=== PATIENT | male | born 1960 | race Asian ===

== ENCOUNTER 2016-06-29 00:34 | Emergency (ER) | payer OTHER, MEDICAID ==
[2016-06-29 00:43] VITALS: TEMP 97.5
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
[2016-06-29 01:47] LABS: ADD DIFF? NO; ADD MORPH? NO; ADD SCAN? NO; ATYPICAL LYMPHOCYTE FLAG 10 (0-99); FRAGMENT RBC FLAG 0 (0-99); HEMOGLOBIN 15.4 g/dL (13.7-17.5); LEFT SHIFT FLG 0 (0-99); LIPEMIA HEMOLYSIS FLAG 90 (0-99); MEAN CELL HEMOGLOBIN 32.2 pg (27.9-34.1); MEAN CELL VOLUME 92.1 fL (81.5-99.8); MEAN PLATELET VOLUME 10.2 fL (8.7-11.7); PLATELET CLUMPS FLAG 0 (0-99); PLATELET COUNT 170 10^3/uL (150-400); RED BLOOD CELL COUNT 4.78 10^6/uL (4.40-6.38); RED CELL DISTRIBUTION WIDTH 13.2 % (11.5-15.2)
[2016-06-29 01:58] LABS: ALANINE AMINOTRANSFERASE 39 IU/L (21-72); ALBUMIN 4.2 g/dL (3.5-5.0); ALKALINE PHOSPHATASE 218 IU/L (38-126); ANION GAP 12 mEq/L (8-16); ASPARTATE AMINOTRANSFERASE 24 IU/L (17-59); BILIRUBIN,TOTAL 0.5 mg/dL (0.1-1.4); CALCIUM 9.4 mg/dL (8.5-10.4); CARBON DIOXIDE 26 mEq/l (22-31); CHLORIDE 97 mEq/L (97-110); CREATININE 0.7 mg/dL (0.7-1.3); GLOMERULAR FILTRATION RATE > 60; GLUCOSE 95 mg/dL (70-100); POTASSIUM 4.5 mEq/L (3.5-5.2); SODIUM 135 mEq/L (134-144); TOTAL PROTEIN 8.9 g/dL (6.3-8.2)
[2016-06-29 02:35] LABS: COLOR YELLOW; LEUKOCYTE ESTERASE,URINE 3+ (NEGATIVE); NITRITE,URINE NEGATIVE (NEGATIVE)
[2016-06-29 02:48] LABS: BACTERIA 3+ /hpf (NONE SEEN); MUCUS TRACE /lpf (NONE-1+); RBC,URINE 15-25 /hpf (0-3); WBC,URINE 50-182 /hpf (0-3)
[2016-06-29 03:37] VITALS: BP 114/82; PULSE 75; RESP 20; O2SAT 96
--- NOTE | 2016-06-29 08:12 | DX ---
Portable Chest, Single View June 29, 2016 0131 Hours Indication: Low temperature. Comparison: March 16, 2016 Findings: The tracheostomy tube, left anterior chest wall port with tip in right atrium, mild cardiom egaly, and diffuse mild peribronchial thickening are all unchanged. The lungs are otherwise clear. No new consolidation, edema, or effusion. Impression: No acute process.
== END 2016-06-29 04:56 | disposition home or self-care (01) ==
LOC: EDBD → EDUNIT#
DX: T68.XXXA Hypothermia, initial encounter (principal); R94.6 Abnormal results of thyroid function studies; E11.9 Type 2 diabetes mellitus without complications; I10 Essential (primary) hypertension; Z91.040 Latex allergy status; Z79.4 Long term (current) use of insulin; X31.XXXA Exposure to excessive natural cold, initial encounter

== ENCOUNTER 2016-07-10 16:09 | Emergency (ER) | payer OTHER, MEDICAID ==
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
--- NOTE | 2016-07-10 17:03 | DX ---
Portable Chest, Single View 16:32 p.m. Hours Indication: Possible sepsis. Chronic indwelling tracheostomy. Comparison: Portable chest dated June 29, 2016 Findings: The tracheostomy tube, left anterior chest wall port, gastrostomy tube, and radiopaque wire or catheter overlying the medial right clavicle are all unchanged. The lungs are hypoventilated with chronic diffuse peribronchial thickening and minimal bibasilar atel ectasis. No new airspace consolidation or effusion. Heart size upper normal for degree of inspiration . Impression: 1. No evidence of aspiration, pneumonia, or effusion. 2. Chronic bronchitis and configuration of tracheostomy tube are unchanged.
[2016-07-10 17:18] LABS: % IMMATURE GRANULYOCYTES 0.1 % (0.0-1.1); ABSOLUTE IMMATURE GRANULOCYTES 0.01 10^3/uL (0.00-0.10); ADD DIFF? NO; ADD MORPH? NO; ADD SCAN? NO; ATYPICAL LYMPHOCYTE FLAG 0 (0-99); FRAGMENT RBC FLAG 0 (0-99); HEMOGLOBIN 14.2 g/dL (13.7-17.5); LEFT SHIFT FLG 0 (0-99); LIPEMIA HEMOLYSIS FLAG 90 (0-99); MEAN CELL HEMOGLOBIN 31.4 pg (27.9-34.1); MEAN CELL HEMOGLOBIN CONCENTR. 34.6 g/dL (32.4-36.7); MEAN CELL VOLUME 90.7 fL (81.5-99.8); MEAN PLATELET VOLUME 9.6 fL (8.7-11.7); PLATELET CLUMPS FLAG 20 (0-99); PLATELET COUNT 210 10^3/uL (150-400); RED BLOOD CELL COUNT 4.52 10^6/uL (4.40-6.38); RED CELL DISTRIBUTION WIDTH 13.2 % (11.5-15.2)
[2016-07-10 17:32] LABS: INR 1.07 (0.83-1.16); PROTIME(PATIENT) 13.8 SEC (12.0-15.0)
[2016-07-10 17:33] LABS: ALANINE AMINOTRANSFERASE 39 IU/L (21-72); ALBUMIN 3.8 g/dL (3.5-5.0); ALKALINE PHOSPHATASE 231 IU/L (38-126); ANION GAP 12 mEq/L (8-16); APTT 33.3 SEC (23.0-38.0); ASPARTATE AMINOTRANSFERASE 27 IU/L (17-59); BILIRUBIN,TOTAL 0.6 mg/dL (0.1-1.4); BILIRUBIN-CONJUGATED 0.4 mg/dL (0.0-0.5); BILIRUBIN-UNCONJUGATED 0.2 mg/dL (0.0-1.1); CALCIUM 9.1 mg/dL (8.5-10.4); CARBON DIOXIDE 27 mEq/l (22-31); CHLORIDE 97 mEq/L (97-110); GLOMERULAR FILTRATION RATE > 60; GLUCOSE 107 mg/dL (70-100); POTASSIUM 3.9 mEq/L (3.5-5.2); SODIUM 136 mEq/L (134-144); TOTAL PROTEIN 8.2 g/dL (6.3-8.2)
[2016-07-10] MEDS ORDERED: NS 1,000 ML IV ONE (17:35)
[2016-07-10 17:38] LABS: COLOR YELLOW; LEUKOCYTE ESTERASE,URINE 3+ (NEGATIVE); NITRITE,URINE NEGATIVE (NEGATIVE)
[2016-07-10 17:45] LABS: AMORPHOUS PRESENT /hpf (NONE-1+); BACTERIA 3+ /hpf (NONE SEEN); MUCUS 2+ /lpf (NONE-1+); RBC,URINE 50-182 /hpf (0-3); WBC,URINE 50-182 /hpf (0-3)
[2016-07-10] MEDS ORDERED: ACETAMINOPHEN 160 MG/5 ML UDCUP ONE ×2 (18:59→19:01)
[2016-07-10] MEDS ORDERED: ACETAMINOPHEN 160 MG/5 ML UDCUP TUBE ONE (19:00)
[2016-07-10 19:14] VITALS: TEMP 101.1
[2016-07-10 19:36] VITALS: BP 112/80; PULSE 112; RESP 22; O2SAT 96
== END 2016-07-10 20:12 | disposition still patient (30) ==
LOC: EDUNIT#
DX: J10.1 Influenza due to other identified influenza virus with other respiratory manifestations (principal); E11.9 Type 2 diabetes mellitus without complications; I10 Essential (primary) hypertension; Z91.040 Latex allergy status; Z79.4 Long term (current) use of insulin
CPT/HCPCS: 71010; 96361; 96365; 99284; J1956

== ENCOUNTER 2016-07-13 10:14 | Emergency (ER) | payer OTHER, MEDICAID ==
[2016-07-13] MEDS ORDERED: NS 1,000 ML BAG *FOR SEPSIS ORDER SET ONLY IV ONE (10:21)
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
[2016-07-13] MEDS ORDERED: MEROPENEM 1 GM in NS 100 ML IV ONE (10:32)
--- NOTE | 2016-07-13 10:57 | CPEKG ---
Heart Rate: 137 RR Interval: 438 P-R Interval: 152 QRSD Interval: 70 QT Interval: 284 QTC Interval: 429 P Sheridan: 38 QRS Sheridan: 176 T Wave Sheridan: 7 EKG Severity - ABNORMAL ECG - EKG Impression: SINUS TACHYCARDIA EKG Impression: LEFT POSTERIOR FASCICULAR BLOCK EKG Impression: LOW VOLTAGE IN FRONTAL LEADS EKG Impression: sinus tachycardia, similar to previous Electronically Signed By: Frank Garcia 13-Jul-2016 10:58:55
[2016-07-13] MEDS ORDERED: ACETAMINOPHEN 325 MG SUPP PR ONE ×2 (10:58→11:01)
[2016-07-13 11:05] LABS: COLOR YELLOW; LEUKOCYTE ESTERASE,URINE 2+ (NEGATIVE); NITRITE,URINE NEGATIVE (NEGATIVE)
[2016-07-13 11:10] LABS: APTT 32.8 SEC (23.0-38.0); INR 1.24 (0.83-1.16); PROTIME(PATIENT) 15.6 SEC (12.0-15.0)
[2016-07-13 11:16] LABS: BACTERIA 4+ /hpf (NONE SEEN); RBC,URINE 50-182 /hpf (0-3); WBC,URINE 50-182 /hpf (0-3)
[2016-07-13 11:22] LABS: ANION GAP 13 mEq/L (8-16); BILIRUBIN,TOTAL 1.2 mg/dL (0.1-1.4); CALCIUM 8.1 mg/dL (8.5-10.4); CARBON DIOXIDE 22 mEq/l (22-31); CHLORIDE 107 mEq/L (97-110); CREATININE 1.3 mg/dL (0.7-1.3); GLOMERULAR FILTRATION RATE 57; GLUCOSE 149 mg/dL (70-100); POTASSIUM 3.6 mEq/L (3.5-5.2); SODIUM 142 mEq/L (134-144)
[2016-07-13 11:26] LABS: % IMMATURE GRANULYOCYTES 0.2 % (0.0-1.1); ABSOLUTE IMMATURE GRANULOCYTES 0.01 10^3/uL (0.00-0.10); ADD DIFF? NO; ADD MORPH? NO; ADD SCAN? NO; ATYPICAL LYMPHOCYTE FLAG 60 (0-99); FRAGMENT RBC FLAG 0 (0-99); HEMATOCRIT 39.4 % (40.0-51.0); HEMOGLOBIN 13.3 g/dL (13.7-17.5); LEFT SHIFT FLG 0 (0-99); LIPEMIA HEMOLYSIS FLAG 90 (0-99); MEAN CELL HEMOGLOBIN 31.9 pg (27.9-34.1); MEAN CELL HEMOGLOBIN CONCENTR. 33.8 g/dL (32.4-36.7); MEAN CELL VOLUME 94.5 fL (81.5-99.8); MEAN PLATELET VOLUME 9.9 fL (8.7-11.7); PLATELET CLUMPS FLAG 0 (0-99); PLATELET COUNT 196 10^3/uL (150-400); RED BLOOD CELL COUNT 4.17 10^6/uL (4.40-6.38); RED CELL DISTRIBUTION WIDTH 13.3 % (11.5-15.2)
--- NOTE | 2016-07-13 11:31 | DX ---
Portable Chest, Single View 11:17 AM Indication: Chest pain Comparison: Portable chest dated July 10, 2016 Findings: The tracheostomy tube, left anterior chest wall port, and radiodense wire versus catheter o verlying the right clavicle are unchanged. Minimal increase patchy consolidation has developed at the left base. Hypoventilation, diffuse modera te peribronchial thickening and linear atelectasis in the right base are otherwise unchanged. No effu aparna. No pneumoperitoneum. Heart size upper normal for degree of inspiration and technique. Impression: 1. New left basilar opacities may represent atelectasis, aspiration or early pneumonia. 2. Otherwise no change since 3 days prior.
[2016-07-13] MEDS ORDERED: NS 1,000 ML IV ONE (11:51)
[2016-07-13 12:31] VITALS: BP 97/65; PULSE 105; RESP 30; TEMP 100.6; O2SAT 98
[2016-07-13 13:05] LABS: ANION GAP 8 mEq/L (8-16); CALCIUM 6.8 mg/dL (8.5-10.4); CARBON DIOXIDE 21 mEq/l (22-31); CHLORIDE 113 mEq/L (97-110); CREATININE 1.1 mg/dL (0.7-1.3); GLOMERULAR FILTRATION RATE > 60; GLUCOSE 154 mg/dL (70-100); POTASSIUM 3.4 mEq/L (3.5-5.2); SODIUM 142 mEq/L (134-144)
== END 2016-07-13 13:36 | disposition short-term general hospital (02) ==
LOC: EDUNIT#
DX: A41.9 Sepsis, unspecified organism (principal); R65.20 Severe sepsis without septic shock; J18.1 Lobar pneumonia, unspecified organism; J10.1 Influenza due to other identified influenza virus with other respiratory manifestations; R50.81 Fever presenting with conditions classified elsewhere; I10 Essential (primary) hypertension; E11.9 Type 2 diabetes mellitus without complications; Z91.040 Latex allergy status; Z79.4 Long term (current) use of insulin
CPT/HCPCS: 71010; 93005; 96361; 96365; 99291; J2185; 82947-QW

== ENCOUNTER 2016-07-21 06:20 | Emergency (ER) | payer OTHER, MEDICAID ==
[2016-07-21 08:02] VITALS: RESP 16
[2016-07-21 08:41] LABS: % IMMATURE GRANULYOCYTES 0.5 % (0.0-1.1); ABSOLUTE IMMATURE GRANULOCYTES 0.03 10^3/uL (0.00-0.10); ADD DIFF? NO; ADD MORPH? NO; ADD SCAN? NO; ATYPICAL LYMPHOCYTE FLAG 20 (0-99); FRAGMENT RBC FLAG 0 (0-99); HEMATOCRIT 38.8 % (40.0-51.0); HEMOGLOBIN 13.1 g/dL (13.7-17.5); LEFT SHIFT FLG 0 (0-99); LIPEMIA HEMOLYSIS FLAG 90 (0-99); MEAN CELL HEMOGLOBIN 31.6 pg (27.9-34.1); MEAN CELL HEMOGLOBIN CONCENTR. 33.8 g/dL (32.4-36.7); MEAN CELL VOLUME 93.7 fL (81.5-99.8); MEAN PLATELET VOLUME 9.8 fL (8.7-11.7); PLATELET CLUMPS FLAG 0 (0-99); PLATELET COUNT 273 10^3/uL (150-400); RED BLOOD CELL COUNT 4.14 10^6/uL (4.40-6.38); RED CELL DISTRIBUTION WIDTH 13.7 % (11.5-15.2)
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
[2016-07-21 08:48] LABS: INR 1.02 (0.83-1.16); PROTIME(PATIENT) 13.3 SEC (12.0-15.0)
[2016-07-21 08:49] LABS: APTT 31.8 SEC (23.0-38.0)
[2016-07-21 09:00] LABS: ANION GAP 10 mEq/L (8-16); BILIRUBIN,TOTAL 0.5 mg/dL (0.1-1.4); CALCIUM 9.1 mg/dL (8.5-10.4); CARBON DIOXIDE 25 mEq/l (22-31); CHLORIDE 104 mEq/L (97-110); CREATININE 0.8 mg/dL (0.7-1.3); GLOMERULAR FILTRATION RATE > 60; GLUCOSE 109 mg/dL (70-100); POTASSIUM 4.5 mEq/L (3.5-5.2); SODIUM 139 mEq/L (134-144)
[2016-07-21] MEDS ORDERED: IPRATROPIUM/ALBUTEROL 3 ML DEYVIAL IH ONE (10:23)
[2016-07-21 11:20] VITALS: BP 120/76; PULSE 81; TEMP 98.2; O2SAT 92
== END 2016-07-21 12:08 | disposition home or self-care (01) ==
LOC: EDUNIT#
DX: R09.02 Hypoxemia (principal); I10 Essential (primary) hypertension; E11.9 Type 2 diabetes mellitus without complications; Z91.040 Latex allergy status; Z79.4 Long term (current) use of insulin

== ENCOUNTER 2016-08-10 00:13 | Inpatient (IN) | payer OTHER, MEDICAID ==
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
[2016-08-10] MEDS ORDERED: NS 1,000 ML IV ONE (01:11)
[2016-08-10 01:16] LABS: % IMMATURE GRANULYOCYTES 0.2 % (0.0-1.1); ABSOLUTE IMMATURE GRANULOCYTES 0.02 10^3/uL (0.00-0.10); ADD DIFF? NO; ADD MORPH? NO; ADD SCAN? NO; ATYPICAL LYMPHOCYTE FLAG 10 (0-99); FRAGMENT RBC FLAG 0 (0-99); HEMATOCRIT 39.6 % (40.0-51.0); HEMOGLOBIN 13.5 g/dL (13.7-17.5); LEFT SHIFT FLG 0 (0-99); LIPEMIA HEMOLYSIS FLAG 90 (0-99); MEAN CELL HEMOGLOBIN 31.8 pg (27.9-34.1); MEAN CELL HEMOGLOBIN CONCENTR. 34.1 g/dL (32.4-36.7); MEAN CELL VOLUME 93.2 fL (81.5-99.8); MEAN PLATELET VOLUME 9.5 fL (8.7-11.7); PLATELET CLUMPS FLAG 0 (0-99); PLATELET COUNT 234 10^3/uL (150-400); RED BLOOD CELL COUNT 4.25 10^6/uL (4.40-6.38); RED CELL DISTRIBUTION WIDTH 13.1 % (11.5-15.2)
[2016-08-10 01:24] LABS: ANION GAP 14 mEq/L (8-16); CALCIUM 9.2 mg/dL (8.5-10.4); CARBON DIOXIDE 27 mEq/l (22-31); CHLORIDE 97 mEq/L (97-110); CREATININE 0.9 mg/dL (0.7-1.3); GLOMERULAR FILTRATION RATE > 60; GLUCOSE 152 mg/dL (70-100); POTASSIUM 3.8 mEq/L (3.5-5.2); SODIUM 138 mEq/L (134-144)
[2016-08-10 01:25] LABS: INR 1.08 (0.83-1.16); PROTIME(PATIENT) 13.9 SEC (12.0-15.0)
[2016-08-10 01:26] LABS: APTT 31.3 SEC (23.0-38.0)
[2016-08-10 01:51] LABS: COLOR YELLOW; LEUKOCYTE ESTERASE,URINE 3+ (NEGATIVE); NITRITE,URINE NEGATIVE (NEGATIVE)
[2016-08-10] MEDS ORDERED: NS 500 ML IV ONE (01:51)
[2016-08-10 01:56] LABS: BACTERIA 3+ /hpf (NONE SEEN); RBC,URINE 15-25 /hpf (0-3); WBC,URINE 50-182 /hpf (0-3)
[2016-08-10 03:27] VITALS: RESP 18
[2016-08-10] MEDS ORDERED: IOPAMIDOL (ISOVUE-300) 100 ML BTL IV ONE (04:30)
[2016-08-10] MEDS ORDERED: AZITHROMYCIN IV 500 MG in D5W 250 ML IV ONE (05:02)
[2016-08-10] MEDS ORDERED: LORazepam 2 MG/ML INJ IVP PRN (07:16)
[2016-08-10] MEDS ORDERED: ACETAMINOPHEN 325 MG TAB PO PRN (07:16)
[2016-08-10] MEDS ORDERED: ONDANSETRON 4 MG/2 ML VIAL IVP PRN (07:16)
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
[2016-08-10] MEDS ORDERED: CEFEPIME HCL 1 GM in D5W 50 ML IV SCH (09:00)
[2016-08-10] MEDS ORDERED: ENOXAPARIN 40 MG/0.4 ML SYR SC SCH (09:00)
[2016-08-10] MEDS ORDERED: ACETAMINOPHEN 650 MG/20.3 ML UDCUP TUBE PRN (10:49)
[2016-08-10] MEDS ORDERED: BENZOCAINE (ORAJEL) GEL 11.9GM TUBE MM PRN (10:49)
[2016-08-10] MEDS ORDERED: BISACODYL 10 MG SUPP PR PRN (10:49)
[2016-08-10 10:55] VITALS: TEMP 97.7
--- NOTE | 2016-08-10 11:41 | PDIAF ---
- Diagnosis Diagnosis: fever Code Status: Full Code - Medication Management Discharge Medications: Medications to Continue on Transfer Acetaminophen [Tylenol 650/20.3ML Oral Liq (*)] 20 ml TUBE Q4 PRN 11/06/15 [ Last Taken 07/12/16] Bisacodyl [Dulcolax] 10 mg [place] DAILY PRN 11/06/15 [Last Taken 07/12/16] Cetirizine [ZyrTEC 10 mg (*)] 10 mg TUBE DAILY@11/06/15 [Last Taken 08/09/16] Doxazosin Mesylate [Cardura 4 MG (*)] 4 mg TUBE HS@11/06/15 [Last Taken 08/09] GLYCOPYRROLATE 1 mg TUBE TID@,,11/06/15 [Last Taken 08/09/16 20:00] Insulin Detemir [Levemir Flextouch] 20 unit SQ HS@11/06/15 [Last Taken ] guaiFENesin [Robitussin Oral Liquid (*)] 600 mg TUBE BID@,11/06/15 [Last Taken 08/09/16 18:00] levETIRAcetam [Keppra Oral Liquid 500 mg/5 ml (*)] 500 mg TUBE BID@, [Last Taken 08/09/16 18:00] Phenytoin [Dilantin] 125 mg TUBE BID@,03/16/16 [Last Taken 08/09/16 20:00] Amox Tr/Potassium Clavulanate [Augmentin 400MG/5ML (*)] 875 mg PO BID #0 bottle 08/10/16 [Last Taken Unknown] Benzocaine [Orajel (*)] 1 beba MM Q8 PRN 08/10/16 [Last Taken Unknown] Discharge Medications: Refer to the Discharge Home Medication list for PRN reason. PICC Care - Routine: N/A - Orders Services needed: Registered Nurse, Physical Therapy, Occupational Therapy - Follow Up Care Current Providers and Referrals: JUAN PAUL [Primary Care Provider] - As per Instructions
[2016-08-10] MEDS ORDERED: GLYCOPYRROLATE 1 MG TAB TUBE SCH (13:00)
--- NOTE | 2016-08-10 14:26 | GDS ---
[f rep st] DISCHARGE SUMMARY DISCHARGE DIAGNOSIS: Persistent vegetative state. PHYSICAL EXAM: GENERAL: The patient is unresponsive. VITAL SIGNS: Afebrile at 36.5, pulse is 82, respiratory rate is 18, blood pressure is 99/73, saturating 100% on 10 L. I have seen and evaluated the patient on the day of discharge. HOSPITAL COURSE: The patient is a 56-year-old male, who has a history of traumatic brain injury and persistent vegetative state. He was sent from his long-term nursing facility to the emergency room , with complaints of fever. During this hospital course, the patient did not have any fever identif ied. He was treated with IV antibiotics secondary to a left lower lobe pneumonia. The patient is c hronically at risk for aspiration. Will continue outpatient Augmentin, although the diagnosis of as piration pneumonia is not definitive at the time of disposition. The patient will return to [facility] where he normally resides, with his continued care. He can return to the emergency room if he continues to have fevers or develops any other underlying signs of illness or complication. DISCHARGE MEDICATIONS: Please refer to EMR form. I have not adjusted the patient's previously pres cribed home medications, with the exception of the addition of Augmentin. There are no pending studies other than blood cultures and urine cultures, which can be evaluated fr om his retirement facility by his physician. Follow up will be with Dr. Ronak Sorensen, his primary care provider. /[id number]/MODL
[2016-08-10 14:36] VITALS: BP 96/63; PULSE 80; O2SAT 99
[2016-08-10] MEDS ORDERED: guaiFENesin 200 MG/10 ML UDCUP TUBE SCH (18:00)
[2016-08-10] MEDS ORDERED: levETIRAcetam 500 MG/5 ML UDCUP TUBE SCH (18:00)
[2016-08-10] MEDS ORDERED: PHENYTOIN 125 MG TUBE SCH (20:00)
[2016-08-10] MEDS ORDERED: DOXAZOSIN MESYLATE 4 MG TAB TUBE SCH (20:00)
[2016-08-10] MEDS ORDERED: NON-FORMULARY NEW DRUG (Insulin Detemir [Levemir Flextouch] 20 UNIT) SQ SCH (20:00)
[2016-08-11] MEDS ORDERED: CETIRIZINE 10 MG TAB TUBE SCH (08:00)
== END 2016-08-10 14:38 | DRG 178 ==
PROVIDERS: ADMIT Internal Medicine; ATTEND Internal Medicine
DX: J69.0 Pneumonitis due to inhalation of food and vomit (principal); R40.3 Persistent vegetative state; S06.9X6S Unspecified intracranial injury with loss of consciousness greater than 24 hours without return to pre-existing conscious level with patient surviving, sequela; R56.1 Post traumatic seizures; Z93.1 Gastrostomy status; Z93.0 Tracheostomy status; Z93.59 Other cystostomy status; E11.9 Type 2 diabetes mellitus without complications; I10 Essential (primary) hypertension
CPT/HCPCS: 96365; J0456; J0692; J0696; J1650; Q9967

== ENCOUNTER 2016-09-07 00:57 | Emergency (ER) | payer OTHER, MEDICAID ==
[2016-09-07] MEDS ORDERED: NS 1,000 ML IV ONE (01:16)
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
[2016-09-07 01:55] LABS: COLOR YELLOW; LEUKOCYTE ESTERASE,URINE 2+ (NEGATIVE); NITRITE,URINE NEGATIVE (NEGATIVE)
[2016-09-07 02:05] LABS: BACTERIA 4+ /hpf (NONE SEEN); RBC,URINE 50-182 /hpf (0-3); WBC,URINE 50-182 /hpf (0-3)
[2016-09-07 02:06] LABS: % IMMATURE GRANULYOCYTES 0.3 % (0.0-1.1); ABSOLUTE IMMATURE GRANULOCYTES 0.02 10^3/uL (0.00-0.10); ABSOLUTE NRBC COUNT 0.04 10^3/uL (0-0.01); ADD DIFF? NO; ADD MORPH? NO; ADD SCAN? NO; ATYPICAL LYMPHOCYTE FLAG 40 (0-99); FRAGMENT RBC FLAG 0 (0-99); HEMATOCRIT 40.1 % (40.0-51.0); HEMOGLOBIN 13.9 g/dL (13.7-17.5); LEFT SHIFT FLG 0 (0-99); LIPEMIA HEMOLYSIS FLAG 90 (0-99); MEAN CELL HEMOGLOBIN CONCENTR. 34.7 g/dL (32.4-36.7); MEAN CELL VOLUME 89.5 fL (81.5-99.8); NRBC-AUTO% 0.6 % (0.0-0.2); PLATELET CLUMPS FLAG 10 (0-99); PLATELET COUNT 239 10^3/uL (150-400); RED BLOOD CELL COUNT 4.48 10^6/uL (4.40-6.38); RED CELL DISTRIBUTION WIDTH 12.7 % (11.5-15.2)
[2016-09-07 02:33] LABS: INR 1.05 (0.83-1.16); PROTIME(PATIENT) 13.6 SEC (12.0-15.0)
[2016-09-07 02:34] LABS: APTT 32.5 SEC (23.0-38.0)
[2016-09-07 02:40] LABS: ALANINE AMINOTRANSFERASE 36 IU/L (21-72); ALBUMIN 3.7 g/dL (3.5-5.0); ALKALINE PHOSPHATASE 197 IU/L (38-126); ANION GAP 13 mEq/L (8-16); ASPARTATE AMINOTRANSFERASE 23 IU/L (17-59); BILIRUBIN,TOTAL 0.7 mg/dL (0.1-1.4); BILIRUBIN-CONJUGATED 0.4 mg/dL (0.0-0.5); BILIRUBIN-UNCONJUGATED 0.3 mg/dL (0.0-1.1); CARBON DIOXIDE 24 mEq/l (22-31); CHLORIDE 97 mEq/L (97-110); CREATININE 0.7 mg/dL (0.7-1.3); GLOMERULAR FILTRATION RATE > 60; GLUCOSE 128 mg/dL (70-100); POTASSIUM 3.8 mEq/L (3.5-5.2); SODIUM 134 mEq/L (134-144); TOTAL PROTEIN 8.2 g/dL (6.3-8.2)
[2016-09-07 04:03] VITALS: O2SAT 100
[2016-09-07 04:49] VITALS: BP 114/56; PULSE 84; RESP 12; TEMP 98.8
== END 2016-09-07 04:49 | disposition home or self-care (01) ==
LOC: EDUNIT#
DX: N30.01 Acute cystitis with hematuria (principal); E11.9 Type 2 diabetes mellitus without complications; I10 Essential (primary) hypertension; B96.20 Unspecified Escherichia coli [E. coli] as the cause of diseases classified elsewhere; Z79.4 Long term (current) use of insulin

== ENCOUNTER 2016-10-06 06:15 | Emergency (ER) | payer OTHER, MEDICAID ==
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
[2016-10-06 06:43] VITALS: BP 127/89; PULSE 62; RESP 18; TEMP 97.7; O2SAT 94
== END 2016-10-06 07:05 | disposition home or self-care (01) ==
LOC: EDUNIT#
PROC: 0DH63UZ Insertion of Feeding Device into Stomach, Percutaneous Approach (ICD-10-PCS; principal; 2016-10-06)
PROC: 0DP63UZ Removal of Feeding Device from Stomach, Percutaneous Approach (ICD-10-PCS; principal; 2016-10-06)
DX: K94.23 Gastrostomy malfunction (principal); I10 Essential (primary) hypertension; E11.9 Type 2 diabetes mellitus without complications; Z79.4 Long term (current) use of insulin; Z91.040 Latex allergy status

== ENCOUNTER 2016-10-06 16:43 | Inpatient (IN) | payer OTHER, MEDICAID ==
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
[2016-10-06 17:20] LABS: % IMMATURE GRANULYOCYTES 0.2 % (0.0-1.1); ABSOLUTE IMMATURE GRANULOCYTES 0.02 10^3/uL (0.00-0.10); ADD DIFF? NO; ADD MORPH? NO; ADD SCAN? NO; ATYPICAL LYMPHOCYTE FLAG 10 (0-99); FRAGMENT RBC FLAG 0 (0-99); HEMATOCRIT 43.8 % (40.0-51.0); LEFT SHIFT FLG 0 (0-99); LIPEMIA HEMOLYSIS FLAG 90 (0-99); MEAN CELL HEMOGLOBIN 30.9 pg (27.9-34.1); MEAN CELL HEMOGLOBIN CONCENTR. 34.2 g/dL (32.4-36.7); MEAN CELL VOLUME 90.3 fL (81.5-99.8); MEAN PLATELET VOLUME 10.1 fL (8.7-11.7); PLATELET CLUMPS FLAG 0 (0-99); PLATELET COUNT 178 10^3/uL (150-400); RED BLOOD CELL COUNT 4.85 10^6/uL (4.40-6.38); RED CELL DISTRIBUTION WIDTH 13.4 % (11.5-15.2)
[2016-10-06 17:26] LABS: COLOR YELLOW; LEUKOCYTE ESTERASE,URINE 3+ (NEGATIVE); NITRITE,URINE NEGATIVE (NEGATIVE)
[2016-10-06 17:29] LABS: INR 1.01 (0.83-1.16); PROTIME(PATIENT) 13.2 SEC (12.0-15.0)
[2016-10-06] MEDS ORDERED: NS 2,000 ML IV ONE ×2 (17:32→19:12)
[2016-10-06 17:34] LABS: ANION GAP 12 mEq/L (8-16); BILIRUBIN,TOTAL 0.8 mg/dL (0.1-1.4); CALCIUM 9.7 mg/dL (8.5-10.4); CARBON DIOXIDE 27 mEq/l (22-31); CHLORIDE 95 mEq/L (97-110); CREATININE 0.7 mg/dL (0.7-1.3); GLOMERULAR FILTRATION RATE > 60; GLUCOSE 139 mg/dL (70-100); POTASSIUM 4.4 mEq/L (3.5-5.2); SODIUM 134 mEq/L (134-144)
[2016-10-06 17:37] LABS: BACTERIA 4+ /hpf (NONE SEEN); MUCUS 1+ /lpf (NONE-1+); WBC,URINE 25-50 /hpf (0-3); YEAST PRESENT /hpf (NONE SEEN)
[2016-10-06 18:16] LABS: LACGHOST ORDER
[2016-10-06] MEDS ORDERED: BENZOCAINE (ORAJEL) GEL 11.9GM TUBE MM PRN (19:05)
[2016-10-06] MEDS ORDERED: BISACODYL 10 MG SUPP PR PRN (19:05)
[2016-10-06] MEDS ORDERED: ACETAMINOPHEN 650 MG/20.3 ML UDCUP TUBE PRN (19:05)
[2016-10-06] MEDS ORDERED: D50W 25 GM/50 ML SYR IVP PRN (19:08)
[2016-10-06] MEDS ORDERED: ONDANSETRON 4 MG/2 ML VIAL IVP PRN (19:11)
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
[2016-10-06] MEDS: GLYCOPYRROLATE 1 MG TAB TUBE SCH (22:20)
[2016-10-06] MEDS: DOXAZOSIN MESYLATE 4 MG TAB TUBE SCH (22:20)
[2016-10-06] MEDS: INSULIN GLARGINE 100 UNITS/ML SYRINGE SC SCH (22:21)
[2016-10-06] MEDS: guaiFENesin 200 MG/10 ML UDCUP TUBE SCH (22:21)
[2016-10-06] MEDS: INSULIN REGULAR HUMAN 100 UNIT/ML SC SCH (22:22)
[2016-10-06] MEDS: PHENYTOIN 100 MG/4 ML UDL TUBE SCH (22:22)
[2016-10-06] MEDS: MEROPENEM 1 GM in NS 100 ML IV SCH (22:23)
[2016-10-06] MEDS: levETIRAcetam 500 MG/5 ML UDCUP TUBE SCH (22:28)
[2016-10-07] MEDS: NS 1,000 ML IV SCH ×3 (00:53→23:46)
[2016-10-07] MEDS: levETIRAcetam 500 MG/5 ML UDCUP TUBE SCH ×2 (05:38→17:49)
[2016-10-07] MEDS: MEROPENEM 1 GM in NS 100 ML IV SCH ×3 (05:39→21:08)
[2016-10-07] MEDS: GLYCOPYRROLATE 1 MG TAB TUBE SCH ×3 (05:39→20:49)
[2016-10-07] MEDS: guaiFENesin 200 MG/10 ML UDCUP TUBE SCH ×2 (05:39→17:49)
[2016-10-07 06:33] LABS: % IMMATURE GRANULYOCYTES 0.2 % (0.0-1.1); ABSOLUTE IMMATURE GRANULOCYTES 0.01 10^3/uL (0.00-0.10); ADD DIFF? NO; ADD MORPH? NO; ADD SCAN? NO; ALANINE AMINOTRANSFERASE 25 IU/L (21-72); ALBUMIN 3.3 g/dL (3.5-5.0); ALKALINE PHOSPHATASE 132 IU/L (38-126); ANION GAP 9 mEq/L (8-16); ASPARTATE AMINOTRANSFERASE 18 IU/L (17-59); ATYPICAL LYMPHOCYTE FLAG 50 (0-99); BILIRUBIN,TOTAL 0.8 mg/dL (0.1-1.4); BILIRUBIN-CONJUGATED 0.3 mg/dL (0.0-0.5); BILIRUBIN-UNCONJUGATED 0.5 mg/dL (0.0-1.1); CALCIUM 8.4 mg/dL (8.5-10.4); CARBON DIOXIDE 24 mEq/l (22-31); CHLORIDE 105 mEq/L (97-110); CREATININE 0.6 mg/dL (0.7-1.3); FRAGMENT RBC FLAG 0 (0-99); GLOMERULAR FILTRATION RATE > 60; GLUCOSE 93 mg/dL (70-100); HEMATOCRIT 35.7 % (40.0-51.0); HEMOGLOBIN 11.9 g/dL (13.7-17.5); LEFT SHIFT FLG 0 (0-99); LIPEMIA HEMOLYSIS FLAG 80 (0-99); MEAN CELL HEMOGLOBIN 30.8 pg (27.9-34.1); MEAN CELL HEMOGLOBIN CONCENTR. 33.3 g/dL (32.4-36.7); MEAN CELL VOLUME 92.5 fL (81.5-99.8); MEAN PLATELET VOLUME 9.9 fL (8.7-11.7); PLATELET CLUMPS FLAG 10 (0-99); PLATELET COUNT 129 10^3/uL (150-400); POTASSIUM 4.1 mEq/L (3.5-5.2); RED BLOOD CELL COUNT 3.86 10^6/uL (4.40-6.38); RED CELL DISTRIBUTION WIDTH 13.5 % (11.5-15.2); SODIUM 138 mEq/L (134-144); TOTAL PROTEIN 6.8 g/dL (6.3-8.2)
[2016-10-07] MEDS: ENOXAPARIN 40 MG/0.4 ML SYR SC SCH (08:07)
[2016-10-07] MEDS: PHENYTOIN 100 MG/4 ML UDL TUBE SCH ×2 (08:09→20:48)
[2016-10-07] MEDS: CETIRIZINE 10 MG TAB TUBE SCH (08:09)
[2016-10-07] MEDS: INSULIN REGULAR HUMAN 100 UNIT/ML SC SCH ×4 (08:17→21:13)
--- NOTE | 2016-10-07 10:41 | HOSPPROG ---
Hospitalist Progress Note Assessment/Plan: 56 yo M w persistent vegetative state and R staghorn calculus w recurrent admissions for sepsis of urinary source admitted w sepsis of urinary source sepsis: source is urine lactate improved abx/ivf ? pneumonia: b/l airspace disease w high risk for aspiration (treat as HCAP, suspected aspiration) meropenem probably OK to hold atypical coverage complicated urinary tract infection: w R staghorn calculus- there at least since november i have reviewed 2 years of micro- urine typically contains pseudomonas, klebsiella and ecoli at least one pseudomonas has been meropenem resistent, pcn allergy noted ID to see, I discussed this w R staghorn calculus: as evidenced by recurrent admissions for sepsis or urinary source, this will serve as ongoing source of infection i mentioned this to his brother (i called him) and it doesnt sound likehe's heard this before proph: lmwh seizure disorder: keppra plan of care: full code in discission w Dr. Nath, there was an ethics consult on Mr. Arias a few years ago during a hospitalization for life threatening cdiff at that time, family was adamant that "everything be done" i called brother ( is KAMALA, I believe) and relayed that options are surgical management of stone (?nephrectomy) vs repeated admissions vs consideration of not treating infections and comfort care. I discussed that many people in this situation would choose comfort care dispo: inpatient Subjective: opens eyes to voice. case d/w dr nath. cxr interp by me Objective: Vital Signs Temp Pulse Resp BP Pulse Ox 37.2 C 53 L 20 154/94 H 100 10/07/16 08:00 10/07/16 08:00 10/07/16 08:00 10/07/16 08:00 10/07/16 08:00 Laboratory Results 10/07/16 05:45 10/07/16 05:45 10/06/16 10/07/16 10/08/16 05:59 05:59 05:59 Intake Total 4000 Output Total 1550 Balance 2450 PT 13.2 SEC (12.0-15.0) 10/06/16 17:06 INR 1.01 (0.83-1.16) 10/06/16 17:06 - Physical Exam Constitutional: no apparent distress, appears nourished Eyes: PERRL, anicteric sclera Ears, Nose, Mouth, Throat: moist mucous membranes, hearing normal Cardiovascular: regular rate and rhythym, no murmur, rub, or gallop, No tachycardia Respiratory: no respiratory distress, other (diffuse rhonchi), No no rales or rhonchi Gastrointestinal: normoactive bowel sounds, soft, non-tender abdomen Genitourinary: no bladder fullness, english in urethra Skin: warm, normal color Musculoskeletal: no muscle tenderness, No full muscle strength Neurologic: No AAOx3 Psychiatric: not anxious, No interacting appropriately ICD10 Worksheet Patient Problems: Problems Problem Status Onset Complicated UTI (urinary tract infection) Acute Sepsis Acute Infection due to resistant organism Active Injury of head Active 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
--- NOTE | 2016-10-07 14:24 | WOCRNPDOC ---
WOCRN Advanced Assessment Note - Skin Integrity Problem, Advanced Assess Left First Toe Laceration Dressing Type: Open to Air (provided bandaid and Silvasorb for staff placement) Exudate Amount: None Isis Wound Tissue: Dry Isis Wound Swelling: None Wound Edges: Attached Site Odor: None Site Measurement - Head-to-Toe Length X Width X Depth (cm): approx 1 cm linear x 0.01 Skin Integrity Problem Comment: Small, thin laceration at distal L great toe, conjunct and paralleling toenail. Provided and discussed with DAVID Lynn the application of silvasorb gel and bandaid to site. Staff to manage.
--- NOTE | 2016-10-07 17:48 | PCMIDPN ---
Assessment/Plan: Assessment/Plan: * Possible sepsis syndrome: Unclear if current presentation due to sepsis with inability to obtain history from patient although reported to have fever and tachycardia prior to presentation. Brief elevation in lactate which has now resolved. Not associated with leukocytosis or left shift although may have less predictive value with chronic illness. Urine likely to be chronically colonized and chest x-ray appears to be improving more compatible with pulmonary edema rather than pneumonia. Will continue empiric pneumonia pending blood culture findings and clinical course. If blood cultures remain negative, would favor stopping antibiotics. Reviewed with Dr. Grullon and agree that staghorn calculus poses significant risk for ongoing problems with recurrent UTI or urosepsis. * History of VRE: Contact precautions. * History of carbapenem resistant Pseudomonas in August: Isolates in September were however carbapenems susceptible. Reasonable to continue meropenem pending culture data. 10/07/16 17:45 10/07/16 17:50 10/07/16 17:55 Subjective: Patient well known to Infectious Disease service from prior hospital care. Patient with chronic vegetative state, recurrent history of infections including recurrent UTI, bacteremia and C difficile colitis. [facility] for fever and tachycardia and urine noted to be cloudy. Noted to have copious sputum during emergency department visit. Prior microbiologic data and clinical history reviewed. Objective: Vital Signs Temp Pulse Resp BP Pulse Ox 36.4 C 51 L 18 110/70 94 10/07/16 16:00 10/07/16 16:29 10/07/16 16:29 10/07/16 16:00 10/07/16 16:29 Laboratory Results 10/07/16 05:45 10/07/16 05:45 10/06/16 10/07/16 10/08/16 05:59 05:59 05:59 Intake Total 4000 0 Output Total 1550 850 Balance 2450 -850 - Physical Exam General Appearance: non-toxic, other (Unresponsive) EENT: No scleral icterus Respiratory: lungs clear, No respiratory distress Neck: other (Tracheostomy in place) Cardiac/Chest: regular rate, rhythm Abdomen: non-tender, No distended Skin: other (Fissure near great toenail on left) ICD10 Worksheet Patient Problems: Problems Problem Status Onset Complicated UTI (urinary tract infection) Acute Sepsis Acute Infection due to resistant organism Active Injury of head Active 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
[2016-10-07] MEDS: DOXAZOSIN MESYLATE 4 MG TAB TUBE SCH (20:49)
[2016-10-07] MEDS: INSULIN GLARGINE 100 UNITS/ML SYRINGE SC SCH (21:13)
--- NOTE | 2016-10-08 02:12 | HOSPPROG ---
Hospitalist Progress Note Assessment/Plan: Contacted by lab that he has coag neg staph in BCx. Reviewed VS, appears stable ; currently on Ko for GNR bacteremia. Will not add abx at this time as CORRECTIVE THERAPY AIDE is likely contaminant; will reconsider if clinical status changes. 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
[2016-10-08] MEDS: levETIRAcetam 500 MG/5 ML UDCUP TUBE SCH ×2 (04:01→18:08)
[2016-10-08] MEDS: guaiFENesin 200 MG/10 ML UDCUP TUBE SCH ×2 (04:01→18:09)
[2016-10-08] MEDS: GLYCOPYRROLATE 1 MG TAB TUBE SCH ×3 (04:01→19:35)
[2016-10-08] MEDS: MEROPENEM 1 GM in NS 100 ML IV SCH ×3 (05:01→21:38)
[2016-10-08] MEDS: CETIRIZINE 10 MG TAB TUBE SCH (08:28)
[2016-10-08] MEDS: PHENYTOIN 100 MG/4 ML UDL TUBE SCH ×2 (08:29→21:31)
[2016-10-08] MEDS: INSULIN REGULAR HUMAN 100 UNIT/ML SC SCH ×4 (08:29→23:23)
[2016-10-08] MEDS: ENOXAPARIN 40 MG/0.4 ML SYR SC SCH (08:31)
[2016-10-08] MEDS: NS 1,000 ML IV SCH (10:40)
--- NOTE | 2016-10-08 12:47 | GCON ---
[f rep st] CONSULTATION DATE OF CONSULTATION: 10/08/2016 REFERRING PHYSICIAN: Dayanna Weller MD REASON FOR CONSULTATION: Staghorn calculus, with recurrent sepsis. HISTORY OF PRESENT ILLNESS: The patient is a 56-year-old male, who is in a persistent vegetative st ate, residing in [facility]. He has been hospitalized on numerous occasions for urinary tract in fection/urosepsis. He has a known right staghorn renal calculus. The patient was readmitted, for p ossible fevers and tachycardia, 2 days earlier. He does have gram-negative rods in his urine, and i s otherwise clinically stable. A repeat CT scan does show a full staghorn calculus in the right kid erin, with mild atrophy and perinephric stranding. He has no bladder or ureteral stones. PAST MEDICAL HISTORY: Positive for traumatic brain injury, chronic respiratory failure, chronic Fol ey catheter. ALLERGIES: Latex and amoxicillin. His other history is well documented on previous chart. Labs and CAT scan are as noted above. He h as creatinine of 0.6. IMPRESSION: Right staghorn calculus, with recurrent urosepsis. RECOMMENDATION: The patient likely needs to undergo percutaneous nephrostolithotomy for complete st one removal, in an effort to try to sterilize the urine. Interestingly, his infections have been ps eudomonas rather than proteus. He may well require multiple procedures to render him stone-free, du e to the size and location of the stones. I will make OR scheduling for his initial procedure withi n the next week or so. In the interim, since he does remain stable and has normal white count, he c an be discharged on appropriate antibiotics. Based on his cultures, preoperative antibiotic selecti on will be needed. /[id number]/MODL
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
--- NOTE | 2016-10-08 17:53 | PCMIDPN ---
Assessment/Plan: Assessment: possible sepsis due to UTI although fever and leukocytosis not consistently demonstrated this visit. Stable examination. Covered empirically with meropenem. Unclear diagnosis and would favor stopping antibiotics tomorrow if there is no clear pathogen or fever. Single blood culture with coag negative staph most c/w contamination. Plan: 1) Continue empiric meropenem one more day while observing cultures. 2) Discontinue abx if no fevers or culture positivity. 3) Renal consult on staghorn calculus. This may cause recurrent infection events and lead to more admission and increased patient risk from a sepsis standpoint. Subjective: Patient in chronic long-term vegetative state. No change in presentation and appearance over time. Objective: meropenem # 2 Vital Signs Temp Pulse Resp BP Pulse Ox 36.6 C 64 14 139/78 H 98 10/08/16 16:00 10/08/16 16:00 10/08/16 16:00 10/08/16 16:00 10/08/16 16:00 Microbiology 10/06/16 18:19 Blood Panel (PCR) - Final Blood Staph Coagulase Negative Laboratory Results 10/07/16 05:45 10/07/16 05:45 10/07/16 10/08/16 10/09/16 05:59 05:59 05:59 Intake Total 4000 1150 1604 Output Total 0205 990 5389 Balance 2450 300 54 - Physical Exam General Appearance: WD/WN, non-toxic, other (chronic vegetative state) Respiratory: lungs clear, normal breath sounds, No respiratory distress Cardiac/Chest: regular rate, rhythm, No tachycardia Skin: normal color, warm/dry, No rash ICD10 Worksheet Patient Problems: Problems Problem Status Onset Complicated UTI (urinary tract infection) Acute Sepsis Acute Infection due to resistant organism Active Injury of head Active 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
[2016-10-08] MEDS: DOXAZOSIN MESYLATE 4 MG TAB TUBE SCH (19:34)
[2016-10-08] MEDS: INSULIN GLARGINE 100 UNITS/ML SYRINGE SC SCH (23:23)
[2016-10-09] MEDS: guaiFENesin 200 MG/10 ML UDCUP TUBE SCH ×2 (04:20→19:09)
[2016-10-09] MEDS: levETIRAcetam 500 MG/5 ML UDCUP TUBE SCH ×2 (04:20→19:09)
[2016-10-09] MEDS: GLYCOPYRROLATE 1 MG TAB TUBE SCH ×3 (04:20→20:50)
[2016-10-09] MEDS: MEROPENEM 1 GM in NS 100 ML IV SCH ×3 (04:58→22:18)
[2016-10-09 05:02] LABS: % IMMATURE GRANULYOCYTES 0.2 % (0.0-1.1); ABSOLUTE IMMATURE GRANULOCYTES 0.01 10^3/uL (0.00-0.10); ADD DIFF? NO; ADD MORPH? NO; ADD SCAN? NO; ATYPICAL LYMPHOCYTE FLAG 40 (0-99); FRAGMENT RBC FLAG 0 (0-99); HEMATOCRIT 37.3 % (40.0-51.0); HEMOGLOBIN 12.6 g/dL (13.7-17.5); LEFT SHIFT FLG 0 (0-99); LIPEMIA HEMOLYSIS FLAG 90 (0-99); MEAN CELL HEMOGLOBIN 31.3 pg (27.9-34.1); MEAN CELL HEMOGLOBIN CONCENTR. 33.8 g/dL (32.4-36.7); MEAN CELL VOLUME 92.8 fL (81.5-99.8); MEAN PLATELET VOLUME 10.2 fL (8.7-11.7); PLATELET CLUMPS FLAG 20 (0-99); PLATELET COUNT 147 10^3/uL (150-400); RED BLOOD CELL COUNT 4.02 10^6/uL (4.40-6.38); RED CELL DISTRIBUTION WIDTH 13.4 % (11.5-15.2)
[2016-10-09 05:13] LABS: ANION GAP 8 mEq/L (8-16); CALCIUM 8.9 mg/dL (8.5-10.4); CARBON DIOXIDE 23 mEq/l (22-31); CHLORIDE 107 mEq/L (97-110); CREATININE 0.6 mg/dL (0.7-1.3); GLOMERULAR FILTRATION RATE > 60; GLUCOSE 91 mg/dL (70-100); POTASSIUM 3.8 mEq/L (3.5-5.2); SODIUM 138 mEq/L (134-144)
[2016-10-09] MEDS: INSULIN REGULAR HUMAN 100 UNIT/ML SC SCH ×4 (08:52→21:08)
[2016-10-09] MEDS ORDERED: levETIRAcetam 500 MG in NS 100 ML IV ONE ×2 (09:01→19:02)
[2016-10-09] MEDS ORDERED: PHENYTOIN SODIUM 100 MG/2 ML VIAL IVP ONE (09:03)
[2016-10-09] MEDS: CETIRIZINE 10 MG TAB TUBE SCH (09:32)
[2016-10-09] MEDS: PHENYTOIN 100 MG/4 ML UDL TUBE SCH ×2 (09:33→21:23)
[2016-10-09] MEDS: NS 1,000 ML IV SCH ×2 (09:45→22:18)
[2016-10-09] MEDS: ENOXAPARIN 40 MG/0.4 ML SYR SC SCH (09:45)
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
--- NOTE | 2016-10-09 14:24 | PCMIDPN ---
Assessment/Plan: Assessment/Plan: 1. Fever: - no fever since being here. -blood cx with one set from port with CoNS. peripheral vein draw ngtd. Would expect ongoing fevers, if truely represented infection -urine cx still with GNR x 2 , ID pending. has staghorn calculus. Dr. Ramirez to schedule procedure. -CXr pulm edema, improved compared to September's study. -Venous lactic acid elevated on admit, now improved. -Unclear as to the etiology of his presentation. -Will repeat blood cx today. -currently on Merem. Meds merem. Subjective: afebrile. pt nonverbal, in vegetative state. Objective: Vital Signs Temp Pulse Resp BP Pulse Ox 36.7 C 70 12 133/84 H 95 10/09/16 11:03 10/09/16 11:03 10/09/16 09:12 10/09/16 11:03 10/09/16 11:03 Microbiology 10/06/16 18:19 Blood Panel (PCR) - Final Blood Staph Coagulase Negative Laboratory Results 10/09/16 04:30 10/09/16 04:30 10/08/16 10/09/16 10/10/16 05:59 05:59 05:59 Intake Total 1150 1604 Output Total 850 1700 Balance 300 -96 - Physical Exam General Appearance: other (eyes closed. doesn't open to verbal stimuli. 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
[2016-10-09] MEDS ORDERED: IOPAMIDOL (ISOVUE-300) 100 ML BTL IV ONE (17:22)
[2016-10-09] MEDS ORDERED: PHENYTOIN SODIUM IV ONE (19:03)
[2016-10-09] MEDS ORDERED: NS IV ONE (19:03)
[2016-10-09] MEDS: DOXAZOSIN MESYLATE 4 MG TAB TUBE SCH (20:50)
[2016-10-09] MEDS: INSULIN GLARGINE 100 UNITS/ML SYRINGE SC SCH (21:08)
[2016-10-10] MEDS ORDERED: levETIRAcetam 500 MG in NS 100 ML IV ONE (05:30)
[2016-10-10] MEDS: GLYCOPYRROLATE 1 MG TAB TUBE SCH ×2 (05:55→12:29)
[2016-10-10] MEDS: guaiFENesin 200 MG/10 ML UDCUP TUBE SCH (05:55)
[2016-10-10] MEDS: MEROPENEM 1 GM in NS 100 ML IV SCH (06:14)
[2016-10-10] MEDS: levETIRAcetam 500 MG/5 ML UDCUP TUBE SCH (07:13)
[2016-10-10] MEDS: INSULIN REGULAR HUMAN 100 UNIT/ML SC SCH ×2 (08:47→12:29)
[2016-10-10 09:04] VITALS: PULSE 51; O2SAT 99
[2016-10-10] MEDS: ENOXAPARIN 40 MG/0.4 ML SYR SC SCH (09:23)
[2016-10-10] MEDS: CETIRIZINE 10 MG TAB TUBE SCH (09:23)
[2016-10-10] MEDS: PHENYTOIN 100 MG/4 ML UDL TUBE SCH (09:23)
[2016-10-10 09:46] VITALS: BP 117/74; RESP 20; TEMP 97.9
[2016-10-10] MEDS: NS 1,000 ML IV SCH (10:20)
--- NOTE | 2016-10-10 10:54 | PDIAF ---
- Diagnosis Diagnosis: infected kidney stone Code Status: Full Code - Medication Management Discharge Medications: Medications to Continue on Transfer Acetaminophen [Tylenol 650/20.3ML Oral Liq (*)] 20 ml TUBE Q4 PRN 11/06/15 [ Last Taken 07/12/16] Bisacodyl [Dulcolax] 10 mg VA DAILY PRN 11/06/15 [Last Taken 07/12/16] Cetirizine [ZyrTEC 10 mg (*)] 10 mg TUBE DAILY@08 11/06/15 [Last Taken 10/06/16] Doxazosin Mesylate [Cardura 4 MG (*)] 4 mg TUBE HS@11/06/15 [Last Taken 10/05] GLYCOPYRROLATE 2 mg TUBE TID@,,11/06/15 [Last Taken 10/06/16 05:00] Insulin Detemir [Levemir Flextouch] 20 unit SQ HS@11/06/15 [Last Taken ] guaiFENesin [Robitussin Oral Liquid (*)] 600 mg TUBE BID@,11/06/15 [Last Taken 10/06/16 05:00] levETIRAcetam [Keppra Oral Liquid 500 mg/5 ml (*)] 500 mg TUBE BID@, [Last Taken 10/06/16 05:00] Phenytoin [Dilantin] 125 mg TUBE BID@,03/16/16 [Last Taken 10/06/16 08:00] Benzocaine [Orajel (*)] 1 beba MM Q8 PRN 08/10/16 [Last Taken Unknown] Discharge Medications: Refer to the Discharge Home Medication list for PRN reason. - Orders Diet Recommendation: other (tube feeds - continue per previous) Tube feeding: per dietary Mclaughlin: Yes Wound Care Instructions: Care of left great toe laceration: 1. Clean laceration using water and small amount of soap. 2. Apply dab of SilvaSorb gel to wound. 3. Cover with bandaid. If site worsens or new concerns arise, please contact the [facility] at [phone]. Gerri Hernandez RN/ WOCRN Team ([id number]) Additional: Surgery schedule with Dr. Ramirez to remove kidney stone on October 19, 2016. Patient is to return to [facility] for direct admission October 18, 2016 for pre-operative evaluation and antibiotics. Bed board is aware of planned admission. Please call hospitalist pager if any questions - Follow Up Care Current Providers and Referrals: JUAN PAUL [Primary Care Provider] - As per Instructions Ritesh Ramirez MD [Medical Doctor] - 10/18/16
--- NOTE | 2016-10-10 16:10 | PCMIDPN ---
Assessment/Plan: Assessment/Plan: * Possible sepsis syndrome: No definitively defined etiology for patient's presentation. Blood culture show 1/2 sets with Staph epidermidis which likely represents skin contaminant. No fever or inflammatory clinical findings or leukocytosis during hospital stay. Respiratory status has remained stable in chest x-ray without focal consolidation. Urine likely to be chronically colonized with organisms in the setting of staghorn calculus. Favor discontinuation of antibiotics based on clinical course. Okay from ID perspective to return to senior care facility. * Staghorn calculus: Plans for initial therapy next week for which readmission will be necessary. We will be happy to assist with perioperative antibiotic therapy which could be in the form of cefepime or meropenem based on culture findings. Findings and plan reviewed with Dr. Weller. Care will be coordinated in terms of antibiotic prophylaxis when readmitted next week. 10/10/16 16:07 10/10/16 16:13 Subjective: No interval changes. Plans for initial treatment of staghorn calculus on 2016 with plans for patient to be readmitted on 10/18/2016. Objective: Vital Signs Temp Pulse Resp BP Pulse Ox 36.6 C 51 L 20 117/74 99 10/10/16 08:00 10/10/16 08:48 10/10/16 08:00 10/10/16 08:00 10/10/16 08:48 Microbiology 10/06/16 18:19 Blood Panel (PCR) - Final Blood Staph Coagulase Negative Laboratory Results 10/09/16 04:30 10/09/16 04:30 10/09/16 10/10/16 10/11/16 05:59 05:59 05:59 Intake Total 1604 900 Output Total 1700 2450 850 Balance -96 -1550 -850 Meropenem # 4 Blood cultures 1/2 sets Staph epidermidis Sputum with growth of Morganella and Proteus Urine with growth of Pseudomonas, Morganella, and Proteus Chest x-ray 10/09/2016 with compressive atelectasis/poor inspiration - Physical Exam General Appearance: non-toxic EENT: No scleral icterus Respiratory: coarse breath sounds Cardiac/Chest: regular rate, rhythm Abdomen: non-tender, No distended ICD10 Worksheet Patient Problems: Problems Problem Status Onset Infection due to resistant organism Active Injury of head Active 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
[2016-10-10] MEDS ORDERED: levETIRAcetam 500 MG/5 ML UDCUP TUBE SCH (18:00)
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
== END 2016-10-10 13:47 | DRG 698 ==
LOC: EDUNIT# → F3E 20:19
PROVIDERS: ADMIT Internal Medicine; ATTEND Internal Medicine
PROC: 0D163J4 Bypass Stomach to Cutaneous with Synthetic Substitute, Percutaneous Approach (ICD-10-PCS; principal; 2016-10-09)
DX: T83.518A Infection and inflammatory reaction due to other urinary catheter, initial encounter (principal); A41.81 Sepsis due to Enterococcus; R65.20 Severe sepsis without septic shock; G82.50 Quadriplegia, unspecified; J96.10 Chronic respiratory failure, unspecified whether with hypoxia or hypercapnia; R40.3 Persistent vegetative state; N20.0 Calculus of kidney; R13.10 Dysphagia, unspecified; E11.9 Type 2 diabetes mellitus without complications; G40.909 Epilepsy, unspecified, not intractable, without status epilepticus; Z79.4 Long term (current) use of insulin; E78.5 Hyperlipidemia, unspecified; Z93.1 Gastrostomy status; Z93.0 Tracheostomy status
CPT/HCPCS: C1758; C1769; J1642; J1650; J1815; J1953; J2185; Q9967

== ENCOUNTER 2016-10-18 17:44 | Inpatient (IN) | payer OTHER, MEDICAID ==
[2016-10-18] MEDS ORDERED: ACETAMINOPHEN 650 MG SUPP PR PRN (21:13)
[2016-10-18] MEDS ORDERED: ONDANSETRON 4 MG/2 ML VIAL IVP PRN (21:13)
[2016-10-18] MEDS ORDERED: ONDANSETRON DISINTEGRATING 4 MG TAB PO PRN (21:13)
[2016-10-18] MEDS ORDERED: BISACODYL 10 MG SUPP PR PRN (21:16)
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
[2016-10-18] MEDS: INSULIN GLARGINE 100 UNITS/ML SYRINGE SC SCH (22:28)
[2016-10-18] MEDS: levETIRAcetam 500 MG/5 ML UDCUP TUBE SCH (22:28)
[2016-10-18] MEDS: NS 1,000 ML IV SCH (22:42)
[2016-10-19] MEDS: levETIRAcetam 500 MG/5 ML UDCUP TUBE SCH ×2 (05:39→19:47)
[2016-10-19] MEDS: guaiFENesin 200 MG/10 ML UDCUP TUBE SCH ×2 (05:39→19:46)
[2016-10-19] MEDS: GLYCOPYRROLATE 1 MG TAB TUBE SCH ×3 (05:39→19:47)
[2016-10-19] MEDS: NS 1,000 ML IV SCH ×2 (05:55→18:08)
[2016-10-19 06:04] LABS: % IMMATURE GRANULYOCYTES 0.3 % (0.0-1.1); ABSOLUTE IMMATURE GRANULOCYTES 0.01 10^3/uL (0.00-0.10); ADD DIFF? NO; ADD MORPH? NO; ADD SCAN? NO; ATYPICAL LYMPHOCYTE FLAG 20 (0-99); FRAGMENT RBC FLAG 0 (0-99); HEMATOCRIT 37.5 % (40.0-51.0); HEMOGLOBIN 12.6 g/dL (13.7-17.5); LEFT SHIFT FLG 0 (0-99); LIPEMIA HEMOLYSIS FLAG 80 (0-99); MEAN CELL HEMOGLOBIN 30.6 pg (27.9-34.1); MEAN CELL HEMOGLOBIN CONCENTR. 33.6 g/dL (32.4-36.7); PLATELET CLUMPS FLAG 0 (0-99); PLATELET COUNT 176 10^3/uL (150-400); RED BLOOD CELL COUNT 4.12 10^6/uL (4.40-6.38); RED CELL DISTRIBUTION WIDTH 13.2 % (11.5-15.2)
[2016-10-19 07:29] LABS: ANION GAP 9 mEq/L (8-16); CALCIUM 9.1 mg/dL (8.5-10.4); CARBON DIOXIDE 26 mEq/l (22-31); CHLORIDE 100 mEq/L (97-110); CREATININE 0.6 mg/dL (0.7-1.3); GLOMERULAR FILTRATION RATE > 60; GLUCOSE 102 mg/dL (70-100); POTASSIUM 4.3 mEq/L (3.5-5.2); SODIUM 135 mEq/L (134-144)
[2016-10-19] MEDS: CETIRIZINE 10 MG TAB TUBE SCH (09:03)
[2016-10-19] MEDS: PHENYTOIN 100 MG/4 ML UDL TUBE SCH ×2 (09:03→17:06)
[2016-10-19] MEDS: MEROPENEM 1 GM in NS 100 ML IV SCH ×2 (11:50→22:33)
[2016-10-19] MEDS ORDERED: D5W IV ONE (12:32)
[2016-10-19] MEDS ORDERED: GENTAMICIN SULFATE IV ONE (12:32)
[2016-10-19] MEDS ORDERED: BUPIVACAINE/EPI 0.25% 30 ML SDV ONE (12:39)
[2016-10-19] MEDS ORDERED: IOPAMIDOL (ISOVUE-300) 150 ML BTL ONE (12:39)
[2016-10-19] MEDS ORDERED: PROPOFOL/EMULSION 500 MG/50 ML BOTTLE IV ONE (13:23)
[2016-10-19] MEDS ORDERED: PROPOFOL 200 MG/20 ML VIAL ONE (13:23)
[2016-10-19] MEDS ORDERED: fentaNYL 100 MCG/2 ML INJ ONE ×2 (13:27→13:28)
[2016-10-19] MEDS ORDERED: ONDANSETRON 4 MG/2 ML VIAL ONE (14:23)
[2016-10-19] MEDS ORDERED: FUROSEMIDE 20 MG/2 ML VIAL ONE (14:35)
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
[2016-10-19] MEDS ORDERED: HYDROmorphONE/DILAUDID 1 MG/ML SYR IVP PRN (17:55)
[2016-10-19] MEDS: ACETAMINOPHEN 650 MG/20.3 ML UDCUP TUBE PRN (19:46)
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
[2016-10-19] MEDS ORDERED: DOXAZOSIN MESYLATE 4 MG TAB TUBE SCH (21:00)
[2016-10-19] MEDS: INSULIN GLARGINE 100 UNITS/ML SYRINGE SC SCH (22:33)
[2016-10-20] MEDS: GLYCOPYRROLATE 1 MG TAB TUBE SCH ×2 (04:25→14:22)
[2016-10-20] MEDS: ACETAMINOPHEN 650 MG/20.3 ML UDCUP TUBE PRN (04:25)
[2016-10-20] MEDS: levETIRAcetam 500 MG/5 ML UDCUP TUBE SCH (04:25)
[2016-10-20] MEDS: guaiFENesin 200 MG/10 ML UDCUP TUBE SCH (04:26)
[2016-10-20] MEDS: NS 1,000 ML IV SCH (04:49)
[2016-10-20 04:56] VITALS: TEMP 98.6
[2016-10-20] MEDS: MEROPENEM 1 GM in NS 100 ML IV SCH ×2 (05:01→14:21)
[2016-10-20 05:23] LABS: % IMMATURE GRANULYOCYTES 0.3 % (0.0-1.1); ABSOLUTE IMMATURE GRANULOCYTES 0.02 10^3/uL (0.00-0.10); ADD DIFF? NO; ADD MORPH? NO; ADD SCAN? NO; ATYPICAL LYMPHOCYTE FLAG 30 (0-99); FRAGMENT RBC FLAG 0 (0-99); HEMATOCRIT 35.8 % (40.0-51.0); LEFT SHIFT FLG 0 (0-99); LIPEMIA HEMOLYSIS FLAG 80 (0-99); MEAN CELL HEMOGLOBIN 31.3 pg (27.9-34.1); MEAN CELL HEMOGLOBIN CONCENTR. 33.5 g/dL (32.4-36.7); MEAN CELL VOLUME 93.5 fL (81.5-99.8); MEAN PLATELET VOLUME 10.2 fL (8.7-11.7); PLATELET CLUMPS FLAG 0 (0-99); PLATELET COUNT 163 10^3/uL (150-400); RED BLOOD CELL COUNT 3.83 10^6/uL (4.40-6.38); RED CELL DISTRIBUTION WIDTH 13.6 % (11.5-15.2)
[2016-10-20 05:54] LABS: ANION GAP 8 mEq/L (8-16); CALCIUM 8.5 mg/dL (8.5-10.4); CARBON DIOXIDE 26 mEq/l (22-31); CHLORIDE 103 mEq/L (97-110); CREATININE 0.7 mg/dL (0.7-1.3); GLOMERULAR FILTRATION RATE > 60; GLUCOSE 118 mg/dL (70-100); POTASSIUM 4.3 mEq/L (3.5-5.2); SODIUM 137 mEq/L (134-144)
[2016-10-20] MEDS: CETIRIZINE 10 MG TAB TUBE SCH (08:02)
[2016-10-20 08:57] VITALS: BP 110/65; PULSE 78; RESP 16; O2SAT 97
[2016-10-20] MEDS: PHENYTOIN 100 MG/4 ML UDL TUBE SCH ×2 (09:03→16:49)
--- NOTE | 2016-10-20 09:19 | SOAPPROG ---
SOAP Progress Note Assessment/Plan: Assessment: Right staghorn calculus s/p right percutaneous nephrostolithotomy Plan: 10/20/16 09:16 Nephrostomy tube removed and dressing applied. Patient should be able to be transferred back to [facility] later today if stable. Subjective: Pt is in no distress. Objective: Vital Signs Temp Pulse Resp BP Pulse Ox 37.0 C 78 16 110/65 97 10/20/16 08:53 10/20/16 08:53 10/20/16 08:53 10/20/16 08:53 10/20/16 08:53 Microbiology 10/19/16 14:20 Gram Stain - Final Other - Eswab Laboratory Results 10/20/16 04:30 10/20/16 04:30 10/19/16 10/20/16 10/21/16 05:59 05:59 05:59 Intake Total 1380 2365 Output Total 1155 1710 Balance 225 655 - Pending Discharge Pending Discharge Within 24 Hours: Yes Pending Discharge Date: 10/21/16 Pending Discharge Time: 11:00 Physical Exam - Physical Exam General Appearance: unresponsive Respiratory: chest non-tender Abdomen: non-tender, soft Back: Other (nephrostomy site clean and dry) ICD10 Worksheet Patient Problems: Problems Problem Status Onset Infection due to resistant organism Active Injury of head Active 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
--- NOTE | 2016-10-20 10:11 | HOSPPROG ---
Hospitalist Progress Note Assessment/Plan: 56 yo M w recurrent admissions for sepsis of urinary source and longstanding R staghorn calculus now s/p operative removal afebrile will not continue abx h/o life threatening cdiff noted home today > 30 minutes on dc Subjective: case d/w dr carter. afebrile without leukocytosis. mental status unchanged Objective: Vital Signs Temp Pulse Resp BP Pulse Ox 37.0 C 78 16 110/65 97 10/20/16 08:53 10/20/16 08:53 10/20/16 08:53 10/20/16 08:53 10/20/16 08:53 Microbiology 10/19/16 14:20 Gram Stain - Final Other - Eswab Laboratory Results 10/20/16 04:30 10/20/16 04:30 10/19/16 10/20/16 10/21/16 05:59 05:59 05:59 Intake Total 1380 2365 Output Total 1155 1710 Balance 225 655 - Physical Exam Constitutional: no apparent distress Eyes: PERRL, anicteric sclera Ears, Nose, Mouth, Throat: moist mucous membranes, ears appear normal Cardiovascular: regular rate and rhythym, no murmur, rub, or gallop Respiratory: no respiratory distress, no rales or rhonchi Gastrointestinal: normoactive bowel sounds, soft, non-tender abdomen Genitourinary: english in urethra Skin: warm, normal color Musculoskeletal: full muscle strength Neurologic: No AAOx3 ICD10 Worksheet Patient Problems: Problems Problem Status Onset Infection due to resistant organism Active Injury of head Active 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
--- NOTE | 2016-10-20 10:14 | PDIAF ---
- Diagnosis Diagnosis: stgahorn calculuc, s/p removal Code Status: Full Code - Medication Management Discharge Medications: Medications to Continue on Transfer Acetaminophen [Tylenol] 650 mg TUBE Q4H PRN 10/18/16 [Last Taken Unknown] Bisacodyl [Dulcolax] 10 mg RC Q4H PRN 10/18/16 [Last Taken Unknown] Cetirizine HCl 10 mg TUBE DAILY@09 10/18/16 [Last Taken 10/18/16] Doxazosin Mesylate [Cardura 4 MG (*)] 4 mg TUBE HS 10/18/16 [Last Taken 10/17/16 ] Glycopyrrolate 2 mg TUBE TID@,,10/18/16 [Last Taken 10/18/16 05:00 2MG] Insulin Detemir [Levemir] 20 unit SQ HS 10/18/16 [Last Taken 10/17/16] Phenytoin [Dilantin] 5 ml TUBE BID@,10/18/16 [Last Taken 10/18/16 08:00 5MLS] guaiFENesin [Guaifenesin] 600 mg TUBE BID@10/18/16 [Last Taken 10/18/16 05 :00 600MG] levETIRAcetam [Keppra Oral Liquid] 500 mg TUBE BID@10/18/16 [Last Taken 05:00 500MG] Discharge Medications: Refer to the Discharge Home Medication list for PRN reason. - Orders Services needed: Registered Nurse, Certified Research Animal Facility Supervisor, Master Scouring Train Operator , Physical Therapy, Occupational Therapy, Speech Language Pathologist - Follow Up Care Current Providers and Referrals: NONE *PRIMARY CARE P,. [Primary Care Provider] -
--- NOTE | 2016-10-20 11:15 | GDS ---
[f rep st] DISCHARGE SUMMARY DISCHARGE DIAGNOSES: 1. Large right staghorn calculus, status post operative removal via percutaneous approach. 2. History of traumatic brain injury. 3. Dysphagia, status post PEG. 4. Chronic respiratory failure with tracheostomy. 5. Chronic indwelling Mclaughlin. 6. Remote history of life-threatening Clostridium difficile. 7. Seizure disorder. 8. Pseudomonal colonization of the staghorn. PROCEDURES: Operative removal of the right staghorn calculus. Please see operative note by Dr. Chacho aRmirez dated 10/19/2016. HOSPITAL COURSE: Please see admission history and physical. Patient presented for scheduled admiss ion and he had operative removal. The patient has received antibiotics while here, including gentam icin prior to the OR and meropenem while here. He has been afebrile without leukocytosis. Given hi s previous history of life-threatening C difficile and stable clinical status, he is discharged not on antibiotics. The patient is discharged to [facility], where he resides. /[id number]/MODL
[2016-10-24 18:49] LABS: SOURCE OF STONE RT KIDNEY STONE
[2016-10-24 18:51] LABS: NIDUS NOT OBSERVED
== END 2016-10-20 17:30 | DRG 660 ==
LOC: F1N 17:44 → OBSVTOIN 21:13
PROVIDERS: ADMIT Urology; ATTEND Urology
DX: N20.0 Calculus of kidney (principal); J96.10 Chronic respiratory failure, unspecified whether with hypoxia or hypercapnia; Z93.0 Tracheostomy status; R40.3 Persistent vegetative state; R13.10 Dysphagia, unspecified; E11.9 Type 2 diabetes mellitus without complications; R56.9 Unspecified convulsions; Z87.440 Personal history of urinary (tract) infections; Z96.0 Presence of urogenital implants
CPT/HCPCS: 82365-90; C1726; C1729; C1769; C1894; J1170; J1642; J1815; J1940; J2185; J2405; J2704; J3010; Q9967

== ENCOUNTER 2016-10-31 08:10 | Emergency (ER) | payer OTHER, MEDICAID ==
--- NOTE | 2016-10-31 09:13 | EDPHY ---
H & P Time Seen by Provider: 10/31/16 09:01 HPI/ROS: CHIEF COMPLAINT: Seizure HISTORY OF PRESENT ILLNESS: The patient is a 56-year-old male with multiple medical problems including traumatic brain injury and persistent vegetative state and seizure disorder. The staff at [facility] found the patient in a "post ictal" state. Day noticed some mild blood on his lip and his trach. He had no witnessed seizure. No recent fever or chills. No other reported concerns via EMS from the nursing facility. He was sent to the emergency department to evaluate his possible lip laceration. REVIEW OF SYSTEMS: Patient is unable to give her review of systems due to his vegetative state. Past Medical/Surgical History: Includes recent staghorn calculus, traumatic brain injury with persistent vegetative state, dysphagia, chronic respiratory failure C diff, seizure disorder, pseudomonal colonization, diabetes Past surgical history: Includes PEG to, tracheostomy Social history: The patient lives at [facility] Family history unremarkable Smoking Status: Unknown if ever smoked Physical Exam: Vitals noted. Afebrile GENERAL: No acute distress, alert. Opens eyes intermittently. No distress HEENT: Eyes normal to inspection, normal pharynx, no signs of dehydration. The patient has a superficial laceration on his lower lip. This is not actively bleeding. This does not need suture repair. NECK: No thyromegaly, no lymphadenopathy, supple. Tracheostomy in place. Surrounding tissue appears normal RESPIRATORY: Clear to auscultation bilaterally, no rales, rhonchi or wheezing. CVS: Regular rate and rhythm, no rubs, murmurs, or gallops. ABDOMEN: Soft, nontender, nondistended, no organomegaly. : Mclaughlin in place. White discharge to the Mclaughlin BACK: Normal to inspection, no CVA tenderness. SKIN: Normal color, no rash, warm, dry. No pallor. EXTREMITIES: No pedal edema, no calf tenderness, no Homans sign or cords, no joint swelling. NEURO/PSYCH: Opens eyes intermittently. Unresponsive to voice. Does not move extremities spontaneously Constitutional: Initial Vital Signs Temperature (C) 36.4 C 10/31/16 08:10 Heart Rate 57 L 10/31/16 08:10 Respiratory Rate 16 10/31/16 08:10 Blood Pressure 91/57 L 10/31/16 08:10 O2 Sat (%) 90 L 10/31/16 08:10 O2 Delivery Mode Blowby,Transtracheal O2 (L/minute) 2 Allergies/Adverse Reactions: latex Allergy (Unknown, Verified 08/10/16 00:21) amoxicillin trihydrate [From Augmentin] Allergy (Verified 08/10/16 00:21) potassium clavulanate [From Augmentin] Allergy (Verified 08/10/16 00:21) Home Medications: Medication Instructions Recorded Acetaminophen [Tylenol] 650 mg TUBE Q4H PRN 10/18/16 Bisacodyl [Dulcolax] 10 mg RC Q4H PRN 10/18/16 Cetirizine HCl 10 mg TUBE DAILY@09 10/18/16 Doxazosin Mesylate [Cardura 4 MG 4 mg TUBE HS 10/18/16 (*)] Glycopyrrolate 2 mg TUBE TID@,,10/18/16 Insulin Detemir [Levemir] 20 unit SQ HS 10/18/16 Phenytoin [Dilantin] 5 ml TUBE BID@10/18/16 guaiFENesin [Guaifenesin] 600 mg TUBE BID@,10/18/16 levETIRAcetam [Keppra Oral Liquid] 500 mg TUBE BID@,10/18/16 Cephalexin [Keflex Oral Liquid] 500 mg PO TID 7 Days 10/31/16 Medical Decision Making ED Course/Re-evaluation: In the emergency department I discussed the plan with the nursing staff. An IV was placed. Laboratory studies and blood cultures were obtained. Reviewed the patient's laboratory studies. The patient's white count was normal. He was mildly anemic. His chemistry panel was notable for mildly low sodium. His lactate was 1.1. Urine showed 5-10 white cells and 5-10 red cells. He also had positive leuk esterase. He was given Rocephin 1 g IV and a prescription for Keflex. I rechecked the patient while here. He had no signs of distress. No further seizure activity. The nursing facility was contacted. Patient was discharged. Differential Diagnosis: My differential includes but is not limited to seizure disorder, postictal state , lip laceration, urinary tract infection, pyelonephritis, Mclaughlin malfunction, bacteremia, sepsis - Data Points Laboratory Results: Laboratory Results 10/31/16 09:00 10/31/16 09:08 10/31/16 10/31/16 10/31/16 09:08 09:00 09:00 WBC 5.89 10^3/uL 10^3/uL (3.80-9.50) RBC 4.14 10^6/uL L 10^6/uL (4.40-6.38) Hgb 12.9 g/dL L g/dL (13.7-17.5) Hct 37.4 % L % (40.0-51.0) MCV 90.3 fL fL (81.5-99.8) MCH 31.2 pg pg (27.9-34.1) MCHC 34.5 g/dL g/dL (32.4-36.7) RDW 12.7 % % (11.5-15.2) Plt Count 260 10^3/uL 10^3/uL (150-400) MPV 9.4 fL fL (8.7-11.7) Neut % (Auto) 48.6 % % (39.3-74.2) Lymph % (Auto) 39.4 % % (15.0-45.0) [place] % (Auto) 9.0 % % (4.5-13.0) Eos % (Auto) 1.9 % % (0.6-7.6) Baso % (Auto) 0.8 % % (0.3-1.7) Nucleat RBC Rel Count 0.0 % % (0.0-0.2) Absolute Neuts (auto) 2.86 10^3/uL 10^3/uL (1.70-6.50) Absolute Lymphs (auto) 2.32 10^3/uL 10^3/uL (1.00-3.00) Absolute Monos (auto) 0.53 10^3/uL 10^3/uL (0.30-0.80) Absolute Eos (auto) 0.11 10^3/uL 10^3/uL (0.03-0.40) Absolute Basos (auto) 0.05 10^3/uL 10^3/uL (0.02-0.10) Absolute Nucleated RBC 0.00 10^3/uL 10^3/uL (0-0.01) Immature Gran % 0.3 % % (0.0-1.1) Immature Gran # 0.02 10^3/uL 10^3/uL (0.00-0.10) VBG Lactic Acid Sodium 133 mEq/L L mEq/L (134-144) Potassium 3.8 mEq/L mEq/L (3.5-5.2) Chloride 96 mEq/L L mEq/L (97-110) Carbon Dioxide 27 mEq/l mEq/l (22-31) Anion Gap 10 mEq/L mEq/L (8-16) BUN 13 mg/dL mg/dL (7-23) Creatinine 0.7 mg/dL mg/dL (0.7-1.3) Estimated GFR > 60 Glucose 76 mg/dL mg/dL (70-100) Calcium 9.0 mg/dL mg/dL (8.5-10.4) Urine Color YELLOW Urine Appearance MODERATELY TURBID Urine pH 9.0 H (5.0-7.5) Ur Specific Casey 1.009 (1.002-1.030) Urine Protein NEGATIVE (NEGATIVE) Urine Ketones NEGATIVE (NEGATIVE) Urine Blood 1+ H (NEGATIVE) Urine Nitrate NEGATIVE (NEGATIVE) Urine Bilirubin NEGATIVE (NEGATIVE) Urine Urobilinogen NEGATIVE EU EU (0.2-1.0) Ur Leukocyte Esterase 3+ H (NEGATIVE) Urine RBC 5-10 /hpf H /hpf (0-3) Urine WBC 5-10 /hpf H /hpf (0-3) Ur Epithelial Cells TRACE /lpf /lpf (NONE-1+) Calcium Oxalate Crystal PRESENT /hpf /hpf (NONE-1+) Urine Bacteria 2+ /hpf H /hpf (NONE SEEN) Urine Glucose NEGATIVE (NEGATIVE) 10/31/16 09:00 WBC RBC Hgb Hct MCV MCH MCHC RDW Plt Count MPV Neut % (Auto) Lymph % (Auto) [place] % (Auto) Eos % (Auto) Baso % (Auto) Nucleat RBC Rel Count Absolute Neuts (auto) Absolute Lymphs (auto) Absolute Monos (auto) Absolute Eos (auto) Absolute Basos (auto) Absolute Nucleated RBC Immature Gran % Immature Gran # VBG Lactic Acid 1.1 mmol/L mmol/L (0.7-2.1) Sodium Potassium Chloride Carbon Dioxide Anion Gap BUN Creatinine Estimated GFR Glucose Calcium Urine Color Urine Appearance Urine pH Ur Specific Casey Urine Protein Urine Ketones Urine Blood Urine Nitrate Urine Bilirubin Urine Urobilinogen Ur Leukocyte Esterase Urine RBC Urine WBC Ur Epithelial Cells Calcium Oxalate Crystal Urine Bacteria Urine Glucose Departure - Departure Disposition: Home, Routine, Self-Care Clinical Impression: Urinary tract infection in male Traumatic brain injury Qualifiers: Encounter type: subsequent encounter Loss of consciousness presence/duration: with LOC of unspecified duration Qualified Code(s): S06.9X9D - Unspecified intracranial injury with loss of consciousness of unspecified duration, subsequent encounter Condition: Good Instructions: Urinary Tract Infection in Men (ED) Additional Instructions: Take your entire course of antibiotics. Return with worsening symptoms. You were given your 1st dose of antibiotics today in the ER. This will cover you for 24 hours. Prescriptions: Cephalexin [Keflex Oral Liquid] 500 mg PO TID 7 Days
[2016-10-31 09:18] VITALS: RESP 16
[2016-10-31 09:27] LABS: % IMMATURE GRANULYOCYTES 0.3 % (0.0-1.1); ABSOLUTE IMMATURE GRANULOCYTES 0.02 10^3/uL (0.00-0.10); ADD DIFF? NO; ADD MORPH? NO; ADD SCAN? NO; ATYPICAL LYMPHOCYTE FLAG 20 (0-99); FRAGMENT RBC FLAG 0 (0-99); HEMATOCRIT 37.4 % (40.0-51.0); HEMOGLOBIN 12.9 g/dL (13.7-17.5); LEFT SHIFT FLG 0 (0-99); LIPEMIA HEMOLYSIS FLAG 90 (0-99); MEAN CELL HEMOGLOBIN 31.2 pg (27.9-34.1); MEAN CELL HEMOGLOBIN CONCENTR. 34.5 g/dL (32.4-36.7); MEAN CELL VOLUME 90.3 fL (81.5-99.8); MEAN PLATELET VOLUME 9.4 fL (8.7-11.7); PLATELET CLUMPS FLAG 10 (0-99); PLATELET COUNT 260 10^3/uL (150-400); RED BLOOD CELL COUNT 4.14 10^6/uL (4.40-6.38); RED CELL DISTRIBUTION WIDTH 12.7 % (11.5-15.2)
[2016-10-31 09:37] LABS: COLOR YELLOW; LEUKOCYTE ESTERASE,URINE 3+ (NEGATIVE); NITRITE,URINE NEGATIVE (NEGATIVE)
[2016-10-31 09:41] LABS: ANION GAP 10 mEq/L (8-16); CARBON DIOXIDE 27 mEq/l (22-31); CHLORIDE 96 mEq/L (97-110); CREATININE 0.7 mg/dL (0.7-1.3); GLOMERULAR FILTRATION RATE > 60; GLUCOSE 76 mg/dL (70-100); POTASSIUM 3.8 mEq/L (3.5-5.2); SODIUM 133 mEq/L (134-144)
[2016-10-31 10:00] LABS: BACTERIA 2+ /hpf (NONE SEEN)
[2016-10-31 10:37] VITALS: BP 144/81; PULSE 56; TEMP 97.7; O2SAT 95
== END 2016-10-31 11:11 | disposition home or self-care (01) ==
LOC: EDUNIT#
DX: N39.0 Urinary tract infection, site not specified (principal); E11.9 Type 2 diabetes mellitus without complications; Z79.4 Long term (current) use of insulin; Z87.820 Personal history of traumatic brain injury; Z91.040 Latex allergy status
CPT/HCPCS: 96365; 99284; J0696

== ENCOUNTER 2016-11-28 18:02 | Inpatient (IN) | payer OTHER, MEDICAID ==
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
[2016-11-28] MEDS ORDERED: ACETAMINOPHEN 500 MG TAB PO ONE (18:16)
[2016-11-28] MEDS ORDERED: MEROPENEM 1 GM in NS 100 ML IV ONE (18:32)
[2016-11-28 18:52] LABS: % IMMATURE GRANULYOCYTES 0.8 % (0.0-1.1); ABSOLUTE IMMATURE GRANULOCYTES 0.15 10^3/uL (0.00-0.10); ADD DIFF? NO; ADD MORPH? NO; ADD SCAN? NO; ATYPICAL LYMPHOCYTE FLAG 0 (0-99); FRAGMENT RBC FLAG 0 (0-99); HEMATOCRIT 42.5 % (40.0-51.0); HEMOGLOBIN 14.5 g/dL (13.7-17.5); LEFT SHIFT FLG 0 (0-99); LIPEMIA HEMOLYSIS FLAG 90 (0-99); MEAN CELL HEMOGLOBIN 30.9 pg (27.9-34.1); MEAN CELL HEMOGLOBIN CONCENTR. 34.1 g/dL (32.4-36.7); MEAN CELL VOLUME 90.4 fL (81.5-99.8); MEAN PLATELET VOLUME 9.6 fL (8.7-11.7); PLATELET CLUMPS FLAG 0 (0-99); PLATELET COUNT 213 10^3/uL (150-400); RED CELL DISTRIBUTION WIDTH 13.3 % (11.5-15.2)
[2016-11-28 18:57] LABS: COLOR YELLOW; LEUKOCYTE ESTERASE,URINE 3+ (NEGATIVE); NITRITE,URINE NEGATIVE (NEGATIVE)
[2016-11-28 19:01] LABS: INR 1.04 (0.83-1.16); PROTIME(PATIENT) 13.5 SEC (12.0-15.0)
[2016-11-28 19:05] LABS: BACTERIA 3+ /hpf (NONE SEEN); RBC,URINE 50-182 /hpf (0-3); WBC,URINE 50-182 /hpf (0-3)
[2016-11-28] MEDS ORDERED: NS 1,000 ML IV ONE ×2 (19:11)
[2016-11-28] MEDS ORDERED: NS 2,300 ML IV ONE (19:21)
[2016-11-28 19:48] LABS: LACGHOST ORDER
[2016-11-28 19:55] LABS: ANION GAP 11 mEq/L (8-16); CALCIUM 8.7 mg/dL (8.5-10.4); CARBON DIOXIDE 23 mEq/l (22-31); CHLORIDE 95 mEq/L (97-110); CREATININE 0.7 mg/dL (0.7-1.3); GLOMERULAR FILTRATION RATE > 60; GLUCOSE 132 mg/dL (70-100); POTASSIUM 4.1 mEq/L (3.5-5.2); SODIUM 129 mEq/L (134-144)
[2016-11-28] MEDS ORDERED: ONDANSETRON DISINTEGRATING 4 MG TAB PO PRN (20:30)
[2016-11-28] MEDS ORDERED: ONDANSETRON 4 MG/2 ML VIAL IVP PRN (20:30)
[2016-11-28] MEDS ORDERED: ACETAMINOPHEN 325 MG TAB PO PRN (20:30)
[2016-11-28] MEDS ORDERED: HYDROmorphONE/DILAUDID 1 MG/ML SYR IVP PRN (20:30)
[2016-11-28] MEDS ORDERED: D50W 25 GM/50 ML SYR IVP PRN (20:33)
[2016-11-28] MEDS ORDERED: BISACODYL 10 MG SUPP PR PRN (20:34)
[2016-11-28] MEDS ORDERED: INSULIN GLARGINE 100 UNIT/ML VIAL SC SCH (21:00)
[2016-11-28] MEDS ORDERED: levETIRAcetam 500 MG/5 ML UDCUP TUBE SCH ×2 (21:00)
[2016-11-28] MEDS ORDERED: LEVETIRACETAM TUBE SCH (21:00)
[2016-11-28] MEDS: NS 1,000 ML IV SCH (21:18)
[2016-11-28] MEDS: VANCOMYCIN HCL/NORMAL SALINE 250 ML IV SCH (21:27)
[2016-11-28] MEDS: levETIRAcetam 500 MG/5 ML UDCUP TUBE SCH (21:27)
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
[2016-11-29] MEDS ORDERED: GLYCOPYRROLATE 2 MG TUBE SCH (05:00)
[2016-11-29] MEDS: guaiFENesin 200 MG/10 ML UDL TUBE SCH ×2 (05:59→18:06)
[2016-11-29] MEDS: GLYCOPYRROLATE 1 MG TAB TUBE SCH ×3 (05:59→19:59)
[2016-11-29] MEDS: MEROPENEM 1 GM in NS 100 ML IV SCH ×2 (05:59→18:05)
[2016-11-29] MEDS: NS 1,000 ML IV SCH ×2 (06:00→16:22)
[2016-11-29] MEDS ORDERED: PHENYTOIN TUBE SCH (08:00)
[2016-11-29] MEDS: ENOXAPARIN 40 MG/0.4 ML SYR SC SCH (08:29)
[2016-11-29] MEDS: PHENYTOIN 100 MG/4 ML UDL TUBE SCH ×2 (08:30→20:12)
[2016-11-29] MEDS: levETIRAcetam 500 MG/5 ML UDCUP TUBE SCH ×2 (08:30→20:01)
[2016-11-29] MEDS: CETIRIZINE 10 MG TAB TUBE SCH (08:32)
[2016-11-29] MEDS: VANCOMYCIN HCL/NORMAL SALINE 250 ML IV SCH (08:38)
[2016-11-29] MEDS: INSULIN LISPRO 100 UNIT/ML SC SCH ×3 (08:44→18:07)
--- NOTE | 2016-11-29 10:46 | WOCRNPDOC ---
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 In the process of evolving. Will recheck on Sunday 12/03. Offloading boots in place. Keep area offloaded at all times. Left Medial Fifth Toe Pressure Injury Dressing Type: Open to Air Site Measurement - Head-to-Toe Length X Width X Depth (cm): 4x6x0 Pressure Injury Stage: Deep Tissue Injury (DTI), Sales Service Representative Related Pressure Injury Skin Integrity Problem Comment: Severe present on admission deep tissue injury. Almost circumferential around 5th digit. In the process of evolving. Will recheck on Sunday 12/03. Reported to DAVID Lynn and Dr. Weller. Keep area offloaded at all times. 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 In the process of evolving. Will recheck on Sunday 12/03.
--- NOTE | 2016-11-29 16:24 | HOSPPROG ---
Hospitalist Progress Note Assessment/Plan: * Severe sepsis - suspect urinary source -IV meropenem pending culture * Staghorn calculus s/p removal by Dr. Ramirez 10/19 -given recurrent infection - check CT a/p for residual stone * TBI with chronic vegetative state * Chronic respiratory failure with trach * Chronic dysphagia with PEG * Seizure disorder - katja godinez * DM II - Lantus * Foot deep tissue pressure injury - not infected at this time (POA) -needs aggressive offloading, wound care -suspect this will break down with time Subjective: non verbal, RN stuggling to get am labs Objective: Vital Signs Temp Pulse Resp BP Pulse Ox 36.1 C 52 L 22 H 104/76 93 11/29/16 14:58 11/29/16 14:58 11/29/16 14:58 11/29/16 14:58 11/29/16 14:58 Laboratory Results 11/28/16 19:30 11/28/16 11/29/16 11/30/16 05:59 05:59 05:59 Intake Total 2001 Output Total 2310 800 Balance -308 -800 PT 13.5 SEC (12.0-15.0) 11/28/16 18:33 INR 1.04 (0.83-1.16) 11/28/16 18:33 case d/w ID - continue current abx and monitor cultures - consult if needed later IV Vanco at start of day - I discontinued when urine culture showing GNR CXR - no PNA - Physical Exam Constitutional: no apparent distress, appears nourished, not in pain Cardiovascular: regular rate and rhythym, no murmur, rub, or gallop Respiratory: no respiratory distress, no rales or rhonchi, clear to auscultation Gastrointestinal: normoactive bowel sounds, soft, non-tender abdomen, no palpable masses Skin: warm, no rashes or abrasions, pressure ulcer (lateral 5th toe, deep hemorrhagic), No mottled Neurologic: No AAOx3 Psychiatric: encephalopathic, flat affect, No interacting appropriately, No agitated ICD10 Worksheet Patient Problems: Problems Problem Status Onset Chronic vegetative state Acute Sepsis Acute Infection due to resistant organism Active Injury of head Active 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
[2016-11-29 17:38] LABS: INR 1.14 (0.83-1.16); PROTIME(PATIENT) 14.5 SEC (12.0-15.0)
[2016-11-29] MEDS ORDERED: NON-FORMULARY NEW DRUG (Insulin Detemir [Levemir] 10 UNIT) SQ SCH (20:00)
[2016-11-29] MEDS: INSULIN GLARGINE 100 UNITS/ML SYRINGE SC SCH (23:19)
[2016-11-30] MEDS: NS 1,000 ML IV SCH ×2 (00:37→08:07)
[2016-11-30] MEDS: DOXAZOSIN MESYLATE 4 MG TAB TUBE SCH ×2 (01:45→20:37)
[2016-11-30] MEDS: MEROPENEM 1 GM in NS 100 ML IV SCH ×2 (05:56→17:51)
[2016-11-30] MEDS: guaiFENesin 200 MG/10 ML UDL TUBE SCH ×2 (05:58→17:52)
[2016-11-30] MEDS: GLYCOPYRROLATE 1 MG TAB TUBE SCH ×3 (06:00→20:37)
[2016-11-30 06:12] LABS: % IMMATURE GRANULYOCYTES 0.4 % (0.0-1.1); ABSOLUTE IMMATURE GRANULOCYTES 0.02 10^3/uL (0.00-0.10); ADD DIFF? NO; ADD MORPH? NO; ADD SCAN? NO; ATYPICAL LYMPHOCYTE FLAG 0 (0-99); FRAGMENT RBC FLAG 0 (0-99); HEMATOCRIT 32.6 % (40.0-51.0); HEMOGLOBIN 10.7 g/dL (13.7-17.5); LEFT SHIFT FLG 0 (0-99); LIPEMIA HEMOLYSIS FLAG 80 (0-99); MEAN CELL HEMOGLOBIN 30.6 pg (27.9-34.1); MEAN CELL HEMOGLOBIN CONCENTR. 32.8 g/dL (32.4-36.7); MEAN CELL VOLUME 93.1 fL (81.5-99.8); MEAN PLATELET VOLUME 10.1 fL (8.7-11.7); PLATELET CLUMPS FLAG 10 (0-99); PLATELET COUNT 153 10^3/uL (150-400); RED CELL DISTRIBUTION WIDTH 13.5 % (11.5-15.2)
[2016-11-30 06:52] LABS: POTASSIUM 3.7 mEq/L (3.5-5.2)
[2016-11-30 06:53] LABS: ANION GAP 8 mEq/L (8-16); CARBON DIOXIDE 20 mEq/l (22-31); CHLORIDE 109 mEq/L (97-110); CREATININE 0.6 mg/dL (0.7-1.3); GLOMERULAR FILTRATION RATE > 60; GLUCOSE 85 mg/dL (70-100); SODIUM 137 mEq/L (134-144)
[2016-11-30] MEDS: ENOXAPARIN 40 MG/0.4 ML SYR SC SCH (08:07)
[2016-11-30] MEDS: PHENYTOIN 100 MG/4 ML UDL TUBE SCH ×2 (08:08→20:37)
[2016-11-30] MEDS: levETIRAcetam 500 MG/5 ML UDCUP TUBE SCH ×2 (08:09→20:36)
[2016-11-30] MEDS: INSULIN LISPRO 100 UNIT/ML SC SCH ×3 (08:09→17:55)
[2016-11-30] MEDS: CETIRIZINE 10 MG TAB TUBE SCH (08:09)
--- NOTE | 2016-11-30 09:58 | WOCRNPDOC ---
[facility] Advanced Assessment Note - Skin Integrity Problem, Advanced Assess Left Lateral Fourth Toe Pressure Injury Dressing Type: Dusty Exudate Amount: Scant Exudate Color: Reddish/Yellow Exudate Characteristic(s): Serosanguinous Integumentary Issue Intervention: Dressing Applied, Dressing Changed Isis Wound Tissue: Ecchymotic, Non-blanching, Swollen Isis Wound Swelling: Moderate Wound Bed Color: Red Wound Bed Constitution: Granulation Tissue, Intact Sanguineous Blister, De- roofed Sanguineous blister Site Odor: None Site Measurement - Head-to-Toe Length X Width X Depth (cm): New open wound ( previously intact sanguinous blister now partially de-roofed) on dorsal aspect of L 4th toe: 1.5cmx0.7cmx0.1cm. Pressure Injury Stage: Stage 3 (new open area is borderline partial/full- thickness), Deep Tissue Injury (DTI) Skin Integrity Problem Comment: This wound is an evolving deep tissue injury that was previously an intact sanguinous blister. hat blocker Trice contacted wound care this morning to report that the wound was beginning to open and drain. Upon assessment, there is a wound on the dorsal aspect of the 4th toe, the result of a de-roofed blister. While the depth does not appear appreciable, there are some dermal appendages noted in the wound bed, indicating a full- thickness wound consistent w/ a stage 3 pressure injury. Wound bed is 100% granulation w/ no apparent necrosis. Remaining tissue on the 4th toe continues to be an intact, sanguinous blister. Reported to hat blocker Trice that any open areas that develop should be cleansed, and covered w/ wound gel and Hydrofera Blue Ready (in patient's supplies). Orders have been updated with these instructions, and wound care will round on patient again to re-assess on Sunday 12/03. Left Lateral Foot Pressure Injury Dressing Type: Dusty Exudate Amount: None Exudate Characteristic(s): None Integumentary Issue Intervention: Dressing Changed Isis Wound Tissue: Ecchymotic, Swollen Isis Wound Swelling: Moderate Wound Bed Color: Purple Wound Bed Constitution: Intact Sanguineous Blister Site Odor: None Pressure Injury Stage: Deep Tissue Injury (DTI) Skin Integrity Problem Comment: Sanguinous blister r/t deep tissue injury remains intact at this time. Spoke w/ hat blocker Trice about need for ongoing assessment of site, and supplied additional orders for how to manage wound if blister de-roofs or begins draining.
--- NOTE | 2016-11-30 15:16 | HOSPPROG ---
Hospitalist Progress Note Assessment/Plan: # severe sepsis, likely UTI # UTI, two GNR's growing - cont empiric merrem - follow culture - chronic indwelling english - methenamine (checking if ok per tube) # TBI, persistent vegetative state - trach, PEG # foot deep tissue pressure injury, POA - offloading boots, may eventually break down # hyponatremia - resolved # sz d/o - keppra, dilantin # anemia - mostly chronic, recheck tomorrow # DM2 - lantus # lovenox Subjective: no acute events; no repsonse from patient Objective: Vital Signs Temp Pulse Resp BP Pulse Ox 36.4 C 45 L 12 103/56 L 98 11/30/16 11:43 11/30/16 14:16 11/30/16 14:16 11/30/16 11:43 11/30/16 14:16 Laboratory Results 11/30/16 05:45 11/30/16 05:45 11/29/16 11/30/16 12/01/16 05:59 05:59 05:59 Intake Total 2001 1570 41.2 Output Total 2310 1750 Balance -308 -180 41.2 PT 14.5 SEC (12.0-15.0) 11/29/16 17:21 INR 1.14 (0.83-1.16) 11/29/16 17:21 - Physical Exam Constitutional: no apparent distress, No uncomfortable Cardiovascular: regular rate and rhythym, no murmur, rub, or gallop, other (L chest port) Respiratory: no respiratory distress, no rales or rhonchi, other (trach collar) Gastrointestinal: normoactive bowel sounds, soft, non-tender abdomen, other (PEG ) Genitourinary: english in urethra ICD10 Worksheet Patient Problems: Problems Problem Status Onset Sepsis Acute Chronic vegetative state Acute MRSA (methicillin resistant Staphylococcus aureus) Acute ~10/19/16 VRE (vancomycin-resistant Enterococci) Acute ~09/07/16 UTI (urinary tract infection) Acute Pneumonia Acute Sepsis Acute Pneumonia due to Gram negative bacteria Active Injury of head Active 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
[2016-11-30] MEDS: METHENAMINE HIPP 1 GM TAB PO SCH (20:37)
[2016-11-30] MEDS: INSULIN GLARGINE 100 UNITS/ML SYRINGE SC SCH (20:38)
[2016-12-01] MEDS: guaiFENesin 200 MG/10 ML UDL TUBE SCH (05:17)
[2016-12-01] MEDS: MEROPENEM 1 GM in NS 100 ML IV SCH (05:17)
[2016-12-01] MEDS: GLYCOPYRROLATE 1 MG TAB TUBE SCH (05:18)
[2016-12-01 05:32] LABS: % IMMATURE GRANULYOCYTES 0.3 % (0.0-1.1); ABSOLUTE IMMATURE GRANULOCYTES 0.01 10^3/uL (0.00-0.10); ADD DIFF? NO; ADD MORPH? NO; ADD SCAN? NO; ATYPICAL LYMPHOCYTE FLAG 40 (0-99); FRAGMENT RBC FLAG 0 (0-99); HEMATOCRIT 35.3 % (40.0-51.0); HEMOGLOBIN 12.1 g/dL (13.7-17.5); LEFT SHIFT FLG 0 (0-99); LIPEMIA HEMOLYSIS FLAG 90 (0-99); MEAN CELL HEMOGLOBIN 31.1 pg (27.9-34.1); MEAN CELL HEMOGLOBIN CONCENTR. 34.3 g/dL (32.4-36.7); MEAN CELL VOLUME 90.7 fL (81.5-99.8); MEAN PLATELET VOLUME 9.6 fL (8.7-11.7); PLATELET CLUMPS FLAG 0 (0-99); PLATELET COUNT 165 10^3/uL (150-400); RED BLOOD CELL COUNT 3.89 10^6/uL (4.40-6.38); RED CELL DISTRIBUTION WIDTH 13.3 % (11.5-15.2)
[2016-12-01 05:46] LABS: ANION GAP 8 mEq/L (8-16); CALCIUM 8.7 mg/dL (8.5-10.4); CARBON DIOXIDE 23 mEq/l (22-31); CHLORIDE 109 mEq/L (97-110); CREATININE 0.6 mg/dL (0.7-1.3); GLOMERULAR FILTRATION RATE > 60; GLUCOSE 108 mg/dL (70-100); POTASSIUM 3.6 mEq/L (3.5-5.2); SODIUM 140 mEq/L (134-144)
[2016-12-01 07:29] VITALS: O2SAT 97
[2016-12-01] MEDS: PHENYTOIN 100 MG/4 ML UDL TUBE SCH (08:09)
[2016-12-01] MEDS: CETIRIZINE 10 MG TAB TUBE SCH (08:09)
[2016-12-01] MEDS: INSULIN LISPRO 100 UNIT/ML SC SCH (08:09)
[2016-12-01] MEDS: METHENAMINE HIPP 1 GM TAB PO SCH (08:11)
[2016-12-01] MEDS: levETIRAcetam 500 MG/5 ML UDCUP TUBE SCH (08:11)
[2016-12-01] MEDS: ENOXAPARIN 40 MG/0.4 ML SYR SC SCH (08:11)
--- NOTE | 2016-12-01 10:28 | PDIAF ---
- Diagnosis Diagnosis: Sepsis Code Status: Full Code - Medication Management Discharge Medications: Medications to Continue on Transfer Acetaminophen [Tylenol 325mg (*)] 650 mg TUBE Q4 PRN 11/28/16 [Last Taken Unknown] Bisacodyl [Dulcolax] 10 mg RC Q24H PRN 11/28/16 [Last Taken Unknown] Cetirizine [ZyrTEC 10 mg (*)] 10 mg TUBE DAILY@11/28/16 [Last Taken 11/28/16] Doxazosin Mesylate [Cardura 4 MG (*)] 4 mg TUBE DAILY@11/28/16 [Last Taken ] Glycopyrrolate 2 mg TUBE TID@,,11/28/16 [Last Taken 11/28/16 13:00 2 doses] Insulin Detemir [Levemir] 10 unit SQ DAILY@11/28/16 [Last Taken 11/27/16] Phenytoin [Dilantin] 5 ml TUBE BID@11/28/16 [Last Taken 11/28/16 08:00 5ml ] guaiFENesin [Cough Syrup] 30 mg TUBE BID@,11/28/16 [Last Taken 11/28/16 08: 00] levETIRAcetam [Keppra Oral Liquid] 5 ml TUBE BID 11/28/16 [Last Taken 11/28/16 08:00 5ml] Meropenem [Merrem Inj 1 gm (*)] 1 gm IV Q12H vial 12/01/16 [Last Taken Unknown] Densitometer Reader Antibiotics: meropenem 1g Q12 Densitometer Reader Antibiotic Stop Date: 12/05/16 Discharge Medications: Refer to the Discharge Home Medication list for PRN reason. - Orders Tube feeding: yes - Labs/Radiology CBC Date: 12/04/16 CMP Date: 12/04/16 - Follow Up Care Current Providers and Referrals: Patient,NotPresent [Primary Care Provider] - As per Instructions
[2016-12-01 10:48] VITALS: BP 119/76; PULSE 56; RESP 12; TEMP 96.8
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
== END 2016-12-01 13:09 | DRG 871 ==
LOC: EDUNIT# → F3E 20:02
PROVIDERS: ADMIT Internal Medicine; ATTEND Internal Medicine
DX: A41.52 Sepsis due to Pseudomonas (principal); R65.20 Severe sepsis without septic shock; N39.0 Urinary tract infection, site not specified; E11.621 Type 2 diabetes mellitus with foot ulcer; L89.893 Pressure ulcer of other site, stage 3; R40.3 Persistent vegetative state; R13.10 Dysphagia, unspecified; D64.9 Anemia, unspecified; E87.1 Hypo-osmolality and hyponatremia; J96.10 Chronic respiratory failure, unspecified whether with hypoxia or hypercapnia; Z79.4 Long term (current) use of insulin; Z93.0 Tracheostomy status; Z96.0 Presence of urogenital implants; Z87.442 Personal history of urinary calculi; Z87.01 Personal history of pneumonia (recurrent); Z87.440 Personal history of urinary (tract) infections; Z86.14 Personal history of Methicillin resistant Staphylococcus aureus infection; Z87.820 Personal history of traumatic brain injury
CPT/HCPCS: J1170; J1642; J1650; J1815; J2185; J3370

== ENCOUNTER 2016-12-20 19:17 | Emergency (ER) | payer OTHER, MEDICAID ==
[2016-12-20 19:27] VITALS: TEMP 97.3; O2SAT 96
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
[2016-12-20 21:25] VITALS: BP 96/73; PULSE 64; RESP 18
== END 2016-12-20 21:15 | disposition home or self-care (01) ==
LOC: EDUNIT#
DX: K94.23 Gastrostomy malfunction (principal); R40.3 Persistent vegetative state; I10 Essential (primary) hypertension; Z79.4 Long term (current) use of insulin; Z91.040 Latex allergy status

== ENCOUNTER 2016-12-20 22:59 | Inpatient (IN) | payer OTHER, MEDICAID ==
--- NOTE | 2016-12-20 23:03 | EDPHY ---
DG Addendum - Addendum .: The patient was sent to the emergency department as a direct admission for evaluation for possible J-tube placement. This was done at the direction of Dr. Ross from General surgery. The patient reportedly has been dislodging his G tube multiple times over the past several weeks with his feedings. He reportedly has had high residuals. The patient has not had a history of vomiting or aspiration according to the nurse of [facility]. There was not a subsequent ED evaluation done. Please refer to my prior history and physical. I consulted with Dr. Adrian Shanks from the hospitalist service who will admit the patient. Clinical impression: Persistent vegetative state Disposition: Admission to the hospital for general surgical consultation and consideration for possible J-tube placement
[2016-12-21 00:05] LABS: % IMMATURE GRANULYOCYTES 0.2 % (0.0-1.1); ABSOLUTE IMMATURE GRANULOCYTES 0.01 10^3/uL (0.00-0.10); ADD DIFF? NO; ADD MORPH? NO; ADD SCAN? NO; ATYPICAL LYMPHOCYTE FLAG 30 (0-99); FRAGMENT RBC FLAG 0 (0-99); HEMATOCRIT 40.9 % (40.0-51.0); HEMOGLOBIN 14.1 g/dL (13.7-17.5); LEFT SHIFT FLG 0 (0-99); LIPEMIA HEMOLYSIS FLAG 90 (0-99); MEAN CELL HEMOGLOBIN CONCENTR. 34.5 g/dL (32.4-36.7); MEAN CELL VOLUME 89.9 fL (81.5-99.8); MEAN PLATELET VOLUME 9.7 fL (8.7-11.7); PLATELET CLUMPS FLAG 0 (0-99); PLATELET COUNT 208 10^3/uL (150-400); RED BLOOD CELL COUNT 4.55 10^6/uL (4.40-6.38); RED CELL DISTRIBUTION WIDTH 13.2 % (11.5-15.2)
[2016-12-21 00:39] LABS: ANION GAP 15 mEq/L (8-16); CALCIUM 9.9 mg/dL (8.5-10.4); CARBON DIOXIDE 22 mEq/l (22-31); CHLORIDE 100 mEq/L (97-110); CREATININE 0.7 mg/dL (0.7-1.3); GLOMERULAR FILTRATION RATE > 60; GLUCOSE 105 mg/dL (70-100); POTASSIUM 3.9 mEq/L (3.5-5.2); SODIUM 137 mEq/L (134-144)
[2016-12-21] MEDS ORDERED: ACETAMINOPHEN 325 MG TAB PO PRN (01:21)
[2016-12-21] MEDS ORDERED: ONDANSETRON 4 MG/2 ML VIAL IVP PRN (01:21)
[2016-12-21] MEDS ORDERED: ONDANSETRON DISINTEGRATING 4 MG TAB PO PRN (01:21)
[2016-12-21] MEDS ORDERED: LORazepam 2 MG/ML INJ IVP PRN (01:21)
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
--- NOTE | 2016-12-21 08:43 | WOCRNPDOC ---
WOCRN Advanced Assessment Note - Skin Integrity Problem, Advanced Assess Left Lateral Fourth Toe Pressure Injury Wound Bed Color: Black, Purple Site Measurement - Head-to-Toe Length X Width X Depth (cm): 0.6x1x0 Pressure Injury Stage: Unstageable Pressure Injury Present on Admit: Yes Skin Integrity Problem Comment: Originally presented as a present on admission deep tissue injury in November 2016. Currently an unstagable pressure injury with no sign of infection on distal lateral 4th toe. This wound presented at the same time as the pressure injury on the 5th toe. [place] with betadine BID. Left Fifth Toe Pressure Injury Dressing Type: Open to Air Exudate Amount: None Isis Wound Tissue: Xerotic Wound Bed Color: Black, Purple Wound Edges: Attached Site Measurement - Head-to-Toe Length X Width X Depth (cm): 5.2x5.2x0 Pressure Injury Stage: Unstageable Pressure Injury Present on Admit: Yes Extremity Temperature: Warm Skin Integrity Problem Comment: Patient admitted with this wound presenting as a deep tissue injury in November 2016. Currently wound is 100% eschar, however some of toe is still healthy with viable tissue. No sign of infection. [place] with betadine BID. Delphine HERNANDEZ in room for care.
[2016-12-21] MEDS ORDERED: BISACODYL 10 MG SUPP PR PRN (08:53)
[2016-12-21] MEDS ORDERED: ACETAMINOPHEN 325 MG TAB TUBE PRN ×2 (08:53→09:20)
[2016-12-21] MEDS ORDERED: PHENYTOIN 100 MG/4 ML UDL PO SCH (09:15)
[2016-12-21] MEDS ORDERED: ONDANSETRON DISINTEGRATING 4 MG TAB TUBE PRN (09:20)
[2016-12-21] MEDS: levETIRAcetam 500 MG/5 ML UDCUP TUBE SCH ×2 (09:44→21:40)
[2016-12-21] MEDS: PHENYTOIN 100 MG/4 ML UDL TUBE SCH ×2 (10:17→13:07)
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
--- NOTE | 2016-12-21 15:30 | SOAPPROG ---
SOAP Progress Note Assessment/Plan: Assessment: PATIENT IN A VEGETATIVE STATE AND NEEDING A POSSIBLE J-TUBE BECAUSE OF DIFFICULTIES WITH HIS PRESENT G-TUBE PATIENT IS DIABETIC AND UNRESPONSIVE UNCLEAR WHY HE IS HAVING PROBLEMS WITH HIS GTUBE WHICH SHE HAS HAD FOR SOME TIME Plan: DISCUSS WITH OPTIONS WITH THE FAMILY/J TUBE SCHEDULE FOR SATURDAY MORNING/ CONTINUE PRESENT TUBE FEEDINGS TO EVALUATE FOR ACTUAL NEED FOR THE J-TUBE 12/21/16 15:27 Objective: Vital Signs Temp Pulse Resp BP Pulse Ox 36.9 C 55 L 16 129/79 H 96 12/21/16 12:10 12/21/16 12:10 12/21/16 12:10 12/21/16 12:10 12/21/16 12:10 Laboratory Results 12/20/16 23:50 12/20/16 23:50 12/20/16 12/21/16 12/22/16 05:59 05:59 05:59 Output Total 400 Balance -400 ICD10 Worksheet Patient Problems: Problems Problem Status Onset Infection due to resistant organism Active Injury of head Active 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
[2016-12-21] MEDS: guaiFENesin 200 MG/10 ML UDL TUBE SCH (18:39)
[2016-12-21] MEDS ORDERED: NON-FORMULARY NEW DRUG (Insulin Detemir [Levemir] 10 UNIT) SQ SCH (20:00)
[2016-12-21] MEDS: DOXAZOSIN MESYLATE 4 MG TAB TUBE SCH (21:41)
[2016-12-21] MEDS: INSULIN GLARGINE 100 UNITS/ML SYRINGE SC SCH (21:41)
[2016-12-22] MEDS: guaiFENesin 200 MG/10 ML UDL TUBE SCH ×3 (05:09→22:17)
[2016-12-22] MEDS: CETIRIZINE 10 MG TAB TUBE SCH (10:52)
[2016-12-22] MEDS: PHENYTOIN 100 MG/4 ML UDL TUBE SCH ×2 (10:53→13:52)
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
[2016-12-22] MEDS: levETIRAcetam 500 MG/5 ML UDCUP TUBE SCH ×2 (10:54→22:17)
[2016-12-22] MEDS: DOXAZOSIN MESYLATE 4 MG TAB TUBE SCH (22:17)
[2016-12-22] MEDS: INSULIN GLARGINE 100 UNITS/ML SYRINGE SC SCH (22:17)
[2016-12-23] MEDS: PHENYTOIN 100 MG/4 ML UDL TUBE SCH ×2 (08:16→12:35)
[2016-12-23] MEDS: levETIRAcetam 500 MG/5 ML UDCUP TUBE SCH ×2 (08:16→20:43)
[2016-12-23] MEDS: CETIRIZINE 10 MG TAB TUBE SCH (08:16)
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
[2016-12-23] MEDS: guaiFENesin 200 MG/10 ML UDL TUBE SCH (18:10)
[2016-12-23] MEDS: DOXAZOSIN MESYLATE 4 MG TAB TUBE SCH (20:43)
[2016-12-23] MEDS: INSULIN GLARGINE 100 UNITS/ML SYRINGE SC SCH (20:43)
[2016-12-24] MEDS: guaiFENesin 200 MG/10 ML UDL TUBE SCH ×2 (02:48→18:48)
[2016-12-24] MEDS ORDERED: NS 1,000 ML IV SCH (03:00)
[2016-12-24] MEDS: levETIRAcetam 500 MG/5 ML UDCUP TUBE SCH ×2 (10:03→20:38)
[2016-12-24] MEDS: PHENYTOIN 100 MG/4 ML UDL TUBE SCH ×2 (10:03→14:52)
[2016-12-24] MEDS ORDERED: BUPIVACAINE 0.5% 30 ML SDV ONE (10:14)
[2016-12-24] MEDS: CETIRIZINE 10 MG TAB TUBE SCH (10:36)
--- NOTE | 2016-12-24 11:23 | WOCRNPDOC ---
WOCR[facility] Advanced Assessment Note - Skin Integrity Problem, Advanced Assess Occiput Dressing Type: Allevyn Life Isis Wound Tissue: Blanching, Erythema Skin Integrity Problem Comment: Keep occiput offloaded by repositioning patient' s head. Also may use egg crate foam provided by wound care on 12/24. May cut a 3x3 cm hole in egg crate to cradle erythematic area and place either on pillow or air cushion. Wound care will sign off. Please reconsult if area is non blanching or there are other concerns. Keven BELLE discussed plan with Delaney HERNANDEZ.
--- NOTE | 2016-12-24 12:26 | SOAPPROG ---
SOAP Progress Note Assessment/Plan: Assessment/Plan: 56 Y M TBI, chronic vegetative state, +trach, PEG dependant. Possible PEG dysfunction, also L 5th great toe necrosis, and necrotic ulcer of adjacent 4th toe. Per RNs from yesterday and this am, 5-10 cc residuals after tube feeding. As of now, PEG seems to be functioning. Will hold off on surgery today and put on our schedule for tomorrow for J tube and then likely 5th toe amputation. Will need to return to assess pedal arterial flow. Seen with Dr Ross. 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
--- NOTE | 2016-12-24 13:42 | HOSPPROG ---
Hospitalist Progress Note Assessment/Plan: Mr Arias is 56 Y M w TBI, chronic vegetative state, +trach, PEG dependant. Concern was a possible peg dysfunction. He also has 5th great toe necrosis and will be getting a 5ht toe amputation w Dr Ross/ has a necrotic ulcer of adjacent 4th toe. Was called this morning for a stat team due to respiratory distress/ he did well with repositioning his trachea by RT. . # TF difficulties: without issues of vomiting/leaking or fever but apparently frequent dislodging and high residuals-- Dr. Ross to place a J tube Saturday only 5-10cc residuals at this time # left 5th toe pressure injury wnecrosis/gangrene. to get a 5th toe amputation tomorrow # seizure d/o: anti epileptics resumed # chronic indwelling english: english changed on this admit # chronic respiratory failure s/p trach: stable this afternoon # dvt prophylaxis: not on any at this time/ surgery tomorrow/ he is always immobile and in a vegetative state/ athrombic pumps Subjective: [place] is non repsonsive. Objective: Vital Signs Temp Pulse Resp BP Pulse Ox 36.8 C 59 L 14 101/67 99 12/24/16 12:01 12/24/16 12:01 12/24/16 12:01 12/24/16 12:01 12/24/16 12:01 12/23/16 12/24/16 12/25/16 05:59 05:59 05:59 Intake Total 515 0 Output Total 900 1550 300 Balance -385 -1550 -300 - Physical Exam Constitutional: chronically ill appearing Ears, Nose, Mouth, Throat: moist mucous membranes, other (trachea in place) Cardiovascular: regular rate and rhythym Respiratory: no respiratory distress, bronchial breath sounds Gastrointestinal: normoactive bowel sounds Skin: warm, other (left little toe blackened) Psychiatric: other (non repsonsive overall/ stares) ICD10 Worksheet Patient Problems: Problems Problem Status Onset Infection due to resistant organism Active Injury of head Active 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
[2016-12-24] MEDS: DOXAZOSIN MESYLATE 4 MG TAB TUBE SCH (20:37)
[2016-12-24] MEDS: INSULIN GLARGINE 100 UNITS/ML SYRINGE SC SCH (20:37)
[2016-12-25] MEDS: NS 1,000 ML IV SCH
[2016-12-25] MEDS: guaiFENesin 200 MG/10 ML UDL TUBE SCH ×2 (05:00→18:07)
[2016-12-25] MEDS: PHENYTOIN 100 MG/4 ML UDL TUBE SCH ×2 (08:50→14:42)
[2016-12-25] MEDS: CETIRIZINE 10 MG TAB TUBE SCH (08:51)
[2016-12-25] MEDS: levETIRAcetam 500 MG/5 ML UDCUP TUBE SCH ×2 (08:51→19:48)
--- NOTE | 2016-12-25 09:48 | HOSPPROG ---
Hospitalist Progress Note Assessment/Plan: Mr Arias is 56 Y M w TBI, chronic vegetative state, +trach, PEG dependant. Concern was a possible peg dysfunction. He also has 5th great toe necrosis and will be getting a 5ht toe amputation w Dr Ross/ has a necrotic ulcer of adjacent 4th toe. . # TF difficulties: without issues of vomiting/leaking or fever but apparently frequent dislodging and high residuals-- Dr. Ross to place a J tube today only 5-10cc residuals at this time # left 5th toe pressure injury w necrosis/gangrene. to get a 5th toe amputation today # seizure d/o: anti epileptics resumed # chronic indwelling english: english changed on this admit # chronic respiratory failure s/p trach: stable # dvt prophylaxis: not on any at this time/ surgery today/ he is always immobile and in a vegetative state/ athrombic pumps Subjective: Patient stares, non verbal. Objective: Vital Signs Temp Pulse Resp BP Pulse Ox 36.7 C 65 12 92/68 L 98 12/25/16 07:20 12/25/16 07:20 12/25/16 07:20 12/25/16 07:20 12/25/16 07:20 12/24/16 12/25/16 12/26/16 05:59 05:59 05:59 Intake Total 0 1721 Output Total 1550 900 Balance -1550 821 - Physical Exam Constitutional: chronically ill appearing Cardiovascular: regular rate and rhythym Respiratory: bronchial breath sounds Gastrointestinal: normoactive bowel sounds Skin: warm, other (left little toe blackend) Neurologic: other (patient doesn't interact/ stares) ICD10 Worksheet Patient Problems: Problems Problem Status Onset Infection due to resistant organism Active Injury of head Active 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
[2016-12-25] MEDS ORDERED: BUPIVACAINE 0.5% 30 ML SDV ONE (11:52)
[2016-12-25] MEDS: DOXAZOSIN MESYLATE 4 MG TAB TUBE SCH (19:47)
[2016-12-25] MEDS: INSULIN GLARGINE 100 UNITS/ML SYRINGE SC SCH (21:27)
[2016-12-26] MEDS: guaiFENesin 200 MG/10 ML UDL TUBE SCH ×2 (06:08→16:10)
[2016-12-26] MEDS: PHENYTOIN 100 MG/4 ML UDL TUBE SCH (07:47)
[2016-12-26] MEDS: levETIRAcetam 500 MG/5 ML UDCUP TUBE SCH (07:47)
[2016-12-26] MEDS: CETIRIZINE 10 MG TAB TUBE SCH (07:48)
[2016-12-26] MEDS ORDERED: BUPIVACAINE 0.5% 30 ML SDV ONE (08:12)
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
[2016-12-26] MEDS ORDERED: NS 1,000 ML IV ONE (10:31)
[2016-12-26] MEDS ORDERED: MIDAZOLAM 2 MG/2 ML VIAL ONE (10:43)
[2016-12-26] MEDS ORDERED: fentaNYL 100 MCG/2 ML INJ ONE (10:44)
[2016-12-26] MEDS ORDERED: PROPOFOL/EMULSION 500 MG/50 ML BOTTLE IV ONE (10:58)
[2016-12-26] MEDS ORDERED: SUGAMMADEX SODIUM 200 MG/2 ML VIAL IVP ONE (12:10)
[2016-12-26] MEDS ORDERED: ROCURONIUM 50 MG/5 ML VIAL ONE (12:10)
[2016-12-26] MEDS ORDERED: fentaNYL 100 MCG/2 ML INJ IVP PRN (12:55)
[2016-12-26] MEDS ORDERED: MEPERIDINE 25 MG/ML SYR IVP PRN (12:55)
[2016-12-26] MEDS ORDERED: PROMETHAZINE HCL 25 MG/ML INJ IVP PRN (12:55)
[2016-12-26] MEDS ORDERED: LR 500 ML IV PRN (12:55)
[2016-12-26] MEDS ORDERED: NALOXONE HCL 0.4 MG/ML INJ IVP PRN (12:55)
--- NOTE | 2016-12-26 12:57 | POSTANESTH ---
Post Anesthetic Evaluation Cardiovascular Status: Normal, Stable Respiratory Status: Similar to Pre-op Cond. Level of Consciousness/Mental Status: Other, See Comment (persistant vegetative state) Pain Control: Adequate, Prn Tx Ordered Nausea/Vomiting Control: Adequate, Prn Tx Ordered Complications Possibly Related to Anesthesia: None Noted
--- NOTE | 2016-12-26 15:10 | POSTOPPROG ---
Post Op Note Date of Operation: 12/26/16 Surgeon: Dio Ross Hemodialysis Rn: SILVIA Anesthesiologist: RAN Anesthesia: GET(General Endotracheal) Pre-op Diagnosis: GERD Post-op Diagnosis: SAME Indication: NEED FOR NUTRITION Procedure: LAP WITH FEEDING JEJUNOSTOMY Findings: NORMAL SMALL BOWELL Inf/Abcess present in the surg proc area at time of surgery?: No Depth: Organ Space EBL: Minimal Complications: 0
--- NOTE | 2016-12-26 15:15 | POSTOPPROG ---
Post Op Note Date of Operation: 12/26/16 Surgeon: Dio Ross Anesthesiologist: RAN Anesthesia: GET(General Endotracheal) Pre-op Diagnosis: PREESURE ULCER LEFT 5TH TOE Post-op Diagnosis: SAME Indication: BLACK ESCHAR LEFT 5TH TOE Procedure: LEFT 5TH TOE AMPUTATION Findings: SUPERFICIAL ULCERATION, GOOD BLOOD SUPPLY Inf/Abcess present in the surg proc area at time of surgery?: Yes Depth: Deep Incisional (Fascial) EBL: Minimal Complications: NONE Specimen(s): LEFT 5TH TOE
[2016-12-26] MEDS ORDERED: PROTOCOL POTASSIUM 1 DOSE MISC PRN (15:25)
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
[2016-12-26] MEDS: NS 1,000 ML IV SCH (16:50)
[2016-12-26 20:12] LABS: POTASSIUM 4.8 mEq/L (3.5-5.2)
[2016-12-26] MEDS ORDERED: PHENYTOIN SODIUM 100 MG/2 ML VIAL IVP SCH (21:00)
[2016-12-26] MEDS ORDERED: levETIRAcetam 500 MG in NS 100 ML IV SCH (21:00)
[2016-12-26] MEDS: DOXAZOSIN MESYLATE 4 MG TAB TUBE SCH (21:37)
[2016-12-26] MEDS: INSULIN GLARGINE 100 UNITS/ML SYRINGE SC SCH (21:37)
[2016-12-27] MEDS: guaiFENesin 200 MG/10 ML UDL TUBE SCH ×2 (04:25→18:41)
[2016-12-27 05:45] LABS: % IMMATURE GRANULYOCYTES 0.3 % (0.0-1.1); ABSOLUTE IMMATURE GRANULOCYTES 0.02 10^3/uL (0.00-0.10); ADD DIFF? NO; ADD MORPH? NO; ADD SCAN? NO; ATYPICAL LYMPHOCYTE FLAG 40 (0-99); FRAGMENT RBC FLAG 0 (0-99); HEMATOCRIT 39.3 % (40.0-51.0); HEMOGLOBIN 13.1 g/dL (13.7-17.5); LEFT SHIFT FLG 0 (0-99); LIPEMIA HEMOLYSIS FLAG 80 (0-99); MEAN CELL HEMOGLOBIN 30.8 pg (27.9-34.1); MEAN CELL HEMOGLOBIN CONCENTR. 33.3 g/dL (32.4-36.7); MEAN CELL VOLUME 92.3 fL (81.5-99.8); MEAN PLATELET VOLUME 10.2 fL (8.7-11.7); PLATELET CLUMPS FLAG 0 (0-99); PLATELET COUNT 149 10^3/uL (150-400); RED BLOOD CELL COUNT 4.26 10^6/uL (4.40-6.38); RED CELL DISTRIBUTION WIDTH 13.2 % (11.5-15.2)
[2016-12-27 05:58] LABS: ANION GAP 10 mEq/L (8-16); CALCIUM 8.5 mg/dL (8.5-10.4); CARBON DIOXIDE 22 mEq/l (22-31); CHLORIDE 106 mEq/L (97-110); CREATININE 0.7 mg/dL (0.7-1.3); GLOMERULAR FILTRATION RATE > 60; GLUCOSE 98 mg/dL (70-100); POTASSIUM 4.5 mEq/L (3.5-5.2); SODIUM 138 mEq/L (134-144)
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
--- NOTE | 2016-12-27 10:28 | WOCRNPDOC ---
WOCRN Advanced Assessment Note - Skin Integrity Problem, Advanced Assess Occiput Isis Wound Tissue: Blanching, Erythema Site Measurement - Head-to-Toe Length X Width X Depth (cm): 5x5x0 Left Lower Cheek Dressing Type: Open to Air Skin Integrity Problem Comment: Partial thickness denuded area of unknown etiology. May be from drool. Could be from taping/tube in OR. Ok to leave open to air. Area is under mcneil that is 1/8 inch long and cannot be dressed as it also originates in the corner of patient's mouth. Wound care will sign off. Please reconsult prn.
[2016-12-27] MEDS ORDERED: levETIRAcetam 500 MG in NS 100 ML IV ONE (11:36)
[2016-12-27] MEDS: levETIRAcetam 500 MG/5 ML UDCUP TUBE SCH ×2 (11:55→22:27)
[2016-12-27] MEDS: CETIRIZINE 10 MG TAB TUBE SCH (11:55)
[2016-12-27] MEDS: PHENYTOIN 100 MG/4 ML UDL TUBE SCH ×2 (11:56→12:12)
[2016-12-27] MEDS: NS 1,000 ML IV SCH (14:10)
[2016-12-27] MEDS: DOXAZOSIN MESYLATE 4 MG TAB TUBE SCH (22:27)
[2016-12-27] MEDS: INSULIN GLARGINE 100 UNITS/ML SYRINGE SC SCH (23:20)
[2016-12-28] MEDS: NS 1,000 ML IV SCH (00:24)
[2016-12-28] MEDS: guaiFENesin 200 MG/10 ML UDL TUBE SCH ×2 (05:29→17:35)
[2016-12-28 05:33] LABS: ANION GAP 12 mEq/L (8-16); CALCIUM 7.9 mg/dL (8.5-10.4); CARBON DIOXIDE 20 mEq/l (22-31); CHLORIDE 108 mEq/L (97-110); CREATININE 0.6 mg/dL (0.7-1.3); GLOMERULAR FILTRATION RATE > 60; GLUCOSE 98 mg/dL (70-100); POTASSIUM 3.6 mEq/L (3.5-5.2); SODIUM 140 mEq/L (134-144)
[2016-12-28] MEDS: PHENYTOIN 100 MG/4 ML UDL TUBE SCH ×2 (08:41→12:15)
[2016-12-28] MEDS: levETIRAcetam 500 MG/5 ML UDCUP TUBE SCH ×2 (08:43→20:42)
[2016-12-28] MEDS: CETIRIZINE 10 MG TAB TUBE SCH (08:44)
--- NOTE | 2016-12-28 16:05 | SOAPPROG ---
SOAP Progress Note Assessment/Plan: Assessment: Mr. Arias is a 56 yo M with TBI, chronic vegetative state, +trach dependent. POD #2 s/p left 5th toe amputation for necrosis and lap feeding jejunostomy. S: Patient appears overall comfortable. O: J tube site C/D/I, functioning for tube feeds. Left 5th toe amp site intact with minimal bloody drainage. No evidence of infection. Plan: J tube and 5th toe amp dressings changed today. [facility]. 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
--- NOTE | 2016-12-28 17:43 | HOSPPROG ---
Hospitalist Progress Note Assessment/Plan: 56-year-old male in a chronic vegetative state, positive trach positive PEG tube and new change in ostomy. He underwent of left 5th toe amputation by Dr. Ross. He also has a necrotic ulcer it is adjacent 4th toe. Patient is new to me today. - TF difficulties: without issues of vomiting/leaking or fever but apparently frequent dislodging and high residuals-- s/p J tube placement; Functioning well at full nutritional rate. The PEG tube is not being used at this time. -left 5th toe pressure injury w necrosis/gangrene. POD # 2 for left little toe amputation; Doing well -seizure d/o: anti epileptics resumed -chronic indwelling english: english changed on this admit -chronic respiratory failure s/p trach: stable / needs frequent suctioning; no signs of respiratory distress will continue his usual pulmonary care -dvt prophylaxis: not on any at this time/he is always immobile and in a vegetative state/ athrombic pumps -plan. Will wait for surgery's input. possible discharge on 12/29 of after consultation with surgery. Subjective: No response he is in a chronic vegetative state. No signs of distress Objective: Vital Signs Temp Pulse Resp BP Pulse Ox 36.4 C 78 18 93/60 L 100 12/28/16 16:00 12/28/16 16:53 12/28/16 16:53 12/28/16 16:00 12/28/16 16:53 Laboratory Results 12/27/16 05:22 12/28/16 05:00 12/27/16 12/28/16 12/29/16 05:59 05:59 05:59 Intake Total 114 2236 Output Total 1750 2250 800 Balance -1636 -14 -800 - Time Spent With Patient Time Spent with Patient: greater than 35 minutes Time Spent with Patient: Greater than 35 minutes spent on this patients care, greater than 50% of time spent counseling, educating, and coordinating care regarding the above mentioned plan. - Pending Discharge Pending Discharge Within 24 Hours: Yes Pending Discharge Date: 12/29/16 Pending Discharge Time: 11:00 - Physical Exam Constitutional: no apparent distress Eyes: PERRL Ears, Nose, Mouth, Throat: moist mucous membranes Cardiovascular: regular rate and rhythym, no murmur, rub, or gallop Respiratory: no respiratory distress, no rales or rhonchi, clear to auscultation Gastrointestinal: normoactive bowel sounds, soft, non-tender abdomen Genitourinary: no bladder fullness Skin: warm Musculoskeletal: other ( left foot has a surgical bandage. The left 5th toe has been surgically amputated. 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
[2016-12-28] MEDS: DOXAZOSIN MESYLATE 4 MG TAB TUBE SCH (20:42)
[2016-12-28] MEDS: INSULIN GLARGINE 100 UNITS/ML SYRINGE SC SCH (22:29)
[2016-12-29] MEDS: guaiFENesin 200 MG/10 ML UDL TUBE SCH (04:01)
[2016-12-29] MEDS: PHENYTOIN 100 MG/4 ML UDL TUBE SCH ×2 (08:00→12:52)
[2016-12-29] MEDS: CETIRIZINE 10 MG TAB TUBE SCH (08:01)
[2016-12-29] MEDS: levETIRAcetam 500 MG/5 ML UDCUP TUBE SCH (08:01)
--- NOTE | 2016-12-29 09:49 | SOAPPROG ---
SOAP Progress Note Assessment/Plan: Assessment: Mr. Arias is a 56 yo M with TBI, chronic vegetative state, +trach dependent. POD #3 s/p left 5th toe amputation for necrosis and lap feeding jejunostomy. S: Patient appears overall comfortable. O: J tube site C/D/I, functioning for tube feeds. Left 5th toe amp site intact No evidence of infection. Plan: Keep G tube for now. Can be removed as outpatient if not functional F/U with Dr. Ross in 2 weeks Discharge to [facility] when appropriate. 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
--- NOTE | 2016-12-29 12:54 | PDIAF ---
- Diagnosis Code Status: Full Code - Medication Management Discharge Medications: Medications to Continue on Transfer Acetaminophen [Tylenol 325mg (*)] 650 mg TUBE Q4 PRN 11/28/16 [Last Taken Unknown] Bisacodyl [Dulcolax] 10 mg RC Q24H PRN 11/28/16 [Last Taken Unknown] Cetirizine [ZyrTEC 10 mg (*)] 10 mg TUBE DAILY@11/28/16 [Last Taken 11/28/16] Doxazosin Mesylate [Cardura 4 MG (*)] 4 mg TUBE DAILY@11/28/16 [Last Taken ] Insulin Detemir [Levemir] 10 unit SQ DAILY@11/28/16 [Last Taken 11/27/16] Phenytoin [Dilantin] 5 ml TUBE BID@11/28/16 [Last Taken 11/28/16 08:00 5ml ] guaiFENesin [Cough Syrup] 30 mg TUBE BID@11/28/16 [Last Taken 11/28/16 08: 00] levETIRAcetam [Keppra Oral Liquid] 5 ml TUBE BID 11/28/16 [Last Taken 11/28/16 08:00 5ml] Discharge Medications: Refer to the Discharge Home Medication list for PRN reason. - Orders Services needed: Registered Nurse, Certified Microstrategy Architect Developer, Physical Therapy, Occupational Therapy Diet Recommendation: other (Jejunal tube feedings at 75 cc/hr for 20 hours) Wound Care Instructions: Daily wound dressing changes to left foot; cleanse the wound, apply antibiotic ointment; apply dry dressing - Labs/Radiology CBC Date: 01/07/17 CMP Date: 01/07/17 ESR Date: 01/07/17 - Follow Up Care Current Providers and Referrals: Dio Ross MD [Medical Doctor] - follow up in 2 weeks JUAN PAUL [Primary Care Provider] -
[2016-12-29 17:03] VITALS: BP 115/88; PULSE 73; RESP 20; TEMP 97.4; O2SAT 100
--- NOTE | 2016-12-29 23:05 | GDS ---
[f rep st] DISCHARGE SUMMARY NEW AND ACUTE DIAGNOSES: 1. Intolerance of percutaneous endoscopic gastrostomy tube feedings, status post jejunostomy tube p lacement. 2. Necrotic left 5th toe, status post amputation. CHRONIC DIAGNOSES: 1. Vegetative state. 2. Seizure disorder. 3. Chronic indwelling [place]. 4. Chronic respiratory failure, status post trach remotely. CONSULTATION: General Surgery. PROCEDURES: 12/26: Laparoscopic placement of a jejunostomy tube by Dr. Dio Ross, and on 12/26 , a 2nd procedure was an amputation of the left 5th toe. HOSPITAL COURSE: A 56-year-old male, known to have a persistent vegetative state, chronic respirato ry failure, and status post tracheostomy many years ago, presented because of an occluded PEG tube, and due to his multiple medical problems and difficulty, he was admitted for PEG tube change. It wa s noted he had a necrotic left toe during the hospitalization and an amputation of this was also per formed. The J-tube was placed by Dr. Ross successfully. The PEG tube was left in place. He ugo ated the procedures well. His other chronic problems remain stable. DISCHARGE MEDICATIONS: These are the same as his admission medications without changes. You can re view the EMR for his medication list. DISCHARGE INSTRUCTIONS: Wound care instructions were given on his discharge for wound care to his l eft toe for daily dressing changes. He will see Dr. Ross in approximately 2 weeks. His tube feedings are to be at 75 mL/hour for 20 hours a day. He was at full dose nutrition at the time of discharge. PLAN: The patient was discharged to [facility]. TIME: This discharge required 40 minutes, greater than 50% to school counsellor and organize his care and ret urn back to [facility]. /[id number]/MODL
== END 2016-12-29 17:30 | DRG 982 ==
LOC: EDUNIT# → F3N 12-21 00:27 → OBSVTOIN 12-21 17:15 → F3N 12-26 10:22 → F3E 12-26 13:51
PROVIDERS: ADMIT Internal Medicine; ATTEND Internal Medicine
DX: Z43.1 Encounter for attention to gastrostomy (principal); C49.A3 Gastrointestinal stromal tumor of small intestine; L89.890 Pressure ulcer of other site, unstageable; J96.10 Chronic respiratory failure, unspecified whether with hypoxia or hypercapnia; Z93.0 Tracheostomy status; R40.3 Persistent vegetative state; Z87.820 Personal history of traumatic brain injury; G40.909 Epilepsy, unspecified, not intractable, without status epilepticus; E11.9 Type 2 diabetes mellitus without complications
CPT/HCPCS: J1642; J1815; J1953; J1956; J2250; J2704; J3010

== ENCOUNTER 2017-01-11 16:29 | Inpatient (IN) | payer OTHER, MEDICAID ==
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
[2017-01-11] MEDS ORDERED: LR 1,000 ML IV ONE (17:25)
[2017-01-11 17:34] LABS: % IMMATURE GRANULYOCYTES 0.5 % (0.0-1.1); ABSOLUTE IMMATURE GRANULOCYTES 0.04 10^3/uL (0.00-0.10); ADD DIFF? NO; ADD MORPH? NO; ADD SCAN? YES; ATYPICAL LYMPHOCYTE FLAG 0 (0-99); FRAGMENT RBC FLAG 0 (0-99); HEMATOCRIT 37.1 % (40.0-51.0); HEMOGLOBIN 12.6 g/dL (13.7-17.5); LIPEMIA HEMOLYSIS FLAG 90 (0-99); MEAN CELL HEMOGLOBIN 30.7 pg (27.9-34.1); MEAN CELL VOLUME 90.3 fL (81.5-99.8); MEAN PLATELET VOLUME 9.6 fL (8.7-11.7); PLATELET CLUMPS FLAG 0 (0-99); PLATELET COUNT 245 10^3/uL (150-400); RED BLOOD CELL COUNT 4.11 10^6/uL (4.40-6.38); RED CELL DISTRIBUTION WIDTH 13.2 % (11.5-15.2)
[2017-01-11 17:35] LABS: LEFT SHIFT FLG 190 (0-99)
[2017-01-11 17:47] LABS: INR 1.16 (0.83-1.16); PROTIME(PATIENT) 14.8 SEC (12.0-15.0)
[2017-01-11 17:49] LABS: APTT 44.6 SEC (23.0-38.0)
[2017-01-11 17:54] LABS: ALANINE AMINOTRANSFERASE 41 IU/L (21-72); ALBUMIN 3.4 g/dL (3.5-5.0); ALKALINE PHOSPHATASE 162 IU/L (38-126); ANION GAP 14 mEq/L (8-16); ASPARTATE AMINOTRANSFERASE 25 IU/L (17-59); BILIRUBIN,TOTAL 1.3 mg/dL (0.1-1.4); CALCIUM 8.5 mg/dL (8.5-10.4); CARBON DIOXIDE 25 mEq/l (22-31); CHLORIDE 93 mEq/L (97-110); CREATININE 0.9 mg/dL (0.7-1.3); GLOMERULAR FILTRATION RATE > 60; GLUCOSE 160 mg/dL (70-100); POTASSIUM 3.6 mEq/L (3.5-5.2); SODIUM 132 mEq/L (134-144); TOTAL PROTEIN 7.4 g/dL (6.3-8.2)
[2017-01-11 18:11] LABS: COLOR YELLOW; LEUKOCYTE ESTERASE,URINE 2+ (NEGATIVE); NITRITE,URINE POSITIVE (NEGATIVE)
[2017-01-11 18:17] LABS: AMORPHOUS PRESENT /hpf (NONE-1+); BACTERIA 4+ /hpf (NONE SEEN); RBC,URINE 50-182 /hpf (0-3)
[2017-01-11 18:17] LABS: SCAN NEGATIVE
[2017-01-11] MEDS ORDERED: ONDANSETRON DISINTEGRATING 4 MG TAB TUBE PRN (21:55)
[2017-01-11] MEDS ORDERED: ACETAMINOPHEN 325 MG TAB PO PRN (21:55)
[2017-01-11] MEDS ORDERED: ALBUTEROL 3 ML DEYVIAL IH PRN (21:55)
[2017-01-11] MEDS ORDERED: PROMETHAZINE HCL 25 MG/ML INJ IVP PRN (21:55)
[2017-01-11] MEDS ORDERED: ONDANSETRON 4 MG/2 ML VIAL IVP PRN (21:55)
[2017-01-11] MEDS ORDERED: oxyCODONE IR 5 MG TAB TUBE PRN (21:58)
[2017-01-11] MEDS ORDERED: BISACODYL 10 MG SUPP PR PRN (21:58)
[2017-01-11] MEDS ORDERED: ACETAMINOPHEN 650 MG/20.3 ML UDCUP TUBE PRN (22:15)
[2017-01-11] MEDS ORDERED: PHENYTOIN 100 MG/4 ML UDL PO SCH (22:30)
--- NOTE | 2017-01-11 22:42 | GHP ---
[f rep st] HISTORY AND PHYSICAL DATE OF ADMISSION: 01/11/2017 CHIEF COMPLAINT: Fever. HISTORY OF PRESENT ILLNESS: This is a 56-year-old man who has a past medical history of traumatic b rain injury leading to persistent vegetative state, currently completely dependent in his needs with chronic dysphagia, chronic respiratory failure status post trach and J-tube dependence for nutritio n. He has recently also undergone treatment for gangrenous left 5th toe which is status post amputa tion. He presents today with concerns raised at his prison that he has been febrile for the l ast 3-4 days. It sounds as if these have been, for the most part, low-grade fevers with a T-max of around 101. He does not have any other localizing symptoms. PAST MEDICAL HISTORY: Includes: 1. 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 2. Recurrent UTI and staghorn calculi. 3. Type 2 diabetes. 4. Hypertension. 5. Seizure disorder. 6. Chronic respiratory failure status post trach. 7. Chronic indwelling Mclaughlin. 8. Chronic dysphagia with J tube recently placed. 9. Osteomyelitis and gangrene. PAST SURGICAL HISTORY: Includes: 1. Tracheostomy. 2. PEG tube and J tube placement. 3. Port placement. 4. 5th toe amputation. FAMILY HISTORY: None pertinent. SOCIAL HISTORY: Patient is a nonsmoker, nondrinker, nondrug user. He currently resides at [facility]. He does have family involved in his care who accompany him here tonight. REVIEW OF SYSTEMS: This is unobtainable secondary to patient being in a persistent vegetative state . MEDICATIONS: Include: 1. Guaifenesin. 2. Oxycodone. 3. Glycopyrrolate. 4. Tylenol. 5. Insulin Detemir. 6. Doxazosin. 7. Cetirizine. 8. Bisacodyl. 9. Keppra. 10. Phenytoin. ALLERGIES: Penicillin. PHYSICAL EXAM: VITAL SIGNS: BP 93/65, heart rate 111, respiratory rate 16, O2 sats 98% on 10 L trac h collar, temperature 38.1. GENERAL APPEARANCE: This is a chronically ill-appearing male. He is n on responsive. EYES: Anicteric. HENT: Oropharynx is clear. Trach is clean, dry, and intact with out any discharge. CARDIOVASCULAR: Regular rate and rhythm, no M/R/G. PULMONARY: Coarse breath sounds throughout, normal work of breathing. ABDOMEN: Soft, nontender, no ndistended. EXTREMITIES: No clubbing, cyanosis, or edema. SKIN: Warm, dry, well perfused. Toe a mputation noted without any evidence of associated infection. DIAGNOSTIC DATA: Labs reviewed. White count of 7.7, hematocrit of 37.1, platelets of 245. Board Setter ry notable for sodium 132 and glucose of 160. Urinalysis shows 2+ leukocyte esterase, 50-80 red blo od cells, 10-15 white blood cells, 4+ bacteria. Chest x-ray, personally reviewed and interpreted, shows a left lower lobe opacity consistent with pn eumonia. ASSESSMENT/PLAN: This is a 56-year-old man with past medical history of traumatic brain injury lead ing to persistent vegetative state presenting with fever and suspected left lower lobe pneumonia. 1. Left lower lobe pneumonia in the setting of patient with history of recurrent aspiration. He clayton s had recent issues with his G tube, now a J tube. I will start the patient on cefepime for the janay e being. He has blood and sputum cultures pending. Other considerations for infection would be rel ated to his recent toe amputation versus related to his chronic indwelling Mclaughlin. He does have a ur inalysis that is abnormal but appears stable from prior. We will obtain urine cultures. Sputum cul tures again pending. Will ask Wound Care to evaluate but I do not suspect that the toe is actively infected. 2. Chronic dysphagia. Does have a J-tube placed currently. We will resume his tube feeds but will ask both dietary and speech to be involved to be certain that he is tolerating these and that they are not the likely culprit for his recurrent suspected pneumonia. 3. 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 This is at baseline. He does reside i a prison. 4. Seizure disorder. Will continue his home antiepileptics. 5. Chronic respiratory failure. He has been doing well on trach collar. We will continue to monit or now that he has likely suspected pneumonia. DISPOSITION: Observation status. Suspect he will need less than 48 hour stay for evaluation and ma nagement of above. This does largely depend on his clinical course, however, given his multiple act lamonte comorbidities. Patient is new to my care. Old records reviewed, summarized as per HPI and past medical history, ca re plan reviewed with ER physician, including plans for treatment of pneumonia. /[id number]/MODL
[2017-01-11] MEDS: CEFEPIME HCL 2 GM in D5W 100 ML IV SCH (22:51)
[2017-01-11] MEDS: INSULIN GLARGINE 100 UNITS/ML SYRINGE SC SCH (23:01)
[2017-01-11] MEDS: GLYCOPYRROLATE 1 MG TAB TUBE SCH (23:01)
[2017-01-11] MEDS: PHENYTOIN 100 MG/4 ML UDL TUBE SCH (23:02)
[2017-01-11] MEDS: levETIRAcetam 500 MG/5 ML UDCUP TUBE SCH (23:14)
[2017-01-12] MEDS: guaiFENesin 200 MG/10 ML UDL TUBE SCH ×2 (05:17→18:31)
[2017-01-12 05:28] LABS: % IMMATURE GRANULYOCYTES 0.3 % (0.0-1.1); ABSOLUTE IMMATURE GRANULOCYTES 0.02 10^3/uL (0.00-0.10); ADD DIFF? NO; ADD MORPH? NO; ADD SCAN? NO; ATYPICAL LYMPHOCYTE FLAG 60 (0-99); FRAGMENT RBC FLAG 0 (0-99); HEMATOCRIT 33.7 % (40.0-51.0); HEMOGLOBIN 11.3 g/dL (13.7-17.5); LEFT SHIFT FLG 70 (0-99); LIPEMIA HEMOLYSIS FLAG 80 (0-99); MEAN CELL HEMOGLOBIN 30.5 pg (27.9-34.1); MEAN CELL HEMOGLOBIN CONCENTR. 33.5 g/dL (32.4-36.7); MEAN CELL VOLUME 91.1 fL (81.5-99.8); MEAN PLATELET VOLUME 9.3 fL (8.7-11.7); PLATELET CLUMPS FLAG 20 (0-99); PLATELET COUNT 214 10^3/uL (150-400); RED CELL DISTRIBUTION WIDTH 13.2 % (11.5-15.2)
[2017-01-12 05:39] LABS: ANION GAP 9 mEq/L (8-16); CARBON DIOXIDE 25 mEq/l (22-31); CHLORIDE 99 mEq/L (97-110); CREATININE 0.9 mg/dL (0.7-1.3); GLOMERULAR FILTRATION RATE > 60; GLUCOSE 102 mg/dL (70-100); POTASSIUM 3.2 mEq/L (3.5-5.2); SODIUM 133 mEq/L (134-144)
[2017-01-12] MEDS: CETIRIZINE 10 MG TAB TUBE SCH (08:08)
[2017-01-12] MEDS: PHENYTOIN 100 MG/4 ML UDL TUBE SCH ×2 (08:08→20:54)
[2017-01-12] MEDS: CEFEPIME HCL 2 GM in D5W 100 ML IV SCH (08:12)
[2017-01-12] MEDS: levETIRAcetam 500 MG/5 ML UDCUP TUBE SCH ×2 (08:15→20:54)
[2017-01-12] MEDS: GLYCOPYRROLATE 1 MG TAB TUBE SCH ×3 (08:15→23:25)
[2017-01-12] MEDS: ENOXAPARIN 40 MG/0.4 ML SYR SC SCH (08:16)
[2017-01-12] MEDS ORDERED: PROTOCOL K PHOSPHATE 1 DOSE IV PRN (08:57)
[2017-01-12] MEDS ORDERED: PROTOCOL POTASSIUM 1 DOSE MISC PRN (08:57)
[2017-01-12] MEDS ORDERED: PROTOCOL CALCIUM 1 DOSE IV PRN (08:57)
[2017-01-12 09:56] LABS: IONIZED CALCIUM 1.07 MMOL/L (1.12-1.30)
[2017-01-12 10:05] LABS: POTASSIUM 3.4 mEq/L (3.5-5.2)
[2017-01-12] MEDS ORDERED: CALCIUM GLUCONATE 50 ML IV ONE (10:55)
[2017-01-12] MEDS ORDERED: POTASSIUM Cl (KCl) 10 MEQ/100 ML BAG IV ONE (10:57)
[2017-01-12] MEDS: POTASSIUM Cl (KCl) 50 ML IV SCH ×3 (11:08→13:20)
[2017-01-12 16:10] LABS: CLOSTRIDIUM DIFFICILE DNA POSITIVE (NEGATIVE)
[2017-01-12] MEDS ORDERED: PROTOCOL MAGNESIUM 1 DOSE IV PRN (16:28)
--- NOTE | 2017-01-12 16:31 | HOSPPROG ---
Hospitalist Progress Note Assessment/Plan: 56 yo M with PMH of TBI and resultant persistent vegetative state presenting with persistent fevers found to have c difficile colitis # c diff colitis: likely underlying etiology for his recurrent fevers, initially was not clear given patients persistent vegetative state and TF dependence and lack of localizing sxs. Will start PO vancomycin and monitor. Patient with recurrent hospitalizations and recent gangrenous toe requiring IV abx contributing to risk # ? LLL infiltrate: difficult in patient with chronic respiratory failure and chronically abnormal imaging, but on repeat imaging there is nothing to suggest PNA # fever: suspect this is related to c diff, will trend fever curve # persistent vegetative state: following TBI many years ago, completely dependent in his needs # chronic dysphagia: J tube dependent # chronic indwelling english # IP status, will need > 48 hours stay for eval/mgmt of above given ongoing fevers and new dx of c diff Subjective: no significant overnight events, not able to obtain any history given tbi Objective: Vital Signs Temp Pulse Resp BP Pulse Ox 37.2 C 101 H 20 86/57 L 100 01/12/17 15:45 01/12/17 15:45 01/12/17 15:45 01/12/17 15:45 01/12/17 15:45 Laboratory Results 01/12/17 05:18 01/12/17 06:00 01/11/17 01/12/17 01/13/17 05:59 05:59 05:59 Intake Total 1940 Output Total 450 Balance 1490 PT 14.8 SEC (12.0-15.0) 01/11/17 17:00 INR 1.16 (0.83-1.16) 01/11/17 17:00 non responsive op clear, trach cdi rrr coarse bs throughout soft nt nd no cce warm dry well perfused persistent vegetative state ICD10 Worksheet Patient Problems: Problems Problem Status Onset Sepsis Acute Chronic vegetative state Acute SIRS (systemic inflammatory response syndrome) Acute Bacteria in urine Acute Healthcare-associated pneumonia Acute MRSA (methicillin resistant Staphylococcus aureus) Acute ~10/19/16 VRE (vancomycin-resistant Enterococci) Acute ~09/07/16 UTI (urinary tract infection) Acute Pneumonia Acute Sepsis Acute Pneumonia due to Gram negative bacteria Active Injury of head Active 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
[2017-01-12] MEDS: NS 1,000 ML IV SCH (16:36)
[2017-01-12 17:27] LABS: MAGNESIUM 2.1 mg/dL (1.6-2.3); POTASSIUM 3.6 mEq/L (3.5-5.2)
[2017-01-12 19:28] LABS: PRINT OR CALL CRITICALS TECH CALL
[2017-01-12] MEDS ORDERED: POTASSIUM CL 10 MEQ TAB PO ONE (20:38)
[2017-01-12] MEDS: DOXAZOSIN MESYLATE 4 MG TAB TUBE SCH (20:54)
[2017-01-12] MEDS: VANCOMYCIN 125 MG/2.5 ML UDL PO SCH (20:55)
[2017-01-12] MEDS: INSULIN GLARGINE 100 UNITS/ML SYRINGE SC SCH (20:55)
[2017-01-13] MEDS: guaiFENesin 200 MG/10 ML UDL TUBE SCH ×2 (05:24→15:55)
[2017-01-13] MEDS: VANCOMYCIN 125 MG/2.5 ML UDL PO SCH ×4 (05:24→21:18)
[2017-01-13 05:48] LABS: IONIZED CALCIUM 1.11 MMOL/L (1.12-1.30)
[2017-01-13 06:23] LABS: MAGNESIUM 2.1 mg/dL (1.6-2.3); POTASSIUM 3.7 mEq/L (3.5-5.2)
[2017-01-13] MEDS: ENOXAPARIN 40 MG/0.4 ML SYR SC SCH (09:13)
[2017-01-13] MEDS: PHENYTOIN 100 MG/4 ML UDL TUBE SCH ×2 (09:13→21:14)
[2017-01-13] MEDS: GLYCOPYRROLATE 1 MG TAB TUBE SCH ×3 (09:14→21:17)
[2017-01-13] MEDS: levETIRAcetam 500 MG/5 ML UDCUP TUBE SCH ×2 (09:14→21:18)
[2017-01-13] MEDS: CETIRIZINE 10 MG TAB TUBE SCH (09:14)
[2017-01-13] MEDS ORDERED: NS 500 ML IV ONE (10:11)
[2017-01-13] MEDS ORDERED: POTASSIUM CL 10 MEQ TAB TUBE ONE (11:15)
[2017-01-13] MEDS: NS 1,000 ML IV SCH (11:48)
[2017-01-13] MEDS ORDERED: K PHOS 10 MMOL in D5W 250 ML IV ONE (12:00)
--- NOTE | 2017-01-13 12:22 | HOSPPROG ---
Hospitalist Progress Note Assessment/Plan: 56 yo M with PMH of TBI and resultant persistent vegetative state presenting with persistent fevers found to have c difficile colitis # c diff colitis: likely underlying etiology for his recurrent fevers, initially was not clear given patients persistent vegetative state and TF dependence and lack of localizing sxs. Started on po vanc and will continue x 14 days total. # ? LLL infiltrate: difficult in patient with chronic respiratory failure and chronically abnormal imaging, but on repeat imaging there is nothing to suggest PNA. # fever: suspect this is related to c diff, has been afebrile x 24 hours, if still no recurrent fever will likely dc in am # recent osteomyelitis/gangrene of toe: s/p amputation, wound care to evaluate # persistent vegetative state: following TBI many years ago, completely dependent in his needs # chronic dysphagia: J tube dependent # chronic indwelling english # IP status, will need > 48 hours stay for eval/mgmt of above given ongoing fevers and new dx of c diff, likely dc 01/14 Subjective: no significant overnight events, afebrile since yesterday Objective: Vital Signs Temp Pulse Resp BP Pulse Ox 37.2 C 99 20 106/68 96 01/13/17 11:54 01/13/17 11:54 01/13/17 11:54 01/13/17 11:54 01/13/17 11:54 Laboratory Results 01/13/17 05:30 01/12/17 01/13/17 01/14/17 05:59 05:59 05:59 Output Total 1200 150 Balance -1200 -150 PT 14.8 SEC (12.0-15.0) 01/11/17 17:00 INR 1.16 (0.83-1.16) 01/11/17 17:00 non responsive op clear, trach cdi rrr coarse bs throughout soft nt nd no cce warm dry well perfused persistent vegetative state ICD10 Worksheet Patient Problems: Problems Problem Status Onset Bacteria in urine Acute Healthcare-associated pneumonia Acute SIRS (systemic inflammatory response syndrome) Acute Infection due to resistant organism Active Injury of head Active 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
[2017-01-13] MEDS ORDERED: CALCIUM GLUCONATE 50 ML IV ONE (12:58)
--- NOTE | 2017-01-13 16:15 | WOCRNPDOC ---
WOCRN Advanced Assessment Note - Skin Integrity Problem, Advanced Assess Abdomen Surgical Wound/Incision Dressing Type: Open to Air Closure Description: Sutures (intact), Approximated Exudate Amount: Minimal Exudate Color: Red Exudate Characteristic(s): Dried Isis Wound Tissue: Intact Isis Wound Swelling: None Wound Bed Color: [place] Wound Edges: Attached Site Odor: None Site Measurement - Head-to-Toe Length X Width X Depth (cm): 3.5 Skin Integrity Problem Comment: Surgical incision, presumably from amputation on 12/26, is open to air with healing appearance, without erythema, streaking, heat, induration or swelling. Discussed with DAVID Hardwick, with recommendation to request surgeon order/okay to remove sutures. No wound care orders written.
[2017-01-13 20:11] LABS: POTASSIUM 3.9 mEq/L (3.5-5.2)
[2017-01-13] MEDS ORDERED: POTASSIUM CL 10 MEQ TAB PO ONE (20:17)
[2017-01-13] MEDS: INSULIN GLARGINE 100 UNITS/ML SYRINGE SC SCH (21:14)
[2017-01-13] MEDS: DOXAZOSIN MESYLATE 4 MG TAB TUBE SCH (21:14)
[2017-01-14 05:23] LABS: IONIZED CALCIUM 1.11 MMOL/L (1.12-1.30)
[2017-01-14] MEDS: VANCOMYCIN 125 MG/2.5 ML UDL PO SCH ×2 (05:43→11:48)
[2017-01-14] MEDS: guaiFENesin 200 MG/10 ML UDL TUBE SCH (05:43)
[2017-01-14 05:48] LABS: ANION GAP 7 mEq/L (8-16); CALCIUM 7.9 mg/dL (8.5-10.4); CARBON DIOXIDE 20 mEq/l (22-31); CHLORIDE 107 mEq/L (97-110); CREATININE 0.7 mg/dL (0.7-1.3); GLOMERULAR FILTRATION RATE > 60; GLUCOSE 132 mg/dL (70-100); MAGNESIUM 2.1 mg/dL (1.6-2.3); POTASSIUM 3.5 mEq/L (3.5-5.2); SODIUM 134 mEq/L (134-144)
[2017-01-14] MEDS ORDERED: CALCIUM GLUCONATE 50 ML IV ONE (07:42)
[2017-01-14] MEDS: levETIRAcetam 500 MG/5 ML UDCUP TUBE SCH (09:09)
[2017-01-14] MEDS: ENOXAPARIN 40 MG/0.4 ML SYR SC SCH (09:09)
[2017-01-14] MEDS: PHENYTOIN 100 MG/4 ML UDL TUBE SCH (09:10)
[2017-01-14] MEDS: GLYCOPYRROLATE 1 MG TAB TUBE SCH (09:11)
[2017-01-14] MEDS: CETIRIZINE 10 MG TAB TUBE SCH (09:11)
[2017-01-14] MEDS: POTASSIUM Cl (KCl) 100 ML IV SCH ×3 (10:00→12:22)
--- NOTE | 2017-01-14 10:19 | PDDCSUM ---
Discharge Summary Discharge Summary: Dates of service 01/11-01/14/17 Discharge diagnosis: # c diff colitis # fever # recent osteomyelitis/gangrene of toe # persistent vegetative state # chronic dysphagia # chronic indwelling english Consultations: none Procedures performed: none Hospital course by problem: # c diff colitis: likely underlying etiology for his recurrent fevers, initially was not clear given patients persistent vegetative state and TF dependence and lack of localizing sxs. Started on po vanc and will continue x 14 days total. # fever: suspect this is related to c diff, has been afebrile x 24 hours, if still no recurrent fever will likely dc in am # recent osteomyelitis/gangrene of toe: s/p amputation, wound care to evaluate # persistent vegetative state: following TBI many years ago, completely dependent in his needs # chronic dysphagia: J tube dependent # chronic indwelling english--was changed during this hospitalization Dc back to snf f/u with PCP > 35 minutes spent in dc more than half in coordination of care
--- NOTE | 2017-01-14 10:19 | PDIAF ---
- Diagnosis Code Status: Full Code - Medication Management Discharge Medications: Medications to Continue on Transfer Bisacodyl [Dulcolax] 10 mg RC Q24H PRN 11/28/16 [Last Taken Unknown] Cetirizine [ZyrTEC 10 mg (*)] 10 mg TUBE DAILY@11/28/16 [Last Taken 11/28/16] Doxazosin Mesylate [Cardura 4 MG (*)] 4 mg TUBE DAILY@11/28/16 [Last Taken ] Insulin Detemir [Levemir] 10 unit SQ DAILY@11/28/16 [Last Taken 11/27/16] Phenytoin [Dilantin] 5 ml TUBE BID@11/28/16 [Last Taken 11/28/16 08:00 5ml ] guaiFENesin [Cough Syrup] 30 ml TUBE BID@,11/28/16 [Last Taken 11/28/16 08: 00] levETIRAcetam [Keppra Oral Liquid] 5 ml TUBE BID 11/28/16 [Last Taken 11/28/16 08:00 5ml] ACETAMINOPHEN 640 mg PO Q4 PRN 01/11/17 [Last Taken Unknown] Glycopyrrolate [GLYCOPYRROLATE] 2 mg TUBE TID 01/11/17 [Last Taken Unknown] oxyCODONE HCL [Oxycodone HCl] 5 mg TUBE DAILY PRN 01/11/17 [Last Taken Unknown] Vancomycin [Vancocin Oral Liquid] 125 mg PO QID 12 Days 01/14/17 [Last Taken Unknown] Discharge Medications: Refer to the Discharge Home Medication list for PRN reason. 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
[2017-01-14 12:15] VITALS: RESP 12; TEMP 98.1; O2SAT 94
[2017-01-14 14:54] VITALS: BP 96/65; PULSE 94
== END 2017-01-14 15:31 | DRG 372 ==
LOC: EDUNIT# → INTOOBSV 18:40 → F3E 19:45 → OBSVTOIN 01-12 16:27
PROVIDERS: ADMIT Internal Medicine; ATTEND Internal Medicine
DX: A04.7 Enterocolitis due to Clostridium difficile (principal); R40.3 Persistent vegetative state; R13.10 Dysphagia, unspecified; J96.10 Chronic respiratory failure, unspecified whether with hypoxia or hypercapnia; E11.9 Type 2 diabetes mellitus without complications; I10 Essential (primary) hypertension; G40.909 Epilepsy, unspecified, not intractable, without status epilepticus; Z79.4 Long term (current) use of insulin; Z89.429 Acquired absence of other toe(s), unspecified side; Z87.442 Personal history of urinary calculi; Z87.440 Personal history of urinary (tract) infections; Z96.0 Presence of urogenital implants; Z93.0 Tracheostomy status
CPT/HCPCS: 96365; G0378; J0610; J0692; J1642; J1650; J1815; J1956

== ENCOUNTER 2017-02-24 07:51 | Inpatient (IN) | payer OTHER, MEDICAID ==
--- NOTE | 2017-02-24 08:32 | EDPHY ---
H & P Smoking Status: Unknown if ever smoked Time Seen by Provider: 02/24/17 08:01 HPI/ROS: CHIEF COMPLAINT: Green drainage from tracheostomy tube HISTORY OF PRESENT ILLNESS: 56-year-old male with a history of traumatic brain injury in a persistent vegetative state who is a resident at [facility] presents to the emergency department with concerns from the staff that he has green questionable bile drainage from his tracheostomy tube. Patient has a history of chronic dysphagia and chronic respiratory failure. He was admitted with left lower lobe pneumonia likely aspiration. No reported fever. He has a chronic indwelling Mclaughlin catheter and has a history of urinary tract infections. REVIEW OF SYSTEMS: Unobtainable due to patient's persistent vegetative state. (Danielle Harrison) Past Medical/Surgical History: Diabetic, hypertension, seizures, frequent urinary tract infections with indwelling Mclaughlin catheter, pneumonia, traumatic brain injury leading to persistent vegetative state, renal stones, tracheostomy tube, peg tube, chronic dysphagia, chronic respiratory failure, osteomyelitis with recent amputation of the left 5th toe, recent admission 01/11/2017 for left lower lobe pneumonia likely aspiration. (Danielle Harrison) Social History: Resident at [facility] (Danielle Harrison) Physical Exam: General Appearance: Lethargic. He does open his eyes. He does not respond to his name. Afebrile. Eyes: Pupils are equal and round. The unable to assess extraocular movements. ENT: Mouth: Mucous membranes moist. Respiratory: No wheezing, rhonchi, or rales, lungs are clear to auscultation. Cardiovascular: Regular rate and rhythm. Gastrointestinal: Abdomen is soft and nontender, no masses, no rebound or guarding, bowel sounds normal. Neurological: Cannot determine Skin: Warm and dry, no rashes. Musculoskeletal: Nontender to palpate along the cervical, thoracic or lumbar spine. Neck is supple. Extremities: Full range of motion and no peripheral edema. Psychiatric: no agitation. (Danielle Harrison) Constitutional: Initial Vital Signs Temperature (C) 37 C 02/24/17 07:52 Heart Rate 92 02/24/17 07:52 Respiratory Rate 20 02/24/17 07:52 Blood Pressure 99/62 L 02/24/17 07:52 O2 Sat (%) 99 02/24/17 07:52 O2 Delivery Mode [place] O2 (L/minute) 10 Allergies/Adverse Reactions: latex Allergy (Unknown, Verified 12/20/16 19:28) amoxicillin trihydrate [From Augmentin] Allergy (Verified 12/20/16 19:28) potassium clavulanate [From Augmentin] Allergy (Verified 12/20/16 19:28) Home Medications: Medication Instructions Recorded Bisacodyl [Dulcolax] 10 mg RC Q24H PRN 11/28/16 Cetirizine [ZyrTEC 10 mg (*)] 10 mg TUBE DAILY@11/28/16 Doxazosin Mesylate [Cardura 4 MG 4 mg TUBE DAILY@11/28/16 (*)] Insulin Detemir [Levemir] 10 unit SQ DAILY@11/28/16 Phenytoin [Dilantin] 5 ml TUBE BID@,11/28/16 levETIRAcetam [Keppra Oral Liquid] 5 ml TUBE BID 11/28/16 Glycopyrrolate [GLYCOPYRROLATE] 2 mg TUBE TID 01/11/17 oxyCODONE HCL [Oxycodone HCl] 5 mg TUBE DAILY PRN 01/11/17 Acetaminophen [Tylenol 325mg (*)] 650 mg TUBE Q4 PRN 02/24/17 Ipratropium/Albuterol [Duoneb (*)] 3 ml IH QID 02/24/17 Medical Decision Making - Diagnostics Imaging: I viewed and interpreted images myself - Diagnostics Imaging Results: Imaging Impressions Chest X-Ray 02/24/17 08:28 Impression: 1. Suspect airways disease with no definite superimposed pneumonia. 2. Query low-grade congestive heart failure/fluid overload. ED Course/Re-evaluation: 56-year-old male who is a resident at [facility] in a persistent vegetative state presents to the emergency department because the staff at [facility] was concerned that he was having bile leaking from his tracheostomy tube. There was no greenish colored drainage from the tracheostomy tube in the emergency department. His tracheostomy tube was suctioned multiple times in mucous was present. His Mclaughlin catheter is chronically indwelling and had some purulent material around the penis at the insertion of the Mclaughlin catheter per the nurse. Urinalysis was obtained and urine cultures pending. Laboratory studies [place] [address]. Chemistries reveal sodium of 124 which is not normal for him. His last sodium was 134 one month ago. Chest x-ray reveals no obvious pneumonia. Initial lactate was 3.2 and this was repeated immediately and was 1.1. He received IV normal saline. He is not hypotensive. He is not tachycardic. I do not think he is septic. It is not clear what is causing his hyponatremia since he is NPO and has strictly tube feedings. Patient will be admitted to the hospitalist for hyponatremia. The case was discussed with Dr. Lopez, secondary supervising physician, who did not directly evaluate the patient but agrees with treatment and plan. (Danielle Harrison) I did not see this patient while he was in the emergency department. However his care was discussed with the PA while the patient was in the department. I agree with treatment plan and management (Kapil Lopez) Differential Diagnosis: Including but not limited to pneumonia, sepsis, hyponatremia, electrolyte abnormality, failure to thrive (Danielle Harrison) - Data Points Laboratory Results: Laboratory Results 02/24/17 10:35 02/24/17 11:10 02/24/17 02/24/17 02/24/17 11:10 11:10 10:35 WBC 11.21 10^3/uL H 10^3/uL (3.80-9.50) RBC 4.70 10^6/uL 10^6/uL (4.40-6.38) Hgb 14.3 g/dL g/dL (13.7-17.5) Hct 40.4 % % (40.0-51.0) MCV 86.0 fL fL (81.5-99.8) MCH 30.4 pg pg (27.9-34.1) MCHC 35.4 g/dL g/dL (32.4-36.7) RDW 13.7 % % (11.5-15.2) Plt Count 198 10^3/uL 10^3/uL (150-400) MPV 9.5 fL fL (8.7-11.7) Neut % (Auto) 80.9 % H % (39.3-74.2) Lymph % (Auto) 11.2 % L % (15.0-45.0) Cook % (Auto) 7.1 % % (4.5-13.0) Eos % (Auto) 0.1 % L % (0.6-7.6) Baso % (Auto) 0.3 % % (0.3-1.7) Nucleat RBC Rel Count 0.0 % % (0.0-0.2) Absolute Neuts (auto) 9.08 10^3/uL H 10^3/uL (1.70-6.50) Absolute Lymphs (auto) 1.25 10^3/uL 10^3/uL (1.00-3.00) Absolute Monos (auto) 0.80 10^3/uL 10^3/uL (0.30-0.80) Absolute Eos (auto) 0.01 10^3/uL L 10^3/uL (0.03-0.40) Absolute Basos (auto) 0.03 10^3/uL 10^3/uL (0.02-0.10) Absolute Nucleated RBC 0.00 10^3/uL 10^3/uL (0-0.01) Immature Gran % 0.4 % % (0.0-1.1) Immature Gran # 0.04 10^3/uL 10^3/uL (0.00-0.10) VBG Lactic Acid Sodium 124 mEq/L L mEq/L (134-144) Potassium 3.7 mEq/L mEq/L (3.5-5.2) Chloride 86 mEq/L L mEq/L (97-110) Carbon Dioxide 26 mEq/l mEq/l (22-31) Anion Gap 12 mEq/L mEq/L (8-16) BUN 17 mg/dL mg/dL (7-23) Creatinine 0.8 mg/dL mg/dL (0.7-1.3) Estimated GFR > 60 Glucose 96 mg/dL mg/dL (70-100) Serum Osmolality Pending Calcium 8.9 mg/dL mg/dL (8.5-10.4) Urine Color Urine Appearance Urine pH Ur Specific [place] Urine Protein Urine Ketones Urine Blood Urine Nitrate Urine Bilirubin Urine Urobilinogen Ur Leukocyte Esterase Urine RBC Urine WBC Ur Epithelial Cells Amorphous Sediment Urine Bacteria Urine Mucus Urine Glucose 02/24/17 02/24/17 02/24/17 10:35 09:20 09:20 WBC RBC Hgb Hct MCV MCH MCHC RDW Plt Count MPV Neut % (Auto) Lymph % (Auto) Cook % (Auto) Eos % (Auto) Baso % (Auto) Nucleat RBC Rel Count Absolute Neuts (auto) Absolute Lymphs (auto) Absolute Monos (auto) Absolute Eos (auto) Absolute Basos (auto) Absolute Nucleated RBC Immature Gran % Immature Gran # VBG Lactic Acid 1.1 mmol/L D mmol/L 3.2 mmol/L H mmol/L (0.7-2.1) (0.7-2.1) Sodium 124 mEq/L L mEq/L (134-144) Potassium 4.2 mEq/L mEq/L (3.5-5.2) Chloride 86 mEq/L L mEq/L (97-110) Carbon Dioxide 22 mEq/l mEq/l (22-31) Anion Gap 16 mEq/L mEq/L (8-16) BUN 17 mg/dL mg/dL (7-23) Creatinine 0.9 mg/dL mg/dL (0.7-1.3) Estimated GFR > 60 Glucose 88 mg/dL mg/dL (70-100) Serum Osmolality Calcium 9.5 mg/dL mg/dL (8.5-10.4) Urine Color Urine Appearance Urine pH Ur Specific [place] Urine Protein Urine Ketones Urine Blood Urine Nitrate Urine Bilirubin Urine Urobilinogen Ur Leukocyte Esterase Urine RBC Urine WBC Ur Epithelial Cells Amorphous Sediment Urine Bacteria Urine Mucus Urine Glucose 02/24/17 02/24/17 08:25 01:01 WBC REJ RBC TNP Hgb TNP Hct TNP MCV TNP MCH TNP MCHC TNP RDW TNP Plt Count TNP MPV TNP Neut % (Auto) TNP Lymph % (Auto) TNP Cook % (Auto) TNP Eos % (Auto) TNP Baso % (Auto) TNP Nucleat RBC Rel Count TNP Absolute Neuts (auto) TNP Absolute Lymphs (auto) TNP Absolute Monos (auto) TNP Absolute Eos (auto) TNP Absolute Basos (auto) TNP Absolute Nucleated RBC TNP Immature Gran % TNP Immature Gran # TNP VBG Lactic Acid Sodium Potassium Chloride Carbon Dioxide Anion Gap BUN Creatinine Estimated GFR Glucose Serum Osmolality Calcium Urine Color YELLOW Urine Appearance MODERATELY TURBID Urine pH 8.0 H (5.0-7.5) Ur Specific [place] 1.008 (1.002-1.030) Urine Protein 1+ H (NEGATIVE) Urine Ketones NEGATIVE (NEGATIVE) Urine Blood 2+ H (NEGATIVE) Urine Nitrate NEGATIVE (NEGATIVE) Urine Bilirubin NEGATIVE (NEGATIVE) Urine Urobilinogen NEGATIVE EU EU (0.2-1.0) Ur Leukocyte Esterase 3+ H (NEGATIVE) Urine RBC 5-10 /hpf H /hpf (0-3) Urine WBC 25-50 /hpf H /hpf (0-3) Ur Epithelial Cells TRACE /lpf /lpf (NONE-1+) Amorphous Sediment PRESENT /hpf /hpf (NONE-1+) Urine Bacteria 2+ /hpf H /hpf (NONE SEEN) Urine Mucus TRACE /lpf /lpf (NONE-1+) Urine Glucose NEGATIVE (NEGATIVE) Microbiology Results: MICROBIOLOGY 02/24/17 08:25 Sputum, Induced/Suctioned - Final Medications Given: Albuterol/Ipratropium (Duoneb) 3 ml IH QID ROJAS Stop: 08/23/17 15:59 Last Admin: 02/24/17 15:11 Dose: 3 ml Departure - Departure Disposition: [facility] Inpatient Acute Clinical Impression: Hyponatremia Condition: Good
[2017-02-24 08:45] LABS: COLOR YELLOW; LEUKOCYTE ESTERASE,URINE 3+ (NEGATIVE); NITRITE,URINE NEGATIVE (NEGATIVE)
[2017-02-24 08:51] LABS: AMORPHOUS PRESENT /hpf (NONE-1+); BACTERIA 2+ /hpf (NONE SEEN); MUCUS TRACE /lpf (NONE-1+); WBC,URINE 25-50 /hpf (0-3)
[2017-02-24 09:58] LABS: ANION GAP 16 mEq/L (8-16); CALCIUM 9.5 mg/dL (8.5-10.4); CARBON DIOXIDE 22 mEq/l (22-31); CHLORIDE 86 mEq/L (97-110); CREATININE 0.9 mg/dL (0.7-1.3); GLOMERULAR FILTRATION RATE > 60; GLUCOSE 88 mg/dL (70-100); POTASSIUM 4.2 mEq/L (3.5-5.2); SODIUM 124 mEq/L (134-144)
[2017-02-24 10:48] LABS: % IMMATURE GRANULYOCYTES 0.4 % (0.0-1.1); ABSOLUTE IMMATURE GRANULOCYTES 0.04 10^3/uL (0.00-0.10); ADD DIFF? NO; ADD MORPH? NO; ADD SCAN? NO; ATYPICAL LYMPHOCYTE FLAG 0 (0-99); FRAGMENT RBC FLAG 0 (0-99); HEMATOCRIT 40.4 % (40.0-51.0); HEMOGLOBIN 14.3 g/dL (13.7-17.5); LEFT SHIFT FLG 0 (0-99); LIPEMIA HEMOLYSIS FLAG 90 (0-99); MEAN CELL HEMOGLOBIN 30.4 pg (27.9-34.1); MEAN CELL HEMOGLOBIN CONCENTR. 35.4 g/dL (32.4-36.7); MEAN PLATELET VOLUME 9.5 fL (8.7-11.7); PLATELET CLUMPS FLAG 0 (0-99); PLATELET COUNT 198 10^3/uL (150-400); RED CELL DISTRIBUTION WIDTH 13.7 % (11.5-15.2)
[2017-02-24 11:29] LABS: ANION GAP 12 mEq/L (8-16); CALCIUM 8.9 mg/dL (8.5-10.4); CARBON DIOXIDE 26 mEq/l (22-31); CHLORIDE 86 mEq/L (97-110); CREATININE 0.8 mg/dL (0.7-1.3); GLOMERULAR FILTRATION RATE > 60; GLUCOSE 96 mg/dL (70-100); POTASSIUM 3.7 mEq/L (3.5-5.2); SODIUM 124 mEq/L (134-144)
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
[2017-02-24] MEDS ORDERED: ACETAMINOPHEN 650 MG SUPP PR PRN (12:58)
[2017-02-24] MEDS ORDERED: ALBUTEROL 3 ML DEYVIAL IH PRN (12:58)
[2017-02-24] MEDS ORDERED: NS 1,000 ML IV SCH (13:00)
[2017-02-24] MEDS: IPRATROPIUM/ALBUTEROL 3 ML DEYVIAL IH SCH ×2 (15:11→20:49)
[2017-02-24] MEDS ORDERED: NS 1,800 ML IV ONE (17:36)
[2017-02-24 17:38] LABS: % IMMATURE GRANULYOCYTES 0.3 % (0.0-1.1); ABSOLUTE IMMATURE GRANULOCYTES 0.05 10^3/uL (0.00-0.10); ADD DIFF? NO; ADD MORPH? NO; ADD SCAN? NO; ATYPICAL LYMPHOCYTE FLAG 0 (0-99); FRAGMENT RBC FLAG 0 (0-99); HEMOGLOBIN 13.6 g/dL (13.7-17.5); LEFT SHIFT FLG 0 (0-99); LIPEMIA HEMOLYSIS FLAG 90 (0-99); MEAN CELL HEMOGLOBIN 30.3 pg (27.9-34.1); MEAN CELL HEMOGLOBIN CONCENTR. 34.9 g/dL (32.4-36.7); MEAN CELL VOLUME 86.9 fL (81.5-99.8); MEAN PLATELET VOLUME 9.9 fL (8.7-11.7); PLATELET CLUMPS FLAG 10 (0-99); PLATELET COUNT 183 10^3/uL (150-400); RED BLOOD CELL COUNT 4.49 10^6/uL (4.40-6.38)
[2017-02-24 17:47] LABS: INR 0.99 (0.83-1.16)
[2017-02-24 17:48] LABS: APTT 35.2 SEC (23.0-38.0)
[2017-02-24 18:00] LABS: ALANINE AMINOTRANSFERASE 35 IU/L (21-72); ALBUMIN 3.5 g/dL (3.5-5.0); ALKALINE PHOSPHATASE 151 IU/L (38-126); ANION GAP 9 mEq/L (8-16); ASPARTATE AMINOTRANSFERASE 28 IU/L (17-59); BILIRUBIN,TOTAL 0.9 mg/dL (0.1-1.4); BILIRUBIN-CONJUGATED 0.3 mg/dL (0.0-0.5); BILIRUBIN-UNCONJUGATED 0.6 mg/dL (0.0-1.1); CALCIUM 9.2 mg/dL (8.5-10.4); CARBON DIOXIDE 28 mEq/l (22-31); CHLORIDE 85 mEq/L (97-110); CREATININE 0.9 mg/dL (0.7-1.3); GLOMERULAR FILTRATION RATE > 60; GLUCOSE 123 mg/dL (70-100); POTASSIUM 3.6 mEq/L (3.5-5.2); SODIUM 122 mEq/L (134-144); TOTAL PROTEIN 7.6 g/dL (6.3-8.2)
[2017-02-24] MEDS: CEFEPIME HCL 2 GM in D5W 100 ML IV SCH (18:00)
[2017-02-24] MEDS: VANCOMYCIN HCL/NORMAL SALINE 250 ML IV SCH (18:45)
[2017-02-24] MEDS ORDERED: BISACODYL 10 MG SUPP PR PRN (22:17)
[2017-02-25] MEDS: CEFEPIME HCL 2 GM in D5W 100 ML IV SCH ×3 (01:23→18:20)
[2017-02-25] MEDS: IPRATROPIUM/ALBUTEROL 3 ML DEYVIAL IH SCH ×5 (04:20→21:07)
[2017-02-25] MEDS: VANCOMYCIN HCL/NORMAL SALINE 250 ML IV SCH ×2 (05:46→19:12)
[2017-02-25 05:58] LABS: % IMMATURE GRANULYOCYTES 0.5 % (0.0-1.1); ABSOLUTE IMMATURE GRANULOCYTES 0.05 10^3/uL (0.00-0.10); ADD DIFF? NO; ADD MORPH? NO; ADD SCAN? NO; ATYPICAL LYMPHOCYTE FLAG 20 (0-99); FRAGMENT RBC FLAG 0 (0-99); HEMATOCRIT 33.8 % (40.0-51.0); HEMOGLOBIN 11.5 g/dL (13.7-17.5); LEFT SHIFT FLG 0 (0-99); LIPEMIA HEMOLYSIS FLAG 90 (0-99); MEAN CELL HEMOGLOBIN 30.4 pg (27.9-34.1); MEAN CELL VOLUME 89.4 fL (81.5-99.8); MEAN PLATELET VOLUME 9.4 fL (8.7-11.7); PLATELET CLUMPS FLAG 0 (0-99); PLATELET COUNT 142 10^3/uL (150-400); RED BLOOD CELL COUNT 3.78 10^6/uL (4.40-6.38); RED CELL DISTRIBUTION WIDTH 14.3 % (11.5-15.2)
[2017-02-25 06:20] LABS: ANION GAP 8 mEq/L (8-16); CALCIUM 8.3 mg/dL (8.5-10.4); CARBON DIOXIDE 25 mEq/l (22-31); CHLORIDE 99 mEq/L (97-110); CREATININE 0.8 mg/dL (0.7-1.3); GLOMERULAR FILTRATION RATE > 60; GLUCOSE 128 mg/dL (70-100); MAGNESIUM 2.2 mg/dL (1.6-2.3); POTASSIUM 3.4 mEq/L (3.5-5.2); SODIUM 132 mEq/L (134-144)
[2017-02-25] MEDS ORDERED: POTASSIUM CL 20 MEQ/15 ML UDCUP TUBE ONE (08:11)
[2017-02-25] MEDS ORDERED: oxyCODONE IR 5 MG TAB TUBE PRN (08:12)
[2017-02-25] MEDS ORDERED: LEVETIRACETAM TUBE SCH (09:00)
[2017-02-25] MEDS: ENOXAPARIN 40 MG/0.4 ML SYR SC SCH (09:09)
[2017-02-25] MEDS: levETIRAcetam 500 MG/5 ML UDCUP TUBE SCH ×2 (09:10→20:46)
[2017-02-25] MEDS: PHENYTOIN 100 MG/4 ML UDL TUBE SCH ×2 (09:10→20:45)
[2017-02-25] MEDS: GLYCOPYRROLATE 1 MG TAB TUBE SCH ×3 (09:10→20:45)
--- NOTE | 2017-02-25 12:30 | HOSPPROG ---
Hospitalist Progress Note Assessment/Plan: #Severe sepsis: UA with gram neg cassi. Coag neg staph in 1 anaerobic bottle, likely contaminant. Cont broad abx with Vanc/Cefepime. Negative flu, no PNA on CXR #CAUTI-due to chronic english: h/o Kleb/Proteus/Pseudomonas/Morganella all sensitive to Cef. Urine cx pending. Will tx with IV abx given sepsis. #Chronic hypoxemic resp failure: trach in place #Hypovolemic hyponatremia: Tahmina. Uosm low. Due to insensible losses with fever/ infection. Quickly improved on IVFs #Hypotension: BP down again this afternoon. Repeat lactate normal. Cannot place PICC per IR team since poor veins (chronic issue for years). If needs central access, will contact surgery -I spoke with his brother/ on phone and they are agreeable to central line/ ICU if needed #Chronic dysphagia: s/p PEG. cont TFs #Chronic encephalopathy: due to prior TBI. Nonverbal. Sparkle Goldman #lactic acidosis: due to dehydration. Resolved quickly with IVFs #Fever: 38.3. Suspect urinary. 1 bottle + coag neg staph (suspect contamination) . Cultures pending, IV abx #Tachycardia: due to fever, infection. Improved with fluids #Leukocytosis: improved on abx. #Hypokalemia: IV repletion #DVT ppx: Lovenox #Goals: I spoke with brother and about escalation of care. If central line needed they want this and transfer to ICU for pressors Critical care time spent: 60 min bedside with patient, reviewing lab data and discussing treatment plan with family Subjective: afebrile this morning Objective: Vital Signs Temp Pulse Resp BP Pulse Ox 37.0 C 108 H 18 91/61 L 96 02/25/17 12:00 02/25/17 12:00 02/25/17 08:00 02/25/17 12:00 02/25/17 12:00 Laboratory Results 02/25/17 05:45 02/24/17 02/25/17 02/26/17 05:59 05:59 05:59 Intake Total 3304 180 Output Total 2350 Balance 954 180 PT 13.0 SEC (12.0-15.0) 02/24/17 17:15 INR 0.99 (0.83-1.16) 02/24/17 17:15 - Physical Exam Constitutional: no apparent distress, other (nonverbal) Eyes: PERRL Ears, Nose, Mouth, Throat: poor dentition, other (trach in place) Cardiovascular: tachycardia Respiratory: no respiratory distress, rhonchi (anterior) Gastrointestinal: normoactive bowel sounds, other (PEG in place) Genitourinary: english in urethra (chronic english, clear yellow urine) Skin: other (mild erythema over RUE, does not appear cellulitic) Neurologic: other (nonverbal, cannot participate in neuro exam) Psychiatric: encephalopathic 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 Pneumonia due to Gram negative bacteria Active Bacteria in urine Acute Chronic vegetative state Acute Clostridium difficile infection Acute ~01/12/17 Complicated UTI (urinary tract infection) Acute Dehydration with hypernatremia Acute Fever Acute Healthcare-associated pneumonia Acute Hyperglycemia Acute Hypernatremia Acute Influenza A Acute MRSA (methicillin resistant Staphylococcus aureus) Acute ~10/19/16 Pneumonia Acute SIRS (systemic inflammatory response syndrome) Acute Sepsis Acute Sepsis Acute Septic shock Acute Severe sepsis Acute Severe sepsis with acute organ dysfunction Acute UTI (urinary tract infection) Acute Urinary tract infection Acute Urinary tract infection in male Acute VRE (vancomycin-resistant Enterococci) Acute ~09/07/16
[2017-02-25 12:48] LABS: ANION GAP 6 mEq/L (8-16); CALCIUM 8.4 mg/dL (8.5-10.4); CARBON DIOXIDE 24 mEq/l (22-31); CHLORIDE 99 mEq/L (97-110); CREATININE 0.8 mg/dL (0.7-1.3); GLOMERULAR FILTRATION RATE > 60; GLUCOSE 167 mg/dL (70-100); POTASSIUM 3.6 mEq/L (3.5-5.2); SODIUM 129 mEq/L (134-144)
[2017-02-25] MEDS ORDERED: NS 1,000 ML IV ONE (15:27)
[2017-02-25] MEDS ORDERED: ALTEPLASE 2 MG VIAL IVP PRN (16:37)
[2017-02-25] MEDS: NS 1,000 ML IV SCH (19:12)
[2017-02-25] MEDS ORDERED: PHENYTOIN TUBE SCH (20:00)
[2017-02-25] MEDS: INSULIN GLARGINE 100 UNITS/ML SYRINGE SC SCH (20:46)
[2017-02-26] MEDS: CEFEPIME HCL 2 GM in D5W 100 ML IV SCH ×3 (01:40→17:08)
[2017-02-26] MEDS: IPRATROPIUM/ALBUTEROL 3 ML DEYVIAL IH SCH ×4 (05:09→21:35)
[2017-02-26] MEDS: NS 1,000 ML IV SCH ×2 (05:50→16:54)
[2017-02-26 06:03] LABS: HEMATOCRIT 29.3 % (40.0-51.0); HEMOGLOBIN 9.6 g/dL (13.7-17.5); MEAN CELL HEMOGLOBIN 30.3 pg (27.9-34.1); MEAN CELL HEMOGLOBIN CONCENTR. 32.8 g/dL (32.4-36.7); MEAN CELL VOLUME 92.4 fL (81.5-99.8); RED BLOOD CELL COUNT 3.17 10^6/uL (4.40-6.38); RED CELL DISTRIBUTION WIDTH 14.4 % (11.5-15.2)
[2017-02-26 07:30] LABS: ANION GAP 6 mEq/L (8-16); CARBON DIOXIDE 22 mEq/l (22-31); CHLORIDE 106 mEq/L (97-110); CREATININE 0.7 mg/dL (0.7-1.3); GLOMERULAR FILTRATION RATE > 60; GLUCOSE 119 mg/dL (70-100); POTASSIUM 3.6 mEq/L (3.5-5.2); SODIUM 134 mEq/L (134-144)
[2017-02-26] MEDS: PHENYTOIN 100 MG/4 ML UDL TUBE SCH ×2 (09:21→21:01)
[2017-02-26] MEDS: levETIRAcetam 500 MG/5 ML UDCUP TUBE SCH ×2 (09:23→21:01)
[2017-02-26] MEDS: VANCOMYCIN HCL/NORMAL SALINE 250 ML IV SCH ×2 (09:24→18:18)
[2017-02-26] MEDS: ENOXAPARIN 40 MG/0.4 ML SYR SC SCH (09:24)
[2017-02-26] MEDS: GLYCOPYRROLATE 1 MG TAB TUBE SCH ×3 (09:24→21:00)
--- NOTE | 2017-02-26 11:36 | HOSPPROG ---
Hospitalist Progress Note Assessment/Plan: Severe sepsis: UA with gram neg cassi. Coag neg staph in 1 anaerobic bottle, likely contaminant. Cont broad abx with Vanc/Cefepime. Negative flu, no PNA on CXR CAUTI-due to chronic english: h/o Kleb/Proteus/Pseudomonas/Morganella all sensitive to Cef. Urine cx pending. Will tx with IV abx given sepsis. english changed Chronic hypoxemic resp failure: trach in place cxr (interp by me) w posible volume overload hold on diuresis as this was also hypoventilatory and just after volume resusxitation for sepsis Hypovolemic hyponatremia: Tahmina. Uosm low. Due to insensible losses with fever/ infection. Quickly improved on IVFs Hypotension: BP down again this afternoon. Repeat lactate normal. Cannot place PICC per IR team since poor veins (chronic issue for years). If needs central access, will contact surgery -I spoke with his brother/ on phone and they are agreeable to central line/ ICU if needed bp in low 100's Chronic dysphagia: s/p PEG. 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 Nonverbal. Sparkle Goldman lactic acidosis: due to dehydration. Resolved quickly with IVFs Fever: 38.3. Suspect urinary. 1 bottle + coag neg staph (suspect contamination) . Cultures pending, IV abx afebrile Tachycardia: due to fever, infection. Improved with fluids Leukocytosis: improved on abx. Hypokalemia: IV repletion DVT ppx: Lovenox Goals: I spoke with brother and about escalation of care. If central line needed they want this and transfer to ICU for pressors Subjective: no longer hypotensive Objective: Vital Signs Temp Pulse Resp BP Pulse Ox 36.7 C 90 14 109/72 99 02/26/17 11:27 02/26/17 11:27 02/26/17 11:27 02/26/17 11:27 02/26/17 11:27 Microbiology 02/24/17 17:15 Blood Panel (PCR) - Final Blood Staph Coagulase Negative Laboratory Results 02/26/17 06:00 02/26/17 06:00 02/25/17 02/26/17 02/27/17 05:59 05:59 05:59 Intake Total 3304 5761 Output Total 2350 2050 500 Balance 954 3711 -500 PT 13.0 SEC (12.0-15.0) 02/24/17 17:15 INR 0.99 (0.83-1.16) 02/24/17 17:15 - Physical Exam Constitutional: no apparent distress, other (unresponsive) Eyes: PERRL, anicteric sclera Ears, Nose, Mouth, Throat: moist mucous membranes, hearing normal Cardiovascular: regular rate and rhythym, no murmur, rub, or gallop Respiratory: no respiratory distress, no rales or rhonchi Gastrointestinal: normoactive bowel sounds, soft, non-tender abdomen Genitourinary: no bladder fullness, english in urethra Skin: warm, normal color Musculoskeletal: No full muscle strength Neurologic: No AAOx3 Psychiatric: No interacting appropriately 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 Pneumonia due to Gram negative bacteria Active Bacteria in urine Acute Chronic vegetative state Acute Clostridium difficile infection Acute ~01/12/17 Complicated UTI (urinary tract infection) Acute Dehydration with hypernatremia Acute Fever Acute Healthcare-associated pneumonia Acute Hyperglycemia Acute Hypernatremia Acute Influenza A Acute MRSA (methicillin resistant Staphylococcus aureus) Acute ~10/19/16 Pneumonia Acute SIRS (systemic inflammatory response syndrome) Acute Sepsis Acute Sepsis Acute Septic shock Acute Severe sepsis Acute Severe sepsis with acute organ dysfunction Acute UTI (urinary tract infection) Acute Urinary tract infection Acute Urinary tract infection in male Acute VRE (vancomycin-resistant Enterococci) Acute ~09/07/16
--- NOTE | 2017-02-26 14:56 | ASMTCMCOM ---
CM Note CM Note Notes: CM spoke w/ Tasha from [facility] today and faxed over updates. Pt will d/c to [facility] when medically stable. CM to follow. Date Signed: 02/26/2017 02:55 PM Electronically Signed By:LISA Golden
[2017-02-26] MEDS: INSULIN GLARGINE 100 UNITS/ML SYRINGE SC SCH (20:28)
[2017-02-27] MEDS: CEFEPIME HCL 2 GM in D5W 100 ML IV SCH ×2 (01:54→09:23)
[2017-02-27] MEDS: IPRATROPIUM/ALBUTEROL 3 ML DEYVIAL IH SCH ×4 (05:23→21:01)
[2017-02-27] MEDS: ENOXAPARIN 40 MG/0.4 ML SYR SC SCH (09:20)
[2017-02-27] MEDS: levETIRAcetam 500 MG/5 ML UDCUP TUBE SCH ×2 (09:40→21:49)
[2017-02-27] MEDS: GLYCOPYRROLATE 1 MG TAB TUBE SCH ×3 (09:41→21:48)
[2017-02-27] MEDS: PHENYTOIN 100 MG/4 ML UDL TUBE SCH ×2 (10:30→21:50)
--- NOTE | 2017-02-27 11:40 | HOSPPROG ---
Hospitalist Progress Note Assessment/Plan: Severe sepsis: UA with gram neg cassi. Coag neg staph bacteremia Cont broad abx with Vanc/Cefepime. Negative flu, no PNA on CXR CAUTI-due to chronic english: h/o Kleb/Proteus/Pseudomonas/Morganella all sensitive to Cef. Urine cx pending. Will tx with IV abx given sepsis. english changed Ucx growing morganella but will keep on broad spectrum abx given h/o polymicrobial uti's Chronic hypoxemic resp failure: trach in place cxr (interp by me) w posible volume overload hold on diuresis as this was also hypoventilatory and just after volume resusxitation for sepsis CoNS bacteremia: now 09/04 bottles continue vanc for now repeat cx pending, neg thus far h/o cdiff: as recent as 01/17 start prophylactic po vanc for duration of abx Hypovolemic hyponatremia: Tahmina. Uosm low. Due to insensible losses with fever/ infection. Quickly improved on IVFs Hypotension: resolved Chronic dysphagia: s/p PEG. 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 Nonverbal. Keppra, Dilantin lactic acidosis: due to dehydration. Resolved quickly with IVFs Fever: 38.3. Suspect urinary. see above Tachycardia: due to fever, infection. Improved with fluids Leukocytosis: improved on abx. Hypokalemia: IV repletion DVT ppx: Lovenox Goals: I spoke with brother and about escalation of care. If central line needed they want this and transfer to ICU for pressors Subjective: soft stool Objective: Vital Signs Temp Pulse Resp BP Pulse Ox 36.5 C 67 14 118/77 94 02/27/17 11:23 02/27/17 11:23 02/27/17 11:23 02/27/17 11:23 02/27/17 11:23 Microbiology 02/24/17 17:15 Blood Culture - Final Blood Staphylococcus Epidermidis Blood Panel (PCR) - Final Staph Coagulase Negative 02/24/17 18:00 Blood Culture - Final Blood Staphylococcus Epidermidis Laboratory Results 02/26/17 06:00 02/26/17 06:00 02/26/17 02/27/17 02/28/17 05:59 05:59 05:59 Intake Total 5761 1 Output Total 2049 3400 Balance 3711 -1369 PT 13.0 SEC (12.0-15.0) 02/24/17 17:15 INR 0.99 (0.83-1.16) 02/24/17 17:15 - Physical Exam Constitutional: no apparent distress Eyes: anicteric sclera Ears, Nose, Mouth, Throat: moist mucous membranes, hearing normal Cardiovascular: regular rate and rhythym, no murmur, rub, or gallop, No systolic murmur, No tachycardia Respiratory: no respiratory distress, no rales or rhonchi Gastrointestinal: normoactive bowel sounds, soft, non-tender abdomen Genitourinary: english in urethra Skin: warm, normal color Musculoskeletal: No full muscle strength Neurologic: No AAOx3 Psychiatric: No interacting appropriately 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 Pneumonia due to Gram negative bacteria Active Bacteria in urine Acute Chronic vegetative state Acute Clostridium difficile infection Acute ~01/12/17 Complicated UTI (urinary tract infection) Acute Dehydration with hypernatremia Acute Fever Acute Healthcare-associated pneumonia Acute Hyperglycemia Acute Hypernatremia Acute Influenza A Acute MRSA (methicillin resistant Staphylococcus aureus) Acute ~10/19/16 Pneumonia Acute SIRS (systemic inflammatory response syndrome) Acute Sepsis Acute Sepsis Acute Septic shock Acute Severe sepsis Acute Severe sepsis with acute organ dysfunction Acute UTI (urinary tract infection) Acute Urinary tract infection Acute Urinary tract infection in male Acute VRE (vancomycin-resistant Enterococci) Acute ~09/07/16
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
[2017-02-27] MEDS: VANCOMYCIN 125 MG/2.5 ML UDL PO SCH ×3 (13:42→21:48)
[2017-02-27] MEDS: VANCOMYCIN HCL/NORMAL SALINE 250 ML IV SCH (17:07)
[2017-02-27] MEDS: INSULIN GLARGINE 100 UNITS/ML SYRINGE SC SCH (21:50)
[2017-02-28] MEDS: IPRATROPIUM/ALBUTEROL 3 ML DEYVIAL IH SCH ×3 (05:16→16:10)
--- NOTE | 2017-02-28 09:07 | PDIAF ---
- Diagnosis Diagnosis: Sepsis secondary to complicated UTI vs S. epi bacteremia Code Status: Full Code - Medication Management Discharge Medications: Medications to Continue on Transfer Bisacodyl [Dulcolax] 10 mg RC Q24H PRN 11/28/16 [Last Taken Unknown] Cetirizine [ZyrTEC 10 mg (*)] 10 mg TUBE DAILY@11/28/16 [Last Taken 11/28/16] Doxazosin Mesylate [Cardura 4 MG (*)] 4 mg TUBE DAILY@11/28/16 [Last Taken ] Insulin Detemir [Levemir] 10 unit SQ DAILY@11/28/16 [Last Taken 11/27/16] Phenytoin [Dilantin] 5 ml TUBE BID@11/28/16 [Last Taken 11/28/16 08:00 5ml ] levETIRAcetam [Keppra Oral Liquid] 5 ml TUBE BID 11/28/16 [Last Taken 11/28/16 08:00 5ml] Glycopyrrolate [GLYCOPYRROLATE] 2 mg TUBE TID 01/11/17 [Last Taken Unknown] oxyCODONE HCL [Oxycodone HCl] 5 mg TUBE DAILY PRN 01/11/17 [Last Taken Unknown] Acetaminophen [Tylenol 325mg (*)] 650 mg TUBE Q4 PRN 02/24/17 [Last Taken Unknown] Ipratropium/Albuterol [Duoneb (*)] 3 ml IH QID 02/24/17 [Last Taken Unknown] [facility] Antibiotics: vancomycin 1gm IV daily stop03/12/17; ceftriaxone 1gm IVdaily stop03/05/17; Research Group Director Antibiotic Stop Date: 03/05/17 (see dates above) Discharge Medications: Refer to the Discharge Home Medication list for PRN reason. PICC Care - Routine: N/A (Port care) - Labs/Radiology BMP Date: 03/07/17 (weekly ) CBC Date: 03/04/17 (weekly Saturday) CMP Date: 03/04/17 (Weekly ) Vanco Trough Date and Time: 03/04/17 and 03/07/17 weekly Saturday and Call or Fax Lab and Imaging Results to: Malika Montano MD [facility] at fax [phone] - Follow Up Care Current Providers and Referrals: Patient,NotPresent [Unknown] - As per Instructions
[2017-02-28] MEDS: GLYCOPYRROLATE 1 MG TAB TUBE SCH ×2 (09:22→16:14)
[2017-02-28] MEDS: levETIRAcetam 500 MG/5 ML UDCUP TUBE SCH (09:22)
[2017-02-28] MEDS: PHENYTOIN 100 MG/4 ML UDL TUBE SCH (09:23)
[2017-02-28] MEDS: VANCOMYCIN 125 MG/2.5 ML UDL PO SCH (09:24)
[2017-02-28] MEDS: ENOXAPARIN 40 MG/0.4 ML SYR SC SCH (09:37)
--- NOTE | 2017-02-28 14:02 | HOSPPROG ---
Hospitalist Progress Note Assessment/Plan: Severe sepsis: UA with gram neg cassi. Coag neg staph bacteremia Cont broad abx with Vanc/Cefepime. Negative flu, no PNA on CXR CAUTI-due to chronic english: h/o Kleb/Proteus/Pseudomonas/Morganella all sensitive to Cef. Urine cx pending. Will tx with IV abx given sepsis. english changed Ucx growing morganella but will keep on broad spectrum abx given h/o polymicrobial uti's appreciate ID eval treat w ceftriaxone Chronic hypoxemic resp failure: trach in place cxr (interp by me) w posible volume overload hold on diuresis as this was also hypoventilatory and just after volume resusxitation for sepsis CoNS bacteremia: now 09/04 bottles continue vanc for now repeat cx pending, neg thus far h/o cdiff: as recent as 01/17 start prophylactic po vanc for duration of abx 125 bid Hypovolemic hyponatremia: Tahmina. Uosm low. Due to insensible losses with fever/ infection. Quickly improved on IVFs Hypotension: resolved Chronic dysphagia: s/p PEG. 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 Nonverbal. Sparkle Goldman lactic acidosis: due to dehydration. Resolved quickly with IVFs Fever: 38.3. Suspect urinary. see above Tachycardia: due to fever, infection. Improved with fluids Leukocytosis: improved on abx. Hypokalemia: IV repletion DVT ppx: Lovenox Goals: I spoke with brother and about escalation of care. If central line needed they want this and transfer to ICU for pressors Subjective: case d/w dr virk Objective: Vital Signs Temp Pulse Resp BP Pulse Ox 37.1 C 79 20 100/71 92 02/28/17 11:55 02/28/17 11:55 02/28/17 11:55 02/28/17 11:55 02/28/17 11:55 Microbiology 02/24/17 17:15 Blood Culture - Final Blood Staphylococcus Epidermidis Blood Panel (PCR) - Final Staph Coagulase Negative 02/24/17 18:00 Blood Culture - Final Blood Staphylococcus Epidermidis Laboratory Results 02/26/17 06:00 02/26/17 06:00 02/27/17 02/28/17 03/01/17 05:59 05:59 05:59 Intake Total 2030 2932 Output Total 3400 4400 550 Balance -1369 -1468 -550 PT 13.0 SEC (12.0-15.0) 02/24/17 17:15 INR 0.99 (0.83-1.16) 02/24/17 17:15 - Physical Exam Constitutional: no apparent distress Eyes: PERRL, anicteric sclera Ears, Nose, Mouth, Throat: moist mucous membranes, hearing normal Cardiovascular: regular rate and rhythym, no murmur, rub, or gallop Respiratory: no respiratory distress, no rales or rhonchi Gastrointestinal: normoactive bowel sounds, soft, non-tender abdomen Genitourinary: english in urethra Skin: warm, normal color Musculoskeletal: full muscle strength, no muscle tenderness Neurologic: No AAOx3, No sensation intact bilaterally Psychiatric: No interacting appropriately, No not anxious 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 Pneumonia due to Gram negative bacteria Active Bacteria in urine Acute Chronic vegetative state Acute Clostridium difficile infection Acute ~01/12/17 Complicated UTI (urinary tract infection) Acute Dehydration with hypernatremia Acute Fever Acute Healthcare-associated pneumonia Acute Hyperglycemia Acute Hypernatremia Acute Influenza A Acute MRSA (methicillin resistant Staphylococcus aureus) Acute ~10/19/16 Pneumonia Acute SIRS (systemic inflammatory response syndrome) Acute Sepsis Acute Sepsis Acute Septic shock Acute Severe sepsis Acute Severe sepsis with acute organ dysfunction Acute UTI (urinary tract infection) Acute Urinary tract infection Acute Urinary tract infection in male Acute VRE (vancomycin-resistant Enterococci) Acute ~09/07/16
--- NOTE | 2017-02-28 14:45 | GDS ---
[f rep st] DISCHARGE SUMMARY DISCHARGE DIAGNOSES: 1. Sepsis. 2. 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 3. Catheter-associated urinary tract infection. 4. Staphylococcal epidermidis bacteremia. 5. History of Clostridium difficile. 6. Staghorn calculi. 7. History of seizure disorder. 8. Chronic respiratory failure with tracheostomy. 9. Indwelling Mclaughlin catheter. 10. Chronic dysphagia secondary to JOSE EDUARDO tube. HOSPITAL COURSE: Please see admission history and physical by Dr. Ann Maire Zapata. The patient present ed with concerns for bile draining out of the trach which, in fact, was not the case. He had a chest x-ray showing no infiltrate. At that time, he was found to be hypotensive and was treated for sepsi s. He has had a consistently positive UA. Urine culture grew out Morganella. He has grown out a nu mber of organisms from his urine in the past. This is a relatively benign resistance pattern and he is therefore treated with ceftriaxone. History of C difficile most recently in January of this year. He was placed on prophylactic oral vanc omycin. He had blood cultures which grow out 4 out of 4 bottles for coag-negative staph, AKA Staph e pidermidis. Given the 2 out of 2 positives, this is a concern for actual infection as opposed to con taminant. Certainly his Mclaughlin could have been the source. Given that, the patient was treated with vancomycin and a 2-week course to be completed. The patient will receive prophylactic vancomycin during the treatment of his UTI and other things. /[id number]/MODL
--- NOTE | 2017-02-28 14:48 | ASMTCMCOM ---
CM Note CM Note Notes: Spoke w/Tasha at [facility], pt will return today, final orders faxed. Transportation via [facility] stretcher, sampler pickup 4:30, RN to call report. Date Signed: 02/28/2017 02:47 PM Electronically Signed By:Katie Ashford RN
[2017-02-28 15:39] VITALS: BP 133/80; TEMP 99
[2017-02-28 16:34] VITALS: PULSE 79; RESP 15; O2SAT 92
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
== END 2017-02-28 16:37 | DRG 698 ==
LOC: EDUNIT# → OBSVTOIN 11:35 → F3E 12:31
PROVIDERS: ADMIT Internal Medicine; ATTEND Internal Medicine
DX: T83.511A Infection and inflammatory reaction due to indwelling urethral catheter, initial encounter (principal); A41.1 Sepsis due to other specified staphylococcus; R65.20 Severe sepsis without septic shock; E87.1 Hypo-osmolality and hyponatremia; E87.6 Hypokalemia; R40.3 Persistent vegetative state; E11.9 Type 2 diabetes mellitus without complications; I10 Essential (primary) hypertension; J96.11 Chronic respiratory failure with hypoxia; R13.10 Dysphagia, unspecified; G93.40 Encephalopathy, unspecified; Z93.0 Tracheostomy status; Z87.01 Personal history of pneumonia (recurrent); Z87.440 Personal history of urinary (tract) infections; Z96.0 Presence of urogenital implants; Z87.820 Personal history of traumatic brain injury
CPT/HCPCS: J0692; J0696; J1650; J1815; J3370

== ENCOUNTER 2017-06-27 14:30 | Inpatient (IN) | payer OTHER, MEDICAID ==
--- NOTE | 2017-06-27 14:57 | EDPHY ---
H & P Time Seen by Provider: 06/27/17 14:42 HPI/ROS: CHIEF COMPLAINT: Fever HISTORY OF PRESENT ILLNESS: Patient arrives from residential with a chief complaint of fever today. Of note he has previous history of sepsis with last admission in February of last year. He also has traumatic brain injury with persistent unresponsive state. Further history and review of systems is there for unobtainable because the patient is nonverbal. PAST MEDICAL HISTORY: History and physical dated 02/24/2017 and discharge summary from that admission both reviewed. Includes the tracheostomy, the traumatic brain injury with persistent unresponsive state, previous catheter associated UTI, Staph epidermidis bacteremia, Clostridium difficile, seizure disorder, chronic respiratory failure and indwelling Mclaughlin catheter. Social history: Current residential resident General Appearance: Patient is unresponsive which apparently is his baseline. Eyes: No scleral icterus. ENT, Mouth: Normal mucous membranes. Respiratory: Rhonchi bilaterally with coarse breath sounds. Cardiovascular: Regular rate and rhythm. Gastrointestinal: Abdomen is soft and non tender. Neurological: Unresponsive with no spontaneous movement. Skin: Warm and dry, no rashes. The patient is rolled and has some very slight erythema in the sacral area but no evidence of decubitus ulcer or cellulitis. Skin around the left chest port area is not red or tender or hot to the touch. Musculoskeletal: Flexion contractures less in the right upper extremity and more in the other 3. Psychiatric: Unable, nonverbal Emergency Department course/MDM: Patient's temperature is 38 degrees. Plan for urinalysis, chest x-ray, respiratory pathogen panel screening, lactate. Treatment for presumptive bacterial infection with hospital admission. 1523: Urinalysis positive for white blood cells and bacteria, chest x-ray appears stable. Blood cultures performed and respiratory panel pending. Discussed with admission hospitalist Dr. Efe Grullon. Does not have elevated lactate or hypotension at this time. Broad-spectrum antibiotics cefipime 2gm, discussed with Mitchel, and IV fluids. Smoking Status: Unknown if ever smoked Constitutional: Initial Vital Signs Temperature (C) 38.2 C 06/27/17 15:14 Heart Rate 120 H 06/27/17 15:14 Respiratory Rate 21 H 06/27/17 15:14 Blood Pressure 118/78 06/27/17 15:14 O2 Sat (%) 96 06/27/17 15:14 O2 Delivery Mode Non-Rebreather Mask Allergies/Adverse Reactions: latex Allergy (Unknown, Verified 12/20/16 19:28) amoxicillin trihydrate [From Augmentin] Allergy (Verified 12/20/16 19:28) potassium clavulanate [From Augmentin] Allergy (Verified 12/20/16 19:28) Home Medications: Medication Instructions Recorded Bisacodyl [Dulcolax] 10 mg RI Q24H PRN 11/28/16 Cetirizine [ZyrTEC 10 mg (*)] 10 mg TUBE DAILY@11/28/16 Doxazosin Mesylate [Cardura 4 MG 4 mg TUBE DAILY@11/28/16 (*)] Insulin Detemir [Levemir] 10 unit SQ DAILY@11/28/16 Phenytoin [Dilantin] 5 ml TUBE BID@,11/28/16 levETIRAcetam [Keppra Oral Liquid] 5 ml TUBE BID@,11/28/16 Glycopyrrolate [GLYCOPYRROLATE] 2 mg TUBE TID 01/11/17 Acetaminophen [Tylenol 325mg (*)] 650 mg TUBE Q4 PRN 02/24/17 Ipratropium/Albuterol [Duoneb (*)] 3 ml IH Q4 PRN 02/24/17 Medical Decision Making - Diagnostics EKG Interpretation: 12-lead EKG interpreted by me; official reading is in trace master. My interpretation is sinus tachycardia with low frontal voltage and late anterior RS transition. Imaging Results: Imaging Impressions Chest X-Ray 06/27/17 14:54 Impression: No pneumonia or atelectasis identified. Chest x-ray shows port in cardiomegaly and some pulmonary vascular prominence but no definite infiltrate Imaging: I viewed and interpreted images myself Differential Diagnosis: Differential for fever considered including but not limited to sepsis, pneumonia , UTI, cellulitis, meningitis, acute surgical abdominal process, other ENT infection. Critical Care Time: Critical care time spent by me, Dr. Bailey, exclusively with the care of this patient was 30 minutes, exclusive of PA or DIAMOND SETTER time and exclusive of separate procedures. The organ system at risk was infectious, sepsis and I ordered IV fluids, multiple diagnostics, broad-spectrum antibiotics, consultation with hospitalist to stabilize the patient and prevent worsening of the patient's condition. - Data Points Laboratory Results: Laboratory Results 06/27/17 15:00 01/25/18 15:00 06/27/17 06/27/17 06/27/17 15:00 15:00 15:00 WBC 9.54 10^3/uL H 10^3/uL (3.80-9.50) RBC 4.74 10^6/uL 10^6/uL (4.40-6.38) Hgb 14.4 g/dL g/dL (13.7-17.5) Hct 40.2 % % (40.0-51.0) MCV 84.8 fL fL (81.5-99.8) MCH 30.4 pg pg (27.9-34.1) MCHC 35.8 g/dL g/dL (32.4-36.7) RDW 14.2 % % (11.5-15.2) Plt Count 120 10^3/uL L 10^3/uL (150-400) MPV 9.8 fL fL (8.7-11.7) Neut % (Auto) 83.0 % H % (39.3-74.2) Lymph % (Auto) 9.9 % L % (15.0-45.0) Morgan % (Auto) 6.4 % % (4.5-13.0) Eos % (Auto) 0.2 % L % (0.6-7.6) Baso % (Auto) 0.2 % L % (0.3-1.7) Nucleat RBC Rel Count 0.0 % % (0.0-0.2) Absolute Neuts (auto) 7.92 10^3/uL H 10^3/uL (1.70-6.50) Absolute Lymphs (auto) 0.94 10^3/uL L 10^3/uL (1.00-3.00) Absolute Monos (auto) 0.61 10^3/uL 10^3/uL (0.30-0.80) Absolute Eos (auto) 0.02 10^3/uL L 10^3/uL (0.03-0.40) Absolute Basos (auto) 0.02 10^3/uL 10^3/uL (0.02-0.10) Absolute Nucleated RBC 0.00 10^3/uL 10^3/uL (0-0.01) Immature Gran % 0.3 % % (0.0-1.1) Immature Gran # 0.03 10^3/uL 10^3/uL (0.00-0.10) PT 13.4 SEC SEC (12.0-15.0) INR 1.00 (0.83-1.16) APTT 66.8 SEC H SEC (23.0-38.0) VBG Lactic Acid Sodium 126 mEq/L L mEq/L (135-145) Potassium 4.1 mEq/L mEq/L (3.5-5.2) Chloride 85 mEq/L L mEq/L (97-110) Carbon Dioxide 26 mEq/l mEq/l (22-31) Anion Gap 15 mEq/L mEq/L (8-16) BUN 13 mg/dL mg/dL (7-23) Creatinine 0.6 mg/dL L mg/dL (0.7-1.3) Estimated GFR > 60 Glucose 120 mg/dL H mg/dL (70-100) Calcium 9.1 mg/dL mg/dL (8.5-10.4) Total Bilirubin 0.8 mg/dL mg/dL (0.1-1.4) Urine Color Urine Appearance Urine pH Ur Specific [place] Urine Protein Urine Ketones Urine Blood Urine Nitrate Urine Bilirubin Urine Urobilinogen Ur Leukocyte Esterase Urine RBC Urine WBC Ur Epithelial Cells Urine Bacteria Urine Mucus Urine Glucose 06/27/17 06/27/17 15:00 14:57 WBC RBC Hgb Hct MCV MCH MCHC RDW Plt Count MPV Neut % (Auto) Lymph % (Auto) Morgan % (Auto) Eos % (Auto) Baso % (Auto) Nucleat RBC Rel Count Absolute Neuts (auto) Absolute Lymphs (auto) Absolute Monos (auto) Absolute Eos (auto) Absolute Basos (auto) Absolute Nucleated RBC Immature Gran % Immature Gran # PT INR APTT VBG Lactic Acid 1.1 mmol/L mmol/L (0.7-2.1) Sodium Potassium Chloride Carbon Dioxide Anion Gap BUN Creatinine Estimated GFR Glucose Calcium Total Bilirubin Urine Color YELLOW Urine Appearance MODERATELY TURBID Urine pH 9.0 H (5.0-7.5) Ur Specific [place] 1.013 (1.002-1.030) Urine Protein 2+ H (NEGATIVE) Urine Ketones NEGATIVE (NEGATIVE) Urine Blood 2+ H (NEGATIVE) Urine Nitrate NEGATIVE (NEGATIVE) Urine Bilirubin NEGATIVE (NEGATIVE) Urine Urobilinogen NEGATIVE EU EU (0.2-1.0) Ur Leukocyte Esterase 3+ H (NEGATIVE) Urine RBC 50-182 /hpf H /hpf (0-3) Urine WBC 50-182 /hpf H /hpf (0-3) Ur Epithelial Cells TRACE /lpf /lpf (NONE-1+) Urine Bacteria 4+ /hpf H /hpf (NONE SEEN) Urine Mucus 2+ /lpf H /lpf (NONE-1+) Urine Glucose NEGATIVE (NEGATIVE) Microbiology Results: MICROBIOLOGY 06/27/17 15:00 Nasal, Sinus - Swab Respiratory Panel (PCR) - Final No Organism Detected Medications Given: Doxazosin Mesylate (Cardura) 4 mg TUBE DAILY@20 [facility] Stop: 12/24/17 19:59 Last Admin: 06/27/17 19:55 Dose: 4 mg Vancomycin/Sodium Chloride (Vancomycin 1 Gm (Premix)) 250 mls @ 250 mls/hr IV Q12H [facility] PRN Reason: Protocol Stop: 07/27/17 15:59 Last Admin: 06/27/17 17:06 Dose: 250 mls Insulin Glargine (Lantus Syringe) 10 units SC DAILY@20 [facility] Stop: 12/24/17 19:59 Last Admin: 06/27/17 19:56 Dose: 10 units Insulin Human Lispro (Humalog Lispro) 0 unit SC TIDMEAL [facility] PRN Reason: Protocol Stop: 12/24/17 17:59 Last Admin: 06/27/17 19:57 Dose: Not Given Levetiracetam (Keppra Oral Liquid) 500 mg TUBE BID@0800,2000 [facility] Stop: 12/24/17 19:59 Last Admin: 06/27/17 19:55 Dose: 500 mg Phenytoin (Dilantin) 125 mg TUBE BID@08,20 [facility] Stop: 12/24/17 19:59 Last Admin: 06/27/17 19:56 Dose: 125 mg Vancomycin HCl (Vancocin Oral Liquid) 125 mg PO QID [facility] PRN Reason: Protocol Stop: 07/27/17 15:59 Last Admin: 06/27/17 19:56 Dose: 125 mg Discontinued Medications Sodium Chloride (Ns) 1,000 mls @ 0 mls/hr IV EDNOW ONE; Wide Open PRN Reason: Protocol Stop: 06/27/17 15:25 Last Admin: 06/27/17 16:07 Dose: 1,000 mls Cefepime HCl 2 gm/ Sterile (Water) 12.5 mls @ 150 mls/hr IV EDNOW ONE PRN Reason: Protocol Stop: 06/27/17 15:30 Last Admin: 06/27/17 16:08 Dose: 12.5 mls Sodium Chloride (Ns) 1,000 mls @ 0 mls/hr IV EDNOW ONE; Wide Open PRN Reason: Protocol Stop: 06/27/17 15:32 Last Admin: 06/27/17 16:07 Dose: 1,000 mls Departure - Departure Disposition: [facility] In[facility] Acute Clinical Impression: Fever Qualifiers: Fever type: unspecified Qualified Code(s): R50.9 - Fever, unspecified Condition: Fair
[2017-06-27 15:13] LABS: PLATELET COUNT 120 10^3/uL (150-400)
[2017-06-27 15:23] LABS: PROTIME(PATIENT) 13.4 SEC (12.0-15.0)
[2017-06-27] MEDS ORDERED: NS 1,000 ML IV ONE ×2 (15:24→15:31)
[2017-06-27] MEDS ORDERED: CEFEPIME HCL 2 GM in STERILE WATER INJ 12.5 ML IV ONE (15:26)
[2017-06-27] MEDS ORDERED: ONDANSETRON 4 MG/2 ML VIAL IVP PRN (15:42)
[2017-06-27] MEDS ORDERED: ONDANSETRON DISINTEGRATING 4 MG TAB PO PRN (15:42)
[2017-06-27] MEDS ORDERED: ACETAMINOPHEN 325 MG TAB PO PRN (15:42)
--- NOTE | 2017-06-27 15:46 | CPEKG ---
Heart Rate: 119 RR Interval: 504 P-R Interval: 184 QRSD Interval: 72 QT Interval: 304 QTC Interval: 428 P Delano: 40 QRS Delano: 88 T Wave Delano: 17 EKG Severity - BORDERLINE ECG - EKG Impression: SINUS TACHYCARDIA EKG Impression: LOW VOLTAGE IN FRONTAL LEADS EKG Impression: BORDERLINE R WAVE PROGRESSION, ANTERIOR LEADS Electronically Signed By: Juan M Bailey 27-Jun-2017 15:47:15
[2017-06-27] MEDS ORDERED: BISACODYL 10 MG SUPP PR PRN (15:54)
[2017-06-27] MEDS ORDERED: IPRATROPIUM/ALBUTEROL 3 ML DEYVIAL IH PRN (15:54)
[2017-06-27] MEDS ORDERED: D50W 25 GM/50 ML SYR IVP PRN (15:57)
[2017-06-27] MEDS ORDERED: GLYCOPYRROLATE 2 MG TUBE SCH (16:00)
[2017-06-27] MEDS: VANCOMYCIN 125 MG/2.5 ML UDL PO SCH ×2 (16:27→19:56)
--- NOTE | 2017-06-27 16:39 | GHP ---
[f rep st] HISTORY AND PHYSICAL DATE OF ADMISSION: 06/27/2017 HISTORY OF PRESENT ILLNESS: The patient is a 57-year-old gentleman with history of traumatic brain injury and persistent vegetative state as well as recurrent UTI recurrent pneumonia, and repeated admissions for sepsis, who presents to the hospital today with fevers. He is chronically unresponsive and cannot offer any history. He was tachycardic and febrile upon presentation. Notably, during his last admission the patient grew out coag-negative Staph in 1 of 2 sets of blood cultures. This is attributed to possibly coming from his indwelling Mclaughlin. He also has a port and a trach. These were not changed during that last admission and notably he has not been in the hospital since that February 26 admission almost 4 months, which is quite a long interval for him. REVIEW OF SYSTEMS: Complete 10-point review of systems attempted but could not be obtained secondary to his persistent vegetative state. PAST MEDICAL HISTORY: Traumatic brain injury. Persistent vegetative state. Recurrent UTI with staghorn calculi. Type 2 diabetes. Hypertension, seizure disorder, chronic respiratory failure status post trach. Chronic indwelling Mclaughlin. Chronic dysphagia with J tube. Osteomyelitis and gangrene with history of tracheostomy, PEG tube, and J-tube port placement, 5th toe amputation, seizure disorder, and C difficile. FAMILY HISTORY: Reviewed and unremarkable. SOCIAL HISTORY: Nonsmoker, nondrinker, nondrug user who lives at [facility]. The patient remains a full code. There have been ethics evaluations pursued in the past. ALLERGIES: Amoxicillin. HOME MEDICATIONS: Tylenol, bisacodyl, cetirizine, doxazosin, glycopyrrolate, Detemir insulin 10 units daily, ipratropium, levetiracetam, oxycodone, phenytoin. CODE: Full. PHYSICAL EXAMINATION: PRESENTING VITAL SIGNS: Temp 38.2, blood pressure 118/78 , pulse 120, breathing 21 times a minute, 96% on room air. GENERAL: Unresponsive. No acute distress. Well cared for. HEENT: Sclerae are anicteric. Oropharynx clear. Mucous membranes are moist. NECK: Supple without lymphadenopathy or JVD. LUNGS: Rhonchorous anterolaterally. HEART: Tachycardic S1, S2. ABDOMEN: Soft, nontender, nondistended. LOWER EXTREMITIES : Without edema. SKIN: He has no skin breakdown on his back including around his gluteal cleft. His port is soft without fluctuance or warmth. His PEG site is clean, dry, and intact. His Mclaughlin perhaps has some purulent discharge. DIAGNOSTIC DATA: Chest x-ray shows no pneumonia. Interpreted by me. EKG interpreted by me shows sinus tachycardia at 120 with normal axis and intervals and no ST or T-wave changes. I have discussed the case with Dr. Juan M Bailey. ASSESSMENT AND PLAN: A 57-year-old male with sepsis. 1. Sepsis. The patient warrants broad-spectrum antibiotics. I have started vancomycin, cefepime, given history of Clostridium difficile. I have also started oral vancomycin. His source is likely of urinary origin. We are going to change his Mclaughlin. 2. History of recurrent urinary tract infection. These are catheter- associated urinary tract infections, given his chronic indwelling Mclaughlin. I have changed his Mclaughlin and we will start him on cefepime. He has grown out a number of organisms in the past. He is known to have staghorn calculi. 3. Question port infection. He has coagulase-negative staph in his blood, it cleared, and he has not been in the hospital for 4 months, suggesting that the port itself is not infected. Infectious Disease will see him to help us address this question. 4. History of Clostridium difficile. Preventative oral vancomycin and broad- spectrum antibiotics. 5. Chronic respiratory failure. Continue trach. 6. Chronic dysphagia with PEG tube. We will get a dietary consult. 7. Diabetes. Will continue his medicines and they have been reconciled. 8. hyponatremia: this is a bit lower than his typical presenting sodiums, although they are usually low. hypovolemic w sepsis syndrome so volume resuscitation w NS indicated follow DISPOSITION: Inpatient status. CODE: Full. /[id number]/MODL MTDD
[2017-06-27] MEDS: VANCOMYCIN HCL/NORMAL SALINE 250 ML IV SCH (17:06)
[2017-06-27] MEDS: DOXAZOSIN MESYLATE 4 MG TAB TUBE SCH (19:55)
[2017-06-27] MEDS: levETIRAcetam 500 MG/5 ML UDCUP TUBE SCH (19:55)
[2017-06-27] MEDS: PHENYTOIN 100 MG/4 ML UDL TUBE SCH (19:56)
[2017-06-27] MEDS: INSULIN GLARGINE 100 UNITS/ML UNIT SC SCH (19:56)
[2017-06-27] MEDS: INSULIN LISPRO 100 UNIT/ML SC SCH (19:57)
[2017-06-27] MEDS ORDERED: PHENYTOIN TUBE SCH (20:00)
[2017-06-27] MEDS ORDERED: LEVETIRACETAM TUBE SCH (20:00)
[2017-06-27] MEDS ORDERED: NON-FORMULARY NEW DRUG (Insulin Detemir [Levemir] 10 UNIT) SQ SCH (20:00)
[2017-06-27] MEDS: GLYCOPYRROLATE 1 MG TAB TUBE SCH (23:15)
[2017-06-27] MEDS ORDERED: diphenhydrAMINE 25 MG CAP PO PRN (23:35)
[2017-06-27] MEDS: CEFEPIME HCL 1 GM in STERILE WATER INJ 11.3 ML IV SCH (23:52)
[2017-06-28] MEDS: NS 1,000 ML IV SCH ×4 (01:38→19:58)
[2017-06-28] MEDS: VANCOMYCIN HCL/NORMAL SALINE 250 ML IV SCH ×2 (04:59→17:24)
[2017-06-28] MEDS: VANCOMYCIN 125 MG/2.5 ML UDL PO SCH ×3 (04:59→22:00)
[2017-06-28] MEDS: CEFEPIME HCL 1 GM in STERILE WATER INJ 11.3 ML IV SCH ×3 (08:22→22:01)
[2017-06-28] MEDS: levETIRAcetam 500 MG/5 ML UDCUP TUBE SCH ×2 (08:30→22:00)
[2017-06-28] MEDS: GLYCOPYRROLATE 1 MG TAB TUBE SCH ×3 (08:30→22:01)
[2017-06-28] MEDS: CETIRIZINE 10 MG TAB TUBE SCH (08:30)
[2017-06-28] MEDS: ENOXAPARIN 40 MG/0.4 ML SYR SC SCH (08:33)
[2017-06-28] MEDS: INSULIN LISPRO 100 UNIT/ML SC SCH ×3 (08:43→19:35)
[2017-06-28 08:44] LABS: PLATELET COUNT 100 10^3/uL (150-400)
[2017-06-28] MEDS ORDERED: LOSARTAN POTASSIUM 25 MG TAB PO SCH ×2 (09:00→21:00)
--- NOTE | 2017-06-28 10:50 | HOSPPROG ---
Hospitalist Progress Note Assessment/Plan: Sepsis secondary to CAUTI - Sepsis criteria on admission: HR, RR, UTI. Sepsis physiology resolved. H/O staghorn calculi noted, reviewed 11/2016 CT which shows removal. English changed on admission. Afebrile. WBC's normalized. BCx' s pending. -cont cefepime, await Cx data and tailor atbx as indicated -check renal u/s to r/o hydro / recurrent obstructive process ?PORT infection - on Vanc, ID to see H/O TBI with persistent vegetative state - trach'd, peg'd, indwelling english H/O C diff - on po vanc now given IV atbx Dysphagia - peg. Dietary consulted to assist with initiating home tube feeds. DM - bg's controlled, cont home basal/bolus insulin regimen CHRF s/p trach - prn RT suctioning / support DVT PPLX - high risk, Lovenox Full code Dispo - cont inpt Subjective: Pt resting comfortably. No fevers. He is non-verbal. Urine appears clear in english bag Objective: Vital Signs Temp Pulse Resp BP Pulse Ox 36.7 C 76 20 107/78 100 06/28/17 08:00 06/28/17 08:00 06/28/17 08:00 06/28/17 08:00 06/28/17 08:00 Laboratory Results 06/28/17 08:36 06/28/17 08:36 06/27/17 06/28/17 06/29/17 05:59 05:59 05:59 Intake Total 2000 Output Total 1875 600 Balance 125 -600 PT 13.4 SEC (12.0-15.0) 06/27/17 15:00 INR 1.00 (0.83-1.16) 06/27/17 15:00 - Physical Exam Constitutional: no apparent distress Eyes: PERRL Ears, Nose, Mouth, Throat: moist mucous membranes Cardiovascular: regular rate and rhythym Respiratory: no respiratory distress, clear to auscultation Gastrointestinal: normoactive bowel sounds, soft, non-tender abdomen Skin: warm Musculoskeletal: full muscle strength Neurologic: AAOx3 Psychiatric: interacting appropriately 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 Pneumonia due to Gram negative bacteria Active Bacteria in urine Acute Chronic vegetative state Acute Clostridium difficile infection Acute ~01/12/17 Complicated UTI (urinary tract infection) Acute Dehydration with hypernatremia Acute Healthcare-associated pneumonia Acute Hyperglycemia Acute Hypernatremia Acute Hyponatremia Acute Influenza A Acute MRSA (methicillin resistant Staphylococcus aureus) Acute ~10/19/16 Pneumonia Acute SIRS (systemic inflammatory response syndrome) Acute Sepsis Acute Sepsis Acute Septic shock Acute Severe sepsis Acute Severe sepsis with acute organ dysfunction Acute UTI (urinary tract infection) Acute Urinary tract infection Acute Urinary tract infection in male Acute VRE (vancomycin-resistant Enterococci) Acute ~09/07/16
[2017-06-28] MEDS: PHENYTOIN 100 MG/4 ML UDL TUBE SCH ×2 (11:16→22:01)
--- NOTE | 2017-06-28 11:19 | PDMN ---
Medical Necessity Medical necessity: est los>2mn for sepsis, likely urinary source r/t chronic indwelling [place], hyponatremia, and r/o port infection; admit for IV abx, ID consult; comorbid TBI, persistent vegetative state, chronic resp failure w/ trach, dysphagia w/J tube; hx c diff, htn, sz disorder, osteomyelitis and gangrene; per order and H&P 06/27/17
[2017-06-28] MEDS ORDERED: ALTEPLASE 2 MG VIAL IVP ONE (12:26)
--- NOTE | 2017-06-28 13:25 | WOCRNPDOC ---
WOCRN Advanced Assessment Note - Skin Integrity Problem, Advanced Assess Left Sacrum Pressure Injury Dressing Type: Open to Air Exudate Amount: None Exudate Characteristic(s): None Isis Wound Tissue: Blanching, Scarred Isis Wound Swelling: None Wound Bed Color: Red Wound Bed Constitution: Red/Lawn - Non Granular Tissue Wound Edges: Epithelizing Site Measurement - Head-to-Toe Length X Width X Depth (cm): 0.6cmx0.4cmx0.1cm Pressure Injury Stage: Stage 2 Pressure Injury Present on Admit: Yes Skin Integrity Problem Comment: Small, discrete area of partial-thickness tissue loss noted on left sacrum, appearance consistent w/ stage 2 pressure injury. Isis-wound skin is presently intact. There is scar tissue periwound and across patient's bilateral medial buttocks, which could be indicative of a deeper pressure injury. Existing hospital records searched, and no documentation of a deeper pressurse injury. Will have nursing apply a protective dressing; specialty bed ordered, and TAPS and turns q2 implemented. Left Fourth Toe Pressure Injury Dressing Type: Open to Air Exudate Amount: None Exudate Characteristic(s): None Isis Wound Tissue: Intact Isis Wound Swelling: None Wound Bed Color: Purple Site Measurement - Head-to-Toe Length X Width X Depth (cm): [id number] Pressure Injury Stage: Deep Tissue Injury (DTI) Pressure Injury Present on Admit: Yes Skin Integrity Problem Comment: Area of dark purple, ecchymotic tissue noted on L lateral 4th toe, appearance consistent w/ deep tissue injury. Periwound skin is intact and blanching. No device or bed exerting any pressure on this tissue at this time. Will initiate off-loading heel boots due to patient's condition, which will also protect this toe. No dressing needed over this site at this time.
--- NOTE | 2017-06-28 14:25 | ASMTCMCOM ---
CM Note CM Note Notes: Pt resides at [facility], he is in a chronic vegetative state, he will return there when medically stable. DC Plan: [facility]/ [facility] Date Signed: 06/28/2017 02:24 PM Electronically Signed By:Katie Ashford RN
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
[2017-06-28] MEDS: DOXAZOSIN MESYLATE 4 MG TAB TUBE SCH (22:00)
[2017-06-28] MEDS: INSULIN GLARGINE 100 UNITS/ML UNIT SC SCH (22:00)
[2017-06-29] MEDS: NS 1,000 ML IV SCH (00:56)
[2017-06-29] MEDS: VANCOMYCIN HCL/NORMAL SALINE 250 ML IV SCH ×2 (04:21→15:00)
[2017-06-29 06:02] LABS: PLATELET COUNT 102 10^3/uL (150-400)
[2017-06-29] MEDS: CEFEPIME HCL 1 GM in STERILE WATER INJ 11.3 ML IV SCH ×3 (06:25→22:22)
[2017-06-29] MEDS: INSULIN LISPRO 100 UNIT/ML SC SCH ×3 (09:23→19:29)
--- NOTE | 2017-06-29 09:53 | HOSPPROG ---
Hospitalist Progress Note Assessment/Plan: Sepsis secondary to CAUTI - Sepsis criteria on admission: HR, RR, UTI. Sepsis physiology resolved. H/O staghorn calculi noted, reviewed 11/2016 CT which shows removal. English changed on admission, confirmed with RN. Afebrile. WBC' s normalized. BCx's ngtd. No hydro or e/o obstruction on u/s. -cont cefepime, await Cx data and tailor atbx as indicated -appreciate ID assistance ?PORT infection - on Vanc, BCx ngtd. Can likely d/c vanc if cultures remain negative H/O TBI with persistent vegetative state - trach'd, peg'd, indwelling english H/O C diff - on po vanc now given IV atbx Dysphagia - peg. Tube feeds at goal. DM - bg's controlled, cont home basal/bolus insulin regimen CHRF s/p trach - prn RT suctioning / support DVT PPLX - high risk, Lovenox Full code Dispo - cont inpt Subjective: Pt non-verbal, appears comfortable. Afebrile. Objective: Vital Signs Temp Pulse Resp BP Pulse Ox 36.4 C 78 18 92/55 L 98 06/29/17 07:44 06/29/17 07:44 06/29/17 07:44 06/29/17 07:44 06/29/17 07:44 Laboratory Results 06/29/17 05:53 06/29/17 05:53 06/28/17 06/29/17 06/30/17 05:59 05:59 05:59 Intake Total 1999 59149.6 Output Total 1875 3475 750 Balance 125 6613.6 -750 PT 13.4 SEC (12.0-15.0) 06/27/17 15:00 INR 1.00 (0.83-1.16) 06/27/17 15:00 - Physical Exam Constitutional: no apparent distress Eyes: PERRL Ears, Nose, Mouth, Throat: moist mucous membranes Cardiovascular: regular rate and rhythym Respiratory: no respiratory distress, bronchial breath sounds, other (trach with secretions) Gastrointestinal: normoactive bowel sounds, soft, non-tender abdomen Skin: warm Musculoskeletal: other 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 Pneumonia due to Gram negative bacteria Active Bacteria in urine Acute Chronic vegetative state Acute Clostridium difficile infection Acute ~01/12/17 Complicated UTI (urinary tract infection) Acute Dehydration with hypernatremia Acute Healthcare-associated pneumonia Acute Hyperglycemia Acute Hypernatremia Acute Hyponatremia Acute Influenza A Acute MRSA (methicillin resistant Staphylococcus aureus) Acute ~10/19/16 Pneumonia Acute SIRS (systemic inflammatory response syndrome) Acute Sepsis Acute Sepsis Acute Septic shock Acute Severe sepsis Acute Severe sepsis with acute organ dysfunction Acute UTI (urinary tract infection) Acute Urinary tract infection Acute Urinary tract infection in male Acute VRE (vancomycin-resistant Enterococci) Acute ~09/07/16
[2017-06-29] MEDS: levETIRAcetam 500 MG/5 ML UDCUP TUBE SCH ×2 (10:40→22:17)
[2017-06-29] MEDS: ENOXAPARIN 40 MG/0.4 ML SYR SC SCH (10:41)
[2017-06-29] MEDS: VANCOMYCIN 125 MG/2.5 ML UDL PO SCH ×2 (10:41→22:27)
[2017-06-29] MEDS: CETIRIZINE 10 MG TAB TUBE SCH (10:41)
[2017-06-29] MEDS: GLYCOPYRROLATE 1 MG TAB TUBE SCH ×3 (10:41→22:12)
[2017-06-29] MEDS: PHENYTOIN 100 MG/4 ML UDL TUBE SCH ×2 (10:55→22:13)
--- NOTE | 2017-06-29 12:45 | PCMIDPN ---
Assessment/Plan: Assessment: Admitted with fever. Long history of bacteremia and urinary tract infections. Unclear of present issue. Patient is not shown fevers since admission. Urine culture is polymicrobial which is standard. Covered currently with vancomycin and cefepime. Will discontinue vancomycin and just continue with cefepime monotherapy. Plan: 1. Discontinue vancomycin. 2. Continue cefepime. 3. Follow culture results. Follow fever curve. 06/29/17 17:53 Subjective: Patient is in a vegetative state. No changes from baseline. No fevers Objective: Vancomycin # 1 Cefepime # 2 Vital Signs Temp Pulse Resp BP Pulse Ox 36.7 C 61 16 113/64 99 06/29/17 10:50 06/29/17 10:50 06/29/17 10:50 06/29/17 10:50 06/29/17 10:50 Laboratory Results 06/29/17 05:53 06/29/17 05:53 06/28/17 06/29/17 06/30/17 05:59 05:59 05:59 Intake Total 1999 91175.6 Output Total 1875 3475 750 Balance 125 6613.6 -750 - Physical Exam General Appearance: WD/WN, no apparent distress, other (Long-term vegetative state) Respiratory: lungs clear, normal breath sounds, No respiratory distress Cardiac/Chest: regular rate, rhythm, No tachycardia Skin: normal color, warm/dry, No rash 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 Pneumonia due to Gram negative bacteria Active Bacteria in urine Acute Chronic vegetative state Acute Clostridium difficile infection Acute ~01/12/17 Complicated UTI (urinary tract infection) Acute Dehydration with hypernatremia Acute Healthcare-associated pneumonia Acute Hyperglycemia Acute Hypernatremia Acute Hyponatremia Acute Influenza A Acute MRSA (methicillin resistant Staphylococcus aureus) Acute ~10/19/16 Pneumonia Acute SIRS (systemic inflammatory response syndrome) Acute Sepsis Acute Sepsis Acute Septic shock Acute Severe sepsis Acute Severe sepsis with acute organ dysfunction Acute UTI (urinary tract infection) Acute Urinary tract infection Acute Urinary tract infection in male Acute VRE (vancomycin-resistant Enterococci) Acute ~09/07/16
[2017-06-29] MEDS: DOXAZOSIN MESYLATE 4 MG TAB TUBE SCH (22:11)
[2017-06-29] MEDS: INSULIN GLARGINE 100 UNITS/ML UNIT SC SCH (22:21)
[2017-06-30 05:20] LABS: PLATELET COUNT 132 10^3/uL (150-400)
[2017-06-30] MEDS: CEFEPIME HCL 1 GM in STERILE WATER INJ 11.3 ML IV SCH ×3 (05:59→22:29)
[2017-06-30] MEDS: PHENYTOIN 100 MG/4 ML UDL TUBE SCH ×2 (08:21→21:18)
[2017-06-30] MEDS: levETIRAcetam 500 MG/5 ML UDCUP TUBE SCH ×2 (08:21→21:19)
[2017-06-30] MEDS: GLYCOPYRROLATE 1 MG TAB TUBE SCH ×3 (08:21→21:18)
[2017-06-30] MEDS: CETIRIZINE 10 MG TAB TUBE SCH (08:21)
[2017-06-30] MEDS: VANCOMYCIN 125 MG/2.5 ML UDL PO SCH ×2 (08:21→21:19)
[2017-06-30] MEDS: ENOXAPARIN 40 MG/0.4 ML SYR SC SCH (08:21)
[2017-06-30] MEDS: INSULIN LISPRO 100 UNIT/ML SC SCH ×3 (08:42→17:07)
--- NOTE | 2017-06-30 10:32 | HOSPPROG ---
Hospitalist Progress Note Assessment/Plan: Sepsis presumed secondary to CAUTI - Sepsis criteria on admission: HR, RR, UTI. Sepsis physiology resolved. H/O staghorn calculi noted, reviewed 11/2016 CT which shows removal. English changed on admission, confirmed with RN. Afebrile. WBC's normalized. No hydro or e/o obstruction on u/s. -UCx polymicrobial, carbepenem resistant pseudomonas noted, this is sensitive to cefepime -cont cefepime, Vanc d/c'd -no e/o line infection, BCx's NGTD. IR to remove tunneled catheter due to risk of infection. -appreciate ID assistance H/O TBI with persistent vegetative state - trach'd, peg'd, indwelling english H/O C diff - on po vanc now given IV atbx Dysphagia - peg. Tube feeds at goal. DM - bg's controlled, cont home basal/bolus insulin regimen CHRF s/p trach - prn RT suctioning / support DVT PPLX - high risk, Lovenox Full code Dispo - cont inpt Subjective: Pt resting comfortably. Non-verbal. Afebrile. Objective: Vital Signs Temp Pulse Resp BP Pulse Ox 37.2 C 65 18 123/80 H 98 06/30/17 08:19 06/30/17 08:19 06/30/17 08:19 06/30/17 08:19 06/30/17 08:19 Laboratory Results 06/30/17 05:00 06/30/17 05:00 06/29/17 06/30/17 07/01/17 05:59 05:59 05:59 Intake Total 85987.6 1056 Output Total 3475 3850 Balance 6613.6 -2794 PT 13.4 SEC (12.0-15.0) 06/27/17 15:00 INR 1.00 (0.83-1.16) 06/27/17 15:00 - Physical Exam Constitutional: no apparent distress Eyes: PERRL Ears, Nose, Mouth, Throat: moist mucous membranes Cardiovascular: regular rate and rhythym Respiratory: no respiratory distress, bronchial breath sounds Gastrointestinal: normoactive bowel sounds, soft, non-tender abdomen Skin: warm 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 Pneumonia due to Gram negative bacteria Active Bacteria in urine Acute Chronic vegetative state Acute Clostridium difficile infection Acute ~01/12/17 Complicated UTI (urinary tract infection) Acute Dehydration with hypernatremia Acute Healthcare-associated pneumonia Acute Hyperglycemia Acute Hypernatremia Acute Hyponatremia Acute Influenza A Acute MRSA (methicillin resistant Staphylococcus aureus) Acute ~10/19/16 Pneumonia Acute SIRS (systemic inflammatory response syndrome) Acute Sepsis Acute Sepsis Acute Septic shock Acute Severe sepsis Acute Severe sepsis with acute organ dysfunction Acute UTI (urinary tract infection) Acute Urinary tract infection Acute Urinary tract infection in male Acute VRE (vancomycin-resistant Enterococci) Acute ~09/07/16
--- NOTE | 2017-06-30 18:31 | PCMIDPN ---
Assessment/Plan: Assessment: Admitted with fever. Probable urinary tract infection. Patient is not shown fevers since admission. Urine culture is polymicrobial which is standard. Covered currently with cefepime. Plan: 1. Continue cefepime. 2. Follow culture results. Follow fever curve. 06/29/17 17:53 06/30/17 18:30 Subjective: Patient remains at baseline neurologically devastated status. Objective: Cefepime # 3 Vital Signs Temp Pulse Resp BP Pulse Ox 37.9 C 76 18 124/81 H 95 06/30/17 16:56 06/30/17 16:56 06/30/17 16:56 06/30/17 16:56 06/30/17 16:56 Laboratory Results 06/30/17 05:00 06/30/17 05:00 06/29/17 06/30/17 07/01/17 05:59 05:59 05:59 Intake Total 24097.6 1056 Output Total 3475 3850 1550 Balance 6613.6 -2794 -1550 - Physical Exam General Appearance: WD/WN, non-toxic Respiratory: lungs clear Cardiac/Chest: regular rate, rhythm, No tachycardia Skin: normal color, No rash 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 Pneumonia due to Gram negative bacteria Active Bacteria in urine Acute Chronic vegetative state Acute Clostridium difficile infection Acute ~01/12/17 Complicated UTI (urinary tract infection) Acute Dehydration with hypernatremia Acute Healthcare-associated pneumonia Acute Hyperglycemia Acute Hypernatremia Acute Hyponatremia Acute Influenza A Acute MRSA (methicillin resistant Staphylococcus aureus) Acute ~10/19/16 Pneumonia Acute SIRS (systemic inflammatory response syndrome) Acute Sepsis Acute Sepsis Acute Septic shock Acute Severe sepsis Acute Severe sepsis with acute organ dysfunction Acute UTI (urinary tract infection) Acute Urinary tract infection Acute Urinary tract infection in male Acute VRE (vancomycin-resistant Enterococci) Acute ~09/07/16
[2017-06-30] MEDS: DOXAZOSIN MESYLATE 4 MG TAB TUBE SCH (21:18)
[2017-06-30] MEDS: INSULIN GLARGINE 100 UNITS/ML UNIT SC SCH (21:19)
[2017-07-01] MEDS: CEFEPIME HCL 1 GM in STERILE WATER INJ 11.3 ML IV SCH ×3 (06:48→22:05)
[2017-07-01] MEDS: levETIRAcetam 500 MG/5 ML UDCUP TUBE SCH ×2 (07:48→20:37)
[2017-07-01] MEDS: CETIRIZINE 10 MG TAB TUBE SCH (07:48)
[2017-07-01] MEDS: PHENYTOIN 100 MG/4 ML UDL TUBE SCH ×2 (07:48→21:56)
[2017-07-01] MEDS: ENOXAPARIN 40 MG/0.4 ML SYR SC SCH (07:48)
[2017-07-01] MEDS: INSULIN LISPRO 100 UNIT/ML SC SCH ×3 (08:30→18:02)
[2017-07-01] MEDS: GLYCOPYRROLATE 1 MG TAB TUBE SCH ×3 (10:42→21:57)
[2017-07-01] MEDS: VANCOMYCIN 125 MG/2.5 ML UDL PO SCH ×2 (10:43→20:37)
--- NOTE | 2017-07-01 10:55 | ASMTCMCOM ---
CM Note CM Note Notes: The plan remains that pt will return to [facility] when medically stable. Updates sent to [facility]. Pt is currently being followed by wound care and infectious disease. CM to follow. Plan: [facility] Date Signed: 07/01/2017 10:55 AM Electronically Signed By:LISA Golden
--- NOTE | 2017-07-01 13:46 | HOSPPROG ---
Hospitalist Progress Note Assessment/Plan: Sepsis presumed secondary to CAUTI - Sepsis criteria on admission: HR, RR, UTI. Sepsis physiology resolved. H/O staghorn calculi noted, removed per CT 2016. English changed on admission, confirmed with RN. Afebrile. WBC's normalized. No hydro or e/o obstruction on u/s. -UCx polymicrobial, carbepenem resistant pseudomonas noted, this is sensitive to cefepime -cont cefepime, Vanc d/c'd -no e/o line infection, BCx's NGTD. -appreciate ID assistance, consider d/c tomorrow with ongoing atbx at SNF H/O TBI with persistent vegetative state - trach'd, peg'd, indwelling english H/O C diff - on po vanc now given IV atbx Dysphagia - peg. Tube feeds at goal. DM - bg's controlled, cont home basal/bolus insulin regimen CHRF s/p trach - prn RT suctioning / support DVT PPLX - high risk, Lovenox Full code Dispo - cont inpt Subjective: Pt resting comfortably, non-verbal. No fevers. Tolerating tube feeds. Good uop. Objective: Vital Signs Temp Pulse Resp BP Pulse Ox 37.1 C 78 20 99/65 L 95 07/01/17 12:00 07/01/17 12:00 07/01/17 12:00 07/01/17 12:00 07/01/17 12:00 Laboratory Results 06/30/17 05:00 06/30/17 05:00 06/30/17 07/01/17 07/02/17 05:59 05:59 05:59 Intake Total 1056 916.3 1800 Output Total 3850 1550 Balance -2794 -633.7 1800 PT 13.4 SEC (12.0-15.0) 06/27/17 15:00 INR 1.00 (0.83-1.16) 06/27/17 15:00 - Physical Exam Constitutional: no apparent distress Cardiovascular: regular rate and rhythym Respiratory: no respiratory distress Gastrointestinal: normoactive bowel sounds, soft, non-tender abdomen Skin: warm Neurologic: other (opens eyes to verbal stimuli, tracks a little to sound) 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 Pneumonia due to Gram negative bacteria Active Bacteria in urine Acute Chronic vegetative state Acute Clostridium difficile infection Acute ~01/12/17 Complicated UTI (urinary tract infection) Acute Dehydration with hypernatremia Acute Healthcare-associated pneumonia Acute Hyperglycemia Acute Hypernatremia Acute Hyponatremia Acute Influenza A Acute MRSA (methicillin resistant Staphylococcus aureus) Acute ~10/19/16 Pneumonia Acute SIRS (systemic inflammatory response syndrome) Acute Sepsis Acute Sepsis Acute Septic shock Acute Severe sepsis Acute Severe sepsis with acute organ dysfunction Acute UTI (urinary tract infection) Acute Urinary tract infection Acute Urinary tract infection in male Acute VRE (vancomycin-resistant Enterococci) Acute ~09/07/16
--- NOTE | 2017-07-01 16:28 | PCMIDPN ---
Assessment/Plan: Assessment/Plan: * Fever: Difficult to define exact etiology although may be related to UTI which shows polymicrobial mo. No fever today. All organisms covered by cefepime. Will plan 7 days total of cefepime (day # 4). This can be completed at [facility] via his implanted port. 07/01/17 16:25 07/01/17 16:26 Subjective: Unresponsive. No significant respiratory secretions. Objective: Vital Signs Temp Pulse Resp BP Pulse Ox 37.1 C 78 20 99/65 L 95 07/01/17 12:00 07/01/17 12:00 07/01/17 12:00 07/01/17 12:00 07/01/17 12:00 Laboratory Results 06/30/17 05:00 06/30/17 05:00 06/30/17 07/01/17 07/02/17 05:59 05:59 05:59 Intake Total 1056 916.3 1800 Output Total 3850 1550 Balance -2794 -633.7 1800 Cefepime # 4 Urine culture with growth of carbapenem resistant Pseudomonas, Morganella, E coli, and Proteus all greater than 100,000 - Physical Exam General Appearance: non-toxic, other (Unresponsive) EENT: other (Tracheostomy in place), No scleral icterus Respiratory: coarse breath sounds Cardiac/Chest: regular rate, rhythm, other (Port left upper chest without erythema) Extremities: No inflammation Abdomen: non-tender, other (G-tube with mild erythema around insertion site), No distended Male Genitalia: english 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 Pneumonia due to Gram negative bacteria Active Bacteria in urine Acute Chronic vegetative state Acute Clostridium difficile infection Acute ~01/12/17 Complicated UTI (urinary tract infection) Acute Dehydration with hypernatremia Acute Healthcare-associated pneumonia Acute Hyperglycemia Acute Hypernatremia Acute Hyponatremia Acute Influenza A Acute MRSA (methicillin resistant Staphylococcus aureus) Acute ~10/19/16 Pneumonia Acute SIRS (systemic inflammatory response syndrome) Acute Sepsis Acute Sepsis Acute Septic shock Acute Severe sepsis Acute Severe sepsis with acute organ dysfunction Acute UTI (urinary tract infection) Acute Urinary tract infection Acute Urinary tract infection in male Acute VRE (vancomycin-resistant Enterococci) Acute ~09/07/16
--- NOTE | 2017-07-01 16:28 | PDIAF ---
- Diagnosis Diagnosis: Fever, UTI Code Status: Full Code - Medication Management Discharge Medications: Medications to Continue on Transfer Bisacodyl [Dulcolax] 10 mg MI Q24H PRN 11/28/16 [Last Taken Unknown] Cetirizine [ZyrTEC 10 mg (*)] 10 mg TUBE DAILY@11/28/16 [Last Taken 11/28/16] Doxazosin Mesylate [Cardura 4 MG (*)] 4 mg TUBE DAILY@11/28/16 [Last Taken ] Insulin Detemir [Levemir] 10 unit SQ DAILY@11/28/16 [Last Taken 11/27/16] Phenytoin [Dilantin] 5 ml TUBE BID@11/28/16 [Last Taken 11/28/16 08:00 5ml ] levETIRAcetam [Keppra Oral Liquid] 5 ml TUBE BID@,11/28/16 [Last Taken 08:00 5ml] Glycopyrrolate [GLYCOPYRROLATE] 2 mg TUBE TID 01/11/17 [Last Taken Unknown] Acetaminophen [Tylenol 325mg (*)] 650 mg TUBE Q4 PRN 02/24/17 [Last Taken Unknown] Ipratropium/Albuterol [Duoneb (*)] 3 ml IH Q4 PRN 02/24/17 [Last Taken Unknown] [facility]al [facility] Tech Antibiotics: Cefepime 1 g IV q.8 hours Behavioral Health Tech Antibiotic Stop Date: 07/04/17 Discharge Medications: Refer to the Discharge Home Medication list for PRN reason. - Orders Isolation Type: Contact Isolation - Follow Up Care Current Providers and Referrals: Patient,NotPresent [Primary Care Provider] - As per Instructions
[2017-07-01] MEDS: DOXAZOSIN MESYLATE 4 MG TAB TUBE SCH (20:37)
[2017-07-01] MEDS: INSULIN GLARGINE 100 UNITS/ML UNIT SC SCH (20:49)
[2017-07-02 08:21] VITALS: RESP 14
--- NOTE | 2017-07-02 08:44 | PDIAF ---
- Diagnosis Diagnosis: Fever, UTI Code Status: Full Code - Medication Management Discharge Medications: Medications to Continue on Transfer Bisacodyl [Dulcolax] 10 mg [place] Q24H PRN 11/28/16 [Last Taken Unknown] Cetirizine [ZyrTEC 10 mg (*)] 10 mg TUBE DAILY@11/28/16 [Last Taken 11/28/16] Doxazosin Mesylate [Cardura 4 MG (*)] 4 mg TUBE DAILY@11/28/16 [Last Taken ] Insulin Detemir [Levemir] 10 unit SQ DAILY@11/28/16 [Last Taken 11/27/16] Phenytoin [Dilantin] 5 ml TUBE BID@,11/28/16 [Last Taken 11/28/16 08:00 5ml ] levETIRAcetam [Keppra Oral Liquid] 5 ml TUBE BID@,11/28/16 [Last Taken 08:00 5ml] Glycopyrrolate [GLYCOPYRROLATE] 2 mg TUBE TID 01/11/17 [Last Taken Unknown] Acetaminophen [Tylenol 325mg (*)] 650 mg TUBE Q4 PRN 02/24/17 [Last Taken Unknown] Ipratropium/Albuterol [Duoneb (*)] 3 ml IH Q4 PRN 02/24/17 [Last Taken Unknown] Cefepime HCl [Maxipime] 1 gm IV Q8H vial 07/02/17 [Last Taken Unknown] Vancomycin [Vancocin Oral Liquid] 125 mg PO BID #5 udl 07/02/17 [Last Taken Unknown] Assisted Antibiotics: Cefepime 1 g IV q.8 hours Assisted Antibiotic Stop Date: 07/04/17 Discharge Medications: Refer to the Discharge Home Medication list for PRN reason. - Orders Services needed: Registered Nurse, Certified Plater Supervisor Isolation Type: Contact Isolation Diet Recommendation: other (tube feeds) - Follow Up Care Current Providers and Referrals: Patient,NotPresent [Primary Care Provider] - As per Instructions
[2017-07-02] MEDS: GLYCOPYRROLATE 1 MG TAB TUBE SCH (09:55)
[2017-07-02] MEDS: CETIRIZINE 10 MG TAB TUBE SCH (09:56)
[2017-07-02] MEDS: PHENYTOIN 100 MG/4 ML UDL TUBE SCH (09:57)
[2017-07-02] MEDS: levETIRAcetam 500 MG/5 ML UDCUP TUBE SCH (09:58)
[2017-07-02] MEDS: CEFEPIME HCL 1 GM in STERILE WATER INJ 11.3 ML IV SCH (09:58)
[2017-07-02] MEDS: VANCOMYCIN 125 MG/2.5 ML UDL PO SCH (09:58)
[2017-07-02] MEDS: ENOXAPARIN 40 MG/0.4 ML SYR SC SCH (09:59)
[2017-07-02] MEDS: INSULIN LISPRO 100 UNIT/ML SC SCH ×2 (10:00→12:17)
[2017-07-02 11:23] VITALS: BP 103/63; PULSE 67; TEMP 97.4; O2SAT 97
--- NOTE | 2017-07-02 14:55 | ASDISCHSUM ---
Discharge Information Plan Status:SNF Medically Cleared to Leave:07/01/2017 Discharge Date:07/02/2017 12:32 PM CM D/C Disposition: ADT D/C Disposition:Intermediate Facility Projected Discharge Date:07/02/2017 11:00 AM Transportation at D/C: Discharge Delay Reason: Follow-Up Date:07/02/2017 11:00 AM Discharge Slot: Final Diagnosis: Placement Information Referral Type:*Residential/SNF Referral ID:[id number] Provider Name:Chon Chairez/EVELIA Leyva Address 1:[address] [facility] Phone Number: Address 2: Fax Number: [facility]:[place] Selection Factors: State:[place] Patient Contact Information Contact Name:NARGIS Relationship: Address:[address] Work Phone: [facility]:[place] Alternate Phone: [facility]/Zip Code:[place] [address] Email: Financial Information Financial Class: Primary Plan Desc:MEDICARE INPATIENT Primary Plan Number:[id number] Secondary Plan Desc:MEDICA[place] Secondary Plan Number:[id number] Assessment Information [facility] CM Progress Note CM Note CM Note Notes: Pt resides at [facility], he is in a chronic vegetative state, he will return there when medically stable. DC Plan: [facility]/ [facility] Date Signed: 06/28/2017 02:24 PM Electronically Signed By:Katie Ashford RN [facility] CM Progress Note CM Note CM Note Notes: The plan remains that pt will return to [facility] when medically stable. Updates sent to [facility]. Pt is currently being followed by wound care and infectious disease. CM to follow. Plan: [facility] Date Signed: 07/01/2017 10:55 AM Electronically Signed By:LISA Golden Case Management Discharge Plan Note Case Management Discharge Discharge Order Complete? Answers: Yes Patient to Obtain Answers: Other Notes: [facility] Medications Transportation Arranged Answers: Other Notes: [facility] Transport will Pick (Date 07/02/2017 01:00 PM & Time) EMTALA Complete Answers: No Case Management Transport Answers: Yes Form Complete Faxed Final Orders Answers: Yes Agency/Facility Transfer Answers: Yes Report Printed & Faxed to Receiving Agency Family Notified Answers: Yes Notes: Msg left for Discharge Comments Notes: Pt is being discharged today back to [facility]. CM completed the PCS form for a stretcher. Tasha from [facility] set up transport. DC orders sent to [facility]. CM provided DAVID Ayala w/ phone number to give report. CM left a msg for pts informing her of pts discharge. CM available for changes. Plan: [facility] Signed: 07/02/2017 12:05 PM Electronically Signed By:LISA Golden Intervention Information
--- NOTE | 2017-07-03 00:10 | GDS ---
[f rep st] DISCHARGE SUMMARY DISCHARGE DIAGNOSES: 1. Sepsis, presumed secondary to catheter-associated urinary tract infection. 2. 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 3. Dysphagia with a percutaneous endoscopic gastrostomy tube, on tube feeds. 4. Chronic right hypoxemic respiratory failure, status post trach. 5. Chronic indwelling Mclaughlin. 6. History of Clostridium difficile. 7. Diabetes mellitus type 2. CONSULTANTS: Dr. Gutierrez Jean, Infectious Disease. HISTORY: For details, please see the History and Physical dated June 27, 2017. In brief, the sunita woo is a 57-year-old male with a history of traumatic brain injury and persistent vegetative state a s well as recurrent UTIs and recurrent pneumonia with repeated admissions for sepsis, who presented t o the hospital from his nursing home facility with fever. Workup was suspicious for a urinary tra ct infection. The patient is admitted to the hospital for further management. HOSPITAL COURSE: Patient met criteria for sepsis on arrival with tachycardia, tachypnea, and urinary tract infection. His Mclaughlin catheter was changed. He was treated with cefepime and vancomycin. The vancomycin was discontinued. His urine culture was polymicrobial and was notable for carbapenem-res istant Pseudomonas, which is sensitive to cefepime. As a matter of fact, all of the organisms on his culture were sensitive to cefepime. His condition stabilized. He remained afebrile throughout the hospitalization. He continued to receive tracheostomy care and his tube feeds. He was also treated with oral vancomycin for suppressive therapy while on antibiotics, given his history of C difficile. Infectious Disease consult was obtained and it was recommended he continue IV cefepime through 2017. He can complete his antibiotic course upon returning to nursing home facility. DISPOSITION: Patient is discharged back to his nursing home facility in stable condition. DISCHARGE MEDICATIONS: Please see [facility] for complete updated outpatient medication list. New med ications on discharge include: 1. Cefepime 1 g IV q.8 hours through July 04. 2. Vancomycin 125 mg p.o. twice daily for 5 more doses, until completion of antibiotics. He will continue all other outpatient medications as previously prescribed. FOLLOWUP: With Primary Care as needed. /[id number]/MODL
== END 2017-07-02 12:32 | DRG 698 ==
LOC: EDBD → EDUNIT# → F3E 18:30
PROVIDERS: ADMIT Internal Medicine; ATTEND Hospitalist
DX: T83.511A Infection and inflammatory reaction due to indwelling urethral catheter, initial encounter (principal); N39.0 Urinary tract infection, site not specified; A41.52 Sepsis due to Pseudomonas; Z16.29 Resistance to other single specified antibiotic; Z87.820 Personal history of traumatic brain injury; R40.3 Persistent vegetative state; J96.11 Chronic respiratory failure with hypoxia; E87.1 Hypo-osmolality and hyponatremia; L89.152 Pressure ulcer of sacral region, stage 2; L89.890 Pressure ulcer of other site, unstageable; Z87.440 Personal history of urinary (tract) infections; Z93.1 Gastrostomy status; Z93.0 Tracheostomy status; E11.9 Type 2 diabetes mellitus without complications; I10 Essential (primary) hypertension
CPT/HCPCS: J0692; J1650; J1815; J2997; J3370

== ENCOUNTER 2017-07-24 19:49 | Emergency (ER) | payer OTHER, MEDICAID ==
--- NOTE | 2017-07-24 19:53 | EDPHY ---
HPI/HX/ROS/PE/MDM Narrative: CHIEF COMPLAINT: Redness around left chest port site HISTORY OF PRESENT ILLNESS: The patient is a 57 y/o male who is in a persistent vegetative state with a history of a brain injury (2008) and Type 1 Diabetes, arriving via EMS from [facility] for redness around his left chest port site, onset several days ago. His PCP was concerned about an infection at the the port site. This morning his blood glucose level was 132. While en route to the ED his blood pressure was 102/70, he was nonfebrile and not tachycardic. He is fed via a feeding tube. As he is non-verbal I am unable to obtain more information. No fever, vomiting, diarrhea. REVIEW OF SYSTEMS: Unable to obtain as patient is non-verbal. PAST MEDICAL HISTORY: Persistent vegetative state, chronic respiratory failure with tracheostomy in place, head injury (2008), Type 1 Diabetes, Mclaughlin in place SOCIAL HISTORY: Lives at the [facility], VITAL SIGNS: Reviewed by me GENERAL: Un-responsive and non-verbal as he is in a persistent vegetative state. HEENT: Atraumatic. Eyes: Occasional roving eye movements. No icterus, no injection. Mouth: Thick mucous on tongue, moist mucous membranes. No erythema or lesions. Neck: supple with no adenopathy. LUNGS: Diminished breath sounds throughout. No wheezes, rhonchi or rales. CARDIAC: Port site in left chest wall with erythema around it and mild warmth and blanching. Regular rate and rhythm, no rubs, murmurs or gallops. ABDOMEN: Feeding tube in left upper abdomen. Soft, nontender, nondistended, bowel sounds normal. PELVIC: Mclaughlin catheter in place with cloudy urine BACK: No CVA tenderness. EXTREMITIES: Increased tone in bilateral upper extremities and right lower extremity. No trauma. No edema. NEURO: Unresponsive, nonverbal. SKIN: Warm and dry, no rash. PSYCHIATRIC: Unable to assess. Portions of this note were transcribed by a medical claims examiner. I personally performed a history, physical exam, medical decision making, and confirmed accuracy of information the transcribed note. ED Course: The patient is a 57 y/o male who is in a persistent vegetative state with a history of a brain injury (2008) and Type 1 Diabetes, arriving via EMS from [place] for redness around his left chest port site, onset several days ago. On exam he is unresponsive and does not follow my commands, he does have occasional roving eye movements. There is a thick mucous coating his tongue and he has diminished breath sounds throughout. The port site in his left chest wall is surrounded with erythema and there is mild warmth and blanching to the site. There is also cloudy urine in his Mclaughlin catheter. Labs and chest x-ray ordered. 2114: Reassessed patient, his family is now at bedside and would like to take the patient home. Patient has been afebrile in the emergency department with no history of fever at the detention. He has no white count. Screening for sepsis is negative. Urine has leukocyte esterase and some white cells but no bacteria. Patient does have a chronic indwelling Mclaughlin catheter. At this point I believe the patient is not septic. Blood cultures are pending as is urine culture. Will place patient on Keflex to cover for both a urinary tract infection as well as a cellulitis. He will need to have his port removed and replaced. half-way was instructed not to use the port. Return precautions provided. MDM: Differential diagnoses for the patient's symptom complex was considered including but not limited to chest wall cellulitis, abscess, indwelling IV catheter infection, septicemia, bacteremia, urinary tract infection. - Data Points Imaging Results: Imaging Impressions Chest X-Ray 07/24/17 20:06 Impression: 1. Bronchitis/airways disease. 2. No definite focal pneumonia. 3. Mediport catheter without pneumothorax. Imaging: I viewed and interpreted images myself Laboratory Results: Laboratory Results 07/24/17 20:00 07/24/17 20:00 07/24/17 07/24/17 07/24/17 21:05 20:30 20:00 WBC RBC Hgb Hct MCV MCH MCHC RDW Plt Count MPV Neut % (Auto) Lymph % (Auto) Morris % (Auto) Eos % (Auto) Baso % (Auto) Nucleat RBC Rel Count Absolute Neuts (auto) Absolute Lymphs (auto) Absolute Monos (auto) Absolute Eos (auto) Absolute Basos (auto) Absolute Nucleated RBC Immature Gran % Immature Gran # VBG Lactic Acid 1.2 mmol/L mmol/L (0.7-2.1) Sodium 134 mEq/L L mEq/L (135-145) Potassium 4.2 mEq/L mEq/L (3.5-5.2) Chloride 96 mEq/L L mEq/L (97-110) Carbon Dioxide 19 mEq/l L mEq/l (22-31) Anion Gap 19 mEq/L H mEq/L (8-16) BUN 17 mg/dL mg/dL (7-23) Creatinine 0.6 mg/dL L mg/dL (0.7-1.3) Estimated GFR > 60 Glucose 106 mg/dL H mg/dL (70-100) Calcium 9.7 mg/dL mg/dL (8.5-10.4) Total Bilirubin 0.6 mg/dL mg/dL (0.1-1.4) Specimen Hemolysis 101 Urine Color YELLOW Urine Appearance CLOUDY Urine pH 7.5 (5.0-7.5) Ur Specific [place] 1.010 (1.002-1.030) Urine Protein 1+ H (NEGATIVE) Urine Ketones NEGATIVE (NEGATIVE) Urine Blood 1+ H (NEGATIVE) Urine Nitrate NEGATIVE (NEGATIVE) Urine Bilirubin NEGATIVE (NEGATIVE) Urine Urobilinogen 0.2 EU EU (0.2-1.0) Ur Leukocyte Esterase 3+ H (NEGATIVE) Urine RBC NONE SEEN /hpf /hpf (0-3) Urine WBC 5-10 /hpf H /hpf (0-3) Ur Epithelial Cells TRACE /lpf /lpf (NONE-1+) Urine Bacteria 2+ /hpf H /hpf (NONE SEEN) Urine Mucus TRACE /lpf /lpf (NONE-1+) Urine Glucose NEGATIVE (NEGATIVE) 07/24/17 20:00 WBC 4.85 10^3/uL 10^3/uL (3.80-9.50) RBC 5.25 10^6/uL 10^6/uL (4.40-6.38) Hgb 16.2 g/dL g/dL (13.7-17.5) Hct 46.4 % % (40.0-51.0) MCV 88.4 fL fL (81.5-99.8) MCH 30.9 pg pg (27.9-34.1) MCHC 34.9 g/dL g/dL (32.4-36.7) RDW 14.4 % % (11.5-15.2) Plt Count 169 10^3/uL 10^3/uL (150-400) MPV 10.1 fL fL (8.7-11.7) Neut % (Auto) 42.9 % % (39.3-74.2) Lymph % (Auto) 39.2 % % (15.0-45.0) Morris % (Auto) 13.8 % H % (4.5-13.0) Eos % (Auto) 2.9 % % (0.6-7.6) Baso % (Auto) 0.8 % % (0.3-1.7) Nucleat RBC Rel Count 0.0 % % (0.0-0.2) Absolute Neuts (auto) 2.08 10^3/uL 10^3/uL (1.70-6.50) Absolute Lymphs (auto) 1.90 10^3/uL 10^3/uL (1.00-3.00) Absolute Monos (auto) 0.67 10^3/uL 10^3/uL (0.30-0.80) Absolute Eos (auto) 0.14 10^3/uL 10^3/uL (0.03-0.40) Absolute Basos (auto) 0.04 10^3/uL 10^3/uL (0.02-0.10) Absolute Nucleated RBC 0.00 10^3/uL 10^3/uL (0-0.01) Immature Gran % 0.4 % % (0.0-1.1) Immature Gran # 0.02 10^3/uL 10^3/uL (0.00-0.10) VBG Lactic Acid Sodium Potassium Chloride Carbon Dioxide Anion Gap BUN Creatinine Estimated GFR Glucose Calcium Total Bilirubin Specimen Hemolysis Urine Color Urine Appearance Urine pH Ur Specific [place] Urine Protein Urine Ketones Urine Blood Urine Nitrate Urine Bilirubin Urine Urobilinogen Ur Leukocyte Esterase Urine RBC Urine WBC Ur Epithelial Cells Urine Bacteria Urine Mucus Urine Glucose Medications Given: Discontinued Medications Cephalexin HCl (Keflex 250mg/5ml Oral Liquid) 500 mg PO Q6HRS ONE PRN Reason: Protocol Stop: 07/25/17 21:17 Last Admin: 07/24/17 21:42 Dose: 500 mg Sodium Chloride (Ns) 1,000 mls @ 0 mls/hr IV ONCE ONE; Wide Open PRN Reason: Protocol Stop: 07/24/17 20:07 Last Admin: 07/24/17 21:58 Dose: Not Given General Initial Vital Signs: Initial Vital Signs Temperature (C) 35.8 C L 07/24/17 19:43 Heart Rate 60 07/24/17 19:43 Respiratory Rate 16 07/24/17 19:43 Blood Pressure 114/81 H 07/24/17 19:43 O2 Sat (%) 96 07/24/17 19:43 O2 Delivery Mode Room Air O2 (L/minute) 1 Allergies/Adverse Reactions: latex Allergy (Unknown, Verified 12/20/16 19:28) amoxicillin trihydrate [From Augmentin] Allergy (Verified 12/20/16 19:28) potassium clavulanate [From Augmentin] Allergy (Verified 12/20/16 19:28) Home Medications: Medication Instructions Recorded Bisacodyl [Dulcolax] 10 mg [place] Q24H PRN 11/28/16 Cetirizine [ZyrTEC 10 mg (*)] 10 mg TUBE DAILY@11/28/16 Doxazosin Mesylate [Cardura 4 MG 4 mg TUBE DAILY@11/28/16 (*)] Insulin Detemir [Levemir] 10 unit SQ DAILY@11/28/16 Phenytoin [Dilantin] 5 ml TUBE BID@,11/28/16 levETIRAcetam [Keppra Oral Liquid] 5 ml TUBE BID@,11/28/16 Glycopyrrolate [GLYCOPYRROLATE] 2 mg TUBE TID 01/11/17 Acetaminophen [Tylenol 325mg (*)] 650 mg TUBE Q4 PRN 02/24/17 Ipratropium/Albuterol [Duoneb (*)] 3 ml IH Q4 PRN 02/24/17 Cefepime HCl [Maxipime] 1 gm IV Q8H vial 07/02/17 Vancomycin [Vancocin Oral Liquid] 125 mg PO BID #5 udl 07/02/17 Cephalexin [Keflex Oral Liquid] 500 mg PO QID 7 Days ml 07/24/17 Departure - Departure Disposition: Home, Routine, Self-Care Clinical Impression: Cellulitis Qualifiers: Site of cellulitis: trunk Site of cellulitis of trunk: chest wall Qualified Code(s): L03.313 - Cellulitis of chest wall Condition: Good Instructions: Cellulitis (ED) Additional Instructions: Do not use the Port and make an appointment to remove the port tomorrow. Take Keflex as directed for the cellulitis. Return to the Emergency Department for fever, discharge from site, increasing pain or other worsening of condition. Referrals: [facility],. [Clinic] - As per Instructions Prescriptions: Cephalexin [Keflex Oral Liquid] 500 mg PO QID 7 Days ml Report Scribed for: Tessa Ayala Report Scribed by: Pari Davis Date of Report: 07/24/17 Time of Report: 20:06
[2017-07-24] MEDS ORDERED: NS 1,000 ML IV ONE (20:06)
[2017-07-24 20:21] LABS: PLATELET COUNT 169 10^3/uL (150-400)
[2017-07-24 20:43] VITALS: TEMP 96.4
[2017-07-24] MEDS ORDERED: CEPHALEXIN 250MG/5ML PREPACK BTL TAKEHOME ONE (21:27)
[2017-07-24 21:36] VITALS: RESP 18
[2017-07-24 21:38] VITALS: BP 118/72; PULSE 55; O2SAT 94
[2017-07-25] MEDS ORDERED: CEPHALEXIN 250 MG/5 ML BULK BOTTLE PO ONE (21:16)
== END 2017-07-24 22:32 | disposition home or self-care (01) ==
LOC: EDUNIT#
DX: L03.313 Cellulitis of chest wall (principal); E10.9 Type 1 diabetes mellitus without complications; Z91.040 Latex allergy status

== ENCOUNTER 2017-07-30 08:10 | Inpatient (IN) | payer OTHER, MEDICAID ==
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
[2017-07-30] MEDS ORDERED: ceFAZolin 2 GM/DEXTROSE 100 ML IV ONE (09:26)
[2017-07-30] MEDS ORDERED: VANCOMYCIN HCL/NORMAL SALINE 250 ML IV ONE (09:26)
[2017-07-30 09:40] LABS: PLATELET COUNT 144 10^3/uL (150-400)
[2017-07-30 09:49] LABS: INR 1.06 (0.83-1.16)
[2017-07-30] MEDS ORDERED: VANCOMYCIN 1 GM in NS 250 ML IV ONE (10:00)
[2017-07-30] MEDS ORDERED: ACETAMINOPHEN 650 MG SUPP PR PRN (10:02)
[2017-07-30] MEDS ORDERED: NS 1,000 ML IV ONE ×2 (10:07)
[2017-07-30] MEDS ORDERED: CEFEPIME HCL 2 GM in STERILE WATER INJ 12.5 ML IV ONE (10:14)
[2017-07-30] MEDS ORDERED: ACETAMINOPHEN 325 MG TAB TUBE PRN (11:35)
[2017-07-30] MEDS ORDERED: IPRATROPIUM/ALBUTEROL 3 ML DEYVIAL IH PRN (11:35)
[2017-07-30] MEDS ORDERED: BISACODYL 10 MG SUPP PR PRN (11:35)
[2017-07-30] MEDS ORDERED: LEVETIRACETAM TUBE SCH (11:45)
[2017-07-30] MEDS ORDERED: PHENYTOIN TUBE SCH (11:45)
--- NOTE | 2017-07-30 11:49 | SOAPPROG ---
SOAP Progress Note Assessment/Plan: Assessment: will arrange port removal and culture later today Plan: 07/30/17 11:48 Objective: Vital Signs Temp Pulse Resp BP Pulse Ox 35.9 C L 67 10 L 94/63 L 100 07/30/17 10:56 07/30/17 10:56 07/30/17 10:56 07/30/17 10:56 07/30/17 10:56 07/29/17 07/30/17 07/31/17 05:59 05:59 05:59 Intake Total 2250 Balance 2250 PT 14.0 SEC (12.0-15.0) 07/30/17 09:29 INR 1.06 (0.83-1.16) 07/30/17 09:29 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 Pneumonia due to Gram negative bacteria Active Bacteria in urine Acute Cellulitis Acute Chronic vegetative state Acute Clostridium difficile infection Acute ~01/12/17 Complicated UTI (urinary tract infection) Acute Dehydration with hypernatremia Acute Fever Acute Healthcare-associated pneumonia Acute Hyperglycemia Acute Hypernatremia Acute Hyponatremia Acute Influenza A Acute MRSA (methicillin resistant Staphylococcus aureus) Acute ~10/19/16 Pneumonia Acute SIRS (systemic inflammatory response syndrome) Acute Sepsis Acute Sepsis Acute Septic shock Acute Severe sepsis Acute Severe sepsis with acute organ dysfunction Acute UTI (urinary tract infection) Acute Urinary tract infection Acute VRE (vancomycin-resistant Enterococci) Acute ~09/07/16
[2017-07-30] MEDS ORDERED: LR 1,000 ML IV SCH (12:00)
[2017-07-30] MEDS: VANCOMYCIN 125 MG/2.5 ML UDL TUBE SCH ×2 (14:38→22:27)
[2017-07-30] MEDS: GLYCOPYRROLATE 1 MG TAB TUBE SCH ×2 (14:38→22:27)
[2017-07-30] MEDS: PHENYTOIN 100 MG/4 ML UDL TUBE SCH ×2 (14:39→22:27)
[2017-07-30] MEDS: levETIRAcetam 500 MG/5 ML UDCUP TUBE SCH ×2 (14:56→22:26)
[2017-07-30] MEDS ORDERED: LIDO/EPI 1% **Not for Epidural 20 ML MDV IV ONE (15:00)
[2017-07-30] MEDS ORDERED: GLYCOPYRROLATE 2 MG TUBE SCH (16:00)
--- NOTE | 2017-07-30 18:56 | GOP ---
[f rep st] OPERATIVE REPORT DATE OF OPERATION: 07/30/2017 SURGEON: Dio Ross MD PREOPERATIVE DIAGNOSIS: Infected port. POSTOPERATIVE DIAGNOSIS: Infected port. PROCEDURE PERFORMED: Removal of a left subclavian port. FINDINGS: purulence around port DESCRIPTION OF PROCEDURE: The patient was prepped and draped in usual sterile fashion, anesthetized with 1% xylocaine. Incision was made through the previous insertion site and carried down through subcutaneous tissue to the port itself, which was grasped and then freed up from its pocket and removed. Hemostasis was assured. Cultures were sent of the pocket. A small amount of pus was encountered. The tip of the catheter was also sent for culture. The wound was packed with Betadine gauze. He tolerated the procedure quite well. COMPLICATIONS: None. /[id number]/MODL MTDD
[2017-07-30] MEDS ORDERED: CEFEPIME HCL 2 GM in STERILE WATER INJ 12.5 ML IV SCH (19:30)
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
[2017-07-30] MEDS ORDERED: VANCOMYCIN HCL/NORMAL SALINE 250 ML IV SCH (21:00)
[2017-07-30] MEDS: INSULIN GLARGINE 100 UNITS/ML UNIT SC SCH (22:26)
[2017-07-30] MEDS: DOXAZOSIN MESYLATE 4 MG TAB TUBE SCH (22:26)
[2017-07-30] MEDS: VANCOMYCIN 1 GM in NS 250 ML IV SCH (22:27)
[2017-07-31] MEDS: CEFEPIME HCL 1 GM in STERILE WATER INJ 11.3 ML IV SCH ×3 (04:29→21:57)
[2017-07-31 05:54] LABS: PLATELET COUNT 114 10^3/uL (150-400)
[2017-07-31 06:02] LABS: INR 1.1 (0.83-1.16); PROTIME(PATIENT) 14.4 SEC (12.0-15.0)
--- NOTE | 2017-07-31 08:19 | PDMN ---
Medical Necessity Medical necessity: est los>2mn for cellulitis L chest, possibly infected subclavian port, and increased secretions from trach; admit for removal of port , follow wound & blood cx's, monitor O2 needs, IV vanco, and ID consult; comorbid vegetative state w/chronic Mclaughlin, PEG,and trach, DM, HTN, sz's; per order and H&P 07/30/17
[2017-07-31] MEDS: levETIRAcetam 500 MG/5 ML UDCUP TUBE SCH ×2 (09:04→21:57)
[2017-07-31] MEDS: ENOXAPARIN 40 MG/0.4 ML SYR SC SCH (09:04)
[2017-07-31] MEDS: VANCOMYCIN 125 MG/2.5 ML UDL TUBE SCH ×2 (09:04→21:57)
[2017-07-31] MEDS: CETIRIZINE 10 MG TAB TUBE SCH (09:04)
[2017-07-31] MEDS: GLYCOPYRROLATE 1 MG TAB TUBE SCH ×3 (09:04→21:58)
[2017-07-31] MEDS: VANCOMYCIN 1 GM in NS 250 ML IV SCH ×2 (09:04→21:58)
[2017-07-31] MEDS: PHENYTOIN 100 MG/4 ML UDL TUBE SCH ×2 (09:14→21:58)
--- NOTE | 2017-07-31 11:58 | SOAPPROG ---
SOAP Progress Note Assessment/Plan: Assessment/Plan: 57 Y M s/p power port removal for infection. dressing changed. less erythema. no purulence. still some induration but overall much improved. 07/31/17 11:56 Objective: Vital Signs Temp Pulse Resp BP Pulse Ox 36.4 C 7 L 18 116/73 98 07/31/17 07:22 07/31/17 08:20 07/31/17 08:20 07/31/17 07:22 07/31/17 08:20 Microbiology 07/30/17 17:33 Gram Stain - Final Breast - Swab Laboratory Results 07/31/17 05:36 07/31/17 05:36 07/30/17 07/31/17 08/01/17 05:59 05:59 05:59 Intake Total 4850 Output Total 1800 Balance 3050 PT 14.4 SEC (12.0-15.0) 07/31/17 05:36 INR 1.10 (0.83-1.16) 07/31/17 05:36 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 Pneumonia due to Gram negative bacteria Active Bacteria in urine Acute Cellulitis Acute Chronic vegetative state Acute Clostridium difficile infection Acute ~01/12/17 Complicated UTI (urinary tract infection) Acute Dehydration with hypernatremia Acute Fever Acute Healthcare-associated pneumonia Acute Hyperglycemia Acute Hypernatremia Acute Hyponatremia Acute Influenza A Acute MRSA (methicillin resistant Staphylococcus aureus) Acute ~10/19/16 Pneumonia Acute SIRS (systemic inflammatory response syndrome) Acute Sepsis Acute Sepsis Acute Septic shock Acute Severe sepsis Acute Severe sepsis with acute organ dysfunction Acute UTI (urinary tract infection) Acute Urinary tract infection Acute VRE (vancomycin-resistant Enterococci) Acute ~09/07/16
--- NOTE | 2017-07-31 15:29 | PCMIDPN ---
Assessment/Plan: Assessment: Pseudomonas bacteremia in patient with longstanding vegetative state. Patient is currently covered with both vancomycin and cefepime. Will discontinue the vancomycin and continue cefepime monotherapy and monitor the sensitivity report on this bacteria. Almost certainly this is a urinary source. Plan: 1. Continue IV cefepime. 2. Discontinue IV vancomycin. Subjective: Patient remains in a persistent vegetative state. No significant fevers. Objective: Vancomycin # 1 Cefepime # 1 Vital Signs Temp Pulse Resp BP Pulse Ox 96.9 C H 62 16 102/66 100 07/31/17 12:00 07/31/17 12:00 07/31/17 12:00 07/31/17 12:00 07/31/17 12:00 Microbiology 07/30/17 17:33 Gram Stain - Final Breast - Swab Laboratory Results 07/31/17 05:36 07/31/17 05:36 07/30/17 07/31/17 08/01/17 05:59 05:59 05:59 Intake Total 4850 Output Total 1800 500 Balance 3050 -500 - Physical Exam General Appearance: WD/WN, no apparent distress, other (Persistent vegetative state only withdraws to pain) Respiratory: coarse breath sounds, No lungs clear, No normal breath sounds Cardiac/Chest: regular rate, rhythm, No tachycardia Skin: normal color, warm/dry, No rash 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 Pneumonia due to Gram negative bacteria Active Bacteria in urine Acute Cellulitis Acute Chronic vegetative state Acute Clostridium difficile infection Acute ~01/12/17 Complicated UTI (urinary tract infection) Acute Dehydration with hypernatremia Acute Fever Acute Healthcare-associated pneumonia Acute Hyperglycemia Acute Hypernatremia Acute Hyponatremia Acute Influenza A Acute MRSA (methicillin resistant Staphylococcus aureus) Acute ~10/19/16 Pneumonia Acute SIRS (systemic inflammatory response syndrome) Acute Sepsis Acute Sepsis Acute Septic shock Acute Severe sepsis Acute Severe sepsis with acute organ dysfunction Acute UTI (urinary tract infection) Acute Urinary tract infection Acute VRE (vancomycin-resistant Enterococci) Acute ~09/07/16
--- NOTE | 2017-07-31 16:11 | ASMTCASEMG ---
Living Arrangements What is your living Answers: With Other (Not Family) arrangement? Who do you live with? Type Of Residence What kind of residence do Answers: Longterm Facility you live in? Discharge Plan Comments Coordination Status Comments Notes: Patient is a 57 yo male, in a chronic vegetative state who was admitted for cellulitis and chronic hypoxic respiratory failure, possible pneumonia. No therapies have been ordered at this time. Patient will most likely d/c back to [facility]. CM available for any d/c needs that arise. Date Signed: 07/31/2017 04:11 PM Electronically Signed By:Carolyn Grady LCSW
--- NOTE | 2017-07-31 16:30 | ASMTCMCOM ---
CM Note CM Note Notes: Pt is well known to us, lives in a chronic vegetative state and resides at [facility]. He will return there when medically stable. [place] w/f. DC Plan: [facility] Date Signed: 07/31/2017 04:29 PM Electronically Signed By:Katie Ashford RN
--- NOTE | 2017-07-31 19:23 | HOSPPROG ---
Hospitalist Progress Note Assessment/Plan: DIAGNOSES: -acute Pseudomonas bacteremia present on admission -acute line infection from a port left anterior chest, present on admission, status post removal of the line -acute hypoxemic respiratory failure with chronic tracheostomy in place, no current evidence of pneumonia -seizure disorder, currently stable -chronic vegetative state -history of skin ulcers, C difficile colitis, stable at present PLANS: -continue treatment for Pseudomonas infection -aggressive management of respiratory secretions, bronchodilators -wound care for his port removal site -aggressive skin care prevention measures -continue his usual feeds via feeding tube SUBJECTIVE: Chronic vegetative state unable to give any information OBJECTIVE Vitals reviewed: Stable without fever Exam: His usual chronic vegetative state skin warm dry color ok no current evidence of pressure ulcers resps appear mildly labored, moderately large clear frothy secretions from his trach lungs few rhonchi heart regular abd soft nondistended nontender, bowel sounds present limbs warm, no edema His wound from the removal of the left subclavian port looks good, is open with packing material in place iv site ok Laboratory data: Stable CBC and Chem panel Microbiology data: Pseudomonas growing from wound and blood cultures Objective: Vital Signs Temp Pulse Resp BP Pulse Ox 36.4 C 72 16 111/80 99 07/31/17 15:46 07/31/17 15:46 07/31/17 12:00 07/31/17 15:46 07/31/17 15:46 Microbiology 07/30/17 17:33 Gram Stain - Final Breast - Swab Laboratory Results 07/31/17 05:36 07/31/17 05:36 07/30/17 07/31/17 08/01/17 06:59 06:59 06:59 Intake Total 4850 626 Output Total 1800 800 Balance 3050 -174 PT 14.4 SEC (12.0-15.0) 07/31/17 05:36 INR 1.10 (0.83-1.16) 07/31/17 05:36 - Time Spent With Patient Time Spent with Patient: greater than 35 minutes Time Spent with Patient: Greater than 35 minutes spent on this patients care, greater than 50% of time spent counseling, educating, and coordinating care regarding the above mentioned plan. 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 Pneumonia due to Gram negative bacteria Active Bacteria in urine Acute Cellulitis Acute Chronic vegetative state Acute Clostridium difficile infection Acute ~01/12/17 Complicated UTI (urinary tract infection) Acute Dehydration with hypernatremia Acute Fever Acute Healthcare-associated pneumonia Acute Hyperglycemia Acute Hypernatremia Acute Hyponatremia Acute Influenza A Acute MRSA (methicillin resistant Staphylococcus aureus) Acute ~10/19/16 Pneumonia Acute SIRS (systemic inflammatory response syndrome) Acute Sepsis Acute Sepsis Acute Septic shock Acute Severe sepsis Acute Severe sepsis with acute organ dysfunction Acute UTI (urinary tract infection) Acute Urinary tract infection Acute VRE (vancomycin-resistant Enterococci) Acute ~09/07/16
[2017-07-31] MEDS: DOXAZOSIN MESYLATE 4 MG TAB TUBE SCH (21:58)
[2017-07-31] MEDS: INSULIN GLARGINE 100 UNITS/ML UNIT SC SCH (22:25)
[2017-08-01] MEDS: CEFEPIME HCL 1 GM in STERILE WATER INJ 11.3 ML IV SCH ×2 (05:16→14:05)
[2017-08-01] MEDS: levETIRAcetam 500 MG/5 ML UDCUP TUBE SCH ×2 (08:11→21:37)
[2017-08-01] MEDS: ENOXAPARIN 40 MG/0.4 ML SYR SC SCH (08:11)
[2017-08-01] MEDS: VANCOMYCIN 125 MG/2.5 ML UDL TUBE SCH ×2 (08:12→21:38)
[2017-08-01] MEDS: CETIRIZINE 10 MG TAB TUBE SCH (08:12)
[2017-08-01] MEDS: GLYCOPYRROLATE 1 MG TAB TUBE SCH ×3 (08:12→21:37)
[2017-08-01] MEDS: PHENYTOIN 100 MG/4 ML UDL TUBE SCH ×2 (08:48→21:37)
[2017-08-01] MEDS: VANCOMYCIN 1 GM in NS 250 ML IV SCH (10:45)
--- NOTE | 2017-08-01 14:17 | HOSPPROG ---
Hospitalist Progress Note Assessment/Plan: DIAGNOSES: -acute Pseudomonas bacteremia present on admission -acute Pseudomonas line infection from a port left anterior chest, present on admission, status post removal of the line * Line removed * On cefepime -acute hypoxemic respiratory failure with chronic tracheostomy in place, no current evidence of pneumonia * Improved today -seizure disorder, currently stable -chronic vegetative state, stable -history of skin ulcers, C difficile colitis, stable at present -nutrition via feeding tube, chronic stable PLANS: -continue treatment for Pseudomonas infection -aggressive management of respiratory secretions, bronchodilators -wound care for his port removal site -aggressive skin care prevention measures -continue his usual feeds via feeding tube SUBJECTIVE: Chronic vegetative state unable to give any information OBJECTIVE Vitals reviewed: Stable without fever Exam: His usual chronic vegetative state skin warm dry color ok no current evidence of pressure ulcers resps appear mildly labored, moderately large clear frothy secretions from his trach lungs few rhonchi heart regular abd soft nondistended nontender, bowel sounds present limbs warm, no edema His wound from the removal of the left subclavian port with very mild surrounding erythema, is open still with packing material in place, no purulent drainage iv site ok Microbiology data: Pseudomonas growing from wound and blood cultures; no sensitivity results yet Objective: Vital Signs Temp Pulse Resp BP Pulse Ox 36.3 C 72 16 96/78 L 97 08/01/17 11:56 08/01/17 11:56 08/01/17 11:56 08/01/17 11:56 08/01/17 11:56 Microbiology 07/30/17 17:33 Gram Stain - Final Breast - Swab Laboratory Results 07/31/17 05:36 07/31/17 05:36 07/31/17 08/01/17 08/02/17 06:59 06:59 06:59 Intake Total 4850 2046 Output Total 1800 1950 1050 Balance 3050 96 -1050 PT 14.4 SEC (12.0-15.0) 07/31/17 05:36 INR 1.10 (0.83-1.16) 07/31/17 05:36 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 Pneumonia due to Gram negative bacteria Active Bacteria in urine Acute Cellulitis Acute Chronic vegetative state Acute Clostridium difficile infection Acute ~01/12/17 Complicated UTI (urinary tract infection) Acute Dehydration with hypernatremia Acute Fever Acute Healthcare-associated pneumonia Acute Hyperglycemia Acute Hypernatremia Acute Hyponatremia Acute Influenza A Acute MRSA (methicillin resistant Staphylococcus aureus) Acute ~10/19/16 Pneumonia Acute SIRS (systemic inflammatory response syndrome) Acute Sepsis Acute Sepsis Acute Septic shock Acute Severe sepsis Acute Severe sepsis with acute organ dysfunction Acute UTI (urinary tract infection) Acute Urinary tract infection Acute VRE (vancomycin-resistant Enterococci) Acute ~09/07/16
--- NOTE | 2017-08-01 19:22 | PCMIDPN ---
Assessment/Plan: Assessment/Plan: * Pseudomonal bacteremia due to port infection status post port removal: Blood cultures and wound cultures both growing Pseudomonas with susceptibility pending. Previously has had meropenem resistant isolate. Prior isolates have been cefepime susceptible. Continue to follow clinical exam as some residual erythema present over chest wall adjacent to port removal site. Repeat blood cultures in a.m. to document clearing of bacteremia. 08/01/17 19:19 08/01/17 19:21 Subjective: Patient in chronic vegetative state. Objective: Vital Signs Temp Pulse Resp BP Pulse Ox 36.7 C 68 18 104/63 95 08/01/17 16:00 08/01/17 16:45 08/01/17 16:45 08/01/17 16:00 08/01/17 16:45 Microbiology 07/30/17 17:33 Gram Stain - Final Breast - Swab Laboratory Results 07/31/17 05:36 07/31/17 05:36 07/31/17 08/01/17 08/02/17 05:59 05:59 05:59 Intake Total 4850 2046 1150 Output Total 1800 1950 1050 Balance 3050 96 100 Cefepime # 2 Blood cultures 1/2 sets Pseudomonas Port culture Pseudomonas Catheter tip culture no growth to date - Physical Exam General Appearance: no apparent distress, non-toxic, other (Unresponsive in chronic vegetative state) EENT: other (Right-sided conjunctival injection), No scleral icterus Cardiac/Chest: other (Prior port site with packing in place; moderate erythema and induration surrounding incision; no palpable fluctuance) Abdomen: non-tender, other (G-tube site clean without erythema), No distended Skin: other (No skin breakdown over sacral region) 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 Pneumonia due to Gram negative bacteria Active Bacteria in urine Acute Cellulitis Acute Chronic vegetative state Acute Clostridium difficile infection Acute ~01/12/17 Complicated UTI (urinary tract infection) Acute Dehydration with hypernatremia Acute Fever Acute Healthcare-associated pneumonia Acute Hyperglycemia Acute Hypernatremia Acute Hyponatremia Acute Influenza A Acute MRSA (methicillin resistant Staphylococcus aureus) Acute ~10/19/16 Pneumonia Acute SIRS (systemic inflammatory response syndrome) Acute Sepsis Acute Sepsis Acute Septic shock Acute Severe sepsis Acute Severe sepsis with acute organ dysfunction Acute UTI (urinary tract infection) Acute Urinary tract infection Acute VRE (vancomycin-resistant Enterococci) Acute ~09/07/16
[2017-08-01] MEDS: CEFEPIME HCL 2 GM in STERILE WATER INJ 12.5 ML IV SCH (21:37)
[2017-08-01] MEDS: DOXAZOSIN MESYLATE 4 MG TAB TUBE SCH (21:37)
[2017-08-01] MEDS: INSULIN GLARGINE 100 UNITS/ML UNIT SC SCH (21:37)
[2017-08-02] MEDS: CEFEPIME HCL 2 GM in STERILE WATER INJ 12.5 ML IV SCH (05:14)
--- NOTE | 2017-08-02 09:25 | PCMIDPN ---
Assessment/Plan: 1. Port related multidrug resistant pseudomonal bacteremia status post port removal: Discontinue Cefepime and start levofloxacin (levofloxacin DARNELL less than 1) 750 mg intravenously daily. Drug interaction check negative. The erythema superior to the previous port site is stable, and more of a dusky, brick red color. I demarcated this area with a pen today. Will likely improve with change in antibiosis. 2. History of C difficile: Continue suppressive vancomycin. 08/02/17 09:27 Subjective: Patient remains in a vegetative state. His Pseudomonas is highly resistant ( resistant to the carbapenems, cefepime, ceftazidime and Zosyn). Incredibly, it is susceptible to the quinolones. Objective: Cefepime 2 g IV q.8 hours Afebrile Vital Signs Temp Pulse Resp BP Pulse Ox 36.3 C 74 16 89/68 L 97 08/02/17 08:00 08/02/17 08:00 08/02/17 08:00 08/02/17 08:00 08/02/17 08:00 Microbiology 07/30/17 17:33 Gram Stain - Final Breast - Swab Laboratory Results 07/31/17 05:36 07/31/17 05:36 08/01/17 08/02/17 08/03/17 05:59 05:59 05:59 Intake Total 6 1150 Output Total 1950 1900 150 Balance 96 -750 -150 August 02 blood culture pending July 30 cath tip negative Breast swab with 3+ Pseudomonas aeruginosa resistant to ceftazidime, cefepime, meropenem, Zosyn Levofloxacin DARNELL less than 1 - Physical Exam General Appearance: other (Vegetative state) Respiratory: coarse breath sounds Cardiac/Chest: regular rate, rhythm, other (PICC has been removed in left chest. A wick is in place. No surrounding fluctuance. Superior to this in the upper left chest is a patch of erythema that is more brick red and blanching. No bullae or blisters. 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 Pneumonia due to Gram negative bacteria Active Bacteria in urine Acute Cellulitis Acute Chronic vegetative state Acute Clostridium difficile infection Acute ~01/12/17 Complicated UTI (urinary tract infection) Acute Dehydration with hypernatremia Acute Fever Acute Healthcare-associated pneumonia Acute Hyperglycemia Acute Hypernatremia Acute Hyponatremia Acute Influenza A Acute MRSA (methicillin resistant Staphylococcus aureus) Acute ~10/19/16 Pneumonia Acute SIRS (systemic inflammatory response syndrome) Acute Sepsis Acute Sepsis Acute Septic shock Acute Severe sepsis Acute Severe sepsis with acute organ dysfunction Acute UTI (urinary tract infection) Acute Urinary tract infection Acute VRE (vancomycin-resistant Enterococci) Acute ~09/07/16
[2017-08-02] MEDS: ENOXAPARIN 40 MG/0.4 ML SYR SC SCH (09:33)
[2017-08-02] MEDS: PHENYTOIN 100 MG/4 ML UDL TUBE SCH ×2 (09:34→21:43)
[2017-08-02] MEDS: VANCOMYCIN 125 MG/2.5 ML UDL TUBE SCH ×2 (09:34→21:43)
[2017-08-02] MEDS: GLYCOPYRROLATE 1 MG TAB TUBE SCH ×3 (09:34→21:43)
[2017-08-02] MEDS: CETIRIZINE 10 MG TAB TUBE SCH (09:34)
[2017-08-02] MEDS: levETIRAcetam 500 MG/5 ML UDCUP TUBE SCH ×2 (09:34→21:43)
--- NOTE | 2017-08-02 10:00 | SOAPPROG ---
SOAP Progress Note Assessment/Plan: Assessment: 57 y/o male s/p infected port removal Afebrile. Wound looks good today. No erythema or induration. Small amount of drainage on dressing. Plan: Will need to replace port at some point in the next few days. 08/02/17 09:58 Objective: Vital Signs Temp Pulse Resp BP Pulse Ox 36.3 C 74 16 89/68 L 97 08/02/17 08:00 08/02/17 08:00 08/02/17 08:00 08/02/17 08:00 08/02/17 08:00 Microbiology 07/30/17 17:33 Gram Stain - Final Breast - Swab Laboratory Results 07/31/17 05:36 07/31/17 05:36 08/01/17 08/02/17 08/03/17 05:59 05:59 05:59 Intake Total 2046 1150 Output Total 1950 1900 150 Balance 96 -750 -150 PT 14.4 SEC (12.0-15.0) 07/31/17 05:36 INR 1.10 (0.83-1.16) 07/31/17 05:36 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 Pneumonia due to Gram negative bacteria Active Bacteria in urine Acute Cellulitis Acute Chronic vegetative state Acute Clostridium difficile infection Acute ~01/12/17 Complicated UTI (urinary tract infection) Acute Dehydration with hypernatremia Acute Fever Acute Healthcare-associated pneumonia Acute Hyperglycemia Acute Hypernatremia Acute Hyponatremia Acute Influenza A Acute MRSA (methicillin resistant Staphylococcus aureus) Acute ~10/19/16 Pneumonia Acute SIRS (systemic inflammatory response syndrome) Acute Sepsis Acute Sepsis Acute Septic shock Acute Severe sepsis Acute Severe sepsis with acute organ dysfunction Acute UTI (urinary tract infection) Acute Urinary tract infection Acute VRE (vancomycin-resistant Enterococci) Acute ~09/07/16
[2017-08-02] MEDS ORDERED: DILTIAZEM 125 MG in D5W 125 ML IV SCH (12:30)
[2017-08-02] MEDS ORDERED: levETIRAcetam 500MG/NACL 100 ML IV ONE (13:00)
[2017-08-02] MEDS ORDERED: PHENYTOIN SODIUM IV ONE (13:30)
[2017-08-02] MEDS ORDERED: NS IV ONE (13:30)
[2017-08-02] MEDS ORDERED: IOPAMIDOL (ISOVUE-300) 150 ML BTL ONE (14:34)
[2017-08-02] MEDS ORDERED: LIDOCAINE 1% 300 MG/30 ML SDV ONE (16:34)
--- NOTE | 2017-08-02 18:36 | HOSPPROG ---
Hospitalist Progress Note Assessment/Plan: DIAGNOSES: -acute Pseudomonas bacteremia present on admission -acute Pseudomonas line infection from a port left anterior chest, present on admission, status post removal of the line * Line removed * Currently switched to Levaquin due to cefepime resistance -acute hypoxemic respiratory failure with chronic tracheostomy in place, no current evidence of pneumonia * Is at baseline at this time -seizure disorder, currently stable -chronic vegetative state, stable -history of skin ulcers, C difficile colitis, stable at present -nutrition via feeding tube, chronic stable PLANS: -continue treatment for Pseudomonas infection -aggressive management of respiratory secretions, bronchodilators -wound care for his port removal site -aggressive skin care prevention measures -continue his usual feeds via feeding tube -port plans per surgery SUBJECTIVE: Chronic vegetative state unable to give any information OBJECTIVE Vitals reviewed: Stable without fever Exam: His usual chronic vegetative state skin warm dry color ok no current evidence of pressure ulcers resps appear mildly labored, moderately large clear frothy secretions from his trach lungs few rhonchi heart regular abd soft nondistended nontender, bowel sounds present limbs warm, no edema His wound from the removal of the left subclavian port with very mild surrounding erythema, is open still with packing material in place, no purulent drainage iv site ok Microbiology data: Pseudomonas growing from wound and blood cultures; organism resistant to cefepime Objective: Vital Signs Temp Pulse Resp BP Pulse Ox 36.8 C 56 L 16 116/77 100 08/02/17 17:48 08/02/17 17:48 08/02/17 17:48 08/02/17 17:48 08/02/17 17:48 Microbiology 07/30/17 17:33 Gram Stain - Final Breast - Swab Wound Culture - Final Pseudomonas Aeruginosa Laboratory Results 07/31/17 05:36 07/31/17 05:36 08/01/17 08/02/17 08/03/17 06:59 06:59 06:59 Intake Total 2046 1150 Output Total 1950 1900 450 Balance 96 -750 -450 PT 14.4 SEC (12.0-15.0) 07/31/17 05:36 INR 1.10 (0.83-1.16) 07/31/17 05:36 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 Pneumonia due to Gram negative bacteria Active Bacteria in urine Acute Cellulitis Acute Chronic vegetative state Acute Clostridium difficile infection Acute ~01/12/17 Complicated UTI (urinary tract infection) Acute Dehydration with hypernatremia Acute Fever Acute Healthcare-associated pneumonia Acute Hyperglycemia Acute Hypernatremia Acute Hyponatremia Acute Influenza A Acute MRSA (methicillin resistant Staphylococcus aureus) Acute ~10/19/16 Pneumonia Acute SIRS (systemic inflammatory response syndrome) Acute Sepsis Acute Sepsis Acute Septic shock Acute Severe sepsis Acute Severe sepsis with acute organ dysfunction Acute UTI (urinary tract infection) Acute Urinary tract infection Acute VRE (vancomycin-resistant Enterococci) Acute ~09/07/16
[2017-08-02] MEDS: DOXAZOSIN MESYLATE 4 MG TAB TUBE SCH (21:43)
[2017-08-02] MEDS: INSULIN GLARGINE 100 UNITS/ML UNIT SC SCH (21:43)
[2017-08-03] MEDS ORDERED: levOFLOXACIN 500 MG/DEXTROSE 100 ML IV SCH (09:00)
[2017-08-03] MEDS: ENOXAPARIN 40 MG/0.4 ML SYR SC SCH (09:03)
[2017-08-03] MEDS: PHENYTOIN 100 MG/4 ML UDL TUBE SCH ×2 (09:04→21:13)
[2017-08-03] MEDS: CETIRIZINE 10 MG TAB TUBE SCH (09:04)
[2017-08-03] MEDS: VANCOMYCIN 125 MG/2.5 ML UDL TUBE SCH ×2 (09:04→21:13)
[2017-08-03] MEDS: GLYCOPYRROLATE 1 MG TAB TUBE SCH ×3 (09:04→21:13)
[2017-08-03] MEDS: levETIRAcetam 500 MG/5 ML UDCUP TUBE SCH ×2 (09:04→21:13)
--- NOTE | 2017-08-03 16:31 | ASMTCMCOM ---
CM Note CM Note Notes: Dc date unclear, pt had feeding tube changed. Will return to [facility] when medically stable, updates faxed to . DC Plan: [facility] Date Signed: 08/03/2017 04:31 PM Electronically Signed By:Katie Ashford RN
--- NOTE | 2017-08-03 19:08 | PCMIDPN ---
Assessment/Plan: Assessment/Plan: 1. Pseudomonas bacteremia/sepsis secondary to port infection - port removed. -catheter tip cx with GRN -f/u blood cx from 08/02/17 so far ngtd -Currently on levaquin -continue therapy. Will need at least two weeks from negative cultures 2. Hx c.diff -on suppressive oral vanco. Will need to stay on this during above treatment and for one week after Meds levaquin 750mg daily 08/02/17 oral vanco 125mg q12- 07/30/17 Subjective: afebrile. vegetative state Objective: Vital Signs Temp Pulse Resp BP Pulse Ox 36.4 C 65 16 117/72 97 08/03/17 16:00 08/03/17 16:00 08/03/17 16:00 08/03/17 16:00 08/03/17 16:00 Microbiology 07/30/17 17:33 Gram Stain - Final Breast - Swab Wound Culture - Final Pseudomonas Aeruginosa Laboratory Results 07/31/17 05:36 07/31/17 05:36 08/02/17 08/03/17 08/04/17 05:59 05:59 05:59 Intake Total 1150 1050 Output Total 1900 1050 1175 Balance -750 0 -1175 - Physical Exam General Appearance: other (vegetative state) Respiratory: coarse breath sounds (anteriorly) Cardiac/Chest: regular rate, rhythm Extremities: No swelling Abdomen: normal bowel sounds, non-tender, soft, No distended Skin: other (left upper port site: port out. no erythema noted. 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 Pneumonia due to Gram negative bacteria Active Bacteria in urine Acute Cellulitis Acute Chronic vegetative state Acute Clostridium difficile infection Acute ~01/12/17 Complicated UTI (urinary tract infection) Acute Dehydration with hypernatremia Acute Fever Acute Healthcare-associated pneumonia Acute Hyperglycemia Acute Hypernatremia Acute Hyponatremia Acute Influenza A Acute MRSA (methicillin resistant Staphylococcus aureus) Acute ~10/19/16 Pneumonia Acute SIRS (systemic inflammatory response syndrome) Acute Sepsis Acute Sepsis Acute Septic shock Acute Severe sepsis Acute Severe sepsis with acute organ dysfunction Acute UTI (urinary tract infection) Acute Urinary tract infection Acute VRE (vancomycin-resistant Enterococci) Acute ~09/07/16
--- NOTE | 2017-08-03 19:32 | HOSPPROG ---
Hospitalist Progress Note Assessment/Plan: DIAGNOSES: -acute Pseudomonas bacteremia present on admission -acute Pseudomonas line infection from a port left anterior chest, present on admission, status post removal of the line * Line removed * Currently switched to Levaquin due to cefepime resistance -acute hypoxemic respiratory failure with chronic tracheostomy in place, no current evidence of pneumonia * Is at baseline at this time -seizure disorder, currently stable -chronic vegetative state, stable -history of skin ulcers, C difficile colitis, stable at present -nutrition via feeding tube, chronic stable -pyuria does not likely indicating infection, due to chronic catheterization PLANS: -continue treatment for Pseudomonas infection currently with Levaquin -aggressive management of respiratory secretions, bronchodilators -wound care for his port removal site -aggressive skin care prevention measures -continue his usual feeds via feeding tube -port plans per surgery -will recheck for stability of blood counts and renal function tomorrow SUBJECTIVE: Chronic vegetative state unable to give any information OBJECTIVE Vitals reviewed: Stable without fever Exam: His usual chronic vegetative state skin warm dry color ok no current evidence of pressure ulcers resps appear mildly labored, moderately large clear frothy secretions from his trach lungs few rhonchi heart regular abd soft nondistended nontender, bowel sounds present limbs warm, no edema No changes in his subclavian port removal wound which is still open with gauze tape packing iv site ok Microbiology data: Pseudomonas growing from wound and blood cultures; organism resistant to cefepime Objective: Vital Signs Temp Pulse Resp BP Pulse Ox 36.4 C 65 16 117/72 97 08/03/17 16:00 08/03/17 16:00 08/03/17 16:00 08/03/17 16:00 08/03/17 16:00 Microbiology 07/30/17 17:33 Gram Stain - Final Breast - Swab Wound Culture - Final Pseudomonas Aeruginosa Laboratory Results 07/31/17 05:36 07/31/17 05:36 08/02/17 08/03/17 08/04/17 06:59 06:59 06:59 Intake Total 1150 1050 Output Total 1900 1050 1175 Balance -750 0 -1175 PT 14.4 SEC (12.0-15.0) 07/31/17 05:36 INR 1.10 (0.83-1.16) 07/31/17 05:36 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 Pneumonia due to Gram negative bacteria Active Bacteria in urine Acute Cellulitis Acute Chronic vegetative state Acute Clostridium difficile infection Acute ~01/12/17 Complicated UTI (urinary tract infection) Acute Dehydration with hypernatremia Acute Fever Acute Healthcare-associated pneumonia Acute Hyperglycemia Acute Hypernatremia Acute Hyponatremia Acute Influenza A Acute MRSA (methicillin resistant Staphylococcus aureus) Acute ~10/19/16 Pneumonia Acute SIRS (systemic inflammatory response syndrome) Acute Sepsis Acute Sepsis Acute Septic shock Acute Severe sepsis Acute Severe sepsis with acute organ dysfunction Acute UTI (urinary tract infection) Acute Urinary tract infection Acute VRE (vancomycin-resistant Enterococci) Acute ~09/07/16
[2017-08-03] MEDS: DOXAZOSIN MESYLATE 4 MG TAB TUBE SCH (21:13)
[2017-08-03] MEDS: INSULIN GLARGINE 100 UNITS/ML UNIT SC SCH (21:13)
[2017-08-04] MEDS: ENOXAPARIN 40 MG/0.4 ML SYR SC SCH (08:54)
[2017-08-04] MEDS: GLYCOPYRROLATE 1 MG TAB TUBE SCH ×3 (08:54→21:09)
[2017-08-04] MEDS: levETIRAcetam 500 MG/5 ML UDCUP TUBE SCH ×2 (08:54→21:09)
[2017-08-04] MEDS: VANCOMYCIN 125 MG/2.5 ML UDL TUBE SCH ×2 (08:54→21:09)
[2017-08-04] MEDS: PHENYTOIN 100 MG/4 ML UDL TUBE SCH ×2 (08:54→21:09)
[2017-08-04] MEDS: CETIRIZINE 10 MG TAB TUBE SCH (08:54)
--- NOTE | 2017-08-04 09:52 | WOCRNPDOC ---
WOCRN Advanced Assessment Note - Skin Integrity Problem, Advanced Assess Posterior Head Dressing Type: Open to Air Exudate Amount: None Exudate Characteristic(s): None Skin Integrity Problem Comment: Request to assess occiput for possible pressure injury vs rash. Dry, flaky, reddened skin noted over patient's occiput, blanching and intact. Due to patient's immobility, he is at high risk for pressure injury. Nursing placed blue off-loading cushion behind his head prophylactically, and this is appropriate to continue. No need for wound care to follow ongoing. Please reconsult as needed.
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
--- NOTE | 2017-08-04 15:49 | HOSPPROG ---
Hospitalist Progress Note Assessment/Plan: DIAGNOSES: -acute Pseudomonas bacteremia present on admission -acute Pseudomonas line infection from a port left anterior chest, present on admission, status post removal of the line * Line removed * Currently switched to Levaquin due to cefepime resistance -acute hypoxemic respiratory failure with chronic tracheostomy in place, no current evidence of pneumonia * Is at baseline at this time -seizure disorder, currently stable -chronic vegetative state, stable -history of skin ulcers, C difficile colitis, stable at present -nutrition via feeding tube, chronic stable -pyuria does not likely indicating infection, due to chronic catheterization PLANS: -continue treatment for Pseudomonas infection currently with Levaquin (day 4 today) -aggressive management of respiratory secretions, bronchodilators -ongoing wound care for his port removal site -aggressive skin care prevention measures -continue his usual feeds via feeding tube -port plans per surgery -will recheck for stability of blood counts and renal function tomorrow SUBJECTIVE: Chronic vegetative state unable to give any information OBJECTIVE Vitals reviewed: Stable without fever Exam: His usual chronic vegetative state skin warm dry color ok no current evidence of pressure ulcers resps appear are relaxed, less secretions from his trach overall although I did remove some fairly thick secretions today by suction lungs few rhonchi heart regular abd soft nondistended nontender, bowel sounds present limbs warm, no edema No changes in his subclavian port removal wound which is still open with gauze tape packing, no cellulitis purulence or drainage iv site ok Microbiology data: Pseudomonas growing from wound and blood cultures; organism resistant to cefepime Objective: Vital Signs Temp Pulse Resp BP Pulse Ox 36.9 C 68 18 102/67 98 08/04/17 08:00 08/04/17 12:15 08/04/17 12:15 08/04/17 08:00 08/04/17 12:15 Microbiology 07/30/17 17:33 Gram Stain - Final Breast - Swab Wound Culture - Final Pseudomonas Aeruginosa Laboratory Results 07/31/17 05:36 07/31/17 05:36 08/03/17 08/04/17 08/05/17 06:59 06:59 06:59 Intake Total 1050 1270 5075 Output Total 1050 2075 Balance 0 -805 5075 PT 14.4 SEC (12.0-15.0) 07/31/17 05:36 INR 1.10 (0.83-1.16) 07/31/17 05:36 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 Pneumonia due to Gram negative bacteria Active Bacteria in urine Acute Cellulitis Acute Chronic vegetative state Acute Clostridium difficile infection Acute ~01/12/17 Complicated UTI (urinary tract infection) Acute Dehydration with hypernatremia Acute Fever Acute Healthcare-associated pneumonia Acute Hyperglycemia Acute Hypernatremia Acute Hyponatremia Acute Influenza A Acute MRSA (methicillin resistant Staphylococcus aureus) Acute ~10/19/16 Pneumonia Acute SIRS (systemic inflammatory response syndrome) Acute Sepsis Acute Sepsis Acute Septic shock Acute Severe sepsis Acute Severe sepsis with acute organ dysfunction Acute UTI (urinary tract infection) Acute Urinary tract infection Acute VRE (vancomycin-resistant Enterococci) Acute ~09/07/16
[2017-08-04] MEDS: DOXAZOSIN MESYLATE 4 MG TAB TUBE SCH (21:09)
[2017-08-04] MEDS: INSULIN GLARGINE 100 UNITS/ML UNIT SC SCH (21:11)
[2017-08-05 05:53] LABS: PLATELET COUNT 159 10^3/uL (150-400)
--- NOTE | 2017-08-05 09:07 | SOAPPROG ---
SOAP Progress Note Assessment/Plan: Assessment: 57 y/o male s/p infected port removal Afebrile. Wound looks good today. Still some erythema and induration. Small amount of drainage on dressing. Plan: Discussed with Dr. Ross. Replace port at some point after IV antibiotics. 08/05/17 09:06 Objective: Vital Signs Temp Pulse Resp BP Pulse Ox 36.9 C 68 18 102/67 97 08/05/17 08:00 08/05/17 08:00 08/05/17 08:00 08/05/17 08:00 08/05/17 08:00 Microbiology 07/30/17 17:33 Gram Stain - Final Breast - Swab Wound Culture - Final Pseudomonas Aeruginosa Laboratory Results 08/05/17 05:04 08/05/17 05:04 08/04/17 08/05/17 08/06/17 05:59 05:59 05:59 Intake Total 1270 5075 Output Total 2075 875 Balance -805 4200 PT 14.4 SEC (12.0-15.0) 07/31/17 05:36 INR 1.10 (0.83-1.16) 07/31/17 05:36 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 Pneumonia due to Gram negative bacteria Active Bacteria in urine Acute Cellulitis Acute Chronic vegetative state Acute Clostridium difficile infection Acute ~01/12/17 Complicated UTI (urinary tract infection) Acute Dehydration with hypernatremia Acute Fever Acute Healthcare-associated pneumonia Acute Hyperglycemia Acute Hypernatremia Acute Hyponatremia Acute Influenza A Acute MRSA (methicillin resistant Staphylococcus aureus) Acute ~10/19/16 Pneumonia Acute SIRS (systemic inflammatory response syndrome) Acute Sepsis Acute Sepsis Acute Septic shock Acute Severe sepsis Acute Severe sepsis with acute organ dysfunction Acute UTI (urinary tract infection) Acute Urinary tract infection Acute VRE (vancomycin-resistant Enterococci) Acute ~09/07/16
[2017-08-05] MEDS: GLYCOPYRROLATE 1 MG TAB TUBE SCH ×3 (09:13→21:31)
[2017-08-05] MEDS: PHENYTOIN 100 MG/4 ML UDL TUBE SCH ×2 (09:13→21:31)
[2017-08-05] MEDS: CETIRIZINE 10 MG TAB TUBE SCH (09:13)
[2017-08-05] MEDS: VANCOMYCIN 125 MG/2.5 ML UDL TUBE SCH ×2 (09:13→21:31)
[2017-08-05] MEDS: levETIRAcetam 500 MG/5 ML UDCUP TUBE SCH ×2 (09:13→21:30)
[2017-08-05] MEDS: ENOXAPARIN 40 MG/0.4 ML SYR SC SCH (09:13)
--- NOTE | 2017-08-05 10:22 | PCMIDPN ---
Assessment/Plan: Assessment/Plan: * Pseudomonal bacteremia due to port infection status post port removal: Pseudomonal isolate is multidrug resistant. Remains susceptible to fluoroquinolones. Completing 2 weeks of levofloxacin. Repeat blood cultures on 08/02/2017 are negative and port site is markedly improved. Ultimately can complete treatment with p.o. Fluoroquinolones via G-tube provided can be in time from feeds to ensure absorption. * History of C difficile: Continue suppressive oral vancomycin while on broad- spectrum antibiotic therapy. * Pulmonary secretions: Await follow-up chest x-ray. 08/05/17 10:20 Subjective: Patient in chronic vegetative state. Noted to have increased respiratory secretions. Objective: Vital Signs Temp Pulse Resp BP Pulse Ox 36.9 C 68 18 102/67 97 08/05/17 08:00 08/05/17 08:00 08/05/17 08:00 08/05/17 08:00 08/05/17 08:00 Microbiology 07/30/17 17:33 Gram Stain - Final Breast - Swab Wound Culture - Final Pseudomonas Aeruginosa Laboratory Results 08/05/17 05:04 08/05/17 05:04 08/04/17 08/05/17 08/06/17 05:59 05:59 05:59 Intake Total 1270 5075 Output Total 2075 875 Balance -805 4200 Levofloxacin # 4 Blood cultures 08/02/2017 no growth - Physical Exam General Appearance: other (Unresponsive) EENT: other (Seborrheic dermatitis present), No scleral icterus Respiratory: coarse breath sounds, other (Copious fuentes secretions) Cardiac/Chest: regular rate, rhythm Abdomen: non-tender, other (G-tube without erythema), No distended 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 Pneumonia due to Gram negative bacteria Active Bacteria in urine Acute Cellulitis Acute Chronic vegetative state Acute Clostridium difficile infection Acute ~01/12/17 Complicated UTI (urinary tract infection) Acute Dehydration with hypernatremia Acute Fever Acute Healthcare-associated pneumonia Acute Hyperglycemia Acute Hypernatremia Acute Hyponatremia Acute Influenza A Acute MRSA (methicillin resistant Staphylococcus aureus) Acute ~10/19/16 Pneumonia Acute SIRS (systemic inflammatory response syndrome) Acute Sepsis Acute Sepsis Acute Septic shock Acute Severe sepsis Acute Severe sepsis with acute organ dysfunction Acute UTI (urinary tract infection) Acute Urinary tract infection Acute VRE (vancomycin-resistant Enterococci) Acute ~09/07/16
--- NOTE | 2017-08-05 12:27 | ASMTCMCOM ---
CM Note CM Note Notes: CM spoke w/ Dr. Lutz regarding d/c POC. Updates sent to [facility]. Pt will return back to [facility] when medically stable. CM to follow. Plan: [facility] Date Signed: 08/05/2017 12:26 PM Electronically Signed By:LISA Golden
--- NOTE | 2017-08-05 15:00 | WOCRNPDOC ---
WOCRN Advanced Assessment Note - Skin Integrity Problem, Advanced Assess Left Upper Chest Surgical Wound/Incision Dressing Type: Abdominal Pads, Plain Packing Dressing Description: Clean/Dry, Intact Exudate Amount: Minimal Exudate Characteristic(s): Bloody Integumentary Issue Intervention: Visualized Under Dressing Wound Bed Constitution: Granulation Tissue, Undermining (10-1 oclock 2.3 cm) Site Measurement - Head-to-Toe Length X Width X Depth (cm): 1x3x1 Skin Integrity Problem Comment: Small healing wound. No concerns. Continue daily packing changes. Wound care will sign off.
--- NOTE | 2017-08-05 17:51 | HOSPPROG ---
Hospitalist Progress Note Assessment/Plan: Assessment: 57-year-old male presents with pseudomonal bacteremia 2/2 port infection Plan: 1. Pseudomonal bacteremia and port infection. Present on admission, 2/2 port- infection, s/p removal for source control - d/w Dr. Nath, we agree that port was for chronic medical care and it can remain out for the next couple weeks while bacteremia clears - cont for 2 weeks levofloxacin therapy (can be adjusted to PEG admin) from neg cx date, currently D5/14 2. Pulmonary secretions. Acute worsening today, new problem, further w/u indicated. CXR (personally interpreted) w/ increasing LLL air space disease, WBC stable, at risk for VAP - get chest CT to confirm or deny infiltrate, which would likely necessitate addition of vanco IV - send sputum culture from deep suction - cont to monitor WBC 3. Chronic vegetative state. Patient is not currently verbally interactive, continue full supportive care 4. Chronic staghorn calculi. Replaced english during this hospitalization 5. Diabetes mellitus. Continue on Lantus 6. Chronic seizure disorder. Continue home medications 7. Chronic hypoxic respiratory failure. Cont n trach o2 Diet. Tube feeds Prophylaxis. High risk patient, Lovenox 40 Code. Full at present, this is been readdressed with family on numerous occasions Disposition. Anticipated discharge uncertain this time, evaluating pulm issues. Subjective: increase in sputum today via trach Objective: Vital Signs Temp Pulse Resp BP Pulse Ox 36.9 C 60 19 102/58 L 99 08/05/17 16:00 08/05/17 16:00 08/05/17 16:00 08/05/17 16:00 08/05/17 16:00 Laboratory Results 08/05/17 05:04 08/05/17 05:04 08/04/17 08/05/17 08/06/17 05:59 05:59 05:59 Intake Total 1270 5075 1270 Output Total 2075 875 Balance -805 4200 1270 PT 14.4 SEC (12.0-15.0) 07/31/17 05:36 INR 1.10 (0.83-1.16) 07/31/17 05:36 - Physical Exam Constitutional: no apparent distress, not in pain, chronically ill appearing, No uncomfortable Eyes: other (roving eyes, reactive, not tracking, no conjunctivitis) Ears, Nose, Mouth, Throat: other (copious trach secretions) Cardiovascular: regular rate and rhythym, no murmur, rub, or gallop, No edema Respiratory: rhonchi (bilat bases), No expiratory wheeze, No bronchial breath sounds, No respiratory distress Gastrointestinal: normoactive bowel sounds, soft, non-tender abdomen, no palpable masses, No distension Skin: other (no erythema around port site, incision packed, PEG site CDI) Neurologic: other (responsive to tactile stimuli but does not follow commands) ICD10 Worksheet Patient Problems: Problems Problem Status Onset Hyponatremia Acute Cellulitis Acute Infected venous access port Acute Clostridium difficile infection Acute ~01/12/17 Sepsis Acute Chronic vegetative state Acute SIRS (systemic inflammatory response syndrome) Acute Bacteria in urine Acute Healthcare-associated pneumonia Acute MRSA (methicillin resistant Staphylococcus aureus) Acute ~10/19/16 VRE (vancomycin-resistant Enterococci) Acute ~09/07/16 UTI (urinary tract infection) Acute Pneumonia Acute Sepsis Acute Pneumonia due to Gram negative bacteria Active Injury of head Active 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
[2017-08-05] MEDS: INSULIN GLARGINE 100 UNITS/ML UNIT SC SCH (21:30)
[2017-08-05] MEDS: DOXAZOSIN MESYLATE 4 MG TAB TUBE SCH (21:31)
[2017-08-06 05:38] LABS: PLATELET COUNT 138 10^3/uL (150-400)
[2017-08-06] MEDS: CETIRIZINE 10 MG TAB TUBE SCH (09:45)
[2017-08-06] MEDS: ENOXAPARIN 40 MG/0.4 ML SYR SC SCH (09:45)
[2017-08-06] MEDS: GLYCOPYRROLATE 1 MG TAB TUBE SCH ×2 (09:45→15:30)
[2017-08-06] MEDS: levETIRAcetam 500 MG/5 ML UDCUP TUBE SCH (09:46)
[2017-08-06] MEDS: PHENYTOIN 100 MG/4 ML UDL TUBE SCH (09:46)
[2017-08-06] MEDS: VANCOMYCIN 125 MG/2.5 ML UDL TUBE SCH (09:46)
[2017-08-06 11:27] VITALS: BP 98/76; TEMP 97.5
[2017-08-06 12:20] VITALS: PULSE 68; RESP 17; O2SAT 96
--- NOTE | 2017-08-06 14:32 | PDIAF ---
- Diagnosis Diagnosis: Pseudomonal bacteremia and port infection Code Status: Full Code - Medication Management Discharge Medications: Medications to Continue on Transfer Bisacodyl [Dulcolax] 10 mg MT DAILY PRN 11/28/16 [Last Taken Unknown] Cetirizine [ZyrTEC 10 mg (*)] 10 mg TUBE DAILY 11/28/16 [Last Taken 07/29/17] Doxazosin Mesylate [Cardura 4 MG (*)] 4 mg TUBE HS 11/28/16 [Last Taken 07/29/17 ] Insulin Detemir [Levemir] 10 unit SQ HS 11/28/16 [Last Taken 07/29/17] Phenytoin [Dilantin] 5 ml TUBE BID 11/28/16 [Last Taken 07/29/17 20:00] levETIRAcetam [Keppra Oral Liquid] 5 ml TUBE BID 11/28/16 [Last Taken 07/29/17 20:00] Glycopyrrolate [GLYCOPYRROLATE] 2 mg TUBE TID 01/11/17 [Last Taken 07/29/17 20: 00] Acetaminophen [Tylenol 325mg (*)] 650 mg TUBE Q4 PRN 02/24/17 [Last Taken 06:13] Ipratropium/Albuterol [Duoneb (*)] 3 ml IH Q4 PRN 02/24/17 [Last Taken Unknown] Vancomycin [Vancocin Oral Liquid] 125 mg TUBE BID udl 08/06/17 [Last Taken Unknown] levOFLOXACIN [levAQUIN (*)] 750 mg TUBE DAILY10 tab 08/06/17 [Last Taken Unknown] Varnishing Unit Operator Antibiotics: Levofloxacin 750mg tube daily, Vancomycin 125mg tube bid Halfway Antibiotic Stop Date: 08/16/17 (stop both antibiotics after 3/16 PM dosing) Discharge Medications: Refer to the Discharge Home Medication list for PRN reason. PICC Care - Routine: N/A - Orders Services needed: Registered Nurse, Certified Secretary [employer] Police, Master Test Lead Application Testing Isolation Type: Contact Isolation Oxygen: 8LPM via trach Diet Recommendation: other (tube feeds) Tube feeding: Jevity per protocol, continuous. Hold TF for 2 hours BEFORE and AFTER Levo - Follow Up Care Current Providers and Referrals: NONE *PRIMARY CARE P,. [Primary Care Provider] - As per Instructions
--- NOTE | 2017-08-06 14:33 | PDIAF ---
- Diagnosis Diagnosis: Pseudomonal bacteremia and port infection Code Status: Full Code - Medication Management Discharge Medications: Medications to Continue on Transfer Bisacodyl [Dulcolax] 10 mg PA DAILY PRN 11/28/16 [Last Taken Unknown] Cetirizine [ZyrTEC 10 mg (*)] 10 mg TUBE DAILY 11/28/16 [Last Taken 07/29/17] Doxazosin Mesylate [Cardura 4 MG (*)] 4 mg TUBE HS 11/28/16 [Last Taken 07/29/17 ] Insulin Detemir [Levemir] 10 unit SQ HS 11/28/16 [Last Taken 07/29/17] Phenytoin [Dilantin] 5 ml TUBE BID 11/28/16 [Last Taken 07/29/17 20:00] levETIRAcetam [Keppra Oral Liquid] 5 ml TUBE BID 11/28/16 [Last Taken 07/29/17 20:00] Glycopyrrolate [GLYCOPYRROLATE] 2 mg TUBE TID 01/11/17 [Last Taken 07/29/17 20: 00] Acetaminophen [Tylenol 325mg (*)] 650 mg TUBE Q4 PRN 02/24/17 [Last Taken 06:13] Ipratropium/Albuterol [Duoneb (*)] 3 ml IH Q4 PRN 02/24/17 [Last Taken Unknown] Vancomycin [Vancocin Oral Liquid] 125 mg TUBE BID udl 08/06/17 [Last Taken Unknown] levOFLOXACIN [levAQUIN (*)] 750 mg TUBE DAILY10 tab 08/06/17 [Last Taken Unknown] Cardiac Rn Antibiotics: Levofloxacin 750mg tube daily, Vancomycin 125mg tube bid Alf Antibiotic Stop Date: 08/16/17 (stop both antibiotics after 3/16 PM dosing) Discharge Medications: Refer to the Discharge Home Medication list for PRN reason. PICC Care - Routine: N/A - Orders Services needed: Registered Nurse, Certified Barrel Driller, Master Fur Examiner Isolation Type: Contact Isolation Oxygen: 8LPM via trach Diet Recommendation: other (tube feeds) Tube feeding: Jevity per protocol, continuous. Hold TF for 2 hours BEFORE and AFTER Levo Wound Care Instructions: remove and reinsert packing daily to left chest wound, keep clean/dry/dressing intact Additional: routine tracheostomy care and suctioning - Follow Up Care Current Providers and Referrals: NONE *PRIMARY CARE P,. [Primary Care Provider] - As per Instructions Dio Ross MD [Medical Doctor] - (contact Dr. Ross' office in 2 weeks to schedule port replacement evaluation)
--- NOTE | 2017-08-06 16:32 | PCMIDPN ---
Assessment/Plan: Assessment/Plan: * Pseudomonal bacteremia due to port infection status post port removal: Port site with resolution of cellulitic change. Repeat blood culture show clearing of bacteremia. Plan 2 weeks of levofloxacin. Plan to transition this to per G- tube with 2 hour separation from tube feeds to ensure adequate absorption. * History of C difficile: Continue suppressive oral vancomycin while on broad- spectrum antibiotic therapy. * Left lower lobe infiltrate: Suspect significant element of mucous plugging. Unclear if element of pneumonia present. Favor continued treatment with levofloxacin without further adjustment of antibiotics as sputum culture likely to be difficult to interpret with strong likelihood of chronic colonization and no findings of respiratory decline. 08/06/17 16:29 Subjective: Unresponsive in chronic vegetative state. Objective: Vital Signs Temp Pulse Resp BP Pulse Ox 36.4 C 68 17 98/76 L 96 08/06/17 11:23 08/06/17 12:16 08/06/17 12:16 08/06/17 11:23 08/06/17 12:16 Microbiology 07/30/17 17:33 Catheter Tip Culture - Final Catheter Tip Pseudomonas Aeruginosa 08/05/17 22:30 - Final Sputum, Induced/Suctioned Laboratory Results 08/06/17 05:04 08/06/17 05:04 08/05/17 08/06/17 08/07/17 05:59 05:59 05:59 Intake Total 5075 1270 Output Total 875 600 Balance 4200 670 Levofloxacin # 5/14 Blood cultures 08/02/2017 no growth - Physical Exam General Appearance: non-toxic EENT: other (Seborrheic dermatitis present), No scleral icterus Respiratory: lungs clear, other (No increase in respiratory effort), No respiratory distress Cardiac/Chest: regular rate, rhythm Abdomen: non-tender, No distended 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 Pneumonia due to Gram negative bacteria Active Bacteria in urine Acute Cellulitis Acute Chronic vegetative state Acute Clostridium difficile infection Acute ~01/12/17 Complicated UTI (urinary tract infection) Acute Dehydration with hypernatremia Acute Fever Acute Healthcare-associated pneumonia Acute Hyperglycemia Acute Hypernatremia Acute Hyponatremia Acute Influenza A Acute MRSA (methicillin resistant Staphylococcus aureus) Acute ~10/19/16 Pneumonia Acute SIRS (systemic inflammatory response syndrome) Acute Sepsis Acute Sepsis Acute Septic shock Acute Severe sepsis Acute Severe sepsis with acute organ dysfunction Acute UTI (urinary tract infection) Acute Urinary tract infection Acute VRE (vancomycin-resistant Enterococci) Acute ~09/07/16
--- NOTE | 2017-08-06 21:52 | PDDCSUM ---
Discharge Summary Discharge Summary: Date of Admission: 07/30/17 Date of Discharge: 08/06/17 Discharge Diagnoses: 1. Pseudomonas bacteremia POA 2. Pseudomonal port infection and cellulitis POA 3. Pulmonary secretions 4. Chronic hypoxic respiratory failure 5. Chronic vegetative state 6. Chronic staghorn calculi Procedures: English cath replacement, Port removal by Dr. Ross Labs at Discharge: Cr 0.6, WBC 4,000, Hgb 13.7, K 4.4, Blood Cx 3/ neg Hospital Course: 1. Pseudomonal bacteremia, port infection, and cellulitis. Present on admission, patient likely had initial cellulitis, then port/device infxn, then bacteremia. Device was removed and cultured by Dr. Ross, and patient was seen by ID. The area was packed, and shall continue wound packing w/ CDI covering until healed. He should be referred to Dr. Ross' office for port replacement consideration in 2 weeks. His Abx (levofloxacin) shall continue through 08/16/17 , to complete 2 weeks total from neg cx date. Given his hx of CDIff, he was placed on Vanco 125 bid through Abx stop date. 2. Pulmonary secretions. Acute worsening but no e/o PNA on WBC, no fever. CT w/ mucous plugging in LLL, likely 2/2 immobility and chronic vegetative state. D/w Dr. Nath, and we agreed that PNA was less likely, currently covered by levofloxacin for above, so no additional Abx indicated. 3. Chronic vegetative state. Patient is not currently verbally interactive, continue full supportive care 4. Chronic staghorn calculi. Replaced english during this hospitalization 5. Chronic hypoxic respiratory failure. Cont on trach o2 w/ routine pulm secretion suctioning Discharge medications: please see official discharge med rec sheet in chart; of note, cont home Rx + levofloxacin 750mg tube daily through 08/16/17 and Vancomycin 125mg tube bid through 08/16/17 Discharge instructions: schedule f/u w/ Dr. Ross in 2 weeks. > 30 minutes spent on direct patient care, coordinating above.
--- NOTE | 2017-08-07 09:27 | ASDISCHSUM ---
Discharge Information Plan Status:SNF Medically Cleared to Leave:08/05/2017 Discharge Date:08/06/2017 05:49 PM CM D/C Disposition: ADT D/C Disposition:Prison Facility Projected Discharge Date:08/06/2017 11:00 AM Transportation at D/C: Discharge Delay Reason: Follow-Up Date:08/06/2017 11:00 AM Discharge Slot: Final Diagnosis: Placement Information Referral Type:*Senior Living/SNF Referral ID:[id number] Provider Name:Chon Chairez/EVELIA Leyva Address 1:[address] [facility] [facility] Phone Number: Address 2: Fax Number: [facility]:[place] Selection Factors: State:[place] Patient Contact Information Contact Name:NARGIS Relationship: Address:[address] Work Phone: [facility]:[place] Alternate Phone: State/Zip Code:[place] [address] Email: Financial Information Financial Class:Medicare Primary Plan Desc:MEDICARE INPATIENT Primary Plan Number:[id number] Secondary Plan Desc:MED[place] Secondary Plan Number:[id number] Assessment Information [facility] Initial CM Assessment Living Arrangements What is your living Answers: With Other (Not Family) arrangement? Who do you live with? Type Of Residence What kind of residence do Answers: Prison Facility you live in? Discharge Plan Comments Coordination Status Comments Notes: Patient is a 57 yo male, in a chronic vegetative state who was admitted for cellulitis and chronic hypoxic respiratory failure, possible pneumonia. No therapies have been ordered at this time. Patient will most likely d/c back to [facility]. CM available for any d/c needs that arise. Date Signed: 07/31/2017 04:11 PM Electronically Signed By:Carolyn Grady LCSW [facility] CM Progress Note CM Note CM Note Notes: Pt is well known to us, lives in a chronic vegetative state and resides at [facility]. He will return there when medically stable. CM w/f. DC Plan: [facility] Signed: 07/31/2017 04:29 PM Electronically Signed By:Katie Ashford RN [facility] CM Progress Note CM Note CM Note Notes: Dc date unclear, pt had feeding tube changed. Will return to [facility] when medically stable, updates faxed to . DC Plan: [facility] Signed: 08/03/2017 04:31 PM Electronically Signed By:Katie Ashford RN [facility] CM Progress Note CM Note CM Note Notes: CM spoke w/ Dr. Lutz regarding d/c POC. Updates sent to [facility]. Pt will return back to [facility] when medically stable. CM to follow. Plan: [facility] Signed: 08/05/2017 12:26 PM Electronically Signed By:LISA Golden Case Management Discharge Plan Note Case Management Discharge Discharge Order Complete? Answers: Yes Patient to Obtain Answers: Other Notes: [facility] Medications Transportation Arranged Answers: Family/Friends Transport will Pick (Date 08/06/2017 04:00 PM & Time) EMTALA Complete Answers: No Case Management Transport Answers: Yes Form Complete Faxed Final Orders Answers: Yes Agency/Facility Transfer Answers: Yes Report Printed & Faxed to Receiving Agency Family Notified Answers: Yes Notes: CM left a msg for pts Discharge Comments Notes: CM spoke w/ Dr. Lutz and DAVID Hardwick regarding d/c POC. Pt is being discharged back to [facility] today. DC orders sent to [facility]. provided DAVID Hardwick w/ phone number to give report. CM available for changes. Plan: [facility] Date Signed: 08/06/2017 02:21 PM Electronically Signed By:LISA Golden Intervention Information Intervention Type:IM-Pt. Not Available Date of Service:08/06/2017 03:40 PM Patient Type:Inpatient Staff Member:Arlet Bar Hours: Discipline: Severity: Comment:Patient lives in a chronic vegetative state, unable to deliver IM form.
== END 2017-08-06 17:49 | DRG 315 ==
LOC: EDUNIT# → F3E 10:41
PROVIDERS: ADMIT Internal Medicine; ATTEND Internal Medicine
PROC: 0JPT3XZ Removal of Tunneled Vascular Access Device from Trunk Subcutaneous Tissue and Fascia, Percutaneous Approach (ICD-10-PCS; principal; 2017-07-30)
DX: T80.212A Local infection due to central venous catheter, initial encounter (principal); L03.818 Cellulitis of other sites; J96.11 Chronic respiratory failure with hypoxia; R78.81 Bacteremia; B96.5 Pseudomonas (aeruginosa) (mallei) (pseudomallei) as the cause of diseases classified elsewhere; R40.3 Persistent vegetative state; N20.0 Calculus of kidney; I10 Essential (primary) hypertension; E78.5 Hyperlipidemia, unspecified; R56.9 Unspecified convulsions; Z87.01 Personal history of pneumonia (recurrent); Z86.14 Personal history of Methicillin resistant Staphylococcus aureus infection; Z93.1 Gastrostomy status; Z93.0 Tracheostomy status
CPT/HCPCS: C1769; J0690; J0692; J1165; J1650; J1815; J1953; J1956; J3370; Q9967

== ENCOUNTER 2017-09-11 07:59 | Inpatient (IN) | payer OTHER, MEDICAID ==
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
[2017-09-11 08:37] LABS: PLATELET COUNT 153 10^3/uL (150-400)
[2017-09-11] MEDS ORDERED: ACETAMINOPHEN 650 MG/20.3 ML UDCUP TUBE PRN (11:17)
[2017-09-11] MEDS ORDERED: IPRATROPIUM/ALBUTEROL 3 ML DEYVIAL IH PRN (11:17)
[2017-09-11] MEDS ORDERED: BISACODYL 10 MG SUPP PR PRN (11:17)
[2017-09-11] MEDS ORDERED: ONDANSETRON 4 MG/2 ML VIAL IVP PRN (11:19)
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
--- NOTE | 2017-09-11 14:07 | PDMN ---
Medical Necessity Medical necessity: Pt meets IP criteria per MD; est los>2mn for fever of unknown origin, dehydration, hyponatremia, bilateral buttock blisters & midline/ upper back bruising; admit for further workup/monitoring, IVFs & ID/Wound Care consults; comorbid vegetative state w/chronic Mclaughlin, PEG, trach, diabetes, HTN, chronic hypoxic respiratory failure, seizures & chronic sacral pressure injury; per H&P & order 09/11/17
[2017-09-11] MEDS: NS 1,000 ML IV SCH (14:44)
[2017-09-11] MEDS: PHENYTOIN 100 MG/4 ML UDL PO SCH ×2 (14:46→14:53)
[2017-09-11] MEDS: GLYCOPYRROLATE 1 MG TAB PO SCH ×2 (14:48→14:53)
[2017-09-11] MEDS: PHENYTOIN 100 MG/4 ML UDL TUBE SCH ×2 (14:54→20:51)
[2017-09-11] MEDS: GLYCOPYRROLATE 1 MG TAB TUBE SCH ×3 (14:56→20:50)
--- NOTE | 2017-09-11 14:57 | WOCRNPDOC ---
WOCRN Advanced Assessment Note - Skin Integrity Problem, Advanced Assess Upper Back Dressing Type: Allevyn Life Exudate Amount: None Integumentary Issue Intervention: Dressing Removed Isis Wound Tissue: Blanching, Intact Wound Bed Color: [place] Site Measurement - Head-to-Toe Length X Width X Depth (cm): 1.9g3fhiqloe. 1x0.8xintact. 0.6x0.6xintact Skin Integrity Problem Comment: Patient immobile. Arrives today from facility with three distint reddened, blanching areas to thoracic region. RN covered with allevyn. As areas are intact and blanching, and pressure relieving interventions have been initiated, I removed the dressing. Wound care will not continue to follow this wound. Please reconsult should this area worsen or open. Medial Back Dressing Type: Allevyn Life Dressing Description: Clean/Dry, Intact Exudate Amount: None Integumentary Issue Intervention: Visualized Under Dressing Isis Wound Tissue: Blanching, Intact Wound Edges: Well Defined Site Measurement - Head-to-Toe Length X Width X Depth (cm): [id number] Skin Integrity Problem Comment: Patient immobile and with reddened, intact and blanching area to lumbar region. Area of redness measured. No dressing is required to this area at this time. Continue with turning and offloading interventions. Wound care will not continue to follow this wound. Please reconsult PRN if area worsens or opens. Bilateral Medial Buttock Dressing Type: Mepilex Border Dressing Description: Clean/Dry, Intact Exudate Amount: None Integumentary Issue Intervention: Visualized Under Dressing Isis Wound Tissue: Blanching, Intact Wound Bed Constitution: Intact Serous Filled Blister Site Measurement - Head-to-Toe Length X Width X Depth (cm): left: 6.0h7xrzfkdyy. right: 1.7x3.3xblister Pressure Injury Stage: Stage 2 Pressure Injury Present on Admit: Yes Skin Integrity Problem Comment: Patient presents with small, blisters to bilateral medial buttocks. Blisters are presently flat but have some fluctuance. Isis wound tissue otherwise intact but is scarred which may be indicitave of a deeper injury in the past. A search of prior hospitalizations gives me no indication of deeper pressure injury. Will upgrade surface as a precaution. Wound care will round again next week. Please let wound care know if this area worsens or opens. Left Upper Lateral Chest Surgical Wound/Incision Dressing Description: Not Intact Closure Description: Approximated Exudate Amount: Scant Exudate Color: Reddish/Yellow Exudate Characteristic(s): Serosanguinous Integumentary Issue Intervention: Dressing Removed Isis Wound Tissue: Blanching, Erythema Isis Wound Swelling: Mild Wound Bed Color: [place] Wound Bed Constitution: Granulation Tissue, Red/[place] - Non Granular Tissue Wound Edges: Epithelizing, Attached, Well Defined Site Odor: None Site Measurement - Head-to-Toe Length X Width X Depth (cm): 0.3x2.6x0.2 Skin Integrity Problem Comment: Healing surgical incision from removal of port. Wound is healing well with minimal exudate. Current dressing only minimally attached. This was removed. Wound care will not continue to follow this wound. Please reconsult PRN if area worsens.
[2017-09-11] MEDS: DOXAZOSIN MESYLATE 4 MG TAB TUBE SCH (20:51)
[2017-09-11] MEDS: levETIRAcetam 500 MG/5 ML UDCUP TUBE SCH (20:55)
[2017-09-11] MEDS: INSULIN GLARGINE 100 UNITS/ML SYRINGE SC SCH (21:23)
[2017-09-12] MEDS: NS 1,000 ML IV SCH ×2 (04:35→21:37)
[2017-09-12 06:05] LABS: PLATELET COUNT 136 10^3/uL (150-400)
[2017-09-12] MEDS: GLYCOPYRROLATE 1 MG TAB TUBE SCH ×3 (09:03→21:36)
[2017-09-12] MEDS: ENOXAPARIN 40 MG/0.4 ML SYR SC SCH (09:04)
[2017-09-12] MEDS: CETIRIZINE 10 MG TAB TUBE SCH (09:04)
[2017-09-12] MEDS: levETIRAcetam 500 MG/5 ML UDCUP TUBE SCH ×2 (09:06→21:37)
[2017-09-12] MEDS: PHENYTOIN 100 MG/4 ML UDL TUBE SCH ×2 (10:53→21:37)
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
[2017-09-12] MEDS: DOXAZOSIN MESYLATE 4 MG TAB TUBE SCH (21:37)
[2017-09-12] MEDS: INSULIN GLARGINE 100 UNITS/ML SYRINGE SC SCH (22:48)
[2017-09-13 04:02] LABS: PLATELET COUNT 143 10^3/uL (150-400)
[2017-09-13] MEDS: NS 1,000 ML IV SCH (07:38)
[2017-09-13] MEDS: ENOXAPARIN 40 MG/0.4 ML SYR SC SCH (09:27)
[2017-09-13] MEDS: PHENYTOIN 100 MG/4 ML UDL TUBE SCH ×2 (09:27→21:01)
[2017-09-13] MEDS: levETIRAcetam 500 MG/5 ML UDCUP TUBE SCH ×2 (09:28→20:58)
[2017-09-13] MEDS: CETIRIZINE 10 MG TAB TUBE SCH (09:28)
[2017-09-13] MEDS: GLYCOPYRROLATE 1 MG TAB TUBE SCH ×3 (09:29→21:18)
--- NOTE | 2017-09-13 11:22 | WOCRNPDOC ---
WOCRN Advanced Assessment Note - Skin Integrity Problem, Advanced Assess Medial Back Dressing Type: Allevyn Life Dressing Description: Intact Exudate Amount: None Exudate Characteristic(s): None Integumentary Issue Intervention: Visualized Under Dressing Isis Wound Tissue: Intact Isis Wound Swelling: None Wound Bed Constitution: Healed Skin Integrity Problem Comment: Reconsulted by nursing to evaluate medial back for possible deep tissue injury. Removed existing dressing to visualize. 4aoc3mm area of scar tissue w/ blanching erythema throughout. Two discrete superficial pustules resembling in-grown hairs, no fluctuance or erythema. No suggestion of DTI developing at this time. Continue with plan of care, including pressure-relieving support surface and turns q2. camp tender Jill present to visualize site.
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
[2017-09-13] MEDS ORDERED: PNEUMOCOCCAL 0.5ML VACCINE VIAL IM ONE (19:40)
[2017-09-13] MEDS: INSULIN GLARGINE 100 UNITS/ML SYRINGE SC SCH (20:58)
[2017-09-13] MEDS: DOXAZOSIN MESYLATE 4 MG TAB TUBE SCH (20:58)
[2017-09-14 04:30] LABS: PLATELET COUNT 139 10^3/uL (150-400)
[2017-09-14] MEDS: ENOXAPARIN 40 MG/0.4 ML SYR SC SCH (09:11)
[2017-09-14] MEDS: CETIRIZINE 10 MG TAB TUBE SCH (09:12)
[2017-09-14] MEDS: levETIRAcetam 500 MG/5 ML UDCUP TUBE SCH ×2 (09:12→21:16)
[2017-09-14] MEDS: PHENYTOIN 100 MG/4 ML UDL TUBE SCH ×2 (09:12→21:22)
[2017-09-14] MEDS: GLYCOPYRROLATE 1 MG TAB TUBE SCH ×3 (09:12→21:16)
--- NOTE | 2017-09-14 11:07 | CPEKG ---
Heart Rate: 43 RR Interval: 1395 P-R Interval: 200 QRSD Interval: 76 QT Interval: 492 QTC Interval: 417 P [place]: -32 QRS [place]: 80 T Wave [place]: 45 EKG Severity - OTHERWISE NORMAL ECG - EKG Impression: SINUS BRADYCARDIA EKG Impression: LOW VOLTAGE IN FRONTAL LEADS Electronically Signed By: Danielle Macdonald 14-Sep-2017 19:56:50
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
[2017-09-14] MEDS: INSULIN GLARGINE 100 UNITS/ML SYRINGE SC SCH (21:16)
[2017-09-14] MEDS: DOXAZOSIN MESYLATE 4 MG TAB TUBE SCH (21:16)
[2017-09-15 04:24] LABS: PLATELET COUNT 152 10^3/uL (150-400)
[2017-09-15 08:28] VITALS: BP 109/66
[2017-09-15] MEDS: PHENYTOIN 100 MG/4 ML UDL TUBE SCH (09:27)
[2017-09-15] MEDS: levETIRAcetam 500 MG/5 ML UDCUP TUBE SCH (09:27)
[2017-09-15] MEDS: CETIRIZINE 10 MG TAB TUBE SCH (09:27)
[2017-09-15] MEDS: GLYCOPYRROLATE 1 MG TAB TUBE SCH ×2 (09:27→15:16)
[2017-09-15] MEDS: ENOXAPARIN 40 MG/0.4 ML SYR SC SCH (09:27)
--- NOTE | 2017-09-15 12:13 | ASMTCMCOM ---
CM Note CM Note Notes: No signs of infection so no ABX. Stable/Hospitalist. Lives at [facility]. Date Signed: 09/15/2017 12:13 PM Electronically Signed By:Elisha Donohue LCSW
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
--- NOTE | 2017-09-15 16:24 | PDIAF ---
- Diagnosis Diagnosis: Fever Code Status: Full Code - Medication Management Discharge Medications: Medications to Continue on Transfer Bisacodyl [Dulcolax] 10 mg [place] DAILY PRN 11/28/16 [Last Taken Unknown] Cetirizine [ZyrTEC 10 mg (*)] 10 mg TUBE DAILY 11/28/16 [Last Taken 07/29/17] Doxazosin Mesylate [Cardura 4 MG (*)] 4 mg TUBE HS 11/28/16 [Last Taken 07/29/17 ] Insulin Detemir [Levemir] 10 unit SQ HS 11/28/16 [Last Taken 07/29/17] Phenytoin [Dilantin] 5 ml TUBE BID 11/28/16 [Last Taken 07/29/17 20:00] levETIRAcetam [Keppra Oral Liquid] 5 ml TUBE BID 11/28/16 [Last Taken 07/29/17 20:00] Glycopyrrolate [GLYCOPYRROLATE] 2 mg TUBE TID 01/11/17 [Last Taken 07/29/17 20: 00] Acetaminophen [Tylenol 325mg (*)] 650 mg TUBE Q4 PRN 02/24/17 [Last Taken 06:13] Ipratropium/Albuterol [Duoneb (*)] 3 ml IH Q4 PRN 02/24/17 [Last Taken Unknown] Discharge Medications: Refer to the Discharge Home Medication list for PRN reason. - Orders Services needed: Registered Nurse, Physical Therapy, Occupational Therapy Isolation Type: Contact Isolation Diet Recommendation: other (tube feeds only) Diet Texture: None Additional Instructions: Activity: as tolerated F/U: with PCP in one week - Follow Up Care Current Providers and Referrals: RIKA GANN [Other] - As per Instructions
--- NOTE | 2017-09-15 17:00 | ASDISCHSUM ---
Discharge Information Plan Status:SNF Medically Cleared to Leave:09/15/2017 Discharge Date:09/15/2017 03:39 PM CM D/C Disposition:Residential Facility ADT D/C Disposition:Residential Facility Projected Discharge Date:09/15/2017 02:00 PM Transportation at D/C:ALS/BLS Discharge Delay Reason: Follow-Up Date:09/15/2017 02:00 PM Discharge Slot: Final Diagnosis:Fever unclear source Placement Information Referral Type:*Custodial/SNF Referral ID:[facility]-[id number] Provider Name:EVELIA Gutierrez Address 1:[address] Phone Number: Address 2: Fax Number: [facility]:[place] Selection Factors: State:[place] Patient Contact Information Contact Name:NARGIS Relationship: Address[address] Work Phone: [facility]:[place] Alternate Phone: State/Zip Code:[place] [address] Email: Financial Information Financial Class:Medicare Primary Plan Desc:MEDICARE INPATIENT Primary Plan Number:[id number] Secondary Plan Desc:MED[place] Secondary Plan Number:[id number] Assessment Information LACE LACE Length of stay for Answers: 4-6 days current admission Acuity / Level of Answers: Yes Care: Did the patient have an inpatient admission? Comorbidities - select Answers: Diabetes (uncontrolled or all that apply controlled) Other Notes: Chronic vegetative state, HTN, recurrent U TI # of Emergency department Answers: 3-4 visits in the last 6 months Score: 12 Date Signed: 09/15/2017 03:11 PM Electronically Signed By:Elisha Donohue LCSW [facility] Initial CM Assessment Living Arrangements What is your living Answers: Alone arrangement? Who do you live with? Type Of Residence What kind of residence do Answers: Residential Facility you live in? Type of Residence Facility Name Notes: [facility] Discharge Plan Comments Coordination Status Comments Notes: Pt is a 57 y/o man admitted for a fever. Pt is in a vegetative state. Pt has a hx of TBI. Pt has a trach. Pt will most likely return back to [facility] once medically stable. Updates sent to [facility]. CM to follow. Plan: [facility] Date Signed: 09/12/2017 12:21 PM Electronically Signed By:LISA Golden [facility] CM Progress Note CM Note CM Note Notes: No signs of infection so no ABX. Stable/Hospitalist. Lives at [facility]. Date Signed: 09/15/2017 12:13 PM Electronically Signed By:Elisha Donohue LCSW Case Management Discharge Plan Note Case Management Discharge Discharge Order Complete? Answers: Yes Patient to Obtain Answers: Other Notes: [facility] Medications Transportation Arranged Answers: [facility] will Pick (Date 09/15/2017 02:00 PM & Time) Case Management Transport Answers: Yes Form Complete Faxed Final Orders Answers: Yes Notes: [facility] Family Notified Answers: Yes Notes: Left message for Discharge Comments Notes: Patient has been discharged back to [facility]. Date Signed: 09/15/2017 03:10 PM Electronically Signed By:Elisha Donohue LCSW Intervention Information Intervention Type:*IM-Signed Date of Service:09/15/2017 03:11 PM Patient Type:Inpatient Staff Member:SIMBA Donohue Judith Hours:0.25 Discipline:Assistant Reading Teacher Severity: Comment:Patient unresponsive unable to sign. L eft message for that he was being discharged.
== END 2017-09-15 15:39 | DRG 864 ==
LOC: EDBD → EDUNIT# → F2W 10:34 → OBSVTOIN 11:19
PROVIDERS: ADMIT Family Medicine; ATTEND Family Medicine
DX: R50.9 Fever, unspecified (principal); R40.3 Persistent vegetative state; E87.1 Hypo-osmolality and hyponatremia; J96.11 Chronic respiratory failure with hypoxia; R13.10 Dysphagia, unspecified; E86.0 Dehydration; L89.312 Pressure ulcer of right buttock, stage 2; L89.322 Pressure ulcer of left buttock, stage 2; R00.1 Bradycardia, unspecified; G40.909 Epilepsy, unspecified, not intractable, without status epilepticus; Z87.820 Personal history of traumatic brain injury; Z93.0 Tracheostomy status; Z93.1 Gastrostomy status; Z87.440 Personal history of urinary (tract) infections
CPT/HCPCS: J1650; J1815; J1953

== ENCOUNTER 2017-10-01 23:56 | Observation (INO) | payer OTHER, MEDICAID ==
[2017-10-02] MEDS ORDERED: NS 500 ML IV ONE (00:08)
--- NOTE | 2017-10-02 00:08 | CPEKG ---
Heart Rate: 38 RR Interval: 1579 QRSD Interval: 98 QT Interval: 500 QTC Interval: 398 QRS [place]: 69 T Wave [place]: 33 EKG Severity - ABNORMAL ECG - EKG Impression: JUNCTIONAL ESCAPE RHYTHM EKG Impression: LOW VOLTAGE IN FRONTAL LEADS Electronically Signed By: Bethel Schilling 02-Oct-2017 07:18:10
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
[2017-10-02 00:39] LABS: INR 0.97 (0.83-1.16); PROTIME(PATIENT) 13.1 SEC (12.0-15.0)
[2017-10-02 00:49] LABS: CREATINE KINASE 42 IU/L (0-224)
[2017-10-02 00:59] LABS: PLATELET COUNT 144 10^3/uL (150-400)
[2017-10-02] MEDS ORDERED: ONDANSETRON 4 MG/2 ML VIAL IVP PRN (02:22)
[2017-10-02] MEDS ORDERED: ACETAMINOPHEN 650 MG SUPP PR PRN (02:22)
[2017-10-02] MEDS ORDERED: ALBUTEROL 3 ML DEYVIAL IH PRN (02:22)
[2017-10-02] MEDS ORDERED: NS 1,000 ML IV SCH ×2 (02:30→02:45)
[2017-10-02] MEDS ORDERED: CEFEPIME HCL 2 GM in STERILE WATER INJ 12.5 ML IV ONE (03:00)
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
[2017-10-02 05:28] LABS: PLATELET COUNT 131 10^3/uL (150-400)
[2017-10-02] MEDS: ENOXAPARIN 40 MG/0.4 ML SYR SC SCH (09:33)
--- NOTE | 2017-10-02 11:36 | PCMIDPN ---
Assessment/Plan: # Hypothermia, bradycardia: Rec'd 3 days meropenem 09/29 for possible PNA with PsA. Resp status a baseline, repeat CXR without infiltrate, Carbapenem R PsA likely colonizer --dc cefepime --monitor off antibiotics --looks for other causes of bradycardia: Dilantin (<1%), doxazosin, # Polymicrobial colonization of resp tract, urine with MDRs --contact precautions # Leukopenia: difficult to interpret with chronic debilitated state, continue to monitor Microbiology 09/29/17 18:25 Sputum, Expectorated Sputum Culture - Final Ps. Aeruginosa Carbapenem "R" 09/29/17 05:40 Urine,Catheterized Urine Culture - Final Escherichia Coli Morganella Morganii Pseudomonas Aeruginosa Two [place] Types 09/29/17 05:40 Blood Cx (2) NGTD Subjective: 57-year-old gentleman with a history of TBI now in permanent vegetative state reliant on trach, peg, English catheter with a long medical history including multiple infections of UTI, pneumonia with multiple drug-resistant organism growth, dm 2, HTN, seizures. Patient recently admitted and returned to [facility] < 24h for hypothermia and bradycardia. I saw patient today, no unexpected findings except R side posturing Objective: Vital Signs Temp Pulse Resp BP Pulse Ox 36.4 C 53 L 18 113/65 100 10/02/17 07:45 10/02/17 07:45 10/02/17 07:45 10/02/17 07:45 10/02/17 07:45 Laboratory Results 10/02/17 05:05 10/02/17 05:05 10/01/17 10/02/17 10/03/17 05:59 05:59 05:59 Intake Total 150 Balance 150 - Physical Exam General Appearance: alert, no apparent distress, obese EENT: pale conjunctiva, No thrush Respiratory: coarse breath sounds Neck: other (trach) Cardiac/Chest: bradycardia Abdomen: non-tender, soft, other (j tube c/d/i) Male Genitalia: english, No scrotal edema Skin: pallor, No rash Neuro/Psych: alert, other (minimal spontaneous movements, opens eyes to gentle tactle stimulation, does not follow commmands) - Line/s other Lines: other (RUE midline), No drainage, No erythema - Time Spent With Patient Time Spent with Patient: greater than 35 minutes (care reviewed w pharmacy and Dr. Greenberg) Time Spent with Patient: Greater than 35 minutes spent on this patients care, greater than 50% of time spent counseling, educating, and coordinating care regarding the above mentioned plan. 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 Pneumonia due to Gram negative bacteria Active Bacteria in urine Acute Cellulitis Acute Chronic vegetative state Acute Clostridium difficile infection Acute ~01/12/17 Complicated UTI (urinary tract infection) Acute Dehydration with hypernatremia Acute Fever Acute Healthcare-associated pneumonia Acute Hyperglycemia Acute Hypernatremia Acute Hyponatremia Acute Infected venous access port Acute Influenza A Acute MRSA (methicillin resistant Staphylococcus aureus) Acute ~10/19/16 Pneumonia Acute SIRS (systemic inflammatory response syndrome) Acute Sepsis Acute Sepsis Acute Septic shock Acute Severe sepsis Acute Severe sepsis with acute organ dysfunction Acute UTI (urinary tract infection) Acute Urinary tract infection Acute Urinary tract infection in male Acute VRE (vancomycin-resistant Enterococci) Acute ~09/07/16
[2017-10-02] MEDS ORDERED: IPRATROPIUM/ALBUTEROL 3 ML DEYVIAL IH PRN (11:37)
--- NOTE | 2017-10-02 12:26 | ASMTCMCOM ---
CM Note CM Note Notes: 10/02/2017 Case Management Note Discussed pt during rounds this morning. Pt admitted for bradycardia and hypoxia. Pt lives at [facility] in a persistive vegetative state. Faxed updates to [facility]. Case Management d/c poc: return to [facility] Case Management to follow. Date Signed: 10/02/2017 12:26 PM Electronically Signed By:Chanel Ma RN
[2017-10-02] MEDS ORDERED: CEFEPIME HCL 2 GM in STERILE WATER INJ 12.5 ML IV SCH (12:30)
[2017-10-02] MEDS: PHENYTOIN 100 MG/4 ML UDL PO SCH (12:56)
[2017-10-02] MEDS: levETIRAcetam 500 MG/5 ML UDCUP TUBE SCH (12:56)
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
[2017-10-02] MEDS ORDERED: INSULIN GLARGINE 100 UNITS/ML SYRINGE SC SCH (21:00)
[2017-10-02] MEDS ORDERED: NON-FORMULARY NEW DRUG (Insulin Detemir [Levemir] 10 UNIT) SQ SCH (21:00)
[2017-10-02] MEDS ORDERED: PHENYTOIN TUBE SCH (21:00)
[2017-10-02] MEDS ORDERED: LEVETIRACETAM TUBE SCH (21:00)
[2017-10-02] MEDS ORDERED: DOXAZOSIN MESYLATE 4 MG TAB TUBE SCH (21:00)
[2017-10-03 08:20] VITALS: BP 113/74
[2017-10-03] MEDS: ENOXAPARIN 40 MG/0.4 ML SYR SC SCH (08:22)
[2017-10-03] MEDS: levETIRAcetam 500 MG/5 ML UDCUP TUBE SCH ×2 (08:23)
[2017-10-03] MEDS: PHENYTOIN 100 MG/4 ML UDL PO SCH ×2 (08:23)
[2017-10-03] MEDS ORDERED: CETIRIZINE 10 MG TAB TUBE SCH (09:00)
--- NOTE | 2017-10-03 11:53 | PDIAF ---
- Diagnosis Diagnosis: bradycardia Code Status: Full Code - Medication Management Discharge Medications: Medications to Continue on Transfer Bisacodyl [Dulcolax] 10 mg [place] DAILY PRN 11/28/16 [Last Taken Unknown] Cetirizine [ZyrTEC 10 mg (*)] 10 mg TUBE DAILY 11/28/16 [Last Taken 09/28/17] Insulin Detemir [Levemir] 10 unit SQ HS 11/28/16 [Last Taken 09/28/17] Phenytoin [Dilantin] 5 ml TUBE BID 11/28/16 [Last Taken 09/28/17] levETIRAcetam [Keppra Oral Liquid] 5 ml TUBE BID 11/28/16 [Last Taken 09/28/17] Acetaminophen [Tylenol 325mg (*)] 650 mg TUBE Q4 PRN 02/24/17 [Last Taken 06:13] Ipratropium/Albuterol [Duoneb (*)] 3 ml IH Q4 PRN 02/24/17 [Last Taken Unknown] Discharge Medications: Refer to the Discharge Home Medication list for PRN reason. - Orders Services needed: Registered Nurse, Certified Track Sweeper, Physical Therapy, Occupational Therapy Isolation Type: Contact Isolation Diet Recommendation: other (tube feeds) Diet Texture: Non Oral Meds Additional Instructions: please follow with PCP for post discharge follow up - Follow Up Care Current Providers and Referrals: RIKA WEST [Other] - As per Instructions
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
--- NOTE | 2017-10-04 14:22 | ASDISCHSUM ---
Discharge Information Plan Status:SNF Medically Cleared to Leave:10/03/2017 Discharge Date:10/03/2017 03:35 PM CM D/C Disposition:[facility] Facility ADT D/C Disposition:[facility] Facility Projected Discharge Date:10/03/2017 11:00 AM Transportation at D/C:ALS/BLS Discharge Delay Reason: Follow-Up Date:10/03/2017 11:00 AM Discharge Slot: Final Diagnosis: Placement Information Referral Type:*Halfway/SNF Referral ID:[facility]-[id number] Provider Name:EVELIA Gutierrez Address 1:[address] Phone Number: Address 2: Fax Number: [facility]:[place] Selection Factors: State:[place] Patient Contact Information Contact Name:NARGIS Relationship: Address:[address] Work Phone: [facility]:[place] Alternate Phone: State/Zip Code:[place] [address] Email: Financial Information Financial Class:Medicare Primary Plan Desc:MEDICARE OUTPATIENT Primary Plan Number:[id number] Secondary Plan Desc:[place] Secondary Plan Number:[id number] Assessment Information LACE LACE Length of stay for Answers: 1 day current admission Acuity / Level of Answers: No Care: Did the patient have an inpatient admission? Comorbidities - select Answers: Diabetes (uncontrolled or all that apply controlled) Other Notes: TBI; HTN # of Emergency department Answers: 5-8 visits in the last 6 months Score: 7 Date Signed: 10/04/2017 02:21 PM Electronically Signed By:LISA Golden [facility] Progress Note CM Note CM Note Notes: 10/02/2017 Case Management Note Discussed pt during rounds this morning. Pt admitted for bradycardia and hypoxia. Pt lives at [facility] in a persistive vegetative state. Faxed updates to [facility]. Case Management d/c poc: return to [facility] Case Management to follow. Date Signed: 10/02/2017 12:26 PM Electronically Signed By:Chanel Ma RN Case Management Discharge Plan Note Case Management Discharge Discharge Order Complete? Answers: Yes Patient to Obtain Answers: Other Notes: [facility] Medications Transportation Arranged Answers: [facility] will Pick (Date 10/03/2017 03:00 PM & Time) EMTALA Complete Answers: No Case Management Transport Answers: Yes Form Complete Faxed Final Orders Answers: Yes Agency/Facility Transfer Answers: Yes Report Printed & Faxed to Receiving Agency Family Notified Answers: Yes Discharge Comments Notes: Pts case discussed in tx rounds. Pt is being discharged today back to [facility]. CM sent d/c orders. PALMIRA provided DAVID Guadarrama w/ phone number to give report. PALMIRA completed the PCS form and a copy is in pts chart. CM call pts and left her a msg regarding his d/c. CM available for changes. Plan: [facility] Date Signed: 10/03/2017 12:29 PM Electronically Signed By:LISA Golden Intervention Information Intervention Type:RAHMAN-Not Delivered Date of Service:10/02/2017 08:26 AM Patient Type:Observation Staff Member:Arlet Bar Hours: Discipline: Severity: Comment:Patient is in a permanent vegetative s silveira and unable to review or sign the RAHMAN form .
== END 2017-10-03 15:35 ==
LOC: EDUNIT# → EDBD → F2W 10-02 04:22
PROVIDERS: ADMIT Family Medicine; ATTEND Hospitalist
DX: R00.1 Bradycardia, unspecified (principal); T68.XXXA Hypothermia, initial encounter; J18.9 Pneumonia, unspecified organism; R40.3 Persistent vegetative state; D61.818 Other pancytopenia; E88.09 Other disorders of plasma-protein metabolism, not elsewhere classified; D72.819 Decreased white blood cell count, unspecified; D69.6 Thrombocytopenia, unspecified; E86.9 Volume depletion, unspecified; I10 Essential (primary) hypertension; E78.5 Hyperlipidemia, unspecified; E11.9 Type 2 diabetes mellitus without complications; J96.11 Chronic respiratory failure with hypoxia; G40.909 Epilepsy, unspecified, not intractable, without status epilepticus; N40.0 Benign prostatic hyperplasia without lower urinary tract symptoms; Z79.4 Long term (current) use of insulin; Z87.820 Personal history of traumatic brain injury; Z86.14 Personal history of Methicillin resistant Staphylococcus aureus infection; Z87.442 Personal history of urinary calculi; Z87.440 Personal history of urinary (tract) infections; Z86.19 Personal history of other infectious and parasitic diseases; Z87.01 Personal history of pneumonia (recurrent); Z96.0 Presence of urogenital implants; Z93.1 Gastrostomy status; Z93.0 Tracheostomy status; Z88.0 Allergy status to penicillin; Z91.040 Latex allergy status
CPT/HCPCS: 71045; 93005; 96360; 99285; G0378; J0692; J1650; J1815

== ENCOUNTER 2017-11-03 16:21 | Observation (INO) | payer MEDICAID, OTHER ==
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
[2017-11-03 18:24] LABS: PLATELET COUNT 187 10^3/uL (150-400)
[2017-11-03] MEDS ORDERED: ACETAMINOPHEN 325 MG TAB PO PRN (20:37)
[2017-11-03] MEDS ORDERED: ONDANSETRON 4 MG/2 ML VIAL IVP PRN (20:37)
[2017-11-03] MEDS ORDERED: D50W 25 GM/50 ML VIAL IVP PRN (20:37)
--- NOTE | 2017-11-03 21:09 | GHP ---
[f rep st] HISTORY AND PHYSICAL DATE OF ADMISSION: 11/03/2017 CHIEF COMPLAINT: Fever. HISTORY: The patient is a 57-year-old male, in persistent vegetative state. He lives at [facility]. He has frequent admissions for infections. He had a fever at the long-term 2 days ago. The family insisted that he be transferred to the hospital for evaluation. He has had no recurrence of f ever for 48 hours. There has been no change in symptoms, although difficult to assess given his channeler outsole yoav vegetative state. He is noncommunicative. PAST MEDICAL HISTORY: 1. Chronic vegetative state secondary to traumatic brain injury. 2. Chronic Mclaughlin catheter. 3. Chronic respiratory failure status post tracheostomy. 4. Dysphagia status post PEG. 5. Seizure disorder. 6. Staghorn calculi status post removal. 7. Diabetes type 2. 8. History of MRSA, VRE, and carbapenem resistant Pseudomonas. MEDICATIONS: Please see computer record for full detailed list. ALLERGIES: To latex and amoxicillin. SOCIAL HISTORY: No smoking. No alcohol. Lives at [facility]. He is a full core. Family refuse s any further palliative discussions. REVIEW OF SYSTEMS: Complete review of systems obtained. Review of systems negative on constitutiona l, HEENT, GI, Pulmonary, Vascular, , Hematology, Skin, Muscular, Endocrine, Psych except for positi ves and negatives as in HPI. FAMILY HISTORY: Reviewed, noncontributory to presenting complaint. PHYSICAL EXAMINATION: GENERAL: Well-developed, well-nourished male, in no acute distress. He has b een vegetative. VITAL SIGNS: Temp is 36.4, pulse 71, blood pressure 116/86, saturating 98% on room air. EYE: Normal conjunctivae. Pupils react to light. ENT: Normal ears, nose. Unable to assess hearing. Oropharynx is clenched. NECK: Trachea midline. No thyromegaly. CHEST: Normal respirato ry effort. LUNGS: Clear to auscultation bilaterally. CARDIAC: He has a tracheostomy in place. CA RDIOVASCULAR: Regular rate and rhythm. No murmur. No lower extremity edema. ABDOMEN: Soft, nonte nder. No hepatosplenomegaly. SKIN: Warm, dry, intact. No rash. MUSCULOSKELETAL: No cyanosis or clubbing. He has 0/5 strength throughout. NEUROLOGIC: Cranial nerves: Does not follow commands. Unable to assess sensation. PSYCH: He is vegetative, not responsive to the environment, nonverbal. LABORATORY DATA: White count 5.4, hematocrit 46.6, platelets 187. Sodium 132, potassium 4.0, chlori de 91, bicarb 29, BUN 15, creatinine 0.6, glucose 88. Urinalysis shows 50-182 white blood cells. Ca se discussed with Dr. Nobles. She sent cultures. MEDICAL RECORDS REVIEW: Multiple recurrent admissions often for infectious complications. ASSESSMENT/PLAN: 1. Fever. He has not had recurrence now for 2 days. He does not have a leukocytosis. Cultures hav e been sent. Will monitor overnight. Will check a chest x-ray. Will hold on any antibiotics for no w. 2. Persistent vegetative state. He is at baseline. 3. Chronic respiratory failure status post tracheostomy, stable. 4. Chronic Mclaughlin catheter. He has persistent positive urinalysis, but likely does not represent kristi e infection at this time. 5. Seizure disorder. Continue home anti epileptics when clarified. 6. Diabetes. Will place him on insulin sliding scale and clarify home insulin dosing. 7. Dysphagia status post percutaneous endoscopic gastrostomy. Will consult Dietary to resume tube f eeds per long-term schedule. CODE STATUS: Full. ADMISSION STATUS: Will admit to observation. Reevaluate tomorrow regarding ongoing need for hospita lization. DVT PROPHYLAXIS: He is high risk. Will place on subcu Lovenox. /[id number]/MODL
[2017-11-03] MEDS ORDERED: IPRATROPIUM/ALBUTEROL 3 ML DEYVIAL IH PRN (21:32)
[2017-11-03] MEDS: 1/2 NS 1,000 ML IV SCH (21:38)
[2017-11-03] MEDS: INSULIN REGULAR HUMAN 100 UNIT/ML UNIT SC SCH (21:46)
[2017-11-03] MEDS ORDERED: INSULIN GLARGINE 100 UNITS/ML UNIT SC SCH (22:00)
[2017-11-03] MEDS ORDERED: ACETAMINOPHEN 650 MG/20.3 ML UDCUP TUBE PRN (22:00)
[2017-11-03] MEDS: levETIRAcetam 500 MG/5 ML UDCUP TUBE SCH (22:37)
[2017-11-03] MEDS: GLYCOPYRROLATE 1 MG TAB TUBE SCH (22:37)
[2017-11-03] MEDS: PHENYTOIN 100 MG/4 ML UDL TUBE SCH (22:37)
[2017-11-04 07:54] VITALS: BP 126/92
[2017-11-04] MEDS: INSULIN REGULAR HUMAN 100 UNIT/ML UNIT SC SCH ×2 (08:33→11:58)
[2017-11-04] MEDS ORDERED: ENOXAPARIN 40 MG/0.4 ML SYR SC SCH (09:00)
[2017-11-04] MEDS ORDERED: CETIRIZINE 10 MG TAB TUBE SCH (09:00)
[2017-11-04] MEDS: levETIRAcetam 500 MG/5 ML UDCUP TUBE SCH (09:27)
[2017-11-04] MEDS: PHENYTOIN 100 MG/4 ML UDL TUBE SCH (09:28)
[2017-11-04] MEDS: GLYCOPYRROLATE 1 MG TAB TUBE SCH (09:32)
[2017-11-04] MEDS: 1/2 NS 1,000 ML IV SCH (10:31)
--- NOTE | 2017-11-04 11:14 | PDIAF ---
- Diagnosis Diagnosis: fever Code Status: Full Code - Medication Management Discharge Medications: Medications to Continue on Transfer Bisacodyl [Dulcolax] 10 mg [place] DAILY PRN 11/28/16 [Last Taken Unknown] Cetirizine [ZyrTEC 10 mg (*)] 10 mg TUBE DAILY 11/28/16 [Last Taken 09/28/17] Insulin Detemir [Levemir] 10 unit SQ HS 11/28/16 [Last Taken 09/28/17] Phenytoin [Dilantin] 5 ml TUBE BID 11/28/16 [Last Taken 09/28/17] levETIRAcetam [Keppra Oral Liquid] 5 ml TUBE BID 11/28/16 [Last Taken 09/28/17] Acetaminophen [Tylenol 325mg (*)] 650 mg TUBE Q4 PRN 02/24/17 [Last Taken 06:13] Ipratropium/Albuterol [Duoneb (*)] 3 ml IH Q4 PRN 02/24/17 [Last Taken Unknown] Glycopyrrolate 2 mg TUBE TID 11/03/17 [Last Taken Unknown] Discharge Medications: Refer to the Discharge Home Medication list for PRN reason. - Orders Services needed: Registered Nurse Isolation Type: Contact Isolation - Follow Up Care Current Providers and Referrals: Patient,NotPresent [Primary Care Provider] - As per Instructions
--- NOTE | 2017-11-04 11:32 | GDS ---
[f rep st] DISCHARGE SUMMARY DISCHARGE DIAGNOSIS: Reported fever. PHYSICAL EXAM: GENERAL: The patient is in a vegetative state. VITAL SIGNS: Afebrile at 36.3, puls e is 60, respiratory rate is 12, blood pressure is 126/92. He is saturating 98% on a 6 L trach colla r. HOSPITAL COURSE: The patient is a 57-year-old male who is in a permanently vegetative state who was brought to the emergency room from his long-term care facility secondary to reported fever. He was e valuated during this hospitalization. His white count was within normal limits. He has had no fever since admission. Cultures are pending. He does have an abnormal urinalysis. However, he has a chr onic Mclaughlin catheter and this is colonized with multiple organisms in the past. The patient does not represent any signs of acute infection at this time, and he will be discharged to return to [facility] where he resides long-term. DISCHARGE MEDICATIONS: Please refer to EMR form. I have not provided the patient with any prescript ions at the time of disposition or change in any of his previously prescribed home medications to the best of my knowledge. /[id number]/MODL
--- NOTE | 2017-11-04 14:23 | HOSPPROG ---
Hospitalist Progress Note Assessment/Plan: 14:30 Gram positive cocci in clusters noted in one bottle blood cultures. Pt afebrile with no clear signs of infection Continue to follow blood culture results at [facility]. If more cultures are positive requiring therapy pt may need to return to the hospital. D/W Dr Jean and RN. Objective: Vital Signs Temp Pulse Resp BP Pulse Ox 36.3 C 60 12 126/92 H 98 11/04/17 07:52 11/04/17 07:52 11/04/17 07:52 11/04/17 07:52 11/04/17 07:52 Microbiology 11/03/17 23:02 Respiratory Panel (PCR) - Final Nasal, Sinus - [place] Viral Transport No Organism Detected Laboratory Results 11/03/17 18:10 11/03/17 18:10 11/03/17 11/04/17 11/05/17 05:59 05:59 05:59 Intake Total 0 Output Total 600 Balance -600 ICD10 Worksheet Patient Problems: Problems Problem Status Onset Hyponatremia Acute Cellulitis Acute Infected venous access port Acute Bradycardia Acute Hypothermia Acute Clostridium difficile infection Acute ~01/12/17 Sepsis Acute Chronic vegetative state Acute SIRS (systemic inflammatory response syndrome) Acute Bacteria in urine Acute Healthcare-associated pneumonia Acute MRSA (methicillin resistant Staphylococcus aureus) Acute ~10/19/16 VRE (vancomycin-resistant Enterococci) Acute ~09/07/16 UTI (urinary tract infection) Acute Pneumonia Acute Sepsis Acute Pneumonia due to Gram negative bacteria Active Injury of head Active 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
--- NOTE | 2017-11-04 15:44 | ASDISCHSUM ---
Discharge Information Plan Status:SNF Medically Cleared to Leave:11/04/2017 Discharge Date:11/04/2017 02:05 PM CM D/C Disposition: ADT D/C Disposition:[facility] Living Facility Projected Discharge Date:11/04/2017 11:00 AM Transportation at D/C: Discharge Delay Reason: Follow-Up Date:11/04/2017 11:00 AM Discharge Slot: Final Diagnosis: Placement Information Referral Type:*Fci/SNF Referral ID:[id number] Provider Name:Chon Chairez/EVELIA Leyva Address 1:[address] [facility] Phone Number: Address 2: Fax Number: [facility]:[place] Selection Factors: State:[place] Patient Contact Information Contact Name:NARGIS Relationship: Address:[address] Work Phone: [facility]:[place] Alternate Phone: State/Zip Code:[place] [address] Email: Financial Information Financial Class:Medicare Primary Plan Desc:MEDICARE OUTPATIENT Primary Plan Number:[id number] Secondary Plan Desc: Secondary Plan Number: Assessment Information [facility] CM Progress Note CM Note CM Note Notes: PALMIRA spoke w/ GLORIA Bell regarding d/c POC. Pt is a well known pt to [facility]. Pt lives at [facility] under manager intermediate care. Pt is a 57 y/o man admitted for a possible UTI and fever. Pt is in a vegatative state. Pt is being discharged back to [facility] today. PALMIRA sent d/c orders. PALMIRA completed PCS form and a copy is in pts chart. PALMIRA provided DAVID Mann w/ phone number to give report. CM left a msg for pts informing her of pts discharge. PALMIRA available for changes. Plan: [facility] Date Signed: 11/04/2017 03:44 PM Electronically Signed By:LISA Golden Intervention Information Intervention Type:RAHMAN-Not Delivered Date of Service:11/04/2017 08:12 AM Patient Type:Observation Staff Member:Arlet Bar Hours: Discipline: Severity: Comment:Patient in a persistent vegetative sta te.
--- NOTE | 2017-11-04 15:44 | ASMTCMCOM ---
CM Note CM Note Notes: CM spoke w/ GLORIA Bell regarding d/c POC. Pt is a well known pt to [facility]. 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 Pt is a 57 y/o man admitted for a possible UTI and fever. Pt is in a vegatative state. Pt is being discharged back to [facility] today. CM sent d/c orders. CM completed PCS form and a copy is in pts chart. CM provided DAVID Mann w/ phone number to give report. CM left a msg for pts informing her of pts discharge. CM available for changes. Plan: [facility] Date Signed: 11/04/2017 03:44 PM Electronically Signed By:LISA Golden
--- NOTE | 2017-11-04 15:45 | ASMTLACE ---
LACE Length of stay for Answers: 1 day current admission Acuity / Level of Answers: No Care: Did the patient have an inpatient admission? Comorbidities - select Answers: Cerebrovascular disease all that apply (CVA, TIA, aneurysms, vasc ular dementia) Diabetes (uncontrolled or controlled) Other Notes: HTN; Seizures # of Emergency department Answers: 5-8 visits in the last 6 months Score: 8 Date Signed: 11/04/2017 03:45 PM Electronically Signed By:LISA Golden
== END 2017-11-04 14:05 ==
LOC: EDUNIT# → F3E 20:03
PROVIDERS: ADMIT Internal Medicine; ATTEND Internal Medicine
DX: Z03.89 Encounter for observation for other suspected diseases and conditions ruled out (principal); R40.3 Persistent vegetative state; I10 Essential (primary) hypertension; G40.909 Epilepsy, unspecified, not intractable, without status epilepticus; Z93.0 Tracheostomy status; Z93.1 Gastrostomy status; Z87.820 Personal history of traumatic brain injury; Z86.14 Personal history of Methicillin resistant Staphylococcus aureus infection
CPT/HCPCS: 71045; 99285; G0378; J1650; J1815

== ENCOUNTER 2017-12-12 15:44 | Observation (INO) | payer OTHER, MEDICAID ==
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
[2017-12-12 19:30] LABS: PLATELET COUNT 176 10^3/uL (150-400)
[2017-12-12] MEDS ORDERED: ACETAMINOPHEN 325 MG TAB PO PRN (19:52)
[2017-12-12] MEDS ORDERED: ONDANSETRON 4 MG/2 ML VIAL IVP PRN (19:52)
[2017-12-12] MEDS ORDERED: ONDANSETRON DISINTEGRATING 4 MG TAB PO PRN (19:52)
[2017-12-12] MEDS ORDERED: IPRATROPIUM/ALBUTEROL 3 ML DEYVIAL IH PRN (22:49)
[2017-12-12] MEDS ORDERED: BISACODYL 10 MG SUPP PR PRN (22:49)
[2017-12-12] MEDS ORDERED: D50W 25 GM/50 ML VIAL IVP PRN (22:50)
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
[2017-12-12] MEDS ORDERED: NS 500 ML IV ONE (23:17)
[2017-12-12] MEDS: PHENYTOIN 100 MG/4 ML UDL TUBE SCH (23:49)
[2017-12-12] MEDS: levETIRAcetam 500 MG/5 ML UDCUP TUBE SCH (23:49)
[2017-12-13 04:18] VITALS: BP 113/66
[2017-12-13] MEDS: levETIRAcetam 500 MG/5 ML UDCUP TUBE SCH (08:33)
[2017-12-13] MEDS: PHENYTOIN 100 MG/4 ML UDL TUBE SCH (08:33)
[2017-12-13] MEDS ORDERED: CETIRIZINE 10 MG TAB TUBE SCH (09:00)
[2017-12-13] MEDS ORDERED: GLYCOPYRROLATE 1 MG TAB TUBE SCH (09:00)
[2017-12-13] MEDS ORDERED: ENOXAPARIN 40 MG/0.4 ML SYR SC SCH (09:00)
[2017-12-13 09:41] LABS: PLATELET COUNT 160 10^3/uL (150-400)
--- NOTE | 2017-12-13 11:38 | ASMTCMCOM ---
CM Note CM Note Notes: Pt resides at , he is in a persistent vegetative state. He will return to when he is Medically stable, CM available for any changes. DC Plan: Chon Chairez Date Signed: 12/13/2017 11:37 AM Electronically Signed By:Katie Ashford RN
--- NOTE | 2017-12-13 12:16 | PDIAF ---
- Diagnosis Diagnosis: Fever, likely atelectasis, suspected acne vulgaris Code Status: Full Code - Medication Management Discharge Medications: Medications to Continue on Transfer Bisacodyl [Dulcolax] 10 mg [place] DAILY PRN 11/28/16 [Last Taken Unknown] Cetirizine [ZyrTEC 10 mg (*)] 10 mg TUBE DAILY 11/28/16 [Last Taken 09/28/17] Insulin Detemir [Levemir] 10 unit SQ HS 11/28/16 [Last Taken 09/28/17] Phenytoin [Dilantin] 5 ml TUBE BID 11/28/16 [Last Taken 09/28/17] levETIRAcetam [Keppra Oral Liquid] 5 ml TUBE BID 11/28/16 [Last Taken 09/28/17] Acetaminophen [Tylenol 325mg (*)] 650 mg TUBE Q4 PRN 02/24/17 [Last Taken 06:13] Ipratropium/Albuterol [Duoneb (*)] 3 ml IH Q4 PRN 02/24/17 [Last Taken Unknown] Glycopyrrolate 2 mg TUBE TID 11/03/17 [Last Taken Unknown] Tretinoin/Emollient Base [Tretinoin 0.05% Emollient Crm] 40 gm TP DAILY #30 cream..g. 12/13/17 [Last Taken Unknown] Cell Stripper Antibiotics: NA Additional Medication Instructions: continue tretinoin for 3 months Discharge Medications: Refer to the Discharge Home Medication list for PRN reason. - Orders Services needed: Registered Nurse, Certified Humanities And Languages Professor, Master Weapons Mechanic Isolation Type: Contact Isolation Oxygen: NA Diet Recommendation: other (tube feeds) Mclaughlin: Yes (ongoing) Additional Instructions: Recommend that facility arrange outpatient dermatology consultation within 1 week - Follow Up Care Current Providers and Referrals: RIKA GANN [Other] - As per Instructions
--- NOTE | 2017-12-13 13:31 | ASMTDCNOTE ---
Case Management Discharge Discharge Order Complete? Answers: Yes Patient to Obtain Answers: Other Notes: [place] Medications Transportation Arranged Answers: [facility] will Pick (Date 12/13/2017 02:00 PM & Time) Case Management Transport Answers: Yes Form Complete Faxed Final Orders Answers: Yes Agency/Facility Transfer Answers: Yes Report Printed & Faxed to Receiving Agency Family Notified Answers: Yes Discharge Comments Notes: D/w MD, final orders faxed. Tasha bain dwayne, RN to call report. Date Signed: 12/13/2017 01:30 PM Electronically Signed By:Katie Ashford RN
--- NOTE | 2017-12-13 13:32 | ASMTLACE ---
LACE Length of stay for Answers: Less than 1 day current admission Acuity / Level of Answers: No Care: Did the patient have an inpatient admission? Comorbidities - select Answers: Diabetes (uncontrolled or all that apply controlled) Other Notes: Chronic vegetative state; HTN; Seizures # of Emergency department Answers: 5-8 visits in the last 6 months Score: 6 Date Signed: 12/13/2017 01:31 PM Electronically Signed By:Katie Ashford RN
--- NOTE | 2017-12-13 14:01 | PDDCSUM ---
Discharge Summary Discharge Summary: DISCHARGE SUMMARY FOLLOW-UP ITEMS: Schedule outpatient dermatology appointment DATE OF ADMISSION: 12/12/2017 DATE OF DISCHARGE: 12/13/2017 DISCHARGE DIAGNOSES: 1. Acute fever 2. Suspected atelectasis 3. Acute on chronic hyponatremia 4. Suspected acne vulgaris 5. Quadriplegia with chronic vegetative state CONSULTATIONS: None PROCEDURES / IMAGING: Chest imaging demonstrating left lower lobe atelectasis CHIEF COMPLAINT: Acute fever of 104 SUBJECTIVE: Patient without any evolving issues PHYSICAL EXAM ON DISCHARGE: Systolic blood pressure 110-120, heart rate 80-90, afebrile overnight, satting on room air, patient with acneiform lesions over his bridge of his nose, bilateral cheeks, forehead, some with crusting, some additional ones of lower severity clustered over his bilateral cheeks, with visibly apparent oily skin, inspiratory crackles in the bilateral bases, heart rhythm is regular, no lower extremity edema, abdomen is soft nontender nondistended, patient is unresponsive to tactile and verbal stimuli LABS ON DISCHARGE: Serum sodium level 131, creatinine 0.7, white blood cell count 5000 HOSPITAL COURSE BY PROBLEM: The patient presented for an acute fever workup given his extensive history of complicated urinary tract infections as well as aspiration pneumonias. The patient notably had no evidence of pneumonia on chest x-ray, no evidence of urinary tract infection on urinalysis, and no evidence of infection with normal white blood cell count, and remaining afebrile during his length of stay. The patient was kept off of antibiotics so the patient's lack of fever and leukocytosis seem to be reliable indicators that he is not currently evolving into an infection. He does however demonstrate evidence of atelectasis, and this may be the cause of his intermittent fevers. Recommend regular suctioning and pulmonary care at the [facility] facility. He also has evidence of acne vulgaris, and I do not believe that these represent shingles. We consequently discontinue the acyclovir, initiated tetinoin 0.05% daily for the next month, and recommend outpatient dermatology follow-up. DISCHARGE MEDICATIONS: Please see official discharge medication reconciliation sheet in chart , discontinued acyclovir, initiated tretinoin 0.05% daily. DISCHARGE INSTRUCTIONS: Please schedule outpatient dermatology appointment.
--- NOTE | 2017-12-13 17:10 | ASDISCHSUM ---
Discharge Information Plan Status:SNF Medically Cleared to Leave: Discharge Date:12/13/2017 02:25 PM CM D/C Disposition:Detention Facility ADT D/C Disposition:Detention Facility Projected Discharge Date:12/15/2017 11:00 AM Transportation at D/C: Discharge Delay Reason: Follow-Up Date:12/15/2017 11:00 AM Discharge Slot: Final Diagnosis: Placement Information Referral Type:*Snf/SNF Referral ID:[id number] Provider Name:Chon Chairez/NataliaTempMineEVELIA Address 1:[address] [facility] Phone Number: Address 2: Fax Number: [facility]:[place] Selection Factors: State:[place] Patient Contact Information Contact Name:NARGIS Relationship: Address:[address] Work Phone: [facility]:[place] Alternate Phone: [facility]/Zip Code:[place] [address] Email: Financial Information Financial Class:Medicare Primary Plan Desc:MEDICARE OUTPATIENT Primary Plan Number:[id number] Secondary Plan Desc:[place] Secondary Plan Number:[id number] Assessment Information LACE LACE Length of stay for Answers: Less than 1 day current admission Acuity / Level of Answers: No Care: Did the patient have an inpatient admission? Comorbidities - select Answers: Diabetes (uncontrolled or all that apply controlled) Other Notes: Chronic vegetative state; HTN; Seizures # of Emergency department Answers: 5-8 visits in the last 6 months Score: 6 Date Signed: 12/13/2017 01:31 PM Electronically Signed By:Katie Ashford RN [facility] CM Progress Note CM Note CM Note Notes: Pt resides at , he is in a persistent vegetative state. He will return to when he is Medically stable, CM available for any changes. DC Plan: Chon Chairez Date Signed: 12/13/2017 11:37 AM Electronically Signed By:Katie Ashford RN Case Management Discharge Plan Note Case Management Discharge Discharge Order Complete? Answers: Yes Patient to Obtain Answers: Other Notes: Chon Thayer Medications Transportation Arranged Answers: [facility] will Pick (Date 12/13/2017 02:00 PM & Time) Case Management Transport Answers: Yes Form Complete Faxed Final Orders Answers: Yes Agency/Facility Transfer Answers: Yes Report Printed & Faxed to Receiving Agency Family Notified Answers: Yes Discharge Comments Notes: D/bessy CHENEY, final orders faxed. Tasha at notified, DAVID to call report. Date Signed: 12/13/2017 01:30 PM Electronically Signed By:Katie Ashford RN Intervention Information
[2017-12-13] MEDS ORDERED: INSULIN GLARGINE 100 UNITS/ML UNIT SC SCH (21:00)
--- NOTE | 2017-12-14 11:08 | HOSPPROG ---
Hospitalist Progress Note Assessment/Plan: Received call from lab re: UCx which is >100K ESBL E coli. Pt sent to [facility] 12/12 with reported fever of 104, but was afebrile here for 24 hrs. WBC was nl, UA with just 25-50 wbc's. 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 Discussed with ID, who advises if fever curve on the rise, may need treatment , but if no more fevers, likely just colonization. [facility] discussed case with pt's RN. He is afebrile this am with temp of 97.5. Advised her that if pt has temp >100.4, return to ED. Also, phoned Dr. Soriano, who will repeat cbc and ua to determine if he has developed leukocytosis or more significant pyuria. Note 12/12 BCx's are ngtd. 30 minutes spent coordinating care. 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 Pneumonia due to Gram negative bacteria Active Bacteria in urine Acute Bradycardia Acute Cellulitis Acute Chronic vegetative state Acute Clostridium difficile infection Acute ~01/12/17 Complicated UTI (urinary tract infection) Acute Dehydration with hypernatremia Acute Fever Acute Healthcare-associated pneumonia Acute Hyperglycemia Acute Hypernatremia Acute Hyponatremia Acute Hypothermia Acute Infected venous access port Acute Influenza A Acute MRSA (methicillin resistant Staphylococcus aureus) Acute ~10/19/16 Pneumonia Acute SIRS (systemic inflammatory response syndrome) Acute Sepsis Acute Sepsis Acute Septic shock Acute Severe sepsis Acute Severe sepsis with acute organ dysfunction Acute UTI (urinary tract infection) Acute Urinary tract infection Acute Urinary tract infection in male Acute VRE (vancomycin-resistant Enterococci) Acute ~09/07/16 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
== END 2017-12-13 14:25 ==
LOC: EDUNIT# → F3E 20:00
PROVIDERS: ADMIT Internal Medicine; ATTEND Internal Medicine
PROC: 0T9B70Z Drainage of Bladder with Drainage Device, Via Natural or Artificial Opening (ICD-10-PCS; principal; 2017-12-12)
DX: R50.9 Fever, unspecified (principal); E87.1 Hypo-osmolality and hyponatremia; J98.11 Atelectasis; L70.0 Acne vulgaris; G82.50 Quadriplegia, unspecified; R40.3 Persistent vegetative state; I10 Essential (primary) hypertension; E78.5 Hyperlipidemia, unspecified; E11.9 Type 2 diabetes mellitus without complications; Z87.440 Personal history of urinary (tract) infections; Z87.01 Personal history of pneumonia (recurrent); Z93.0 Tracheostomy status; Z93.1 Gastrostomy status; Z87.820 Personal history of traumatic brain injury; Z86.14 Personal history of Methicillin resistant Staphylococcus aureus infection
CPT/HCPCS: 51702; 71045; 99285; G0378; J1650; J1815

== ENCOUNTER 2018-07-03 15:11 | Emergency (ER) | payer OTHER, MEDICAID ==
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
[2018-07-03 17:01] VITALS: BP 122/68
== END 2018-07-03 18:06 | disposition home or self-care (01) ==
LOC: EDUNIT#
DX: E87.1 Hypo-osmolality and hyponatremia (principal); R40.3 Persistent vegetative state
CPT/HCPCS: 82435-PO; 82565-PO; 82947-PO; 84132-PO; 84295-PO; 84520-PO; 85014-ER

== ENCOUNTER 2018-11-03 16:11 | Emergency (ER) | payer OTHER, MEDICAID | END 2018-11-03 19:26 | disposition home or self-care (01) ==